=== PATIENT | male | born 1935 ===

== ENCOUNTER 2017-06-30 23:08 | Inpatient (IN) | payer MEDICARE, OTHER ==
[~2017-06-30] VITALS: Ht 175.3 cm; Wt 75.9 kg
[2017-07-01 00:07] VITALS: BP 138/74
[2017-07-01] MEDS ORDERED: MAG HYDROX/AL HYDROX/SIMETH 30 ML ORAL.SUSP PO PRN (00:15)
[2017-07-01] MEDS ORDERED: ACETAMINOPHEN 325 MG TABLET PO PRN (00:15)
[2017-07-01] MEDS ORDERED: MAGNESIUM HYDROXIDE 2,400 MG/30 ML ORAL.SUSP. PO PRN (00:15)
[2017-07-01] MEDS ORDERED: METHYL SALICYLATE/MENTHOL TOPICAL OINTMENT 29GM TUBE. TP PRN (00:15)
[2017-07-01] MEDS ORDERED: HYDROcodone/APAP 5/325MG 1 TAB TABLET PO PRN (00:30)
[2017-07-01] MEDS ORDERED: HYDR-2758 PO (00:35)
[2017-07-01] MEDS ORDERED: LORA2VIA4 IV (00:35)
[2017-07-01] MEDS ORDERED: LISI40TA PO (00:35)
[2017-07-01] MEDS ORDERED: QUET50TA8 PO (00:35)
[2017-07-01] MEDS ORDERED: METO25TA2 PO (00:35)
[2017-07-01] MEDS ORDERED: MIRT15TA PO (00:35)
[2017-07-01] MEDS ORDERED: HALO5AMP2 IV (00:35)
[2017-07-01] MEDS ORDERED: SERT50TA PO (00:35)
[2017-07-01 06:10] VITALS: BP 97/58
[2017-07-01 07:47] LABS: BASO # 0.1 x10^3/uL (0.0-0.2); BASO % 1 % (0-3); EOS # 0.2 x10^3/uL (0.0-0.7); EOS % 2 % (0-3); HEMATOCRIT 38.1 % (39.0-53.0); HEMOGLOBIN 13.2 g/dL (13.0-17.5); LYMPH # 1.3 x10^3/uL (1.0-4.8); LYMPH % 15 % (24-48); MEAN CORPUSCULAR HEMOGLOBIN 32 pg (25-35); MEAN CORPUSCULAR HGB CONC 35 g/dL (31-37); MEAN CORPUSCULAR VOLUME 92 fL (79-100); MONO # 1.1 x10^3/uL (0.0-1.1); MONO % 13 % (0-9); NEUT # 6.3 x10^3uL (1.8-7.7); NEUT % 70 % (31-73); PLATELET COUNT 145 x10^3/uL (140-400); RED BLOOD COUNT 4.14 x10^6/uL (4.30-5.70); RED CELL DISTRIBUTION WIDTH 15.1 % (11.5-14.5)
[2017-07-01 07:57] LABS: ALBUMIN 3.4 g/dL (3.4-5.0); CREATININE 1.3 mg/dL (0.7-1.3); GFR 52.9; MAGNESIUM 1.8 mg/dL (1.8-2.4); POTASSIUM 3.6 mmol/L (3.5-5.1); TOTAL PROTEIN 6.9 g/dL (6.4-8.2)
[2017-07-01] MEDS: LISINOPRIL 20 MG TABLET PO SCH (08:59)
[2017-07-01] MEDS ORDERED: SERTRALINE 50 MG TABLET. PO SCH (09:00)
[2017-07-01] MEDS: METOPROLOL SUCC 24HR ER 25 MG TAB.ER.24H. PO SCH (09:00)
[2017-07-01 12:08] LABS: THYROID STIM HORMONE (TSH) 3.518 uIU/mL (0.358-3.740)
[2017-07-01 15:55] VITALS: BP 148/77
[2017-07-01] MEDS ORDERED: CHOLECALCIFEROL (VITAMIN D3) 50,000 UNIT CAPSULE PO SCH (18:00)
[2017-07-01 18:11] LABS: T3 TOTAL 79 ng/dL (71-180); THYROXINE 6.7 ug/dL (4.5-12.0)
[2017-07-01] MEDS: QUEtiapine 100 MG TABLET. PO SCH (19:54)
[2017-07-01] MEDS: MIRTAZAPINE 15 MG TABLET PO SCH (19:54)
[2017-07-01] MEDS ORDERED: MIRTAZAPINE 15 MG TABLET PO SCH (21:00)
[2017-07-02 05:58] VITALS: BP 130/65
[2017-07-02] MEDS: LISINOPRIL 20 MG TABLET PO SCH (08:07)
[2017-07-02] MEDS: METOPROLOL SUCC 24HR ER 25 MG TAB.ER.24H. PO SCH (08:07)
[2017-07-02] MEDS: SERTRALINE 25 MG TABLET. PO SCH (08:07)
[2017-07-02] MEDS: CHOLECALCIFEROL (VITAMIN D3) 50,000 UNIT CAPSULE PO SCH (08:08)
--- NOTE | 2017-07-02 08:56 | CONS ---
DATE OF CONSULTATION: 07/01/2017 REASON FOR CONSULTATION: Medical management. HISTORY OF PRESENT ILLNESS: The patient is an 82-year-old male patient who apparently resides at memory unit at [facility]. Apparently, he was complaining of multiple falls and dementia, has ataxia on admission, was admitted to [facility] where he was extensively investigated. He has had a CT scan of the head, which was negative. MRI could not be done because he had permanent pacemaker. He had a lumbar puncture, which showed no evidence of meningitis or bacterial otherwise. He developed also acute confusional states while in the hospital, he became very aggressive and was seen by the psychiatrist where he was started on Seroquel 100 mg at bedtime and on Haldol as necessary. The patient was [facility] for inpatient psychiatric stabilization as he was very aggressive, requiring a 4-point restraints while he was at the other hospital. According to the nursing staff, the patient has been very cooperative, did not display any behavior like that while at this facility at least so far. PAST MEDICAL HISTORY: Significant for hypertension, type 2 diabetes. He has cataract in his left eye, coronary artery disease status post stent deployment, has also history of CVA and dementia. PAST SURGICAL HISTORY: Significant for permanent pacemaker, PCI with stent deployment and cataract extraction. FAMILY HISTORY: Unremarkable. 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 He is a nonsmoker. He drinks alcohol occasionally. PAST SURGICAL HISTORY: Significant for appendectomy, back surgery, prior cardiac catheterization, colectomy with colostomy, colonoscopy, colostomy reversal, and a pacemaker placement. ALLERGIES: He has no known drug allergies. MEDICATIONS: He is currently on following medications, Haldol 5 mg/mL intramuscular as needed every 8 hours, hydrocodone/APAP 5/325 one tablet every 4 hours, lisinopril ____ mg once a day, lorazepam 2 mg/mL while the patient gets 0.5 mg IV every 8 hours, metoprolol succinate 25 mg once a day, mirtazapine 7.5 mg at bedtime, quetiapine fumarate 100 mg at bedtime and sertraline 50 mg daily. REVIEW OF SYSTEMS: Unobtainable. When I saw him this afternoon, he was sitting comfortably in his chair, attempting to eat his dinner, although he seemed to be confused and unable to know what to do with his food. His was slightly pale without jaundice, cyanosis, or thyromegaly. No jugular venous distension. No limb edema. PHYSICAL EXAMINATION: VITAL SIGNS: His heart rate was 62, blood pressure 148/77, temperature was 97.9, respiratory rate was 18 and oxygen saturation was 94% on room air. His other clinical examination seems to be unremarkable as he was seen at the [facility] and examined by multiple physicians there. LABORATORY DATA: His lab work done this morning showed a serum sodium 143, potassium 3.6, chloride 105, bicarbonate 29, anion gap of 9, BUN 25, creatinine 1.3, estimated GFR was 53 mL per minute, his glucose 157, calcium was 9, magnesium was 1.8. Serum iron was 42, TIBC was 27, percent saturation 20%. His total bilirubin 1. AST, ALT, alkaline phosphatase were normal. Total protein 6.9, albumin 3.4. Serum triglycerides were 99. Total cholesterol 151, LDL cholesterol was 81, VLDL was 19, HDL was 51 with a ratio of 2. TSH was 2.518. Vitamin B12 was 860 pg/mL and 25-hydroxy vitamin D was very low at 10.7. His white cell count was 9000, hemoglobin 13, hematocrit 38, MCV 92, and platelet count of 145,000 with normal manual differential. IMPRESSION: In summary, this is an 82-year-old male patient, a resident at [facility] who was admitted with recurrent falls and ataxic gait; however, he developed acute delirium on top of his dementia and became very aggressive requiring 4-point restraints while at the other hospital. He is here for inpatient psychiatric stabilization, has multiple medical problems including hypertension. He carries a diagnosis of diabetes mellitus, although his blood sugar unremarkable. He is not on any oral hypoglycemic agent. He also has a history of dementia, coronary artery disease status post stent deployment, history of cerebrovascular accident 2-3 years ago, history of diverticulitis as well as colectomy and colostomy with reversal. All in all, he seemed to be medically stable. All his vital signs to be within acceptable range. His lab work was also normal apart from vitamin D deficiency for which we started him on ergocalciferol 50,000 international units once a week. We will do Accu-Cheks before meals and bedtime and also hemoglobin A1c to make sure that he does not require any coverage. Thank you, Dr. Muller, for allowing me to participate in the care of this patient. HOLLIS ROYAL MD DR: RYAN/nathan JOB#: [id number] / [id number]
[2017-07-02 11:34] LABS: BACTERIA,URINE 0 /HPF (0-FEW); BILIRUBIN,URINE NEG (NEG); CLARITY,URINE CLEAR; COLOR,URINE AMBER; GLUCOSE,URINE NEG (NEG); NITRITE,URINE NEG (NEG); SQUAMOUS EPITHELIAL CELL,UR FEW /LPF; UROBILINOGEN,URINE 0.2 mg/dL (0.2 mg/dL); WBC,URINE 0 /HPF (0-4)
[2017-07-02 11:35] LABS: HYALINE CASTS, URINE MOD /HPF
[2017-07-02 15:53] VITALS: BP 163/64
--- NOTE | 2017-07-02 16:36 | PSYEV ---
DATE OF SERVICE: 07/01/2017 REASON FOR ADMISSION: This 82-year-old male who was admitted to unit 6 as transfer from [facility] where he was kept under 4-point restraints in the hospital because he was trying to hit the staff, kicking legs, not sleeping, pulling at his IV, calling for his mother. The patient was also aggressive and confused. HISTORY OF PRESENT ILLNESS: The patient is on wheelchair, had considerable difficulty providing information. He is slow to respond to questions. The patient thinks that he has been living in [place] with his parents. The patient is not able to comprehend his surroundings, confused, fearful. The patient apparently exhibiting recent change in his behavior. As a result, he was admitted to one of the assisted living and then to the [facility] in [place]. The patient is not able to take care of his ADLs. The patient also has multiple physical complaints. The patient also has some hearing loss, able to make eye contact. His vision is fairly good. The patient at this time unable to give much information The patient has no awareness of his surroundings. PAST PSYCHIATRIC HISTORY: Unavailable except for a recent stay at [facility]. PAST MEDICAL HISTORY: The patient has multiple physical problems, history of CVA, cardiac pacemaker, hypertension, diabetes, colitis, coronary artery disease with stents placement in 2012, also colostomy reversal, history of diverticulitis, history of falls. PSYCHOSOCIAL HISTORY: The patient unable to give much information. 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 The patient apparently not sleeping well. The patient also confused, significant agitation. The patient has no history of alcoholism or tobacco use. 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 MEDICATIONS: The patient's home medications includes Zoloft 50 mg daily, mirtazapine 7.5 mg at night, Seroquel 100 mg at night, lisinopril 40 mg daily, and metoprolol 25 mg daily. The patient's lab reviewed. The patient's RBC was 4.1, MCHC 15.1, glucose 157. Iron 42, TIBC 207. Lipid profile normal. FAMILY HISTORY: Not available. MENTAL STATUS EXAMINATION: The patient appeared to be of his stated age, casually dressed, on wheelchair, able to make eye contact. The patient is somewhat withdrawn appeared to be scared, not knowing what is going on with him. The patient denied of any visual or auditory hallucinations. The patient denies of having had any falls. Speech monotone, decreased rate and rhythm. The patient was able to answer the questions. The patient has significant memory problems. The patient was able to name 3 objects, but not able to remember them in 1 minute and 3 minutes. The patient's remote memory fairly intact. The patient is not exhibiting any psychotic symptoms, but recently has exhibited behavior problems including increased agitation and being combative. The patient denies of feeling depressed. The patient denies of any suicidal or homicidal thoughts. His judgment is impaired. Insight limited. The patient is disoriented to surroundings. ASSETS: Supportive family. WEAKNESSES: The patient currently exhibiting behavior problems secondary to dementia and also fall risk. ADMITTING DIAGNOSIS: AXIS I: 1. Dementia, vascular with behavioral problems. 2. Generalized anxiety disorder. 3. Impulse control disorder, unspecified. AXIS II: None. AXIS III: Dementia, vascular type, history of CVA, cardiac pacemaker, hypertension, diabetes, history of colitis, also history of falls. INITIAL TREATMENT PLAN: The patient will have a physical exam, routine lab work. The patient will continue on his medication with the following changes. His Zoloft was decreased to 25 mg. The patient's Remeron was increased to 15 mg at night. Continue on the Seroquel 100 mg at night. The patient will be seen by the psychiatrist on a daily basis. The patient will be encouraged to attend all the activities. The patient also on fall prevention. DISCHARGE PLANS: 1. The patient will be under observation. We will repeat the lab work including his urinalysis to rule out UTI. The patient will be encouraged to attend all the activities and administrator social welfare to obtain information from the family and also medical records from the [facility]. LENGTH OF STAY: 7-10 days. DE KHAN MD DR: MINNIE/nathan JOB#: [id number] / [id number]
[2017-07-02] MEDS: MIRTAZAPINE 15 MG TABLET PO SCH (19:18)
[2017-07-02] MEDS: QUEtiapine 100 MG TABLET. PO SCH (19:18)
[2017-07-03] MEDS: HYDROcodone/APAP 5/325MG 1 TAB TABLET PO PRN (00:13)
--- NOTE | 2017-07-03 06:57 | PN ---
DATE: 07/02/2017 SUBJECTIVE: The patient was seen today, met with the staff, chart reviewed. The patient is still confused on a wheelchair, restless, combative, reacts to external stimuli. The patient is not sleeping well. The patient is difficult to redirect. OBSERVATION: The patient's vital signs are stable. The patient's appetite is fair. The patient interacts with the staff, but is confused, sometimes paranoid, gets agitated easily. MEDICATIONS: The patient's current medications include Zoloft 25 mg daily, mirtazapine 15 mg at night, Seroquel 100 mg at night. The patient so far not exhibited any major side effects. The patient will be encouraged to attend all the activities. The patient ____ had any falls. The patient's lab reviewed. Blood sugar elevated at 154, otherwise most of the lab work was within normal range. The patient's RPR was nonreactive. Urinalysis was negative. ASSESSMENT: Vascular dementia with delusions, depression, and behavioral problems. PLAN: To continue with the treatment. DE KHAN MD DR: MINNIE/nathan JOB#: [id number] / [id number]
[2017-07-03] MEDS: LISINOPRIL 20 MG TABLET PO SCH (09:10)
[2017-07-03] MEDS: SERTRALINE 25 MG TABLET. PO SCH (09:11)
[2017-07-03] MEDS: METOPROLOL SUCC 24HR ER 25 MG TAB.ER.24H. PO SCH (09:11)
--- NOTE | 2017-07-03 13:57 | EKG ---
[address] [address] Test Date: 2017-07-01 Test Time: 07:06:24 Pat Name: RAFAEL BEAN Department: Room: [facility] 1 Gender: M Glove Examiner: LILI : 1935 Requested By: DE KHAN Order Number: [id number] Reading MD: Oj Copeland Measurements Intervals [place] Rate: 60 P: -59 SD: 184 QRS: -45 QRSD: 106 T: 72 QT: 438 QTc: 442 Interpretive Statements ATRIAL PACED RHYTHM NONSPECIFIC ST-T WAVE CHANGES. RI6.01 No previous ECG available for comparison Electronically Signed On 07-09-2017 12:43:47 CIRCULATION LIBRARIAN by Oj Copeland
[2017-07-03 15:58] VITALS: BP 159/71
[2017-07-03] MEDS: MIRTAZAPINE 15 MG TABLET PO SCH (20:23)
[2017-07-03] MEDS: QUEtiapine 100 MG TABLET. PO SCH (20:23)
--- NOTE | 2017-07-04 03:34 | PN ---
DATE: 07/03/2017 SUBJECTIVE: The patient was seen today, met with the staff, chart reviewed and also reviewed the treatment plan. The patient continues to have problems with mood swings, combative, confused. OBSERVATION: VITAL SIGNS: The patient refused. The patient slept only about 2 hours last night. The patient is difficult to redirect. The patient also unpredictable with his behavior. MEDICATIONS: Reviewed. Currently on olanzapine 2.5 mg q.2 hours p.r.n., Zoloft 25 mg daily, mirtazapine 15 mg at night, Seroquel 100 mg at night. The patient will be encouraged to attend the activities. LABORATORY DATA: The patient's lab reviewed, no major change. The patient's glucose level was 157. ASSESSMENT: Vascular dementia with delusions, depression, and behavioral disturbances. PLAN: To continue with the treatment. DE KHAN MD DR: MINNIE/nathan JOB#: [id number] / [id number]
[2017-07-04 06:07] VITALS: BP 154/81
[2017-07-04] MEDS: LISINOPRIL 20 MG TABLET PO SCH (07:36)
[2017-07-04] MEDS: SERTRALINE 25 MG TABLET. PO SCH (07:36)
[2017-07-04] MEDS: METOPROLOL SUCC 24HR ER 25 MG TAB.ER.24H. PO SCH (07:36)
[2017-07-04 15:23] VITALS: BP 102/66
[2017-07-04] MEDS: MIRTAZAPINE 15 MG TABLET PO SCH (19:12)
[2017-07-04] MEDS: QUEtiapine 100 MG TABLET. PO SCH (19:13)
[2017-07-04] MEDS: HYDROcodone/APAP 5/325MG 1 TAB TABLET PO PRN ×2 (19:15→20:56)
[2017-07-04] MEDS ORDERED: HALOPERIDOL 5 MG TABLET PO ONE (23:45)
[2017-07-05] MEDS: HALOPERIDOL 2 MG TABLET PO PRN ×3 (00:56→19:41)
[2017-07-05 02:08] VITALS: BP 113/60
[2017-07-05 06:09] VITALS: BP 132/87
[2017-07-05] MEDS: METOPROLOL SUCC 24HR ER 25 MG TAB.ER.24H. PO SCH (07:51)
[2017-07-05] MEDS: SERTRALINE 25 MG TABLET. PO SCH (07:51)
[2017-07-05] MEDS: LISINOPRIL 20 MG TABLET PO SCH (07:52)
--- NOTE | 2017-07-05 13:08 | PN ---
DATE: 07/04/2017 SUBJECTIVE: The patient was seen today, met with the staff, chart reviewed. The patient continues to have problems with mood swings, periods of confusion, agitation, also a fall risk. OBSERVATION: VITAL SIGNS: Temperature 97.4, blood pressure 154/81, pulse 61, respirations 18, O2 sat 98%. Apparently, the patient did not sleep at all last night, but again he sleeps during the daytime. The patient's medications reviewed. Also, lab reviewed. The patient's appetite is fair. He needs close observation. MEDICATIONS: The patient's current medications include olanzapine 2.5 mg q. 2-4 hours p.r.n., Zoloft 25 mg daily, mirtazapine 15 mg at night, and Seroquel 100 mg at night. ASSESSMENT: Vascular dementia with delusions, depression, and behavioral disturbances. PLAN: To continue with the treatments. DE KHAN MD DR: MINNIE/nathan JOB#: [id number] / [id number]
[2017-07-05 16:00] VITALS: BP 107/68
[2017-07-05] MEDS ORDERED: DEXTROSE 50% 25 GM / 50ML DISP.SYRIN. IV PRN (18:00)
[2017-07-05] MEDS: QUEtiapine 100 MG TABLET. PO SCH (19:39)
[2017-07-05] MEDS: MIRTAZAPINE 15 MG TABLET PO SCH (19:39)
[2017-07-06 06:06] VITALS: BP 108/55
[2017-07-06] MEDS: INSULIN ASPART 300 UNITS/3 ML INSULN.PEN SQ SCH ×3 (07:30→16:30)
[2017-07-06] MEDS: LISINOPRIL 20 MG TABLET PO SCH (07:37)
[2017-07-06] MEDS: SERTRALINE 25 MG TABLET. PO SCH (07:37)
[2017-07-06] MEDS: METOPROLOL SUCC 24HR ER 25 MG TAB.ER.24H. PO SCH (07:37)
[2017-07-06] MEDS: HALOPERIDOL 2 MG TABLET PO PRN ×2 (10:14→19:26)
[2017-07-06 16:17] VITALS: BP 184/86
[2017-07-06] MEDS: MIRTAZAPINE 15 MG TABLET PO SCH (19:24)
[2017-07-06] MEDS: QUEtiapine 100 MG TABLET. PO SCH (19:25)
--- NOTE | 2017-07-06 19:52 | PDOC ---
Exam Note: Lars Note: Please also refer to the separate dictated note~for this date of service dictated separately.~Patient seen individually. Discussed the patient with Nursing staff reviewed the chart.~Reviewed interim history and current functioning. Reviewed vital signs,~Labs/ Radiology~and current medications noted below. Continue current treatment with the changes noted in the dictated addendum note Assessment: Vital Signs: Vital Signs Date Time Temp Pulse Resp B/P (MAP) Pulse Ox O2 Delivery O2 Flow Rate FiO2 07/06/17 16:17 60 18 184/86 (118) 96 07/06/17 06:06 97.1 07/04/17 21:55 Room Air I&O Intake and Output 07/06/17 07:00 Intake Total 505 ml Balance 505 ml Intake Oral 505 ml Labs: Laboratory Tests Test 07/06/17 07:32 07/06/17 11:34 07/06/17 16:38 07/06/17 19:26 Glucose (Fingerstick) 156 mg/dL (70-99) H 204 mg/dL (70-99) H 170 mg/dL (70-99) H 156 mg/dL (70-99) H Current Medications: Meds: Current Medications Acetaminophen (Tylenol) 650 mg PRN Q6HRS PRN PO PAIN / TEMP; Start 07/01/17 at 00:15 Multi-Ingredient Ointment (Analgesic [place]) 1 chary PRN QID PRN TP MUSCLE PAIN; Start 07/01/17 at 00:15 Al Hydroxide/Mg Hydroxide (Mylanta Plus Xs) 15 ml PRN AFTMEALHC PRN PO DYSPEPSIA; Start 07/01/17 at 00:15 Magnesium Hydroxide (Milk Of Magnesia) 2,400 mg PRN QHS PRN PO CONSTIPATION; Start 07/01/17 at 00:15 Acetaminophen/ Hydrocodone Bitart (Lortab 5/325) 1 tab PRN Q4HRS PRN PO MILD PAIN Last administered on 07/04/17at 20:56; Start 07/01/17 at 00:30 Acetaminophen/ Hydrocodone Bitart (Lortab 5/325) 2 tab PRN Q4HRS PRN PO moderate or severe pain Last administered on 07/03/17at 22:33; Start 07/01/17 at 00:30 Metoprolol Succinate (Toprol Xl) 25 mg DAILY PO Last administered on 07/06/17 07:37; Start 07/01/17 at 09:00 Mirtazapine (Remeron) 7.5 mg QHS PO ; Start 07/01/17 at 21:00; Stop 07/01/17 at 21:00; Status DC Sertraline HCl (Zoloft) 50 mg DAILY PO Last administered on 07/01/17at 09:01; Start 07/01/17 at 09:00; Stop 07/01/17 at 18:49; Status DC Lisinopril (Prinivil) 40 mg DAILY PO Last administered on 07/06/17at 07:37; Start 07/01/17 at 09:00 Quetiapine Fumarate (SEROquel) 100 mg QHS PO Last administered on 07/06/17 19: 25; Start 07/01/17 at 21:00 Vitamin D (Vitamin D3) 50,000 unit WEEKLY PO ; Start 07/01/17 at 18:00; Stop at 19:03; Status DC Mirtazapine (Remeron) 15 mg QHS PO Last administered on 07/06/17at 19:24; Start 07/01/17 at 21:00 Sertraline HCl (Zoloft) 25 mg DAILY PO Last administered on 07/06/17 07:37; Start 07/02/17 at 09:00 Vitamin D (Vitamin D3) 50,000 unit WEEKLY PO Last administered on 07/02/17at 08: 08; Start 07/02/17 at 09:00 Olanzapine (ZyPREXA ZYDIS) 2.5 mg PRN Q2HR PRN PO psychosis Last administered on 07/04/17 20:56; Start 07/02/17 at 16:15; Stop 07/04/17 at 23:31; Status DC Haloperidol (Haldol) 5 mg 1X ONCE PO Last administered on 07/05/17 00:00; Start 07/04/17 at 23:45; Stop 07/04/17 at 23:46; Status DC Haloperidol (Haldol) 2 mg PRN Q6HRS PRN PO ANXIETY / AGITATION Last administered on 07/06/17 19:26; Start 07/04/17 at 23:30 Insulin Aspart (NovoLOG) 0-5 UNITS TIDAC SQ Last administered on 2/4/18at 13:32 ; Start 07/06/17 at 07:30 Dextrose 12.5 gm PRN Q15MIN PRN IV SEE COMMENTS; Start 07/05/17 at 18:00 Active Scripts Active Reported Zoloft (Sertraline Hcl) 50 Mg Tablet 50 Mg PO DAILY Seroquel Xr (Quetiapine Fumarate) 50 Mg Tab.er.24h 100 Mg PO QHS Remeron (Mirtazapine) 15 Mg Tablet 7.5 Mg PO QHS Toprol Xl (Metoprolol Succinate) 25 Mg Tab.er.24h 25 Mg PO DAILY Ativan (Lorazepam) 2 Mg/1 Ml Vial 0.5 Mg IV PRN Q8HRS PRN Hydrocodone-Apap 5-325 (Hydrocodone Bit/Acetaminophen) 1 Each Tablet 2 Tab PO PRN Q4HRS PRN Hydrocodone-Apap 5-325 (Hydrocodone Bit/Acetaminophen) 1 Each Tablet 1 Tab PO PRN Q4HRS PRN Lisinopril 40 Mg Tablet 40 Mg PO DAILY Haldol (Haloperidol Lactate) 5 Mg/1 Ml Ampul 1 Mg IV PRN Q8HRS PRN I have reviewed the current psychotropics carefully including drug interactions. Risk benefit ratio favors no change other than as noted in my dictated progress note. Diagnosis: Problems: (1) Delusion (2) Behavior problem (3) Vascular dementia with behavior disturbance (4) Dementia with behavioral problem AMPARO GUY MD Jul 06, 2017 19:52
--- NOTE | 2017-07-06 23:01 | PN ---
DATE: 07/05/[address] Muller. SUBJECTIVE: The patient has been combative and has a fall risk. He did fall yesterday and he had bruising on his lip. He has been agitated and he was given Haldol 2 mg to calm him down. Zyprexa Zydis was discontinued. The patient denies any new medical complaints. OBJECTIVE: GENERAL: Well-developed, well-nourished white male, not in acute distress. VITAL SIGNS: Blood pressure 132/87, respiratory rate 16, pulse 91 and regular, temperature 97.1, oxygen saturation 91% on room air. HEENT: Normocephalic, atraumatic, otherwise unremarkable. NECK: Supple. Negative for carotid bruit, lymphadenopathy or thyromegaly. LUNGS: Clear to A and P. CARDIOVASCULAR: Regular rate and rhythm, normal S1, S2. There is no S3, S4, murmur. ABDOMEN: Soft. Bowel sounds positive. No palpable mass, organomegaly or tenderness. EXTREMITIES: Negative for cyanosis, clubbing or pitting edema. NEUROLOGICAL: Mental Status: The patient is alert, but disoriented. He follows 1-step commands. Cranial nerves appear to be intact. No focal motor or sensory deficit. Deep tendon reflexes are symmetric and hypoactive without pathologic responses. Gait not tested. IMPRESSION: Dementia, delusion, behavior disturbances, and multiple medical problems include stroke, status post pacemaker placement, hypertension, diabetes, colitis, coronary artery disease. RECOMMENDATIONS: We will continue with current management, initiated by Dr. Hernandez includes Haldol on p.r.n. for agitation along with other psych medications. M Jackson BARRIOS MD DR: PEARL/nathan JOB#: [id number] / [id number]
[2017-07-07] MEDS: SERTRALINE 25 MG TABLET. PO SCH (08:53)
[2017-07-07] MEDS: LISINOPRIL 20 MG TABLET PO SCH (08:53)
[2017-07-07] MEDS: METOPROLOL SUCC 24HR ER 25 MG TAB.ER.24H. PO SCH (08:53)
[2017-07-07] MEDS: INSULIN ASPART 300 UNITS/3 ML INSULN.PEN SQ SCH ×3 (08:55→16:30)
[2017-07-07 09:39] LABS: BASO # 0.1 x10^3/uL (0.0-0.2); BASO % 1 % (0-3); EOS # 0.3 x10^3/uL (0.0-0.7); EOS % 3 % (0-3); HEMATOCRIT 37.8 % (39.0-53.0); HEMOGLOBIN 12.9 g/dL (13.0-17.5); LYMPH # 1.1 x10^3/uL (1.0-4.8); LYMPH % 13 % (24-48); MEAN CORPUSCULAR HEMOGLOBIN 32 pg (25-35); MEAN CORPUSCULAR HGB CONC 34 g/dL (31-37); MEAN CORPUSCULAR VOLUME 93 fL (79-100); MONO % 11 % (0-9); NEUT # 6.3 x10^3uL (1.8-7.7); NEUT % 72 % (31-73); PLATELET COUNT 154 x10^3/uL (140-400); RED BLOOD COUNT 4.07 x10^6/uL (4.30-5.70); RED CELL DISTRIBUTION WIDTH 15.3 % (11.5-14.5); WHITE BLOOD COUNT 8.7 x10^3/uL (4.0-11.0)
[2017-07-07 09:43] LABS: ALBUMIN 3.2 g/dL (3.4-5.0); CALCIUM 9.1 mg/dL (8.5-10.1); CREATININE 1.3 mg/dL (0.7-1.3); GFR 52.9; POTASSIUM 4.1 mmol/L (3.5-5.1); TOTAL BILIRUBIN 0.7 mg/dL (0.2-1.0); TOTAL PROTEIN 6.4 g/dL (6.4-8.2)
[2017-07-07] MEDS: HALOPERIDOL 2 MG TABLET PO PRN ×2 (15:00→23:33)
--- NOTE | 2017-07-07 15:33 | RAD ---
Portable abdomen, 07/07/2017: History: Constipation Gas is present in probably large bowel without significant bowel distention. There is a moderate amount stool scattered throughout the colon. There is no evidence of organomegaly. Surgical clips and sutures overlie the upper pelvis on the left. Surgical clips are present in the right upper quadrant. Internal fixation devices are present in the lower lumbar spine. Moderate multilevel degenerative changes are evident in the spine. IMPRESSION: No acute abdominal abnormality is detected.
[2017-07-07 16:14] VITALS: BP 138/65
[2017-07-07] MEDS: QUEtiapine 100 MG TABLET. PO SCH (19:26)
[2017-07-07] MEDS: MIRTAZAPINE 15 MG TABLET PO SCH (19:26)
[2017-07-07] MEDS: traZODone 50 MG TABLET. PO PRN ×2 (19:29→23:33)
--- NOTE | 2017-07-07 21:14 | PDOC ---
Exam Note: Lars Note: Please also refer to the separate dictated note~for this date of service dictated separately.~Patient seen individually. Discussed the patient with Nursing staff reviewed the chart.~Reviewed interim history and current functioning. Reviewed vital signs,~Labs/ Radiology~and current medications noted below. Continue current treatment with the changes noted in the dictated addendum note Assessment: Vital Signs: Vital Signs Date Time Temp Pulse Resp B/P (MAP) Pulse Ox O2 Delivery O2 Flow Rate FiO2 07/07/17 16:14 97.8 67 18 138/65 (89) 92 07/04/17 21:55 Room Air I&O Intake and Output 07/07/17 07:00 Intake Total 960 ml Balance 960 ml Intake Oral 960 ml # Voids 1 Labs: Laboratory Tests Test 07/07/17 08:01 07/07/17 09:09 07/07/17 11:52 07/07/17 17:01 Glucose (Fingerstick) 166 mg/dL (70-99) H 260 mg/dL (70-99) H 140 mg/dL (70-99) H White Blood Count 8.7 x10^3/uL (4.0-11.0) Red Blood Count 4.07 x10^6/uL (4.30-5.70) L Hemoglobin 12.9 g/dL (13.0-17.5) L Hematocrit 37.8 % (39.0-53.0) L Mean Corpuscular Volume 93 fL (79-100) Mean Corpuscular Hemoglobin 32 pg (25-35) Mean Corpuscular Hemoglobin Concent 34 g/dL (31-37) Red Cell Distribution Width 15.3 % (11.5-14.5) H Platelet Count 154 x10^3/uL (140-400) Neutrophils (%) (Auto) 72 % (31-73) Lymphocytes (%) (Auto) 13 % (24-48) L Monocytes (%) (Auto) 11 % (0-9) H Eosinophils (%) (Auto) 3 % (0-3) Basophils (%) (Auto) 1 % (0-3) Neutrophils # (Auto) 6.3 x10^3uL (1.8-7.7) Lymphocytes # (Auto) 1.1 x10^3/uL (1.0-4.8) Monocytes # (Auto) 1.0 x10^3/uL (0.0-1.1) Eosinophils # (Auto) 0.3 x10^3/uL (0.0-0.7) Basophils # (Auto) 0.1 x10^3/uL (0.0-0.2) Sodium Level 146 mmol/L (136-145) H Potassium Level 4.1 mmol/L (3.5-5.1) Chloride Level 109 mmol/L (98-107) H Carbon Dioxide Level 33 mmol/L (21-32) H Anion Gap 4 (6-14) L Blood Urea Nitrogen 35 mg/dL (8-26) H Creatinine 1.3 mg/dL (0.7-1.3) Estimated GFR (Cockcroft-Gault) 52.9 BUN/Creatinine Ratio 27 (6-20) H Glucose Level 166 mg/dL (70-99) H Calcium Level 9.1 mg/dL (8.5-10.1) Magnesium Level 2.0 mg/dL (1.8-2.4) Total Bilirubin 0.7 mg/dL (0.2-1.0) Aspartate Amino Transferase (AST) 26 U/L (15-37) Alanine Aminotransferase (ALT) 32 U/L (16-63) Alkaline Phosphatase 119 U/L (46-116) H Total Protein 6.4 g/dL (6.4-8.2) Albumin 3.2 g/dL (3.4-5.0) L Albumin/Globulin Ratio 1.0 (1.0-1.7) Current Medications: Meds: Current Medications Acetaminophen (Tylenol) 650 mg PRN Q6HRS PRN PO PAIN / TEMP; Start 07/01/17 at 00:15 Multi-Ingredient Ointment (Analgesic [place]) 1 chary PRN QID PRN TP MUSCLE PAIN; Start 07/01/17 at 00:15 Al Hydroxide/Mg Hydroxide (Mylanta Plus Xs) 15 ml PRN AFTMEALHC PRN PO DYSPEPSIA; Start 07/01/17 at 00:15 Magnesium Hydroxide (Milk Of Magnesia) 2,400 mg PRN QHS PRN PO CONSTIPATION Last administered on 07/07/17at 09:00; Start 07/01/17 at 00:15 Acetaminophen/ Hydrocodone Bitart (Lortab 5/325) 1 tab PRN Q4HRS PRN PO MILD PAIN Last administered on 07/04/17 20:56; Start 07/01/17 at 00:30 Acetaminophen/ Hydrocodone Bitart (Lortab 5/325) 2 tab PRN Q4HRS PRN PO moderate or severe pain Last administered on 07/03/17 22:33; Start 07/01/17 at 00:30; Stop 07/06/17 at 21:38; Status DC Metoprolol Succinate (Toprol Xl) 25 mg DAILY PO Last administered on 07/07/17 08:53; Start 07/01/17 at 09:00 Mirtazapine (Remeron) 7.5 mg QHS PO ; Start 07/01/17 at 21:00; Stop 07/01/17 at 21:00; Status DC Sertraline HCl (Zoloft) 50 mg DAILY PO Last administered on 07/01/17 09:01; Start 07/01/17 at 09:00; Stop 07/01/17 at 18:49; Status DC Lisinopril (Prinivil) 40 mg DAILY PO Last administered on 07/07/17 08:53; Start 07/01/17 at 09:00 Quetiapine Fumarate (SEROquel) 100 mg QHS PO Last administered on 07/07/17 19: 26; Start 07/01/17 at 21:00 Vitamin D (Vitamin D3) 50,000 unit WEEKLY PO ; Start 07/01/17 at 18:00; Stop at 19:03; Status DC Mirtazapine (Remeron) 15 mg QHS PO Last administered on 07/07/17 19:26; Start 07/01/17 at 21:00 Sertraline HCl (Zoloft) 25 mg DAILY PO Last administered on 07/07/17 08:53; Start 07/02/17 at 09:00; Stop 07/07/17 at 18:39; Status DC Vitamin D (Vitamin D3) 50,000 unit WEEKLY PO Last administered on 07/02/17at 08: 08; Start 07/02/17 at 09:00 Olanzapine (ZyPREXA ZYDIS) 2.5 mg PRN Q2HR PRN PO psychosis Last administered on 2/2/18at 20:56; Start 07/02/17 at 16:15; Stop 07/04/17 at 23:31; Status DC Haloperidol (Haldol) 5 mg 1X ONCE PO Last administered on 07/05/17at 00:00; Start 07/04/17 at 23:45; Stop 07/04/17 at 23:46; Status DC Haloperidol (Haldol) 2 mg PRN Q6HRS PRN PO ANXIETY / AGITATION Last administered on 07/07/17at 15:00; Start 07/04/17 at 23:30 Insulin Aspart (NovoLOG) 0-5 UNITS TIDAC SQ Last administered on 07/07/17at 11:30 ; Start 07/06/17 at 07:30 Dextrose 12.5 gm PRN Q15MIN PRN IV SEE COMMENTS; Start 07/05/17 at 18:00 Olanzapine (ZyPREXA ZYDIS) 2.5 mg PRN Q2HR PRN PO PSYCHOSIS Last administered on 07/07/17at 19:41; Start 07/06/17 at 21:45 Trazodone HCl (Desyrel) 50 mg PRN QHS PRN PO INSOMNIA, MAY REPEAT X1 Last administered on 07/07/17at 19:29; Start 07/07/17 at 17:45 Sertraline HCl (Zoloft) 50 mg DAILY PO ; Start 07/08/17 at 09:00 Divalproex Sodium (Depakote Sprinkles) 125 mg TID@0900,1300,1700 PO ; Start 07/08 at 09:00 Active Scripts Active Reported Zoloft (Sertraline Hcl) 50 Mg Tablet 50 Mg PO DAILY Seroquel Xr (Quetiapine Fumarate) 50 Mg Tab.er.24h 100 Mg PO QHS Remeron (Mirtazapine) 15 Mg Tablet 7.5 Mg PO QHS Toprol Xl (Metoprolol Succinate) 25 Mg Tab.er.24h 25 Mg PO DAILY Ativan (Lorazepam) 2 Mg/1 Ml Vial 0.5 Mg IV PRN Q8HRS PRN Hydrocodone-Apap 5-325 (Hydrocodone Bit/Acetaminophen) 1 Each Tablet 2 Tab PO PRN Q4HRS PRN Hydrocodone-Apap 5-325 (Hydrocodone Bit/Acetaminophen) 1 Each Tablet 1 Tab PO PRN Q4HRS PRN Lisinopril 40 Mg Tablet 40 Mg PO DAILY Haldol (Haloperidol Lactate) 5 Mg/1 Ml Ampul 1 Mg IV PRN Q8HRS PRN I have reviewed the current psychotropics carefully including drug interactions. Risk benefit ratio favors no change other than as noted in my dictated progress note. 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
--- NOTE | 2017-07-07 23:39 | PN ---
DATE: 07/06/2017 This is a late entry for 07/06/2017 and covers the elements not covered in my initial note of 07/06/2017. SUBJECTIVE: I met with the patient evening of 07/06/2017. Per nursing report, the patient has been combative with cares worse at night, has multiple skin tears on the mattress several times during the day, received Haldol p.r.n., not sleeping well at night, combative at times. REVIEW OF SYSTEMS: Ambulation impaired with a wheelchair. No CV, , pulmonary, eye, ENT system symptoms on review. Reliability poor. MENTAL STATUS EXAM: Oriented to himself. Insight, judgment, recent and remote memory, attention, concentration, fund of knowledge poor, consistent with his diagnosis mentioned in my initial note. IMPRESSION: Major neurocognitive disorder, Alzheimer, vascular with depression, delusion, behavioral disturbance. PLAN: Change Haldol p.r.n. to Zyprexa 2.5 mg q. 2 hours p.r.n. psychosis, agitation, max 10 mg in 24 hours. Continue Seroquel 100 mg at bedtime, Remeron 15 mg at bedtime, Zoloft 25 mg a day; may need to add trazodone for insomnia which we will add 50 mg at bedtime p.r.n., may repeat x 1 for insomnia. MAN Robinson GUY MD DR: RAJAN/nathan JOB#: [id number] / [id number]
[2017-07-08] MEDS ORDERED: SODIUM PHOSPHATES 19/7GM 133 ML ENEMA. PR ONE (07:00)
[2017-07-08] MEDS ORDERED: MINERAL OIL 133 ML ENEMA. PR PRN (07:00)
[2017-07-08] MEDS ORDERED: SODIUM PHOSPHATES 19/7GM 133 ML ENEMA. PR PRN (07:00)
[2017-07-08] MEDS ORDERED: MAGNESIUM CITRATE 296 ML SOLUTION. PO PRN (07:00)
[2017-07-08 07:45] VITALS: BP 140/60
[2017-07-08] MEDS: INSULIN ASPART 300 UNITS/3 ML INSULN.PEN SQ SCH ×3 (07:47→16:30)
[2017-07-08] MEDS: METOPROLOL SUCC 24HR ER 25 MG TAB.ER.24H. PO SCH (08:21)
[2017-07-08] MEDS: SERTRALINE 50 MG TABLET. PO SCH (08:22)
[2017-07-08] MEDS: DIVALPROEX 125 MG CAP.SPRINK PO SCH ×3 (08:22→17:00)
[2017-07-08] MEDS: DOCUSATE SODIUM 100 MG CAPSULE PO SCH (08:22)
[2017-07-08] MEDS: LISINOPRIL 20 MG TABLET PO SCH (08:22)
[2017-07-08 15:47] VITALS: BP 123/71
[2017-07-08] MEDS: MIRTAZAPINE 15 MG TABLET PO SCH (19:27)
[2017-07-08] MEDS: QUEtiapine 100 MG TABLET. PO SCH (19:27)
[2017-07-08] MEDS: traZODone 50 MG TABLET. PO PRN (19:27)
[2017-07-08] MEDS: MELATONIN 3 MG TABLET PO SCH (20:07)
--- NOTE | 2017-07-08 20:11 | PDOC ---
Exam Note: Lars Note: Please also refer to the separate dictated note~for this date of service dictated separately.~Patient seen individually. Discussed the patient with Nursing staff reviewed the chart.~Reviewed interim history and current functioning. Reviewed vital signs,~Labs/ Radiology~and current medications noted below. Continue current treatment with the changes noted in the dictated addendum note Assessment: Vital Signs: Vital Signs Date Time Temp Pulse Resp B/P (MAP) Pulse Ox O2 Delivery O2 Flow Rate FiO2 07/08/17 15:47 98.0 66 20 123/71 (88) 97 07/08/17 07:45 Room Air I&O Intake and Output 07/08/17 07:00 Intake Total 840 ml Balance 840 ml Intake Oral 840 ml Labs: Laboratory Tests Test 07/08/17 07:16 07/08/17 11:22 07/08/17 16:42 Glucose (Fingerstick) 174 mg/dL (70-99) H 320 mg/dL (70-99) H 144 mg/dL (70-99) H Current Medications: Meds: Current Medications Acetaminophen (Tylenol) 650 mg PRN Q6HRS PRN PO PAIN / TEMP; Start 07/01/17 at 00:15 Multi-Ingredient Ointment (Analgesic [place]) 1 chary PRN QID PRN TP MUSCLE PAIN; Start 07/01/17 at 00:15 Al Hydroxide/Mg Hydroxide (Mylanta Plus Xs) 15 ml PRN AFTMEALHC PRN PO DYSPEPSIA; Start 07/01/17 at 00:15 Magnesium Hydroxide (Milk Of Magnesia) 2,400 mg PRN QHS PRN PO CONSTIPATION Last administered on 07/07/17at 09:00; Start 07/01/17 at 00:15 Acetaminophen/ Hydrocodone Bitart (Lortab 5/325) 1 tab PRN Q4HRS PRN PO MILD PAIN Last administered on 07/04/17at 20:56; Start 07/01/17 at 00:30 Acetaminophen/ Hydrocodone Bitart (Lortab 5/325) 2 tab PRN Q4HRS PRN PO moderate or severe pain Last administered on 07/03/17at 22:33; Start 07/01/17 at 00:30; Stop 07/06/17 at 21:38; Status DC Metoprolol Succinate (Toprol Xl) 25 mg DAILY PO Last administered on 07/08/17 08:21; Start 07/01/17 at 09:00 Mirtazapine (Remeron) 7.5 mg QHS PO ; Start 07/01/17 at 21:00; Stop 07/01/17 at 21:00; Status DC Sertraline HCl (Zoloft) 50 mg DAILY PO Last administered on 07/01/17at 09:01; Start 07/01/17 at 09:00; Stop 07/01/17 at 18:49; Status DC Lisinopril (Prinivil) 40 mg DAILY PO Last administered on 07/08/17at 08:22; Start 07/01/17 at 09:00 Quetiapine Fumarate (SEROquel) 100 mg QHS PO Last administered on 07/08/17 19: 27; Start 07/01/17 at 21:00 Vitamin D (Vitamin D3) 50,000 unit WEEKLY PO ; Start 07/01/17 at 18:00; Stop at 19:03; Status DC Mirtazapine (Remeron) 15 mg QHS PO Last administered on 07/08/17at 19:27; Start 07/01/17 at 21:00 Sertraline HCl (Zoloft) 25 mg DAILY PO Last administered on 07/07/17at 08:53; Start 07/02/17 at 09:00; Stop 07/07/17 at 18:39; Status DC Vitamin D (Vitamin D3) 50,000 unit WEEKLY PO Last administered on 07/02/17at 08: 08; Start 07/02/17 at 09:00 Olanzapine (ZyPREXA ZYDIS) 2.5 mg PRN Q2HR PRN PO psychosis Last administered on 07/04/17at 20:56; Start 07/02/17 at 16:15; Stop 07/04/17 at 23:31; Status DC Haloperidol (Haldol) 5 mg 1X ONCE PO Last administered on 07/05/17at 00:00; Start 07/04/17 at 23:45; Stop 07/04/17 at 23:46; Status DC Haloperidol (Haldol) 2 mg PRN Q6HRS PRN PO ANXIETY / AGITATION Last administered on 07/07/17at 23:33; Start 07/04/17 at 23:30 Insulin Aspart (NovoLOG) 0-5 UNITS TIDAC SQ Last administered on 07/08/17at 12:23 ; Start 07/06/17 at 07:30 Dextrose 12.5 gm PRN Q15MIN PRN IV SEE COMMENTS; Start 07/05/17 at 18:00 Olanzapine (ZyPREXA ZYDIS) 2.5 mg PRN Q2HR PRN PO PSYCHOSIS Last administered on 07/08/17at 18:12; Start 07/06/17 at 21:45 Trazodone HCl (Desyrel) 50 mg PRN QHS PRN PO INSOMNIA, MAY REPEAT X1 Last administered on 07/08/17at 19:27; Start 07/07/17 at 17:45 Sertraline HCl (Zoloft) 50 mg DAILY PO Last administered on 07/08/17at 08:22; Start 07/08/17 at 09:00 Divalproex Sodium (Depakote Sprinkles) 125 mg TID@0900,1300,1700 PO Last administered on 07/08/17at 17:00; Start 07/08/17 at 09:00 Magnesium Citrate (Citroma) 296 ml PRN 1X PRN PO CONSTIPATION Last administered on 07/08/17at 08:21; Start 07/08/17 at 07:00 Mineral Oil (Fleet Mineral Oil) 133 ml PRN DAILY PRN [place] CONSTIPATION; Start 07/08/17 at 07:00 Sodium Biphosphate/ Sodium Phosphate (Fleet Adult) 133 ml 1X ONCE [place] ; Start at 07:00; Stop 07/08/17 at 07:01; Status DC Sodium Biphosphate/ Sodium Phosphate (Fleet Adult) 133 ml PRN DAILY PRN [place] CONSTIPATION; Start 07/08/17 at 07:00 Docusate Sodium (Colace) 100 mg DAILY PO Last administered on 07/08/17at 08:22; Start 07/08/17 at 09:00 Melatonin 3 mg HS PO ; Start 07/08/17 at 21:00 Active Scripts Active Reported Zoloft (Sertraline Hcl) 50 Mg Tablet 50 Mg PO DAILY Seroquel Xr (Quetiapine Fumarate) 50 Mg Tab.er.24h 100 Mg PO QHS Remeron (Mirtazapine) 15 Mg Tablet 7.5 Mg PO QHS Toprol Xl (Metoprolol Succinate) 25 Mg Tab.er.24h 25 Mg PO DAILY Ativan (Lorazepam) 2 Mg/1 Ml Vial 0.5 Mg IV PRN Q8HRS PRN Hydrocodone-Apap 5-325 (Hydrocodone Bit/Acetaminophen) 1 Each Tablet 2 Tab PO PRN Q4HRS PRN Hydrocodone-Apap 5-325 (Hydrocodone Bit/Acetaminophen) 1 Each Tablet 1 Tab PO PRN Q4HRS PRN Lisinopril 40 Mg Tablet 40 Mg PO DAILY Haldol (Haloperidol Lactate) 5 Mg/1 Ml Ampul 1 Mg IV PRN Q8HRS PRN I have reviewed the current psychotropics carefully including drug interactions. Risk benefit ratio favors no change other than as noted in my dictated progress note. 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
--- NOTE | 2017-07-08 22:17 | PN ---
DATE: 07/07/2017 PSYCHIATRIC PROGRESS NOTE This late entry 07/07/2017 covers elements not covered in my initial note of 07/07/2017. I met with the patient in the evening of 07/07/2017. The patient slept 5-1/2 hours previous evening. Extremely combative in the morning, had to be in the quiet room, fell at 8:50 p.m. No injuries noted. Nursing staff had called me. Family notified, received Santino Samaniego at 11:30 a.m., restless at lunchtime and at 3:00 p.m. extremely anxious, agitated, aggressive, disruptive, took 5 staff members to contain him to the quiet room. He was hitting, kicking, swinging, security had to be called, very volatile, confused. REVIEW OF SYSTEMS: Ambulation impaired, in wheelchair. No CV, , pulmonary, eye, ENT system symptoms on review. Reliability poor. MENTAL STATUS EXAM: Oriented to himself. Insight, judgment, recent and remote memory, attention, concentration, fund of knowledge poor, consistent with his diagnosis mentioned in my initial note. IMPRESSION: Major neurocognitive disorder, Alzheimer, vascular with depression, delusion, behavioral disturbance. Rest unchanged. PLAN: Increase Zoloft from 25 mg a day to 50 mg a day, start Depakote Sprinkles 125 mg 3 times a day. Check CBC, CMP, valproic acid level in 3 days. Continue rest, psychotropics unchanged. AMPARO GUY MD DR: RAJAN/nathan JOB#: [id number] / [id number]
[2017-07-09] MEDS: HALOPERIDOL 2 MG TABLET PO PRN (01:09)
[2017-07-09] MEDS: traZODone 50 MG TABLET. PO PRN (01:10)
[2017-07-09] MEDS: LISINOPRIL 20 MG TABLET PO SCH (08:27)
[2017-07-09] MEDS: DIVALPROEX 125 MG CAP.SPRINK PO SCH ×3 (08:28→17:46)
[2017-07-09] MEDS: METOPROLOL SUCC 24HR ER 25 MG TAB.ER.24H. PO SCH (08:28)
[2017-07-09] MEDS: SERTRALINE 50 MG TABLET. PO SCH (08:28)
[2017-07-09] MEDS: DOCUSATE SODIUM 100 MG CAPSULE PO SCH (08:28)
[2017-07-09] MEDS: CHOLECALCIFEROL (VITAMIN D3) 50,000 UNIT CAPSULE PO SCH (08:29)
[2017-07-09] MEDS: HYDROcodone/APAP 5/325MG 1 TAB TABLET PO PRN (08:30)
[2017-07-09] MEDS: INSULIN ASPART 300 UNITS/3 ML INSULN.PEN SQ SCH ×3 (08:34→16:30)
[2017-07-09 16:09] VITALS: BP 95/61
--- NOTE | 2017-07-09 19:11 | PDOC ---
Exam Note: Lars Note: Please also refer to the separate dictated note~for this date of service dictated separately.~Patient seen individually. Discussed the patient with Nursing staff reviewed the chart.~Reviewed interim history and current functioning. Reviewed vital signs,~Labs/ Radiology~and current medications noted below. Continue current treatment with the changes noted in the dictated addendum note Assessment: Vital Signs: Vital Signs Date Time Temp Pulse Resp B/P (MAP) Pulse Ox O2 Delivery O2 Flow Rate FiO2 07/09/17 16:09 97.1 59 19 95/61 (72) 95 07/08/17 07:45 Room Air I&O Intake and Output 07/09/17 07:00 Intake Total 1320 ml Balance 1320 ml Intake Oral 1320 ml # Voids 1 # Bowel Movements 4 Labs: Laboratory Tests Test 07/09/17 07:28 07/09/17 11:41 07/09/17 16:51 Glucose (Fingerstick) 161 mg/dL (70-99) H 171 mg/dL (70-99) H 143 mg/dL (70-99) H Current Medications: Meds: Current Medications Acetaminophen (Tylenol) 650 mg PRN Q6HRS PRN PO PAIN / TEMP; Start 07/01/17 at 00:15 Multi-Ingredient Ointment (Analgesic [place]) 1 chary PRN QID PRN TP MUSCLE PAIN; Start 07/01/17 at 00:15 Al Hydroxide/Mg Hydroxide (Mylanta Plus Xs) 15 ml PRN AFTMEALHC PRN PO DYSPEPSIA; Start 07/01/17 at 00:15 Magnesium Hydroxide (Milk Of Magnesia) 2,400 mg PRN QHS PRN PO CONSTIPATION Last administered on 07/07/17at 09:00; Start 07/01/17 at 00:15 Acetaminophen/ Hydrocodone Bitart (Lortab 5/325) 1 tab PRN Q4HRS PRN PO MILD PAIN Last administered on 07/09/17at 08:30; Start 07/01/17 at 00:30 Acetaminophen/ Hydrocodone Bitart (Lortab 5/325) 2 tab PRN Q4HRS PRN PO moderate or severe pain Last administered on 07/03/17at 22:33; Start 07/01/17 at 00:30; Stop 07/06/17 at 21:38; Status DC Metoprolol Succinate (Toprol Xl) 25 mg DAILY PO Last administered on 07/09/17 08:28; Start 07/01/17 at 09:00 Mirtazapine (Remeron) 7.5 mg QHS PO ; Start 07/01/17 at 21:00; Stop 07/01/17 at 21:00; Status DC Sertraline HCl (Zoloft) 50 mg DAILY PO Last administered on 07/01/17at 09:01; Start 07/01/17 at 09:00; Stop 07/01/17 at 18:49; Status DC Lisinopril (Prinivil) 40 mg DAILY PO Last administered on 07/09/17 08:27; Start 07/01/17 at 09:00 Quetiapine Fumarate (SEROquel) 100 mg QHS PO Last administered on 07/08/17at 19: 27; Start 07/01/17 at 21:00 Vitamin D (Vitamin D3) 50,000 unit WEEKLY PO ; Start 07/01/17 at 18:00; Stop at 19:03; Status DC Mirtazapine (Remeron) 15 mg QHS PO Last administered on 07/08/17at 19:27; Start 07/01/17 at 21:00 Sertraline HCl (Zoloft) 25 mg DAILY PO Last administered on 07/07/17at 08:53; Start 07/02/17 at 09:00; Stop 07/07/17 at 18:39; Status DC Vitamin D (Vitamin D3) 50,000 unit WEEKLY PO Last administered on 07/09/17at 08: 29; Start 07/02/17 at 09:00 Olanzapine (ZyPREXA ZYDIS) 2.5 mg PRN Q2HR PRN PO psychosis Last administered on 07/04/17at 20:56; Start 07/02/17 at 16:15; Stop 07/04/17 at 23:31; Status DC Haloperidol (Haldol) 5 mg 1X ONCE PO Last administered on 07/05/17at 00:00; Start 07/04/17 at 23:45; Stop 07/04/17 at 23:46; Status DC Haloperidol (Haldol) 2 mg PRN Q6HRS PRN PO ANXIETY / AGITATION Last administered on 07/09/17at 01:09; Start 07/04/17 at 23:30 Insulin Aspart (NovoLOG) 0-5 UNITS TIDAC SQ Last administered on 07/09/17at 11:30 ; Start 07/06/17 at 07:30 Dextrose 12.5 gm PRN Q15MIN PRN IV SEE COMMENTS; Start 07/05/17 at 18:00 Olanzapine (ZyPREXA ZYDIS) 2.5 mg PRN Q2HR PRN PO PSYCHOSIS Last administered on 07/08/17at 18:12; Start 07/06/17 at 21:45 Trazodone HCl (Desyrel) 50 mg PRN QHS PRN PO INSOMNIA, MAY REPEAT X1 Last administered on 07/09/17 01:10; Start 07/07/17 at 17:45 Sertraline HCl (Zoloft) 50 mg DAILY PO Last administered on 07/09/17 08:28; Start 07/08/17 at 09:00 Divalproex Sodium (Depakote Sprinkles) 125 mg TID@0900,1300,1700 PO Last administered on 07/09/17at 17:46; Start 07/08/17 at 09:00 Magnesium Citrate (Citroma) 296 ml PRN 1X PRN PO CONSTIPATION Last administered on 07/08/17 08:21; Start 07/08/17 at 07:00 Mineral Oil (Fleet Mineral Oil) 133 ml PRN DAILY PRN [place] CONSTIPATION; Start 07/08/17 at 07:00 Sodium Biphosphate/ Sodium Phosphate (Fleet Adult) 133 ml 1X ONCE [place] ; Start at 07:00; Stop 07/08/17 at 07:01; Status DC Sodium Biphosphate/ Sodium Phosphate (Fleet Adult) 133 ml PRN DAILY PRN [place] CONSTIPATION; Start 07/08/17 at 07:00 Docusate Sodium (Colace) 100 mg DAILY PO Last administered on 07/09/17 08:28; Start 07/08/17 at 09:00 Melatonin 3 mg HS PO Last administered on 07/08/17at 20:07; Start 07/08/17 at 21: 00 Active Scripts Active Reported Zoloft (Sertraline Hcl) 50 Mg Tablet 50 Mg PO DAILY Seroquel Xr (Quetiapine Fumarate) 50 Mg Tab.er.24h 100 Mg PO QHS Remeron (Mirtazapine) 15 Mg Tablet 7.5 Mg PO QHS Toprol Xl (Metoprolol Succinate) 25 Mg Tab.er.24h 25 Mg PO DAILY Ativan (Lorazepam) 2 Mg/1 Ml Vial 0.5 Mg IV PRN Q8HRS PRN Hydrocodone-Apap 5-325 (Hydrocodone Bit/Acetaminophen) 1 Each Tablet 2 Tab PO PRN Q4HRS PRN Hydrocodone-Apap 5-325 (Hydrocodone Bit/Acetaminophen) 1 Each Tablet 1 Tab PO PRN Q4HRS PRN Lisinopril 40 Mg Tablet 40 Mg PO DAILY Haldol (Haloperidol Lactate) 5 Mg/1 Ml Ampul 1 Mg IV PRN Q8HRS PRN I have reviewed the current psychotropics carefully including drug interactions. Risk benefit ratio favors no change other than as noted in my dictated progress note. 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
[2017-07-09] MEDS: MELATONIN 3 MG TABLET PO SCH (19:26)
[2017-07-09] MEDS: MIRTAZAPINE 15 MG TABLET PO SCH (19:27)
[2017-07-09] MEDS: QUEtiapine 100 MG TABLET. PO SCH (19:27)
--- NOTE | 2017-07-09 22:06 | PN ---
DATE: 07/08/2017 PSYCHIATRIC PROGRESS NOTE This is a late entry to 07/08/2017 covers elements not covered in my initial note of 07/08/2017. I met with the patient evening of 07/08/2017. SUBJECTIVE: The patient slept just one hour previous evening, up all day, milk of magnesia was ineffective. KUB shows chronic constipation, received magnesium citrate, had a bowel movement and hopefully, this should help his agitation as well. Visited his daughter. Appetite is better. No CV, , pulmonary, eye, ENT system symptoms on review. Gait unsteady, in wheelchair. Reliability poor. MENTAL STATUS EXAM: Oriented to himself. Insight, judgment, recent and remote memory, attention, concentration, fund of knowledge poor, consistent with his diagnosis mentioned in my initial note. IMPRESSION: Major neurocognitive disorder, Alzheimer, vascular with depression, delusion, behavioral disturbance. Rest unchanged. PLAN: Continue current psychotropics. Adjust further as clinically indicated. MAN Robinson GUY MD DR: RAJAN/nathan JOB#: [id number] / [id number]
[2017-07-10] MEDS: traZODone 50 MG TABLET. PO PRN ×2 (00:16→01:25)
[2017-07-10] MEDS: INSULIN ASPART 300 UNITS/3 ML INSULN.PEN SQ SCH ×3 (07:30→17:10)
[2017-07-10 09:31] VITALS: BP 124/66
[2017-07-10] MEDS: METOPROLOL SUCC 24HR ER 25 MG TAB.ER.24H. PO SCH (09:33)
[2017-07-10] MEDS: SERTRALINE 50 MG TABLET. PO SCH (09:33)
[2017-07-10] MEDS: DOCUSATE SODIUM 100 MG CAPSULE PO SCH (09:33)
[2017-07-10] MEDS: DIVALPROEX 125 MG CAP.SPRINK PO SCH ×3 (09:33→17:01)
[2017-07-10] MEDS: LISINOPRIL 20 MG TABLET PO SCH (09:34)
[2017-07-10 15:19] VITALS: BP 150/46
[2017-07-10] MEDS: MELATONIN 3 MG TABLET PO SCH (19:23)
[2017-07-10] MEDS: QUEtiapine 100 MG TABLET. PO SCH (19:23)
[2017-07-10] MEDS: AMITRIPTYLINE HCL 25 MG TABLET PO SCH (19:40)
--- NOTE | 2017-07-10 20:14 | PDOC ---
Exam Note: Lars Note: Please also refer to the separate dictated note~for this date of service dictated separately.~Patient seen individually. Discussed the patient with Nursing staff reviewed the chart.~Reviewed interim history and current functioning. Reviewed vital signs,~Labs/ Radiology~and current medications noted below. Continue current treatment with the changes noted in the dictated addendum note Assessment: Vital Signs: Vital Signs Date Time Temp Pulse Resp B/P (MAP) Pulse Ox O2 Delivery O2 Flow Rate FiO2 07/10/17 15:19 98.5 65 18 150/46 (80) 98 07/08/17 07:45 Room Air I&O Intake and Output 07/10/17 07:00 Intake Total 1440 ml Balance 1440 ml Intake Oral 1440 ml Labs: Laboratory Tests Test 07/10/17 07:18 07/10/17 11:26 07/10/17 16:26 07/10/17 19:26 Glucose (Fingerstick) 134 mg/dL (70-99) H 176 mg/dL (70-99) H 161 mg/dL (70-99) H 123 mg/dL (70-99) H Current Medications: Meds: Current Medications Acetaminophen (Tylenol) 650 mg PRN Q6HRS PRN PO PAIN / TEMP; Start 07/01/17 at 00:15 Multi-Ingredient Ointment (Analgesic [place]) 1 chary PRN QID PRN TP MUSCLE PAIN; Start 07/01/17 at 00:15 Al Hydroxide/Mg Hydroxide (Mylanta Plus Xs) 15 ml PRN AFTMEALHC PRN PO DYSPEPSIA; Start 07/01/17 at 00:15 Magnesium Hydroxide (Milk Of Magnesia) 2,400 mg PRN QHS PRN PO CONSTIPATION Last administered on 07/07/17at 09:00; Start 07/01/17 at 00:15 Acetaminophen/ Hydrocodone Bitart (Lortab 5/325) 1 tab PRN Q4HRS PRN PO MILD PAIN Last administered on 07/09/17at 08:30; Start 07/01/17 at 00:30 Acetaminophen/ Hydrocodone Bitart (Lortab 5/325) 2 tab PRN Q4HRS PRN PO moderate or severe pain Last administered on 07/03/17at 22:33; Start 07/01/17 at 00:30; Stop 07/06/17 at 21:38; Status DC Metoprolol Succinate (Toprol Xl) 25 mg DAILY PO Last administered on 07/10/17at 09:33; Start 07/01/17 at 09:00 Mirtazapine (Remeron) 7.5 mg QHS PO ; Start 07/01/17 at 21:00; Stop 07/01/17 at 21:00; Status DC Sertraline HCl (Zoloft) 50 mg DAILY PO Last administered on 07/01/17at 09:01; Start 07/01/17 at 09:00; Stop 07/01/17 at 18:49; Status DC Lisinopril (Prinivil) 40 mg DAILY PO Last administered on 07/10/17at 09:34; Start 07/01/17 at 09:00 Quetiapine Fumarate (SEROquel) 100 mg QHS PO Last administered on 07/10/17at 19: 23; Start 07/01/17 at 21:00 Vitamin D (Vitamin D3) 50,000 unit WEEKLY PO ; Start 07/01/17 at 18:00; Stop at 19:03; Status DC Mirtazapine (Remeron) 15 mg QHS PO Last administered on 07/09/17at 19:27; Start 07/01/17 at 21:00; Stop 07/10/17 at 11:45; Status DC Sertraline HCl (Zoloft) 25 mg DAILY PO Last administered on 07/07/17at 08:53; Start 07/02/17 at 09:00; Stop 07/07/17 at 18:39; Status DC Vitamin D (Vitamin D3) 50,000 unit WEEKLY PO Last administered on 07/09/17at 08: 29; Start 07/02/17 at 09:00 Olanzapine (ZyPREXA ZYDIS) 2.5 mg PRN Q2HR PRN PO psychosis Last administered on 07/04/17at 20:56; Start 07/02/17 at 16:15; Stop 07/04/17 at 23:31; Status DC Haloperidol (Haldol) 5 mg 1X ONCE PO Last administered on 07/05/17at 00:00; Start 07/04/17 at 23:45; Stop 07/04/17 at 23:46; Status DC Haloperidol (Haldol) 2 mg PRN Q6HRS PRN PO ANXIETY / AGITATION Last administered on 07/09/17 01:09; Start 07/04/17 at 23:30 Insulin Aspart (NovoLOG) 0-5 UNITS TIDAC SQ Last administered on 07/10/17 17:10 ; Start 07/06/17 at 07:30 Dextrose 12.5 gm PRN Q15MIN PRN IV SEE COMMENTS; Start 07/05/17 at 18:00 Olanzapine (ZyPREXA ZYDIS) 2.5 mg PRN Q2HR PRN PO PSYCHOSIS Last administered on 07/08/17 18:12; Start 07/06/17 at 21:45 Trazodone HCl (Desyrel) 50 mg PRN QHS PRN PO INSOMNIA, MAY REPEAT X1 Last administered on 07/10/17 01:25; Start 07/07/17 at 17:45 Sertraline HCl (Zoloft) 50 mg DAILY PO Last administered on 07/10/17 09:33; Start 07/08/17 at 09:00 Divalproex Sodium (Depakote Sprinkles) 125 mg TID@0900,1300,1700 PO Last administered on 07/10/17 17:01; Start 07/08/17 at 09:00 Magnesium Citrate (Citroma) 296 ml PRN 1X PRN PO CONSTIPATION Last administered on 07/08/17 08:21; Start 07/08/17 at 07:00 Mineral Oil (Fleet Mineral Oil) 133 ml PRN DAILY PRN [place] CONSTIPATION; Start 07/08/17 at 07:00 Sodium Biphosphate/ Sodium Phosphate (Fleet Adult) 133 ml 1X ONCE [place] ; Start at 07:00; Stop 07/08/17 at 07:01; Status DC Sodium Biphosphate/ Sodium Phosphate (Fleet Adult) 133 ml PRN DAILY PRN [place] CONSTIPATION; Start 07/08/17 at 07:00 Docusate Sodium (Colace) 100 mg DAILY PO Last administered on 07/10/17 09:33; Start 07/08/17 at 09:00 Melatonin 3 mg HS PO Last administered on 07/10/17 19:23; Start 07/08/17 at 21: 00 Amitriptyline HCl (Elavil) 25 mg HS PO Last administered on 07/10/17 19:40; Start 07/10/17 at 21:00 Active Scripts Active Reported Zoloft (Sertraline Hcl) 50 Mg Tablet 50 Mg PO DAILY Seroquel Xr (Quetiapine Fumarate) 50 Mg Tab.er.24h 100 Mg PO QHS Remeron (Mirtazapine) 15 Mg Tablet 7.5 Mg PO QHS Toprol Xl (Metoprolol Succinate) 25 Mg Tab.er.24h 25 Mg PO DAILY Ativan (Lorazepam) 2 Mg/1 Ml Vial 0.5 Mg IV PRN Q8HRS PRN Hydrocodone-Apap 5-325 (Hydrocodone Bit/Acetaminophen) 1 Each Tablet 2 Tab PO PRN Q4HRS PRN Hydrocodone-Apap 5-325 (Hydrocodone Bit/Acetaminophen) 1 Each Tablet 1 Tab PO PRN Q4HRS PRN Lisinopril 40 Mg Tablet 40 Mg PO DAILY Haldol (Haloperidol Lactate) 5 Mg/1 Ml Ampul 1 Mg IV PRN Q8HRS PRN I have reviewed the current psychotropics carefully including drug interactions. Risk benefit ratio favors no change other than as noted in my dictated progress note. 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
[2017-07-11 05:49] VITALS: BP 98/46
[2017-07-11] MEDS: INSULIN ASPART 300 UNITS/3 ML INSULN.PEN SQ SCH ×3 (07:30→17:23)
[2017-07-11 07:59] LABS: ALBUMIN 2.8 g/dL (3.4-5.0); ALK PHOS 91 U/L (46-116); ALT (SGPT) 26 U/L (16-63); ANION GAP 4 (6-14); AST (SGOT) 16 U/L (15-37); BLOOD UREA NITROGEN 35 mg/dL (8-26); BUN/CREATININE RATIO 27 (6-20); CALCIUM 8.2 mg/dL (8.5-10.1); CARBON DIOXIDE 31 mmol/L (21-32); CHLORIDE 108 mmol/L (98-107); CREATININE 1.3 mg/dL (0.7-1.3); GFR 52.9; GLUCOSE 120 mg/dL (70-99); MAGNESIUM 2.2 mg/dL (1.8-2.4); POTASSIUM 4.2 mmol/L (3.5-5.1); SODIUM 143 mmol/L (136-145); TOTAL BILIRUBIN 0.5 mg/dL (0.2-1.0); TOTAL PROTEIN 5.6 g/dL (6.4-8.2); VAL ACID 23 mcg/mL (50-100)
[2017-07-11 09:20] LABS: BASO # 0.1 x10^3/uL (0.0-0.2); BASO % 1 % (0-3); EOS # 0.2 x10^3/uL (0.0-0.7); EOS % 3 % (0-3); HEMATOCRIT 31.9 % (39.0-53.0); HEMOGLOBIN 11.2 g/dL (13.0-17.5); LYMPH # 1.3 x10^3/uL (1.0-4.8); LYMPH % 18 % (24-48); MEAN CORPUSCULAR HEMOGLOBIN 33 pg (25-35); MEAN CORPUSCULAR HGB CONC 35 g/dL (31-37); MEAN CORPUSCULAR VOLUME 93 fL (79-100); MONO # 0.8 x10^3/uL (0.0-1.1); MONO % 12 % (0-9); NEUT # 4.8 x10^3uL (1.8-7.7); NEUT % 67 % (31-73); PLATELET COUNT 117 x10^3/uL (140-400); RED BLOOD COUNT 3.42 x10^6/uL (4.30-5.70); RED CELL DISTRIBUTION WIDTH 15.3 % (11.5-14.5); WHITE BLOOD COUNT 7.3 x10^3/uL (4.0-11.0)
[2017-07-11 10:47] VITALS: BP 141/66
[2017-07-11] MEDS: DOCUSATE SODIUM 100 MG CAPSULE PO SCH (10:48)
[2017-07-11] MEDS: SERTRALINE 50 MG TABLET. PO SCH (10:48)
[2017-07-11] MEDS: DIVALPROEX 125 MG CAP.SPRINK PO SCH ×3 (10:48→17:17)
[2017-07-11] MEDS: METOPROLOL SUCC 24HR ER 25 MG TAB.ER.24H. PO SCH (10:49)
[2017-07-11] MEDS: LISINOPRIL 20 MG TABLET PO SCH (10:49)
[2017-07-11 15:49] VITALS: BP 140/58
[2017-07-11] MEDS: traZODone 50 MG TABLET. PO PRN (19:17)
[2017-07-11] MEDS: MELATONIN 3 MG TABLET PO SCH (19:17)
[2017-07-11] MEDS: AMITRIPTYLINE HCL 25 MG TABLET PO SCH (19:17)
[2017-07-11] MEDS: QUEtiapine 100 MG TABLET. PO SCH (19:17)
--- NOTE | 2017-07-11 19:32 | PDOC ---
Exam Note: Lars Note: Please also refer to the separate dictated note~for this date of service dictated separately.~Patient seen individually. Discussed the patient with Nursing staff reviewed the chart.~Reviewed interim history and current functioning. Reviewed vital signs,~Labs/ Radiology~and current medications noted below. Continue current treatment with the changes noted in the dictated addendum note Assessment: Vital Signs: Vital Signs Date Time Temp Pulse Resp B/P (MAP) Pulse Ox O2 Delivery O2 Flow Rate FiO2 07/11/17 15:49 97.2 66 18 140/58 (85) 94 07/08/17 07:45 Room Air I&O Intake and Output 07/11/17 07:00 Intake Total 1200 ml Balance 1200 ml Intake Oral 1200 ml Labs: Laboratory Tests Test 07/11/17 07:33 07/11/17 07:41 07/11/17 09:12 07/11/17 11:31 Sodium Level 143 mmol/L (136-145) Potassium Level 4.2 mmol/L (3.5-5.1) Chloride Level 108 mmol/L (98-107) H Carbon Dioxide Level 31 mmol/L (21-32) Anion Gap 4 (6-14) L Blood Urea Nitrogen 35 mg/dL (8-26) H Creatinine 1.3 mg/dL (0.7-1.3) Estimated GFR (Cockcroft-Gault) 52.9 BUN/Creatinine Ratio 27 (6-20) H Glucose Level 120 mg/dL (70-99) H Calcium Level 8.2 mg/dL (8.5-10.1) L Magnesium Level 2.2 mg/dL (1.8-2.4) Total Bilirubin 0.5 mg/dL (0.2-1.0) Aspartate Amino Transferase (AST) 16 U/L (15-37) Alanine Aminotransferase (ALT) 26 U/L (16-63) Alkaline Phosphatase 91 U/L (46-116) Total Protein 5.6 g/dL (6.4-8.2) L Albumin 2.8 g/dL (3.4-5.0) L Albumin/Globulin Ratio 1.0 (1.0-1.7) Valproic Acid Level 23 mcg/mL (50-100) L Valproic Acid Last Dose Date 07/10/2017 Valproic Acid Last Dose Time 1700 Glucose (Fingerstick) 125 mg/dL (70-99) H 398 mg/dL (70-99) H White Blood Count 7.3 x10^3/uL (4.0-11.0) Red Blood Count 3.42 x10^6/uL (4.30-5.70) L Hemoglobin 11.2 g/dL (13.0-17.5) L Hematocrit 31.9 % (39.0-53.0) L Mean Corpuscular Volume 93 fL (79-100) Mean Corpuscular Hemoglobin 33 pg (25-35) Mean Corpuscular Hemoglobin Concent 35 g/dL (31-37) Red Cell Distribution Width 15.3 % (11.5-14.5) H Platelet Count 117 x10^3/uL (140-400) L Neutrophils (%) (Auto) 67 % (31-73) Lymphocytes (%) (Auto) 18 % (24-48) L Monocytes (%) (Auto) 12 % (0-9) H Eosinophils (%) (Auto) 3 % (0-3) Basophils (%) (Auto) 1 % (0-3) Neutrophils # (Auto) 4.8 x10^3uL (1.8-7.7) Lymphocytes # (Auto) 1.3 x10^3/uL (1.0-4.8) Monocytes # (Auto) 0.8 x10^3/uL (0.0-1.1) Eosinophils # (Auto) 0.2 x10^3/uL (0.0-0.7) Basophils # (Auto) 0.1 x10^3/uL (0.0-0.2) Test 07/11/17 17:11 Glucose (Fingerstick) 196 mg/dL (70-99) H Current Medications: Meds: Current Medications Acetaminophen (Tylenol) 650 mg PRN Q6HRS PRN PO PAIN / TEMP; Start 07/01/17 at 00:15 Multi-Ingredient Ointment (Analgesic [place]) 1 chary PRN QID PRN TP MUSCLE PAIN; Start 07/01/17 at 00:15 Al Hydroxide/Mg Hydroxide (Mylanta Plus Xs) 15 ml PRN AFTMEALHC PRN PO DYSPEPSIA; Start 07/01/17 at 00:15 Magnesium Hydroxide (Milk Of Magnesia) 2,400 mg PRN QHS PRN PO CONSTIPATION Last administered on 07/07/17 09:00; Start 07/01/17 at 00:15 Acetaminophen/ Hydrocodone Bitart (Lortab 5/325) 1 tab PRN Q4HRS PRN PO MILD PAIN Last administered on 07/09/17 08:30; Start 07/01/17 at 00:30 Acetaminophen/ Hydrocodone Bitart (Lortab 5/325) 2 tab PRN Q4HRS PRN PO moderate or severe pain Last administered on 07/03/17 22:33; Start 07/01/17 at 00:30; Stop 07/06/17 at 21:38; Status DC Metoprolol Succinate (Toprol Xl) 25 mg DAILY PO Last administered on 07/11/17at 10:49; Start 07/01/17 at 09:00 Mirtazapine (Remeron) 7.5 mg QHS PO ; Start 07/01/17 at 21:00; Stop 07/01/17 at 21:00; Status DC Sertraline HCl (Zoloft) 50 mg DAILY PO Last administered on 07/01/17at 09:01; Start 07/01/17 at 09:00; Stop 07/01/17 at 18:49; Status DC Lisinopril (Prinivil) 40 mg DAILY PO Last administered on 07/11/17at 10:49; Start 07/01/17 at 09:00 Quetiapine Fumarate (SEROquel) 100 mg QHS PO Last administered on 07/11/17at 19: 17; Start 07/01/17 at 21:00 Vitamin D (Vitamin D3) 50,000 unit WEEKLY PO ; Start 07/01/17 at 18:00; Stop at 19:03; Status DC Mirtazapine (Remeron) 15 mg QHS PO Last administered on 07/09/17 19:27; Start 07/01/17 at 21:00; Stop 07/10/17 at 11:45; Status DC Sertraline HCl (Zoloft) 25 mg DAILY PO Last administered on 07/07/17 08:53; Start 07/02/17 at 09:00; Stop 07/07/17 at 18:39; Status DC Vitamin D (Vitamin D3) 50,000 unit WEEKLY PO Last administered on 07/09/17 08: 29; Start 07/02/17 at 09:00 Olanzapine (ZyPREXA ZYDIS) 2.5 mg PRN Q2HR PRN PO psychosis Last administered on 07/04/17 20:56; Start 07/02/17 at 16:15; Stop 07/04/17 at 23:31; Status DC Haloperidol (Haldol) 5 mg 1X ONCE PO Last administered on 07/05/17 00:00; Start 07/04/17 at 23:45; Stop 07/04/17 at 23:46; Status DC Haloperidol (Haldol) 2 mg PRN Q6HRS PRN PO ANXIETY / AGITATION Last administered on 07/09/17 01:09; Start 07/04/17 at 23:30 Insulin Aspart (NovoLOG) 0-5 UNITS TIDAC SQ Last administered on 07/11/17 17:23 ; Start 07/06/17 at 07:30 Dextrose 12.5 gm PRN Q15MIN PRN IV SEE COMMENTS; Start 07/05/17 at 18:00 Olanzapine (ZyPREXA ZYDIS) 2.5 mg PRN Q2HR PRN PO PSYCHOSIS Last administered on 07/08/17 18:12; Start 07/06/17 at 21:45 Trazodone HCl (Desyrel) 50 mg PRN QHS PRN PO INSOMNIA, MAY REPEAT X1 Last administered on 07/11/17 19:17; Start 07/07/17 at 17:45 Sertraline HCl (Zoloft) 50 mg DAILY PO Last administered on 07/11/17 10:48; Start 07/08/17 at 09:00 Divalproex Sodium (Depakote Sprinkles) 125 mg TID@0900,1300,1700 PO Last administered on 07/11/17 17:17; Start 07/08/17 at 09:00 Magnesium Citrate (Citroma) 296 ml PRN 1X PRN PO CONSTIPATION Last administered on 07/08/17 08:21; Start 07/08/17 at 07:00 Mineral Oil (Fleet Mineral Oil) 133 ml PRN DAILY PRN [place] CONSTIPATION; Start 07/08/17 at 07:00 Sodium Biphosphate/ Sodium Phosphate (Fleet Adult) 133 ml 1X ONCE [place] ; Start at 07:00; Stop 07/08/17 at 07:01; Status DC Sodium Biphosphate/ Sodium Phosphate (Fleet Adult) 133 ml PRN DAILY PRN [place] CONSTIPATION; Start 07/08/17 at 07:00 Docusate Sodium (Colace) 100 mg DAILY PO Last administered on 07/11/17at 10:48; Start 07/08/17 at 09:00 Melatonin 3 mg HS PO Last administered on 07/11/17at 19:17; Start 07/08/17 at 21: 00 Amitriptyline HCl (Elavil) 25 mg HS PO Last administered on 07/11/17at 19:17; Start 07/10/17 at 21:00 Active Scripts Active Reported Zoloft (Sertraline Hcl) 50 Mg Tablet 50 Mg PO DAILY Seroquel Xr (Quetiapine Fumarate) 50 Mg Tab.er.24h 100 Mg PO QHS Remeron (Mirtazapine) 15 Mg Tablet 7.5 Mg PO QHS Toprol Xl (Metoprolol Succinate) 25 Mg Tab.er.24h 25 Mg PO DAILY Ativan (Lorazepam) 2 Mg/1 Ml Vial 0.5 Mg IV PRN Q8HRS PRN Hydrocodone-Apap 5-325 (Hydrocodone Bit/Acetaminophen) 1 Each Tablet 2 Tab PO PRN Q4HRS PRN Hydrocodone-Apap 5-325 (Hydrocodone Bit/Acetaminophen) 1 Each Tablet 1 Tab PO PRN Q4HRS PRN Lisinopril 40 Mg Tablet 40 Mg PO DAILY Haldol (Haloperidol Lactate) 5 Mg/1 Ml Ampul 1 Mg IV PRN Q8HRS PRN I have reviewed the current psychotropics carefully including drug interactions. Risk benefit ratio favors no change other than as noted in my dictated progress note. 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
--- NOTE | 2017-07-12 00:21 | PN ---
DATE: 07/09/2017 This is a late entry for 07/09/2017, covers the elements not covered in my initial note of 07/09/2017. SUBJECTIVE: I met with the patient in the evening of 07/09/2017. The patient slept 5 hours previous evening, doing a little better since started on Depakote. No intervention until dinnertime, then got repeat Haldol and had a bowel movement, got p.r.n. trazodone at night, more coherent at times, reading out to patients. His marked mood lability raised the question of Lewy body dementia. At times, he was swinging at others, then remorseful. REVIEW OF SYSTEMS: Ambulation impaired. No CV, , pulmonary, eye, ENT system symptoms on review. Reliability poor. MENTAL STATUS EXAM: Oriented to himself. Insight, judgment, recent and remote memory, attention, concentration, fund of knowledge poor, consistent with his diagnosis mentioned in my initial note. IMPRESSION: Major neurocognitive disorder, Alzheimer, vascular with depression, delusion, behavioral disturbance. Rest unchanged. PLAN: Continue current psychotropics. Adjust the Depakote. Follow labs level. MAN Robinson GUY MD DR: RAJAN/nathan JOB#: [id number] / [id number]
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
[2017-07-12 05:46] VITALS: BP 108/60
[2017-07-12] MEDS: SERTRALINE 50 MG TABLET. PO SCH (08:12)
[2017-07-12] MEDS: METOPROLOL SUCC 24HR ER 25 MG TAB.ER.24H. PO SCH (08:13)
[2017-07-12] MEDS: LISINOPRIL 20 MG TABLET PO SCH (08:13)
[2017-07-12] MEDS: DOCUSATE SODIUM 100 MG CAPSULE PO SCH (08:14)
[2017-07-12] MEDS: DIVALPROEX 125 MG CAP.SPRINK PO SCH ×4 (08:14→19:32)
[2017-07-12] MEDS: INSULIN ASPART 300 UNITS/3 ML INSULN.PEN SQ SCH ×3 (08:16→16:30)
[2017-07-12 16:14] VITALS: BP 175/84
[2017-07-12] MEDS: QUEtiapine 100 MG TABLET. PO SCH (19:32)
[2017-07-12] MEDS: MELATONIN 3 MG TABLET PO SCH (19:32)
[2017-07-12] MEDS: AMITRIPTYLINE HCL 25 MG TABLET PO SCH (19:32)
[2017-07-12] MEDS: traZODone 50 MG TABLET. PO PRN (20:22)
--- NOTE | 2017-07-12 21:24 | PDOC ---
Exam Note: Lars Note: Please also refer to the separate dictated note~for this date of service dictated separately.~Patient seen individually. Discussed the patient with Nursing staff reviewed the chart.~Reviewed interim history and current functioning. Reviewed vital signs,~Labs/ Radiology~and current medications noted below. Continue current treatment with the changes noted in the dictated addendum note Assessment: Vital Signs: Vital Signs Date Time Temp Pulse Resp B/P (MAP) Pulse Ox O2 Delivery O2 Flow Rate FiO2 07/12/17 16:14 97.5 61 18 175/84 (114) 98 Room Air I&O Intake and Output 07/12/17 07:00 Intake Total 1080 ml Output Total 360 ml Balance 720 ml Intake Oral 1080 ml Output Urine Total 360 ml Labs: Laboratory Tests Test 07/12/17 07:08 07/12/17 11:11 07/12/17 16:35 07/12/17 18:50 Glucose (Fingerstick) 152 mg/dL (70-99) H 169 mg/dL (70-99) H 149 mg/dL (70-99) H 147 mg/dL (70-99) H Current Medications: Meds: Current Medications Acetaminophen (Tylenol) 650 mg PRN Q6HRS PRN PO PAIN / TEMP; Start 07/01/17 at 00:15 Multi-Ingredient Ointment (Analgesic [place]) 1 chary PRN QID PRN TP MUSCLE PAIN; Start 07/01/17 at 00:15 Al Hydroxide/Mg Hydroxide (Mylanta Plus Xs) 15 ml PRN AFTMEALHC PRN PO DYSPEPSIA; Start 07/01/17 at 00:15 Magnesium Hydroxide (Milk Of Magnesia) 2,400 mg PRN QHS PRN PO CONSTIPATION Last administered on 07/07/17at 09:00; Start 07/01/17 at 00:15 Acetaminophen/ Hydrocodone Bitart (Lortab 5/325) 1 tab PRN Q4HRS PRN PO MILD PAIN Last administered on 07/09/17at 08:30; Start 07/01/17 at 00:30 Acetaminophen/ Hydrocodone Bitart (Lortab 5/325) 2 tab PRN Q4HRS PRN PO moderate or severe pain Last administered on 07/03/17at 22:33; Start 07/01/17 at 00:30; Stop 07/06/17 at 21:38; Status DC Metoprolol Succinate (Toprol Xl) 25 mg DAILY PO Last administered on 07/12/17at 08:13; Start 07/01/17 at 09:00 Mirtazapine (Remeron) 7.5 mg QHS PO ; Start 07/01/17 at 21:00; Stop 07/01/17 at 21:00; Status DC Sertraline HCl (Zoloft) 50 mg DAILY PO Last administered on 07/01/17at 09:01; Start 07/01/17 at 09:00; Stop 07/01/17 at 18:49; Status DC Lisinopril (Prinivil) 40 mg DAILY PO Last administered on 07/11/17at 10:49; Start 07/01/17 at 09:00 Quetiapine Fumarate (SEROquel) 100 mg QHS PO Last administered on 07/12/17at 19: 32; Start 07/01/17 at 21:00 Vitamin D (Vitamin D3) 50,000 unit WEEKLY PO ; Start 07/01/17 at 18:00; Stop at 19:03; Status DC Mirtazapine (Remeron) 15 mg QHS PO Last administered on 07/09/17at 19:27; Start 07/01/17 at 21:00; Stop 07/10/17 at 11:45; Status DC Sertraline HCl (Zoloft) 25 mg DAILY PO Last administered on 07/07/17at 08:53; Start 07/02/17 at 09:00; Stop 07/07/17 at 18:39; Status DC Vitamin D (Vitamin D3) 50,000 unit WEEKLY PO Last administered on 07/09/17at 08: 29; Start 07/02/17 at 09:00 Olanzapine (ZyPREXA ZYDIS) 2.5 mg PRN Q2HR PRN PO psychosis Last administered on 07/04/17at 20:56; Start 07/02/17 at 16:15; Stop 07/04/17 at 23:31; Status DC Haloperidol (Haldol) 5 mg 1X ONCE PO Last administered on 07/05/17at 00:00; Start 07/04/17 at 23:45; Stop 07/04/17 at 23:46; Status DC Haloperidol (Haldol) 2 mg PRN Q6HRS PRN PO ANXIETY / AGITATION Last administered on 07/09/17 01:09; Start 07/04/17 at 23:30 Insulin Aspart (NovoLOG) 0-5 UNITS TIDAC SQ Last administered on 07/12/17 12: 35; Start 07/06/17 at 07:30 Dextrose 12.5 gm PRN Q15MIN PRN IV SEE COMMENTS; Start 07/05/17 at 18:00 Olanzapine (ZyPREXA ZYDIS) 2.5 mg PRN Q2HR PRN PO PSYCHOSIS Last administered on 07/08/17at 18:12; Start 07/06/17 at 21:45 Trazodone HCl (Desyrel) 50 mg PRN QHS PRN PO INSOMNIA, MAY REPEAT X1 Last administered on 07/12/17 20:22; Start 07/07/17 at 17:45 Sertraline HCl (Zoloft) 50 mg DAILY PO Last administered on 07/12/17 08:12; Start 07/08/17 at 09:00 Divalproex Sodium (Depakote Sprinkles) 125 mg TID@0900,1300,1700 PO Last administered on 07/12/17 16:55; Start 07/08/17 at 09:00; Stop 07/12/17 at 18:04 ; Status DC Magnesium Citrate (Citroma) 296 ml PRN 1X PRN PO CONSTIPATION Last administered on 07/08/17at 08:21; Start 07/08/17 at 07:00 Mineral Oil (Fleet Mineral Oil) 133 ml PRN DAILY PRN [place] CONSTIPATION; Start 07/08/17 at 07:00 Sodium Biphosphate/ Sodium Phosphate (Fleet Adult) 133 ml 1X ONCE [place] ; Start at 07:00; Stop 07/08/17 at 07:01; Status DC Sodium Biphosphate/ Sodium Phosphate (Fleet Adult) 133 ml PRN DAILY PRN [place] CONSTIPATION; Start 07/08/17 at 07:00 Docusate Sodium (Colace) 100 mg DAILY PO Last administered on 07/12/17at 08:14; Start 07/08/17 at 09:00 Melatonin 3 mg HS PO Last administered on 07/12/17at 19:32; Start 07/08/17 at 21: 00 Amitriptyline HCl (Elavil) 25 mg HS PO Last administered on 07/12/17at 19:32; Start 07/10/17 at 21:00 Divalproex Sodium (Depakote Sprinkles) 125 mg DAILY@1300 PO ; Start 07/13/17 at 13:00 Divalproex Sodium (Depakote Sprinkles) 250 mg BID PO Last administered on at 19:32; Start 07/12/17 at 21:00 Active Scripts Active Reported Zoloft (Sertraline Hcl) 50 Mg Tablet 50 Mg PO DAILY Seroquel Xr (Quetiapine Fumarate) 50 Mg Tab.er.24h 100 Mg PO QHS Remeron (Mirtazapine) 15 Mg Tablet 7.5 Mg PO QHS Toprol Xl (Metoprolol Succinate) 25 Mg Tab.er.24h 25 Mg PO DAILY Ativan (Lorazepam) 2 Mg/1 Ml Vial 0.5 Mg IV PRN Q8HRS PRN Hydrocodone-Apap 5-325 (Hydrocodone Bit/Acetaminophen) 1 Each Tablet 2 Tab PO PRN Q4HRS PRN Hydrocodone-Apap 5-325 (Hydrocodone Bit/Acetaminophen) 1 Each Tablet 1 Tab PO PRN Q4HRS PRN Lisinopril 40 Mg Tablet 40 Mg PO DAILY Haldol (Haloperidol Lactate) 5 Mg/1 Ml Ampul 1 Mg IV PRN Q8HRS PRN I have reviewed the current psychotropics carefully including drug interactions. Risk benefit ratio favors no change other than as noted in my dictated progress note. 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
[2017-07-13 05:42] VITALS: BP 114/55
[2017-07-13] MEDS: INSULIN ASPART 300 UNITS/3 ML INSULN.PEN SQ SCH ×3 (07:30→16:30)
[2017-07-13] MEDS: DOCUSATE SODIUM 100 MG CAPSULE PO SCH (07:57)
[2017-07-13] MEDS: LISINOPRIL 20 MG TABLET PO SCH (07:58)
[2017-07-13] MEDS: METOPROLOL SUCC 24HR ER 25 MG TAB.ER.24H. PO SCH (07:58)
[2017-07-13] MEDS: DIVALPROEX 125 MG CAP.SPRINK PO SCH ×3 (07:58→19:20)
[2017-07-13] MEDS: SERTRALINE 50 MG TABLET. PO SCH (07:58)
[2017-07-13] MEDS: HALOPERIDOL 2 MG TABLET PO PRN (14:45)
[2017-07-13] MEDS: QUEtiapine 100 MG TABLET. PO SCH (19:20)
[2017-07-13] MEDS: AMITRIPTYLINE HCL 25 MG TABLET PO SCH (19:20)
[2017-07-13] MEDS: traZODone 50 MG TABLET. PO PRN (19:23)
[2017-07-13] MEDS: MELATONIN 3 MG TABLET PO SCH (19:23)
--- NOTE | 2017-07-13 20:32 | PDOC ---
Exam Note: Lars Note: Please also refer to the separate dictated note~for this date of service dictated separately.~Patient seen individually. Discussed the patient with Nursing staff reviewed the chart.~Reviewed interim history and current functioning. Reviewed vital signs,~Labs/ Radiology~and current medications noted below. Continue current treatment with the changes noted in the dictated addendum note Assessment: Vital Signs: Vital Signs Date Time Temp Pulse Resp B/P (MAP) Pulse Ox O2 Delivery O2 Flow Rate FiO2 07/13/17 07:58 61 114/55 07/13/17 05:42 96.7 18 100 07/12/17 16:14 Room Air I&O Intake and Output 07/13/17 07:00 Intake Total 960 ml Output Total 1 ml Balance 959 ml Intake Oral 960 ml Stool Total 1 ml # Bowel Movements 2 Labs: Laboratory Tests Test 07/13/17 07:18 07/13/17 11:32 07/13/17 16:32 07/13/17 19:07 Glucose (Fingerstick) 97 mg/dL (70-99) 122 mg/dL (70-99) H 122 mg/dL (70-99) H 177 mg/dL (70-99) H Current Medications: Meds: Current Medications Acetaminophen (Tylenol) 650 mg PRN Q6HRS PRN PO PAIN / TEMP; Start 07/01/17 at 00:15 Multi-Ingredient Ointment (Analgesic [place]) 1 chary PRN QID PRN TP MUSCLE PAIN; Start 07/01/17 at 00:15 Al Hydroxide/Mg Hydroxide (Mylanta Plus Xs) 15 ml PRN AFTMEALHC PRN PO DYSPEPSIA; Start 07/01/17 at 00:15 Magnesium Hydroxide (Milk Of Magnesia) 2,400 mg PRN QHS PRN PO CONSTIPATION Last administered on 07/07/17at 09:00; Start 07/01/17 at 00:15 Acetaminophen/ Hydrocodone Bitart (Lortab 5/325) 1 tab PRN Q4HRS PRN PO MILD PAIN Last administered on 07/09/17at 08:30; Start 07/01/17 at 00:30 Acetaminophen/ Hydrocodone Bitart (Lortab 5/325) 2 tab PRN Q4HRS PRN PO moderate or severe pain Last administered on 07/03/17at 22:33; Start 07/01/17 at 00:30; Stop 07/06/17 at 21:38; Status DC Metoprolol Succinate (Toprol Xl) 25 mg DAILY PO Last administered on 07/13/17at 07:58; Start 07/01/17 at 09:00 Mirtazapine (Remeron) 7.5 mg QHS PO ; Start 07/01/17 at 21:00; Stop 07/01/17 at 21:00; Status DC Sertraline HCl (Zoloft) 50 mg DAILY PO Last administered on 07/01/17at 09:01; Start 07/01/17 at 09:00; Stop 07/01/17 at 18:49; Status DC Lisinopril (Prinivil) 40 mg DAILY PO Last administered on 07/11/17at 10:49; Start 07/01/17 at 09:00 Quetiapine Fumarate (SEROquel) 100 mg QHS PO Last administered on 07/13/17at 19: 20; Start 07/01/17 at 21:00 Vitamin D (Vitamin D3) 50,000 unit WEEKLY PO ; Start 07/01/17 at 18:00; Stop at 19:03; Status DC Mirtazapine (Remeron) 15 mg QHS PO Last administered on 07/09/17at 19:27; Start 07/01/17 at 21:00; Stop 07/10/17 at 11:45; Status DC Sertraline HCl (Zoloft) 25 mg DAILY PO Last administered on 07/07/17at 08:53; Start 07/02/17 at 09:00; Stop 07/07/17 at 18:39; Status DC Vitamin D (Vitamin D3) 50,000 unit WEEKLY PO Last administered on 07/09/17at 08: 29; Start 07/02/17 at 09:00 Olanzapine (ZyPREXA ZYDIS) 2.5 mg PRN Q2HR PRN PO psychosis Last administered on 07/04/17at 20:56; Start 07/02/17 at 16:15; Stop 07/04/17 at 23:31; Status DC Haloperidol (Haldol) 5 mg 1X ONCE PO Last administered on 07/05/17at 00:00; Start 07/04/17 at 23:45; Stop 07/04/17 at 23:46; Status DC Haloperidol (Haldol) 2 mg PRN Q6HRS PRN PO ANXIETY / AGITATION Last administered on 07/13/17at 14:45; Start 07/04/17 at 23:30 Insulin Aspart (NovoLOG) 0-5 UNITS TIDAC SQ Last administered on 07/12/17at 12: 35; Start 07/06/17 at 07:30 Dextrose 12.5 gm PRN Q15MIN PRN IV SEE COMMENTS; Start 07/05/17 at 18:00 Olanzapine (ZyPREXA ZYDIS) 2.5 mg PRN Q2HR PRN PO PSYCHOSIS Last administered on 07/13/17 19:23; Start 07/06/17 at 21:45 Trazodone HCl (Desyrel) 50 mg PRN QHS PRN PO INSOMNIA, MAY REPEAT X1 Last administered on 07/13/17at 19:23; Start 07/07/17 at 17:45 Sertraline HCl (Zoloft) 50 mg DAILY PO Last administered on 07/13/17at 07:58; Start 07/08/17 at 09:00 Divalproex Sodium (Depakote Sprinkles) 125 mg TID@0900,1300,1700 PO Last administered on 07/12/17 16:55; Start 07/08/17 at 09:00; Stop 07/12/17 at 18:04 ; Status DC Magnesium Citrate (Citroma) 296 ml PRN 1X PRN PO CONSTIPATION Last administered on 07/08/17at 08:21; Start 07/08/17 at 07:00 Mineral Oil (Fleet Mineral Oil) 133 ml PRN DAILY PRN PA CONSTIPATION; Start 07/08/17 at 07:00 Sodium Biphosphate/ Sodium Phosphate (Fleet Adult) 133 ml 1X ONCE PA ; Start at 07:00; Stop 07/08/17 at 07:01; Status DC Sodium Biphosphate/ Sodium Phosphate (Fleet Adult) 133 ml PRN DAILY PRN PA CONSTIPATION; Start 07/08/17 at 07:00 Docusate Sodium (Colace) 100 mg DAILY PO Last administered on 07/13/17at 07:57; Start 07/08/17 at 09:00 Melatonin 3 mg HS PO Last administered on 07/13/17 19:23; Start 07/08/17 at 21: 00 Amitriptyline HCl (Elavil) 25 mg HS PO Last administered on 07/13/17at 19:20; Start 07/10/17 at 21:00 Divalproex Sodium (Depakote Sprinkles) 125 mg DAILY@1300 PO Last administered on 07/13/17at 11:49; Start 07/13/17 at 13:00 Divalproex Sodium (Depakote Sprinkles) 250 mg BID PO Last administered on at 19:20; Start 07/12/17 at 21:00 Active Scripts Active Reported Zoloft (Sertraline Hcl) 50 Mg Tablet 50 Mg PO DAILY Seroquel Xr (Quetiapine Fumarate) 50 Mg Tab.er.24h 100 Mg PO QHS Remeron (Mirtazapine) 15 Mg Tablet 7.5 Mg PO QHS Toprol Xl (Metoprolol Succinate) 25 Mg Tab.er.24h 25 Mg PO DAILY Ativan (Lorazepam) 2 Mg/1 Ml Vial 0.5 Mg IV PRN Q8HRS PRN Hydrocodone-Apap 5-325 (Hydrocodone Bit/Acetaminophen) 1 Each Tablet 2 Tab PO PRN Q4HRS PRN Hydrocodone-Apap 5-325 (Hydrocodone Bit/Acetaminophen) 1 Each Tablet 1 Tab PO PRN Q4HRS PRN Lisinopril 40 Mg Tablet 40 Mg PO DAILY Haldol (Haloperidol Lactate) 5 Mg/1 Ml Ampul 1 Mg IV PRN Q8HRS PRN I have reviewed the current psychotropics carefully including drug interactions. Risk benefit ratio favors no change other than as noted in my dictated progress note. 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
--- NOTE | 2017-07-14 00:21 | PN ---
DATE: 07/11/2017 This is a late entry for date of service 07/11/2017 and covers the elements not covered in my initial note 07/11/2017. SUBJECTIVE: I met with the patient evening of 07/11/2017. The patient did well the previous evening, slept in his bed at night for 7 hours, but around 7:00 p.m. on 07/11/2017, he was quite agitated, but redirected, restless, anxious. He is sleeping better on the amitriptyline. REVIEW OF SYSTEMS: Ambulation impaired, in wheelchair. No CV, , pulmonary, eye, ENT system symptoms on review. Reliability poor. MENTAL STATUS EXAM: Oriented to himself. Insight, judgment, recent and remote memory, attention, concentration, fund of knowledge poor, consistent with his diagnosis mentioned in my initial note. IMPRESSION: Major neurocognitive disorder, Alzheimer, vascular with depression, delusion, behavioral disturbance. PLAN: Continue psychotropics mentioned in my initial note. Adjust further as clinically indicated. MAN Robinson GUY MD DR: RAJAN/nathan JOB#: [id number] / [id number]
--- NOTE | 2017-07-14 00:27 | PN ---
DATE: 07/12/2017 PSYCHIATRIC PROGRESS NOTE This late entry 07/12/2017 covers elements not covered in my initial note 07/12/2017. SUBJECTIVE: Met with the patient in the evening of 07/12/2017. The patient has had some marked lability within the context of his confusion. Around dinnertime, he was quite upbeat and flirtatious and then soon after was swinging at staff on two different occasions, had to be placed in the West hallway where slept 7-1/4 hours previous evening, which is an improvement on the amitriptyline. REVIEW OF SYSTEMS: No CV, , pulmonary, eye system symptoms on review. Reliability is poor. Gait unsteady in wheelchair. MENTAL STATUS EXAM: Oriented to himself. Insight, judgment, recent and remote memory, attention, concentration, fund of knowledge poor, consistent with his diagnosis mentioned in my initial note. IMPRESSION: Major neurocognitive disorder, Alzheimer, vascular with depression, delusion, behavioral disturbance. Rest unchanged. PLAN: Increase Depakote from 125 t.i.d. to 250 in the morning and evening, 125 in the afternoon since initial level is 23 on the lower dosage. Check CBC, CMP level in 3 days. Adjust further as clinically indicated. AMPARO GUY MD DR: RAJAN/nathan JOB#: [id number] / [id number]
[2017-07-14 05:55] VITALS: BP 148/77
[2017-07-14] MEDS: INSULIN ASPART 300 UNITS/3 ML INSULN.PEN SQ SCH ×3 (07:30→16:30)
[2017-07-14] MEDS: DIVALPROEX 125 MG CAP.SPRINK PO SCH ×3 (09:29→19:30)
[2017-07-14] MEDS: SERTRALINE 50 MG TABLET. PO SCH (09:30)
[2017-07-14] MEDS: DOCUSATE SODIUM 100 MG CAPSULE PO SCH (09:30)
[2017-07-14] MEDS: LISINOPRIL 20 MG TABLET PO SCH (09:30)
[2017-07-14] MEDS: METOPROLOL SUCC 24HR ER 25 MG TAB.ER.24H. PO SCH (09:30)
[2017-07-14] MEDS: QUEtiapine 25 MG TABLET. PO SCH ×4 (09:34→19:31)
[2017-07-14 16:26] VITALS: BP 145/77
[2017-07-14] MEDS: traZODone 100 MG TABLET. PO PRN (19:30)
[2017-07-14] MEDS: MELATONIN 3 MG TABLET PO SCH (19:30)
[2017-07-14] MEDS: AMITRIPTYLINE HCL 25 MG TABLET PO SCH (19:30)
--- NOTE | 2017-07-14 22:22 | PDOC ---
Exam Note: Lars Note: Please also refer to the separate dictated note~for this date of service dictated separately.~Patient seen individually. Discussed the patient with Nursing staff reviewed the chart.~Reviewed interim history and current functioning. Reviewed vital signs,~Labs/ Radiology~and current medications noted below. Continue current treatment with the changes noted in the dictated addendum note Assessment: Vital Signs: Vital Signs Date Time Temp Pulse Resp B/P (MAP) Pulse Ox O2 Delivery O2 Flow Rate FiO2 07/14/17 16:26 98.2 79 16 145/77 (99) 07/14/17 05:55 96 07/12/17 16:14 Room Air I&O Intake and Output 07/14/17 07:00 Intake Total 925 ml Balance 925 ml Intake Oral 925 ml # Voids 1 # Bowel Movements 5 Labs: Laboratory Tests Test 07/14/17 07:10 07/14/17 11:48 07/14/17 16:45 07/14/17 19:01 Glucose (Fingerstick) 112 mg/dL (70-99) H 147 mg/dL (70-99) H 98 mg/dL (70-99) 131 mg/dL (70-99) H Current Medications: Meds: Current Medications Acetaminophen (Tylenol) 650 mg PRN Q6HRS PRN PO PAIN / TEMP; Start 07/01/17 at 00:15 Multi-Ingredient Ointment (Analgesic [place]) 1 chary PRN QID PRN TP MUSCLE PAIN; Start 07/01/17 at 00:15 Al Hydroxide/Mg Hydroxide (Mylanta Plus Xs) 15 ml PRN AFTMEALHC PRN PO DYSPEPSIA; Start 07/01/17 at 00:15 Magnesium Hydroxide (Milk Of Magnesia) 2,400 mg PRN QHS PRN PO CONSTIPATION Last administered on 07/07/17at 09:00; Start 07/01/17 at 00:15 Acetaminophen/ Hydrocodone Bitart (Lortab 5/325) 1 tab PRN Q4HRS PRN PO MILD PAIN Last administered on 07/09/17at 08:30; Start 07/01/17 at 00:30 Acetaminophen/ Hydrocodone Bitart (Lortab 5/325) 2 tab PRN Q4HRS PRN PO moderate or severe pain Last administered on 07/03/17at 22:33; Start 07/01/17 at 00:30; Stop 07/06/17 at 21:38; Status DC Metoprolol Succinate (Toprol Xl) 25 mg DAILY PO Last administered on 07/14/17at 09:30; Start 07/01/17 at 09:00 Mirtazapine (Remeron) 7.5 mg QHS PO ; Start 07/01/17 at 21:00; Stop 07/01/17 at 21:00; Status DC Sertraline HCl (Zoloft) 50 mg DAILY PO Last administered on 07/01/17at 09:01; Start 07/01/17 at 09:00; Stop 07/01/17 at 18:49; Status DC Lisinopril (Prinivil) 40 mg DAILY PO Last administered on 07/14/17at 09:30; Start 07/01/17 at 09:00 Quetiapine Fumarate (SEROquel) 100 mg QHS PO Last administered on 07/13/17at 19: 20; Start 07/01/17 at 21:00; Stop 07/13/17 at 20:38; Status DC Vitamin D (Vitamin D3) 50,000 unit WEEKLY PO ; Start 07/01/17 at 18:00; Stop at 19:03; Status DC Mirtazapine (Remeron) 15 mg QHS PO Last administered on 07/09/17at 19:27; Start 07/01/17 at 21:00; Stop 07/10/17 at 11:45; Status DC Sertraline HCl (Zoloft) 25 mg DAILY PO Last administered on 07/07/17at 08:53; Start 07/02/17 at 09:00; Stop 07/07/17 at 18:39; Status DC Vitamin D (Vitamin D3) 50,000 unit WEEKLY PO Last administered on 07/09/17at 08: 29; Start 07/02/17 at 09:00 Olanzapine (ZyPREXA ZYDIS) 2.5 mg PRN Q2HR PRN PO psychosis Last administered on 07/04/17at 20:56; Start 07/02/17 at 16:15; Stop 07/04/17 at 23:31; Status DC Haloperidol (Haldol) 5 mg 1X ONCE PO Last administered on 07/05/17at 00:00; Start 07/04/17 at 23:45; Stop 07/04/17 at 23:46; Status DC Haloperidol (Haldol) 2 mg PRN Q6HRS PRN PO ANXIETY / AGITATION Last administered on 07/13/17at 14:45; Start 07/04/17 at 23:30 Insulin Aspart (NovoLOG) 0-5 UNITS TIDAC SQ Last administered on 07/12/17at 12: 35; Start 07/06/17 at 07:30 Dextrose 12.5 gm PRN Q15MIN PRN IV SEE COMMENTS; Start 07/05/17 at 18:00 Olanzapine (ZyPREXA ZYDIS) 2.5 mg PRN Q2HR PRN PO PSYCHOSIS Last administered on 07/13/17 19:23; Start 07/06/17 at 21:45 Trazodone HCl (Desyrel) 50 mg PRN QHS PRN PO INSOMNIA, MAY REPEAT X1 Last administered on 07/13/17at 19:23; Start 07/07/17 at 17:45; Stop 07/13/17 at 20:38 ; Status DC Sertraline HCl (Zoloft) 50 mg DAILY PO Last administered on 07/14/17at 09:30; Start 07/08/17 at 09:00 Divalproex Sodium (Depakote Sprinkles) 125 mg TID@0900,1300,1700 PO Last administered on 07/12/17at 16:55; Start 07/08/17 at 09:00; Stop 07/12/17 at 18:04 ; Status DC Magnesium Citrate (Citroma) 296 ml PRN 1X PRN PO CONSTIPATION Last administered on 07/08/17at 08:21; Start 07/08/17 at 07:00 Mineral Oil (Fleet Mineral Oil) [address] CONSTIPATION; Start 07/08/17 at 07:00 Sodium Biphosphate/ Sodium Phosphate (Fleet Adult) [address] ; Start at 07:00; Stop 07/08/17 at 07:01; Status DC Sodium Biphosphate/ Sodium Phosphate (Fleet Adult) [address] CONSTIPATION; Start 07/08/17 at 07:00 Docusate Sodium (Colace) 100 mg DAILY PO Last administered on 07/14/17at 09:30; Start 07/08/17 at 09:00 Melatonin 3 mg HS PO Last administered on 07/14/17at 19:30; Start 07/08/17 at 21: 00 Amitriptyline HCl (Elavil) 25 mg HS PO Last administered on 07/14/17 19:30; Start 07/10/17 at 21:00 Divalproex Sodium (Depakote Sprinkles) 125 mg DAILY@1300 PO Last administered on 07/14/17 13:18; Start 07/13/17 at 13:00 Divalproex Sodium (Depakote Sprinkles) 250 mg BID PO Last administered on 19:30; Start 07/12/17 at 21:00 Quetiapine Fumarate (SEROquel) 12.5 mg TID@0900,1300,1700 PO Last administered on 07/14/17 16:52; Start 07/14/17 at 09:00 Quetiapine Fumarate (SEROquel) 75 mg QHS PO Last administered on 07/14/17 19: 31; Start 07/14/17 at 21:00 Trazodone HCl (Desyrel) 100 mg PRN QHS PRN PO INSOMNIA, MAY REPEAT X1 Last administered on 07/14/17 19:30; Start 07/13/17 at 20:45 Active Scripts Active Reported Zoloft (Sertraline Hcl) 50 Mg Tablet 50 Mg PO DAILY Seroquel Xr (Quetiapine Fumarate) 50 Mg Tab.er.24h 100 Mg PO QHS Remeron (Mirtazapine) 15 Mg Tablet 7.5 Mg PO QHS Toprol Xl (Metoprolol Succinate) 25 Mg Tab.er.24h 25 Mg PO DAILY Ativan (Lorazepam) 2 Mg/1 Ml Vial 0.5 Mg IV PRN Q8HRS PRN Hydrocodone-Apap 5-325 (Hydrocodone Bit/Acetaminophen) 1 Each Tablet 2 Tab PO PRN Q4HRS PRN Hydrocodone-Apap 5-325 (Hydrocodone Bit/Acetaminophen) 1 Each Tablet 1 Tab PO PRN Q4HRS PRN Lisinopril 40 Mg Tablet 40 Mg PO DAILY Haldol (Haloperidol Lactate) 5 Mg/1 Ml Ampul 1 Mg IV PRN Q8HRS PRN I have reviewed the current psychotropics carefully including drug interactions. Risk benefit ratio favors no change other than as noted in my dictated progress note. 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
--- NOTE | 2017-07-15 04:59 | PN ---
DATE: 07/13/2017 PSYCHIATRIC PROGRESS NOTE This is a late entry of 07/13/2017 covers elements not covered in my initial note of 07/13/2017. I met with the patient in the evening of 07/13/2017. HISTORY OF PRESENT ILLNESS: The patient had a very difficult day. Previous evening, he was hitting, kicking, spitting, threatening staff, refusing cares, delusional, agitated, received trazodone and Zyprexa p.r.n. during the day. He has had similar behaviors on 07/13/2017. Received Haldol and Zyprexa, all with limited results. REVIEW OF SYSTEMS: No CV, , pulmonary, eye, ENT system symptoms on review. Reliability poor. Gait unsteady, in wheelchair. MENTAL STATUS EXAM: Oriented to himself. Insight, judgment, recent and remote memory, attention, concentration, fund of knowledge poor, consistent with his diagnosis mentioned in my initial note. IMPRESSION: Major neurocognitive disorder, Alzheimer, vascular with depression, delusion, behavioral disturbance. PLAN: Check CBC, CMP, valproic acid level on the . Change Seroquel 100 mg at bedtime to 12.5 mg 9, 1 and 5 p.m. and 75 mg p.o. at bedtime. Continue rest unchanged. Adjust further as clinically indicated. MAN Robinson GUY MD DR: RAJAN/nathan JOB#: [id number] / [id number]
[2017-07-15 06:18] VITALS: BP 145/79
[2017-07-15] MEDS: INSULIN ASPART 300 UNITS/3 ML INSULN.PEN SQ SCH ×3 (07:46→16:30)
[2017-07-15 07:55] LABS: BASO % 0 % (0-3); EOS # 0.2 x10^3/uL (0.0-0.7); EOS % 2 % (0-3); HEMATOCRIT 35.6 % (39.0-53.0); HEMOGLOBIN 12.1 g/dL (13.0-17.5); LYMPH # 1.3 x10^3/uL (1.0-4.8); LYMPH % 14 % (24-48); MEAN CORPUSCULAR HEMOGLOBIN 32 pg (25-35); MEAN CORPUSCULAR HGB CONC 34 g/dL (31-37); MEAN CORPUSCULAR VOLUME 93 fL (79-100); MONO # 1.1 x10^3/uL (0.0-1.1); MONO % 12 % (0-9); NEUT # 6.5 x10^3uL (1.8-7.7); NEUT % 72 % (31-73); PLATELET COUNT 156 x10^3/uL (140-400); RED BLOOD COUNT 3.81 x10^6/uL (4.30-5.70); RED CELL DISTRIBUTION WIDTH 15.5 % (11.5-14.5); WHITE BLOOD COUNT 9.1 x10^3/uL (4.0-11.0)
[2017-07-15 08:08] LABS: ALBUMIN 3.2 g/dL (3.4-5.0); ALBUMIN/GLOBULIN RATIO 0.9 (1.0-1.7); ALK PHOS 99 U/L (46-116); ALT (SGPT) 34 U/L (16-63); ANION GAP 8 (6-14); AST (SGOT) 22 U/L (15-37); BLOOD UREA NITROGEN 37 mg/dL (8-26); BUN/CREATININE RATIO 23 (6-20); CALCIUM 9.1 mg/dL (8.5-10.1); CARBON DIOXIDE 30 mmol/L (21-32); CHLORIDE 108 mmol/L (98-107); CREATININE 1.6 mg/dL (0.7-1.3); GFR 41.6; GLUCOSE 117 mg/dL (70-99); POTASSIUM 4.1 mmol/L (3.5-5.1); SODIUM 146 mmol/L (136-145); TOTAL BILIRUBIN 0.7 mg/dL (0.2-1.0); TOTAL PROTEIN 6.7 g/dL (6.4-8.2)
[2017-07-15 08:12] LABS: VAL ACID 47 mcg/mL (50-100)
[2017-07-15] MEDS: DIVALPROEX 125 MG CAP.SPRINK PO SCH ×3 (09:11→19:29)
[2017-07-15] MEDS: DOCUSATE SODIUM 100 MG CAPSULE PO SCH (09:11)
[2017-07-15] MEDS: SERTRALINE 50 MG TABLET. PO SCH (09:11)
[2017-07-15] MEDS: METOPROLOL SUCC 24HR ER 25 MG TAB.ER.24H. PO SCH (09:13)
[2017-07-15] MEDS: QUEtiapine 25 MG TABLET. PO SCH ×4 (09:13→19:28)
[2017-07-15] MEDS: LISINOPRIL 20 MG TABLET PO SCH (09:13)
[2017-07-15 15:57] VITALS: BP 121/81
[2017-07-15] MEDS: AMITRIPTYLINE HCL 25 MG TABLET PO SCH (19:28)
[2017-07-15] MEDS: MELATONIN 3 MG TABLET PO SCH (19:29)
[2017-07-15] MEDS: traZODone 100 MG TABLET. PO PRN (19:35)
--- NOTE | 2017-07-15 19:58 | PDOC ---
Exam Note: Lars Note: Please also refer to the separate dictated note~for this date of service dictated separately.~Patient seen individually. Discussed the patient with Nursing staff reviewed the chart.~Reviewed interim history and current functioning. Reviewed vital signs,~Labs/ Radiology~and current medications noted below. Continue current treatment with the changes noted in the dictated addendum note Assessment: Vital Signs: Vital Signs Date Time Temp Pulse Resp B/P (MAP) Pulse Ox O2 Delivery O2 Flow Rate FiO2 07/15/17 15:57 97.8 76 18 121/81 (94) 95 07/12/17 16:14 Room Air I&O Intake and Output 07/15/17 07:00 Intake Total 440 ml Balance 440 ml Intake Oral 440 ml # Bowel Movements 1 Labs: Laboratory Tests Test 07/15/17 07:23 07/15/17 07:33 07/15/17 11:38 07/15/17 19:00 Glucose (Fingerstick) 291 mg/dL (70-99) H 141 mg/dL (70-99) H 144 mg/dL (70-99) H White Blood Count 9.1 x10^3/uL (4.0-11.0) Red Blood Count 3.81 x10^6/uL (4.30-5.70) L Hemoglobin 12.1 g/dL (13.0-17.5) L Hematocrit 35.6 % (39.0-53.0) L Mean Corpuscular Volume 93 fL (79-100) Mean Corpuscular Hemoglobin 32 pg (25-35) Mean Corpuscular Hemoglobin Concent 34 g/dL (31-37) Red Cell Distribution Width 15.5 % (11.5-14.5) H Platelet Count 156 x10^3/uL (140-400) Neutrophils (%) (Auto) 72 % (31-73) Lymphocytes (%) (Auto) 14 % (24-48) L Monocytes (%) (Auto) 12 % (0-9) H Eosinophils (%) (Auto) 2 % (0-3) Basophils (%) (Auto) 0 % (0-3) Neutrophils # (Auto) 6.5 x10^3uL (1.8-7.7) Lymphocytes # (Auto) 1.3 x10^3/uL (1.0-4.8) Monocytes # (Auto) 1.1 x10^3/uL (0.0-1.1) Eosinophils # (Auto) 0.2 x10^3/uL (0.0-0.7) Basophils # (Auto) 0.0 x10^3/uL (0.0-0.2) Sodium Level 146 mmol/L (136-145) H Potassium Level 4.1 mmol/L (3.5-5.1) Chloride Level 108 mmol/L (98-107) H Carbon Dioxide Level 30 mmol/L (21-32) Anion Gap 8 (6-14) Blood Urea Nitrogen 37 mg/dL (8-26) H Creatinine 1.6 mg/dL (0.7-1.3) H Estimated GFR (Cockcroft-Gault) 41.6 BUN/Creatinine Ratio 23 (6-20) H Glucose Level 117 mg/dL (70-99) H Calcium Level 9.1 mg/dL (8.5-10.1) Total Bilirubin 0.7 mg/dL (0.2-1.0) Aspartate Amino Transferase (AST) 22 U/L (15-37) Alanine Aminotransferase (ALT) 34 U/L (16-63) Alkaline Phosphatase 99 U/L (46-116) Total Protein 6.7 g/dL (6.4-8.2) Albumin 3.2 g/dL (3.4-5.0) L Albumin/Globulin Ratio 0.9 (1.0-1.7) L Valproic Acid Level 47 mcg/mL (50-100) L Valproic Acid Last Dose Date 07/14/17 Valproic Acid Last Dose Time 2100 Current Medications: Meds: Current Medications Acetaminophen (Tylenol) 650 mg PRN Q6HRS PRN PO PAIN / TEMP; Start 07/01/17 at 00:15 Multi-Ingredient Ointment (Analgesic [place]) 1 chary PRN QID PRN TP MUSCLE PAIN; Start 07/01/17 at 00:15 Al Hydroxide/Mg Hydroxide (Mylanta Plus Xs) 15 ml PRN AFTMEALHC PRN PO DYSPEPSIA; Start 07/01/17 at 00:15 Magnesium Hydroxide (Milk Of Magnesia) 2,400 mg PRN QHS PRN PO CONSTIPATION Last administered on 07/07/17at 09:00; Start 07/01/17 at 00:15 Acetaminophen/ Hydrocodone Bitart (Lortab 5/325) 1 tab PRN Q4HRS PRN PO MILD PAIN Last administered on 07/09/17at 08:30; Start 07/01/17 at 00:30 Acetaminophen/ Hydrocodone Bitart (Lortab 5/325) 2 tab PRN Q4HRS PRN PO moderate or severe pain Last administered on 07/03/17at 22:33; Start 07/01/17 at 00:30; Stop 07/06/17 at 21:38; Status DC Metoprolol Succinate (Toprol Xl) 25 mg DAILY PO Last administered on 07/15/17at 09:13; Start 07/01/17 at 09:00 Mirtazapine (Remeron) 7.5 mg QHS PO ; Start 07/01/17 at 21:00; Stop 07/01/17 at 21:00; Status DC Sertraline HCl (Zoloft) 50 mg DAILY PO Last administered on 07/01/17at 09:01; Start 07/01/17 at 09:00; Stop 07/01/17 at 18:49; Status DC Lisinopril (Prinivil) 40 mg DAILY PO Last administered on 07/15/17at 09:13; Start 07/01/17 at 09:00 Quetiapine Fumarate (SEROquel) 100 mg QHS PO Last administered on 07/13/17at 19: 20; Start 07/01/17 at 21:00; Stop 07/13/17 at 20:38; Status DC Vitamin D (Vitamin D3) 50,000 unit WEEKLY PO ; Start 07/01/17 at 18:00; Stop at 19:03; Status DC Mirtazapine (Remeron) 15 mg QHS PO Last administered on 07/09/17at 19:27; Start 07/01/17 at 21:00; Stop 07/10/17 at 11:45; Status DC Sertraline HCl (Zoloft) 25 mg DAILY PO Last administered on 07/07/17at 08:53; Start 07/02/17 at 09:00; Stop 07/07/17 at 18:39; Status DC Vitamin D (Vitamin D3) 50,000 unit WEEKLY PO Last administered on 07/09/17at 08: 29; Start 07/02/17 at 09:00 Olanzapine (ZyPREXA ZYDIS) 2.5 mg PRN Q2HR PRN PO psychosis Last administered on 07/04/17at 20:56; Start 07/02/17 at 16:15; Stop 07/04/17 at 23:31; Status DC Haloperidol (Haldol) 5 mg 1X ONCE PO Last administered on 07/05/17at 00:00; Start 07/04/17 at 23:45; Stop 07/04/17 at 23:46; Status DC Haloperidol (Haldol) 2 mg PRN Q6HRS PRN PO ANXIETY / AGITATION Last administered on 07/13/17at 14:45; Start 07/04/17 at 23:30 Insulin Aspart (NovoLOG) 0-5 UNITS TIDAC SQ Last administered on 07/15/17at 07: 46; Start 07/06/17 at 07:30 Dextrose 12.5 gm PRN Q15MIN PRN IV SEE COMMENTS; Start 07/05/17 at 18:00 Olanzapine (ZyPREXA ZYDIS) 2.5 mg PRN Q2HR PRN PO PSYCHOSIS Last administered on 07/13/17at 19:23; Start 07/06/17 at 21:45 Trazodone HCl (Desyrel) 50 mg PRN QHS PRN PO INSOMNIA, MAY REPEAT X1 Last administered on 07/13/17at 19:23; Start 07/07/17 at 17:45; Stop 07/13/17 at 20:38 ; Status DC Sertraline HCl (Zoloft) 50 mg DAILY PO Last administered on 07/15/17at 09:11; Start 07/08/17 at 09:00 Divalproex Sodium (Depakote Sprinkles) 125 mg TID@0900,1300,1700 PO Last administered on 07/12/17at 16:55; Start 07/08/17 at 09:00; Stop 07/12/17 at 18:04 ; Status DC Magnesium Citrate (Citroma) 296 ml PRN 1X PRN PO CONSTIPATION Last administered on 07/08/17 08:21; Start 07/08/17 at 07:00 Mineral Oil (Fleet Mineral Oil) 133 ml PRN DAILY PRN MT CONSTIPATION; Start 07/08/17 at 07:00 Sodium Biphosphate/ Sodium Phosphate (Fleet Adult) 133 ml 1X ONCE MT ; Start at 07:00; Stop 07/08/17 at 07:01; Status DC Sodium Biphosphate/ Sodium Phosphate (Fleet Adult) 133 ml PRN DAILY PRN MT CONSTIPATION; Start 07/08/17 at 07:00 Docusate Sodium (Colace) 100 mg DAILY PO Last administered on 07/15/17at 09:11; Start 07/08/17 at 09:00 Melatonin 3 mg HS PO Last administered on 07/15/17 19:29; Start 07/08/17 at 21: 00 Amitriptyline HCl (Elavil) 25 mg HS PO Last administered on 07/15/17 19:28; Start 07/10/17 at 21:00 Divalproex Sodium (Depakote Sprinkles) 125 mg DAILY@1300 PO Last administered on 07/15/17 12:19; Start 07/13/17 at 13:00 Divalproex Sodium (Depakote Sprinkles) 250 mg BID PO Last administered on 19:29; Start 07/12/17 at 21:00 Quetiapine Fumarate (SEROquel) 12.5 mg TID@0900,1300,1700 PO Last administered on 07/15/17at 17:46; Start 07/14/17 at 09:00; Stop 07/15/17 at 18:28; Status DC Quetiapine Fumarate (SEROquel) 75 mg QHS PO Last administered on 07/15/17 19: 28; Start 07/14/17 at 21:00 Trazodone HCl (Desyrel) 100 mg PRN QHS PRN PO INSOMNIA, MAY REPEAT X1 Last administered on 07/15/17at 19:35; Start 07/13/17 at 20:45 Quetiapine Fumarate (SEROquel) 12.5 mg BID@1300,1700 PO ; Start 07/16/17 at 13: 00 Quetiapine Fumarate (SEROquel) 25 mg DAILY PO ; Start 07/16/17 at 09:00 Active Scripts Active Reported Zoloft (Sertraline Hcl) 50 Mg Tablet 50 Mg PO DAILY Seroquel Xr (Quetiapine Fumarate) 50 Mg Tab.er.24h 100 Mg PO QHS Remeron (Mirtazapine) 15 Mg Tablet 7.5 Mg PO QHS Toprol Xl (Metoprolol Succinate) 25 Mg Tab.er.24h 25 Mg PO DAILY Ativan (Lorazepam) 2 Mg/1 Ml Vial 0.5 Mg IV PRN Q8HRS PRN Hydrocodone-Apap 5-325 (Hydrocodone Bit/Acetaminophen) 1 Each Tablet 2 Tab PO PRN Q4HRS PRN Hydrocodone-Apap 5-325 (Hydrocodone Bit/Acetaminophen) 1 Each Tablet 1 Tab PO PRN Q4HRS PRN Lisinopril 40 Mg Tablet 40 Mg PO DAILY Haldol (Haloperidol Lactate) 5 Mg/1 Ml Ampul 1 Mg IV PRN Q8HRS PRN I have reviewed the current psychotropics carefully including drug interactions. Risk benefit ratio favors no change other than as noted in my dictated progress note. 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
--- NOTE | 2017-07-15 22:34 | PN ---
DATE: 07/14/2017 PSYCHIATRIC PROGRESS NOTE This late entry 07/14/2017 covers elements, not covered in my initial note 07/14/2017. I met with the patient evening of 07/14/2017. The patient slept 7-1/2 hours previous evening, received trazodone and repeat p.r.n., seems to get caught up on his sleep at times, somewhat quiet at times, resistive, but not cooperative, but aggression is better. Labs to be repeated morning of 07/15/2017. REVIEW OF SYSTEMS: No CV, , pulmonary, eye, ENT system symptoms on review. Reliability poor. Gait unsteady, in wheelchair. MENTAL STATUS EXAM: Oriented to himself. Insight, judgment, recent and remote memory, attention, concentration, fund of knowledge poor, consistent with his diagnosis mentioned in my initial note. IMPRESSION: Major neurocognitive disorder, Alzheimer, vascular with depression, delusion, behavioral disturbance. Rest unchanged. PLAN: Continue current psychotropics. Check labs 07/15/2017. Adjust further thereafter. MAN Robinson GUY MD DR: RAJAN/nathan JOB#: [id number] / [id number]
[2017-07-16 06:19] VITALS: BP 135/76
[2017-07-16] MEDS: INSULIN ASPART 300 UNITS/3 ML INSULN.PEN SQ SCH ×3 (07:30→17:42)
[2017-07-16] MEDS: METOPROLOL SUCC 24HR ER 25 MG TAB.ER.24H. PO SCH (08:37)
[2017-07-16] MEDS: DIVALPROEX 125 MG CAP.SPRINK PO SCH ×3 (08:37→19:08)
[2017-07-16] MEDS: DOCUSATE SODIUM 100 MG CAPSULE PO SCH (08:37)
[2017-07-16] MEDS: SERTRALINE 50 MG TABLET. PO SCH (08:38)
[2017-07-16] MEDS: LISINOPRIL 20 MG TABLET PO SCH (08:38)
[2017-07-16] MEDS: CHOLECALCIFEROL (VITAMIN D3) 50,000 UNIT CAPSULE PO SCH (08:38)
[2017-07-16] MEDS ORDERED: QUEtiapine 25 MG TABLET. PO SCH (09:00)
[2017-07-16] MEDS: QUEtiapine 25 MG TABLET. PO SCH ×3 (12:55→19:08)
[2017-07-16 16:42] VITALS: BP 99/75
--- NOTE | 2017-07-16 19:04 | PDOC ---
Exam Note: Lars Note: Please also refer to the separate dictated note~for this date of service dictated separately.~Patient seen individually. Discussed the patient with Nursing staff reviewed the chart.~Reviewed interim history and current functioning. Reviewed vital signs,~Labs/ Radiology~and current medications noted below. Continue current treatment with the changes noted in the dictated addendum note Assessment: Vital Signs: Vital Signs Date Time Temp Pulse Resp B/P (MAP) Pulse Ox O2 Delivery O2 Flow Rate FiO2 07/16/17 16:42 97.4 50 16 99/75 (83) 96 07/16/17 06:19 Room Air I&O Intake and Output 07/16/17 07:00 Intake Total 1080 ml Balance 1080 ml Intake Oral 1080 ml # Voids 1 Labs: Laboratory Tests Test 07/16/17 07:20 07/16/17 12:06 07/16/17 16:58 Glucose (Fingerstick) 83 mg/dL (70-99) 96 mg/dL (70-99) 168 mg/dL (70-99) H Current Medications: Meds: Current Medications Acetaminophen (Tylenol) 650 mg PRN Q6HRS PRN PO PAIN / TEMP; Start 07/01/17 at 00:15 Multi-Ingredient Ointment (Analgesic [place]) 1 chary PRN QID PRN TP MUSCLE PAIN; Start 07/01/17 at 00:15 Al Hydroxide/Mg Hydroxide (Mylanta Plus Xs) 15 ml PRN AFTMEALHC PRN PO DYSPEPSIA; Start 07/01/17 at 00:15 Magnesium Hydroxide (Milk Of Magnesia) 2,400 mg PRN QHS PRN PO CONSTIPATION Last administered on 07/07/17at 09:00; Start 07/01/17 at 00:15 Acetaminophen/ Hydrocodone Bitart (Lortab 5/325) 1 tab PRN Q4HRS PRN PO MILD PAIN Last administered on 07/09/17at 08:30; Start 07/01/17 at 00:30 Acetaminophen/ Hydrocodone Bitart (Lortab 5/325) 2 tab PRN Q4HRS PRN PO moderate or severe pain Last administered on 07/03/17at 22:33; Start 07/01/17 at 00:30; Stop 07/06/17 at 21:38; Status DC Metoprolol Succinate (Toprol Xl) 25 mg DAILY PO Last administered on 07/16/17at 08:37; Start 07/01/17 at 09:00 Mirtazapine (Remeron) 7.5 mg QHS PO ; Start 07/01/17 at 21:00; Stop 07/01/17 at 21:00; Status DC Sertraline HCl (Zoloft) 50 mg DAILY PO Last administered on 07/01/17at 09:01; Start 07/01/17 at 09:00; Stop 07/01/17 at 18:49; Status DC Lisinopril (Prinivil) 40 mg DAILY PO Last administered on 07/16/17at 08:38; Start 07/01/17 at 09:00 Quetiapine Fumarate (SEROquel) 100 mg QHS PO Last administered on 07/13/17at 19: 20; Start 07/01/17 at 21:00; Stop 07/13/17 at 20:38; Status DC Vitamin D (Vitamin D3) 50,000 unit WEEKLY PO ; Start 07/01/17 at 18:00; Stop at 19:03; Status DC Mirtazapine (Remeron) 15 mg QHS PO Last administered on 07/09/17at 19:27; Start 07/01/17 at 21:00; Stop 07/10/17 at 11:45; Status DC Sertraline HCl (Zoloft) 25 mg DAILY PO Last administered on 07/07/17at 08:53; Start 07/02/17 at 09:00; Stop 07/07/17 at 18:39; Status DC Vitamin D (Vitamin D3) 50,000 unit WEEKLY PO Last administered on 07/16/17at 08: 38; Start 07/02/17 at 09:00 Olanzapine (ZyPREXA ZYDIS) 2.5 mg PRN Q2HR PRN PO psychosis Last administered on 07/04/17at 20:56; Start 07/02/17 at 16:15; Stop 07/04/17 at 23:31; Status DC Haloperidol (Haldol) 5 mg 1X ONCE PO Last administered on 07/05/17at 00:00; Start 07/04/17 at 23:45; Stop 07/04/17 at 23:46; Status DC Haloperidol (Haldol) 2 mg PRN Q6HRS PRN PO ANXIETY / AGITATION Last administered on 07/13/17 14:45; Start 07/04/17 at 23:30 Insulin Aspart (NovoLOG) 0-5 UNITS TIDAC SQ Last administered on 07/16/17 17: 42; Start 07/06/17 at 07:30 Dextrose 12.5 gm PRN Q15MIN PRN IV SEE COMMENTS; Start 07/05/17 at 18:00 Olanzapine (ZyPREXA ZYDIS) 2.5 mg PRN Q2HR PRN PO PSYCHOSIS Last administered on 07/16/17 17:41; Start 07/06/17 at 21:45 Trazodone HCl (Desyrel) 50 mg PRN QHS PRN PO INSOMNIA, MAY REPEAT X1 Last administered on 07/13/17 19:23; Start 07/07/17 at 17:45; Stop 07/13/17 at 20:38 ; Status DC Sertraline HCl (Zoloft) 50 mg DAILY PO Last administered on 07/16/17at 08:38; Start 07/08/17 at 09:00 Divalproex Sodium (Depakote Sprinkles) 125 mg TID@0900,1300,1700 PO Last administered on 07/12/17at 16:55; Start 07/08/17 at 09:00; Stop 07/12/17 at 18:04 ; Status DC Magnesium Citrate (Citroma) 296 ml PRN 1X PRN PO CONSTIPATION Last administered on 07/08/17at 08:21; Start 07/08/17 at 07:00 Mineral Oil (Fleet Mineral Oil) 133 ml PRN DAILY PRN DC CONSTIPATION; Start 07/08/17 at 07:00 Sodium Biphosphate/ Sodium Phosphate (Fleet Adult) 133 ml 1X ONCE DC ; Start at 07:00; Stop 07/08/17 at 07:01; Status DC Sodium Biphosphate/ Sodium Phosphate (Fleet Adult) 133 ml PRN DAILY PRN DC CONSTIPATION; Start 07/08/17 at 07:00 Docusate Sodium (Colace) 100 mg DAILY PO Last administered on 07/16/17at 08:37; Start 07/08/17 at 09:00 Melatonin 3 mg HS PO Last administered on 07/15/17at 19:29; Start 07/08/17 at 21: 00 Amitriptyline HCl (Elavil) 25 mg HS PO Last administered on 07/15/17 19:28; Start 07/10/17 at 21:00 Divalproex Sodium (Depakote Sprinkles) 125 mg DAILY@1300 PO Last administered on 07/16/17at 12:55; Start 07/13/17 at 13:00 Divalproex Sodium (Depakote Sprinkles) 250 mg BID PO Last administered on at 08:37; Start 07/12/17 at 21:00 Quetiapine Fumarate (SEROquel) 12.5 mg TID@0900,1300,1700 PO Last administered on 07/15/17at 17:46; Start 07/14/17 at 09:00; Stop 07/15/17 at 18:28; Status DC Quetiapine Fumarate (SEROquel) 75 mg QHS PO Last administered on 07/15/17 19: 28; Start 07/14/17 at 21:00 Trazodone HCl (Desyrel) 100 mg PRN QHS PRN PO INSOMNIA, MAY REPEAT X1 Last administered on 07/15/17at 19:35; Start 07/13/17 at 20:45 Quetiapine Fumarate (SEROquel) 12.5 mg BID@1300,1700 PO Last administered on at 17:40; Start 07/16/17 at 13:00; Stop 07/16/17 at 18:14; Status DC Quetiapine Fumarate (SEROquel) 25 mg DAILY PO Last administered on 07/16/17at 08 :39; Start 07/16/17 at 09:00; Stop 07/16/17 at 18:14; Status DC Quetiapine Fumarate (SEROquel) 25 mg TID@0900,1300,1700 PO ; Start 07/17/17 at 09:00 Active Scripts Active Reported Zoloft (Sertraline Hcl) 50 Mg Tablet 50 Mg PO DAILY Seroquel Xr (Quetiapine Fumarate) 50 Mg Tab.er.24h 100 Mg PO QHS Remeron (Mirtazapine) 15 Mg Tablet 7.5 Mg PO QHS Toprol Xl (Metoprolol Succinate) 25 Mg Tab.er.24h 25 Mg PO DAILY Ativan (Lorazepam) 2 Mg/1 Ml Vial 0.5 Mg IV PRN Q8HRS PRN Hydrocodone-Apap 5-325 (Hydrocodone Bit/Acetaminophen) 1 Each Tablet 2 Tab PO PRN Q4HRS PRN Hydrocodone-Apap 5-325 (Hydrocodone Bit/Acetaminophen) 1 Each Tablet 1 Tab PO PRN Q4HRS PRN Lisinopril 40 Mg Tablet 40 Mg PO DAILY Haldol (Haloperidol Lactate) 5 Mg/1 Ml Ampul 1 Mg IV PRN Q8HRS PRN I have reviewed the current psychotropics carefully including drug interactions. Risk benefit ratio favors no change other than as noted in my dictated progress note. 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
[2017-07-16] MEDS: MELATONIN 3 MG TABLET PO SCH (19:07)
[2017-07-16] MEDS: AMITRIPTYLINE HCL 25 MG TABLET PO SCH (19:08)
--- NOTE | 2017-07-16 22:35 | PN ---
DATE: 07/15/2017 This late entry 07/15/2016, covers elements not covered in my initial note 07/15/2017, met with the patient evening of 07/15/2017. SUBJECTIVE: The patient slept 8-1/4 hours previous evening. He had a rough night per nursing report, was combative with cares, refused to get to the day room, had to [place] [address] Agitated in the evening. His daughter came irritable, labile, aggressive. Took his medications crushed and then was on the mattress. REVIEW OF SYSTEMS: No CV, , pulmonary, eye, ENT system symptoms on review. Reliability poor. MENTAL STATUS EXAM: Oriented to himself. Insight, judgment, recent and remote memory, attention, concentration, fund of knowledge poor, consistent with his diagnosis. LABORATORY DATA: Reviewed. IMPRESSION: Major neurocognitive disorder, Alzheimer, vascular with depression, delusion, behavioral disturbance. Rest unchanged. PLAN: Increase the 0900 Seroquel from 12.5 mg to 25 mg. Continue the 1300 and 1700. Add 12.5 mg and at bedtime at 75 mg. Maintain rest of the psychotropics including Depakote. Valproic acid level is 47, subtherapeutic, but clinically adequate for now. We may need to increase it if agitation, mood lability persist despite above changes. MAN Robinson GUY MD DR: RAJAN/nathan JOB#: [id number] / [id number]
[2017-07-17 05:56] VITALS: BP 91/47
[2017-07-17 06:15] VITALS: BP 132/61
[2017-07-17] MEDS: INSULIN ASPART 300 UNITS/3 ML INSULN.PEN SQ SCH ×3 (07:30→16:30)
[2017-07-17] MEDS: DOCUSATE SODIUM 100 MG CAPSULE PO SCH (08:06)
[2017-07-17] MEDS: DIVALPROEX 125 MG CAP.SPRINK PO SCH ×3 (08:06→19:18)
[2017-07-17] MEDS: METOPROLOL SUCC 24HR ER 25 MG TAB.ER.24H. PO SCH (08:06)
[2017-07-17] MEDS: LISINOPRIL 20 MG TABLET PO SCH (08:07)
[2017-07-17] MEDS: SERTRALINE 50 MG TABLET. PO SCH (08:07)
[2017-07-17] MEDS: QUEtiapine 25 MG TABLET. PO SCH ×4 (08:08→19:18)
[2017-07-17 15:35] VITALS: BP 135/66
[2017-07-17 15:42] VITALS: BP 145/93
[2017-07-17] MEDS: MELATONIN 3 MG TABLET PO SCH (19:17)
[2017-07-17] MEDS: AMITRIPTYLINE HCL 25 MG TABLET PO SCH (19:18)
[2017-07-17] MEDS: traZODone 100 MG TABLET. PO PRN (19:21)
--- NOTE | 2017-07-17 19:29 | PDOC ---
Exam Note: Lars Note: Please also refer to the separate dictated note~for this date of service dictated separately.~Patient seen individually. Discussed the patient with Nursing staff reviewed the chart.~Reviewed interim history and current functioning. Reviewed vital signs,~Labs/ Radiology~and current medications noted below. Continue current treatment with the changes noted in the dictated addendum note Assessment: Vital Signs: Vital Signs Date Time Temp Pulse Resp B/P (MAP) Pulse Ox O2 Delivery O2 Flow Rate FiO2 07/17/17 15:42 97.6 65 18 145/93 (110) 97 Room Air I&O Intake and Output 07/17/17 07:00 Intake Total 1320 ml Balance 1320 ml Intake Oral 1320 ml # Voids 2 Labs: Laboratory Tests Test 07/17/17 07:11 07/17/17 11:15 07/17/17 16:40 07/17/17 19:03 Glucose (Fingerstick) 86 mg/dL (70-99) 110 mg/dL (70-99) H 119 mg/dL (70-99) H 84 mg/dL (70-99) Current Medications: Meds: Current Medications Acetaminophen (Tylenol) 650 mg PRN Q6HRS PRN PO PAIN / TEMP; Start 07/01/17 at 00:15 Multi-Ingredient Ointment (Analgesic [place]) 1 chary PRN QID PRN TP MUSCLE PAIN; Start 07/01/17 at 00:15 Al Hydroxide/Mg Hydroxide (Mylanta Plus Xs) 15 ml PRN AFTMEALHC PRN PO DYSPEPSIA; Start 07/01/17 at 00:15 Magnesium Hydroxide (Milk Of Magnesia) 2,400 mg PRN QHS PRN PO CONSTIPATION Last administered on 07/07/17at 09:00; Start 07/01/17 at 00:15 Acetaminophen/ Hydrocodone Bitart (Lortab 5/325) 1 tab PRN Q4HRS PRN PO MILD PAIN Last administered on 07/09/17at 08:30; Start 07/01/17 at 00:30 Acetaminophen/ Hydrocodone Bitart (Lortab 5/325) 2 tab PRN Q4HRS PRN PO moderate or severe pain Last administered on 07/03/17at 22:33; Start 07/01/17 at 00:30; Stop 07/06/17 at 21:38; Status DC Metoprolol Succinate (Toprol Xl) 25 mg DAILY PO Last administered on 07/17/17at 08:06; Start 07/01/17 at 09:00 Mirtazapine (Remeron) 7.5 mg QHS PO ; Start 07/01/17 at 21:00; Stop 07/01/17 at 21:00; Status DC Sertraline HCl (Zoloft) 50 mg DAILY PO Last administered on 07/01/17at 09:01; Start 07/01/17 at 09:00; Stop 07/01/17 at 18:49; Status DC Lisinopril (Prinivil) 40 mg DAILY PO Last administered on 07/17/17at 08:07; Start 07/01/17 at 09:00 Quetiapine Fumarate (SEROquel) 100 mg QHS PO Last administered on 07/13/17at 19: 20; Start 07/01/17 at 21:00; Stop 07/13/17 at 20:38; Status DC Vitamin D (Vitamin D3) 50,000 unit WEEKLY PO ; Start 07/01/17 at 18:00; Stop at 19:03; Status DC Mirtazapine (Remeron) 15 mg QHS PO Last administered on 07/09/17at 19:27; Start 07/01/17 at 21:00; Stop 07/10/17 at 11:45; Status DC Sertraline HCl (Zoloft) 25 mg DAILY PO Last administered on 07/07/17at 08:53; Start 07/02/17 at 09:00; Stop 07/07/17 at 18:39; Status DC Vitamin D (Vitamin D3) 50,000 unit WEEKLY PO Last administered on 07/16/17at 08: 38; Start 07/02/17 at 09:00 Olanzapine (ZyPREXA ZYDIS) 2.5 mg PRN Q2HR PRN PO psychosis Last administered on 07/04/17at 20:56; Start 07/02/17 at 16:15; Stop 07/04/17 at 23:31; Status DC Haloperidol (Haldol) 5 mg 1X ONCE PO Last administered on 07/05/17at 00:00; Start 07/04/17 at 23:45; Stop 07/04/17 at 23:46; Status DC Haloperidol (Haldol) 2 mg PRN Q6HRS PRN PO ANXIETY / AGITATION Last administered on 07/13/17 14:45; Start 07/04/17 at 23:30 Insulin Aspart (NovoLOG) 0-5 UNITS TIDAC SQ Last administered on 07/16/17at 17: 42; Start 07/06/17 at 07:30 Dextrose 12.5 gm PRN Q15MIN PRN IV SEE COMMENTS; Start 07/05/17 at 18:00 Olanzapine (ZyPREXA ZYDIS) 2.5 mg PRN Q2HR PRN PO PSYCHOSIS Last administered on 07/17/17 19:21; Start 07/06/17 at 21:45 Trazodone HCl (Desyrel) 50 mg PRN QHS PRN PO INSOMNIA, MAY REPEAT X1 Last administered on 07/13/17 19:23; Start 07/07/17 at 17:45; Stop 07/13/17 at 20:38 ; Status DC Sertraline HCl (Zoloft) 50 mg DAILY PO Last administered on 07/17/17at 08:07; Start 07/08/17 at 09:00 Divalproex Sodium (Depakote Sprinkles) 125 mg TID@0900,1300,1700 PO Last administered on 07/12/17 16:55; Start 07/08/17 at 09:00; Stop 07/12/17 at 18:04 ; Status DC Magnesium Citrate (Citroma) 296 ml PRN 1X PRN PO CONSTIPATION Last administered on 07/08/17 08:21; Start 07/08/17 at 07:00 Mineral Oil (Fleet Mineral Oil) 133 ml PRN DAILY PRN [place] CONSTIPATION; Start 07/08/17 at 07:00 Sodium Biphosphate/ Sodium Phosphate (Fleet Adult) 133 ml 1X ONCE [place] ; Start at 07:00; Stop 07/08/17 at 07:01; Status DC Sodium Biphosphate/ Sodium Phosphate (Fleet Adult) 133 ml PRN DAILY PRN [place] CONSTIPATION; Start 07/08/17 at 07:00 Docusate Sodium (Colace) 100 mg DAILY PO Last administered on 07/17/17at 08:06; Start 07/08/17 at 09:00 Melatonin 3 mg HS PO Last administered on 07/17/17 19:17; Start 07/08/17 at 21: 00 Amitriptyline HCl (Elavil) 25 mg HS PO Last administered on 07/17/17at 19:18; Start 07/10/17 at 21:00 Divalproex Sodium (Depakote Sprinkles) 125 mg DAILY@1300 PO Last administered on 07/17/17at 12:31; Start 07/13/17 at 13:00; Stop 07/17/17 at 18:33; Status DC Divalproex Sodium (Depakote Sprinkles) 250 mg BID PO Last administered on at 08:06; Start 07/12/17 at 21:00; Stop 07/17/17 at 18:33; Status DC Quetiapine Fumarate (SEROquel) 12.5 mg TID@0900,1300,1700 PO Last administered on 07/15/17at 17:46; Start 07/14/17 at 09:00; Stop 07/15/17 at 18:28; Status DC Quetiapine Fumarate (SEROquel) 75 mg QHS PO Last administered on 07/17/17at 19: 18; Start 07/14/17 at 21:00 Trazodone HCl (Desyrel) 100 mg PRN QHS PRN PO INSOMNIA, MAY REPEAT X1 Last administered on 07/17/17at 19:21; Start 07/13/17 at 20:45 Quetiapine Fumarate (SEROquel) 12.5 mg BID@1300,1700 PO Last administered on at 17:40; Start 07/16/17 at 13:00; Stop 07/16/17 at 18:14; Status DC Quetiapine Fumarate (SEROquel) 25 mg DAILY PO Last administered on 07/16/17at 08 :39; Start 07/16/17 at 09:00; Stop 07/16/17 at 18:14; Status DC Quetiapine Fumarate (SEROquel) 25 mg TID@0900,1300,1700 PO Last administered on 07/17/17at 17:25; Start 07/17/17 at 09:00 Divalproex Sodium (Depakote Sprinkles) 250 mg TID PO Last administered on at 19:18; Start 07/17/17 at 21:00 Glimepiride (Amaryl) 1 mg DAILY PO ; Start 07/18/17 at 09:00 Active Scripts Active Reported Zoloft (Sertraline Hcl) 50 Mg Tablet 50 Mg PO DAILY Seroquel Xr (Quetiapine Fumarate) 50 Mg Tab.er.24h 100 Mg PO QHS Remeron (Mirtazapine) 15 Mg Tablet 7.5 Mg PO QHS Toprol Xl (Metoprolol Succinate) 25 Mg Tab.er.24h 25 Mg PO DAILY Ativan (Lorazepam) 2 Mg/1 Ml Vial 0.5 Mg IV PRN Q8HRS PRN Hydrocodone-Apap 5-325 (Hydrocodone Bit/Acetaminophen) 1 Each Tablet 2 Tab PO PRN Q4HRS PRN Hydrocodone-Apap 5-325 (Hydrocodone Bit/Acetaminophen) 1 Each Tablet 1 Tab PO PRN Q4HRS PRN Lisinopril 40 Mg Tablet 40 Mg PO DAILY Haldol (Haloperidol Lactate) 5 Mg/1 Ml Ampul 1 Mg IV PRN Q8HRS PRN I have reviewed the current psychotropics carefully including drug interactions. Risk benefit ratio favors no change other than as noted in my dictated progress note. 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
[2017-07-18 05:57] VITALS: BP 150/62
[2017-07-18] MEDS: INSULIN ASPART 300 UNITS/3 ML INSULN.PEN SQ SCH ×3 (07:30→16:30)
[2017-07-18] MEDS: DIVALPROEX 125 MG CAP.SPRINK PO SCH ×3 (07:37→19:30)
[2017-07-18] MEDS: SERTRALINE 50 MG TABLET. PO SCH (07:37)
[2017-07-18] MEDS: METOPROLOL SUCC 24HR ER 25 MG TAB.ER.24H. PO SCH (07:37)
[2017-07-18] MEDS: DOCUSATE SODIUM 100 MG CAPSULE PO SCH (07:37)
[2017-07-18] MEDS: QUEtiapine 25 MG TABLET. PO SCH ×4 (07:38→19:30)
[2017-07-18] MEDS: LISINOPRIL 20 MG TABLET PO SCH (07:38)
[2017-07-18] MEDS: GLIMEPIRIDE 2 MG TABLET PO SCH (07:40)
[2017-07-18 16:04] VITALS: BP 119/69
[2017-07-18] MEDS: AMITRIPTYLINE HCL 25 MG TABLET PO SCH (19:30)
[2017-07-18] MEDS: traZODone 100 MG TABLET. PO PRN ×2 (19:30→21:14)
[2017-07-18] MEDS: MELATONIN 3 MG TABLET PO SCH (19:31)
--- NOTE | 2017-07-18 19:39 | PDOC ---
Exam Note: Lars Note: Please also refer to the separate dictated note~for this date of service dictated separately.~Patient seen individually. Discussed the patient with Nursing staff reviewed the chart.~Reviewed interim history and current functioning. Reviewed vital signs,~Labs/ Radiology~and current medications noted below. Continue current treatment with the changes noted in the dictated addendum note Assessment: Vital Signs: Vital Signs Date Time Temp Pulse Resp B/P (MAP) Pulse Ox O2 Delivery O2 Flow Rate FiO2 07/18/17 16:04 98.0 98 16 119/69 (86) 95 07/17/17 15:42 Room Air I&O Intake and Output 07/18/17 07:00 Intake Total 960 ml Balance 960 ml Intake Oral 960 ml # Voids 1 # Bowel Movements 1 Labs: Laboratory Tests Test 07/18/17 07:22 07/18/17 11:11 07/18/17 16:30 Glucose (Fingerstick) 84 mg/dL (70-99) 162 mg/dL (70-99) H 78 mg/dL (70-99) Current Medications: Meds: Current Medications Acetaminophen (Tylenol) 650 mg PRN Q6HRS PRN PO PAIN / TEMP; Start 07/01/17 at 00:15 Multi-Ingredient Ointment (Analgesic [place]) 1 chary PRN QID PRN TP MUSCLE PAIN; Start 07/01/17 at 00:15 Al Hydroxide/Mg Hydroxide (Mylanta Plus Xs) 15 ml PRN AFTMEALHC PRN PO DYSPEPSIA; Start 07/01/17 at 00:15 Magnesium Hydroxide (Milk Of Magnesia) 2,400 mg PRN QHS PRN PO CONSTIPATION Last administered on 07/07/17at 09:00; Start 07/01/17 at 00:15 Acetaminophen/ Hydrocodone Bitart (Lortab 5/325) 1 tab PRN Q4HRS PRN PO MILD PAIN Last administered on 07/09/17at 08:30; Start 07/01/17 at 00:30 Acetaminophen/ Hydrocodone Bitart (Lortab 5/325) 2 tab PRN Q4HRS PRN PO moderate or severe pain Last administered on 07/03/17at 22:33; Start 07/01/17 at 00:30; Stop 07/06/17 at 21:38; Status DC Metoprolol Succinate (Toprol Xl) 25 mg DAILY PO Last administered on 07/18/17at 07:37; Start 07/01/17 at 09:00 Mirtazapine (Remeron) 7.5 mg QHS PO ; Start 07/01/17 at 21:00; Stop 07/01/17 at 21:00; Status DC Sertraline HCl (Zoloft) 50 mg DAILY PO Last administered on 07/01/17at 09:01; Start 07/01/17 at 09:00; Stop 07/01/17 at 18:49; Status DC Lisinopril (Prinivil) 40 mg DAILY PO Last administered on 07/18/17at 07:38; Start 07/01/17 at 09:00 Quetiapine Fumarate (SEROquel) 100 mg QHS PO Last administered on 07/13/17at 19: 20; Start 07/01/17 at 21:00; Stop 07/13/17 at 20:38; Status DC Vitamin D (Vitamin D3) 50,000 unit WEEKLY PO ; Start 07/01/17 at 18:00; Stop at 19:03; Status DC Mirtazapine (Remeron) 15 mg QHS PO Last administered on 07/09/17at 19:27; Start 07/01/17 at 21:00; Stop 07/10/17 at 11:45; Status DC Sertraline HCl (Zoloft) 25 mg DAILY PO Last administered on 07/07/17at 08:53; Start 07/02/17 at 09:00; Stop 07/07/17 at 18:39; Status DC Vitamin D (Vitamin D3) 50,000 unit WEEKLY PO Last administered on 07/16/17at 08: 38; Start 07/02/17 at 09:00 Olanzapine (ZyPREXA ZYDIS) 2.5 mg PRN Q2HR PRN PO psychosis Last administered on 07/04/17at 20:56; Start 07/02/17 at 16:15; Stop 07/04/17 at 23:31; Status DC Haloperidol (Haldol) 5 mg 1X ONCE PO Last administered on 07/05/17at 00:00; Start 07/04/17 at 23:45; Stop 07/04/17 at 23:46; Status DC Haloperidol (Haldol) 2 mg PRN Q6HRS PRN PO ANXIETY / AGITATION Last administered on 07/13/17 14:45; Start 07/04/17 at 23:30 Insulin Aspart (NovoLOG) 0-5 UNITS TIDAC SQ Last administered on 07/18/17 11: 46; Start 07/06/17 at 07:30 Dextrose 12.5 gm PRN Q15MIN PRN IV SEE COMMENTS; Start 07/05/17 at 18:00 Olanzapine (ZyPREXA ZYDIS) 2.5 mg PRN Q2HR PRN PO PSYCHOSIS Last administered on 07/18/17at 14:23; Start 07/06/17 at 21:45 Trazodone HCl (Desyrel) 50 mg PRN QHS PRN PO INSOMNIA, MAY REPEAT X1 Last administered on 07/13/17 19:23; Start 07/07/17 at 17:45; Stop 07/13/17 at 20:38 ; Status DC Sertraline HCl (Zoloft) 50 mg DAILY PO Last administered on 07/18/17at 07:37; Start 07/08/17 at 09:00 Divalproex Sodium (Depakote Sprinkles) 125 mg TID@0900,1300,1700 PO Last administered on 07/12/17at 16:55; Start 07/08/17 at 09:00; Stop 07/12/17 at 18:04 ; Status DC Magnesium Citrate (Citroma) 296 ml PRN 1X PRN PO CONSTIPATION Last administered on 07/08/17at 08:21; Start 07/08/17 at 07:00 Mineral Oil (Fleet Mineral Oil) 133 ml PRN DAILY PRN [place] CONSTIPATION; Start 07/08/17 at 07:00 Sodium Biphosphate/ Sodium Phosphate (Fleet Adult) 133 ml 1X ONCE [place] ; Start at 07:00; Stop 07/08/17 at 07:01; Status DC Sodium Biphosphate/ Sodium Phosphate (Fleet Adult) 133 ml PRN DAILY PRN [place] CONSTIPATION; Start 07/08/17 at 07:00 Docusate Sodium (Colace) 100 mg DAILY PO Last administered on 07/18/17at 07:37; Start 07/08/17 at 09:00 Melatonin 3 mg HS PO Last administered on 07/18/17at 19:31; Start 07/08/17 at 21: 00 Amitriptyline HCl (Elavil) 25 mg HS PO Last administered on 07/18/17 19:30; Start 07/10/17 at 21:00 Divalproex Sodium (Depakote Sprinkles) 125 mg DAILY@1300 PO Last administered on 07/17/17at 12:31; Start 07/13/17 at 13:00; Stop 07/17/17 at 18:33; Status DC Divalproex Sodium (Depakote Sprinkles) 250 mg BID PO Last administered on at 08:06; Start 07/12/17 at 21:00; Stop 07/17/17 at 18:33; Status DC Quetiapine Fumarate (SEROquel) 12.5 mg TID@0900,1300,1700 PO Last administered on 07/15/17at 17:46; Start 07/14/17 at 09:00; Stop 07/15/17 at 18:28; Status DC Quetiapine Fumarate (SEROquel) 75 mg QHS PO Last administered on 07/18/17 19: 30; Start 07/14/17 at 21:00 Trazodone HCl (Desyrel) 100 mg PRN QHS PRN PO INSOMNIA, MAY REPEAT X1 Last administered on 07/18/17 19:30; Start 07/13/17 at 20:45 Quetiapine Fumarate (SEROquel) 12.5 mg BID@1300,1700 PO Last administered on at 17:40; Start 07/16/17 at 13:00; Stop 07/16/17 at 18:14; Status DC Quetiapine Fumarate (SEROquel) 25 mg DAILY PO Last administered on 07/16/17at 08 :39; Start 07/16/17 at 09:00; Stop 07/16/17 at 18:14; Status DC Quetiapine Fumarate (SEROquel) 25 mg TID@0900,1300,1700 PO Last administered on 07/18/17at 17:48; Start 07/17/17 at 09:00 Divalproex Sodium (Depakote Sprinkles) 250 mg TID PO Last administered on 19:30; Start 07/17/17 at 21:00 Glimepiride (Amaryl) 1 mg DAILY PO Last administered on 07/18/17at 07:40; Start 07/18/17 at 09:00 Active Scripts Active Reported Zoloft (Sertraline Hcl) 50 Mg Tablet 50 Mg PO DAILY Seroquel Xr (Quetiapine Fumarate) 50 Mg Tab.er.24h 100 Mg PO QHS Remeron (Mirtazapine) 15 Mg Tablet 7.5 Mg PO QHS Toprol Xl (Metoprolol Succinate) 25 Mg Tab.er.24h 25 Mg PO DAILY Ativan (Lorazepam) 2 Mg/1 Ml Vial 0.5 Mg IV PRN Q8HRS PRN Hydrocodone-Apap 5-325 (Hydrocodone Bit/Acetaminophen) 1 Each Tablet 2 Tab PO PRN Q4HRS PRN Hydrocodone-Apap 5-325 (Hydrocodone Bit/Acetaminophen) 1 Each Tablet 1 Tab PO PRN Q4HRS PRN Lisinopril 40 Mg Tablet 40 Mg PO DAILY Haldol (Haloperidol Lactate) 5 Mg/1 Ml Ampul 1 Mg IV PRN Q8HRS PRN I have reviewed the current psychotropics carefully including drug interactions. Risk benefit ratio favors no change other than as noted in my dictated progress note. 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
[2017-07-19 06:35] VITALS: BP 152/78
[2017-07-19] MEDS: INSULIN ASPART 300 UNITS/3 ML INSULN.PEN SQ SCH ×3 (07:30→16:30)
[2017-07-19] MEDS: DOCUSATE SODIUM 100 MG CAPSULE PO SCH (07:44)
[2017-07-19] MEDS: QUEtiapine 25 MG TABLET. PO SCH ×4 (07:44→20:00)
[2017-07-19] MEDS: METOPROLOL SUCC 24HR ER 25 MG TAB.ER.24H. PO SCH (07:44)
[2017-07-19] MEDS: SERTRALINE 50 MG TABLET. PO SCH (07:44)
[2017-07-19] MEDS: GLIMEPIRIDE 2 MG TABLET PO SCH (07:44)
[2017-07-19] MEDS: DIVALPROEX 125 MG CAP.SPRINK PO SCH ×3 (07:45→19:59)
[2017-07-19] MEDS: LISINOPRIL 20 MG TABLET PO SCH (07:50)
--- NOTE | 2017-07-19 07:56 | PN ---
DATE: 07/16/2017 This late entry 07/16/2017 covers elements not covered in my initial note 07/16/2017. SUBJECTIVE: I met with the patient in the evening of 07/16/2017. Overall, the patient had a "rough day" per nursing report. He has been on one-on-one status, irritable, combative at times, tries to get up, unsteady on his feet, extremely delusional, labile. Slept 7-1/4 hours previous evening. REVIEW OF SYSTEMS: No CV, , pulmonary, eye, ENT system symptoms on review. Reliability poor. Gait unsteady. MENTAL STATUS EXAM: Oriented to himself. Insight, judgment, recent and remote memory, attention, concentration, fund of knowledge poor, consistent with his diagnosis mentioned in my initial note. IMPRESSION: Major neurocognitive disorder, Alzheimer, vascular with delusion, depression, behavioral disturbance. PLAN: The patient is currently on Seroquel 25 mg a.m., 12.5 mg b.i.d. 75 mg at bedtime. We will increase the Seroquel to 25 mg t.i.d., 75 mg at bedtime. Continue amitriptyline 25 mg at bedtime. Depakote is being adjusted. Valproic acid level is 47, slightly subtherapeutic. We may need to increase Depakote as well, but we will see how he does with the increase of Seroquel to avoid potential side effects of sedation and increased falls. AMPARO GUY MD DR: RAJAN/nathan JOB#: [id number] / [id number]
--- NOTE | 2017-07-19 08:22 | PN ---
DATE: 07/17/2017 PSYCHIATRIC PROGRESS NOTE This is a late entry for 07/17/2016, covers elements not covered in my initial note of 07/17/2017. SUBJECTIVE: The patient was staffed at treatment team meeting with the entire team morning of 07/17/2017, seen individually evening of 07/17/2017. The patient is sleeping about 7 hours at night. Appetite 60%. His daughter, Bonnie, joined us at the treatment team meeting and we reviewed the patient's history at length. He has been extremely confused, restless, has been on one-on-one status because he is a fall risk. Morning of 07/17/2017, is a little bit calmer. In the group therapy sessions, he is confused, distracted, wanders away. REVIEW OF SYSTEMS: No CV, , pulmonary, eye, ENT system symptoms on review. Reliability poor. MENTAL STATUS EXAM: Oriented to himself. Insight, judgment, recent and remote memory, attention, concentration, fund of knowledge poor, consistent with his diagnosis mentioned in my initial note. IMPRESSION: Major neurocognitive disorder, Alzheimer, vascular with depression, delusion, behavioral disturbance. Rest unchanged. PLAN: Continue current psychotropics mentioned in my initial note. Depakote is being adjusted. Level at last check was 47. We will repeat and then adjust further and Seroquel was adjusted as well. MAN Robinson GUY MD DR: RAJAN/nathan JOB#: [id number] / [id number]
[2017-07-19 17:52] VITALS: BP 146/81
[2017-07-19] MEDS: AMITRIPTYLINE HCL 25 MG TABLET PO SCH (19:59)
[2017-07-19] MEDS: MELATONIN 3 MG TABLET PO SCH (20:00)
[2017-07-19] MEDS: traZODone 100 MG TABLET. PO PRN (20:01)
--- NOTE | 2017-07-19 22:19 | PDOC ---
Exam Note: Lars Note: Please also refer to the separate dictated note~for this date of service dictated separately.~Patient seen individually. Discussed the patient with Nursing staff reviewed the chart.~Reviewed interim history and current functioning. Reviewed vital signs,~Labs/ Radiology~and current medications noted below. Continue current treatment with the changes noted in the dictated addendum note Assessment: Vital Signs: Vital Signs Date Time Temp Pulse Resp B/P (MAP) Pulse Ox O2 Delivery O2 Flow Rate FiO2 07/19/17 17:52 97.0 63 20 146/81 (102) 100 07/17/17 15:42 Room Air I&O Intake and Output 07/19/17 07:00 Intake Total 660 ml Balance 660 ml Intake Oral 660 ml # Voids 1 Labs: Laboratory Tests Test 07/19/17 07:18 07/19/17 11:39 07/19/17 17:05 07/19/17 19:37 Glucose (Fingerstick) 75 mg/dL (70-99) 59 mg/dL (70-99) L 69 mg/dL (70-99) L 66 mg/dL (70-99) L Test 07/19/17 20:06 Glucose (Fingerstick) 103 mg/dL (70-99) H Current Medications: Meds: Current Medications Acetaminophen (Tylenol) 650 mg PRN Q6HRS PRN PO PAIN / TEMP; Start 07/01/17 at 00:15 Multi-Ingredient Ointment (Analgesic [place]) 1 chary PRN QID PRN TP MUSCLE PAIN; Start 07/01/17 at 00:15 Al Hydroxide/Mg Hydroxide (Mylanta Plus Xs) 15 ml PRN AFTMEALHC PRN PO DYSPEPSIA; Start 07/01/17 at 00:15 Magnesium Hydroxide (Milk Of Magnesia) 2,400 mg PRN QHS PRN PO CONSTIPATION Last administered on 07/07/17at 09:00; Start 07/01/17 at 00:15 Acetaminophen/ Hydrocodone Bitart (Lortab 5/325) 1 tab PRN Q4HRS PRN PO MILD PAIN Last administered on 07/09/17at 08:30; Start 07/01/17 at 00:30 Acetaminophen/ Hydrocodone Bitart (Lortab 5/325) 2 tab PRN Q4HRS PRN PO moderate or severe pain Last administered on 07/03/17at 22:33; Start 07/01/17 at 00:30; Stop 07/06/17 at 21:38; Status DC Metoprolol Succinate (Toprol Xl) 25 mg DAILY PO Last administered on 07/19/17at 07:44; Start 07/01/17 at 09:00 Mirtazapine (Remeron) 7.5 mg QHS PO ; Start 07/01/17 at 21:00; Stop 07/01/17 at 21:00; Status DC Sertraline HCl (Zoloft) 50 mg DAILY PO Last administered on 07/01/17at 09:01; Start 07/01/17 at 09:00; Stop 07/01/17 at 18:49; Status DC Lisinopril (Prinivil) 40 mg DAILY PO Last administered on 07/19/17at 07:50; Start 07/01/17 at 09:00 Quetiapine Fumarate (SEROquel) 100 mg QHS PO Last administered on 07/13/17at 19: 20; Start 07/01/17 at 21:00; Stop 07/13/17 at 20:38; Status DC Vitamin D (Vitamin D3) 50,000 unit WEEKLY PO ; Start 07/01/17 at 18:00; Stop at 19:03; Status DC Mirtazapine (Remeron) 15 mg QHS PO Last administered on 07/09/17at 19:27; Start 07/01/17 at 21:00; Stop 07/10/17 at 11:45; Status DC Sertraline HCl (Zoloft) 25 mg DAILY PO Last administered on 07/07/17at 08:53; Start 07/02/17 at 09:00; Stop 07/07/17 at 18:39; Status DC Vitamin D (Vitamin D3) 50,000 unit WEEKLY PO Last administered on 07/16/17at 08: 38; Start 07/02/17 at 09:00 Olanzapine (ZyPREXA ZYDIS) 2.5 mg PRN Q2HR PRN PO psychosis Last administered on 07/04/17at 20:56; Start 07/02/17 at 16:15; Stop 07/04/17 at 23:31; Status DC Haloperidol (Haldol) 5 mg 1X ONCE PO Last administered on 07/05/17at 00:00; Start 07/04/17 at 23:45; Stop 07/04/17 at 23:46; Status DC Haloperidol (Haldol) 2 mg PRN Q6HRS PRN PO ANXIETY / AGITATION Last administered on 07/13/17at 14:45; Start 07/04/17 at 23:30 Insulin Aspart (NovoLOG) 0-5 UNITS TIDAC SQ Last administered on 07/18/17at 11: 46; Start 07/06/17 at 07:30 Dextrose 12.5 gm PRN Q15MIN PRN IV SEE COMMENTS; Start 07/05/17 at 18:00 Olanzapine (ZyPREXA ZYDIS) 2.5 mg PRN Q2HR PRN PO PSYCHOSIS Last administered on 07/18/17at 21:14; Start 07/06/17 at 21:45 Trazodone HCl (Desyrel) 50 mg PRN QHS PRN PO INSOMNIA, MAY REPEAT X1 Last administered on 07/13/17at 19:23; Start 07/07/17 at 17:45; Stop 07/13/17 at 20:38 ; Status DC Sertraline HCl (Zoloft) 50 mg DAILY PO Last administered on 07/19/17at 07:44; Start 07/08/17 at 09:00 Divalproex Sodium (Depakote Sprinkles) 125 mg TID@0900,1300,1700 PO Last administered on 07/12/17at 16:55; Start 07/08/17 at 09:00; Stop 07/12/17 at 18:04 ; Status DC Magnesium Citrate (Citroma) 296 ml PRN 1X PRN PO CONSTIPATION Last administered on 07/08/17at 08:21; Start 07/08/17 at 07:00 Mineral Oil (Fleet Mineral Oil) 133 ml PRN DAILY PRN [place] CONSTIPATION; Start 07/08/17 at 07:00 Sodium Biphosphate/ Sodium Phosphate (Fleet Adult) 133 ml 1X ONCE [place] ; Start at 07:00; Stop 07/08/17 at 07:01; Status DC Sodium Biphosphate/ Sodium Phosphate (Fleet Adult) 133 ml PRN DAILY PRN [place] CONSTIPATION; Start 07/08/17 at 07:00 Docusate Sodium (Colace) 100 mg DAILY PO Last administered on 07/19/17at 07:44; Start 07/08/17 at 09:00 Melatonin 3 mg HS PO Last administered on 07/19/17at 20:00; Start 07/08/17 at 21: 00 Amitriptyline HCl (Elavil) 25 mg HS PO Last administered on 07/19/17at 19:59; Start 07/10/17 at 21:00 Divalproex Sodium (Depakote Sprinkles) 125 mg DAILY@1300 PO Last administered on 07/17/17at 12:31; Start 07/13/17 at 13:00; Stop 07/17/17 at 18:33; Status DC Divalproex Sodium (Depakote Sprinkles) 250 mg BID PO Last administered on at 08:06; Start 07/12/17 at 21:00; Stop 07/17/17 at 18:33; Status DC Quetiapine Fumarate (SEROquel) 12.5 mg TID@0900,1300,1700 PO Last administered on 07/15/17at 17:46; Start 07/14/17 at 09:00; Stop 07/15/17 at 18:28; Status DC Quetiapine Fumarate (SEROquel) 75 mg QHS PO Last administered on 07/19/17at 20: 00; Start 07/14/17 at 21:00 Trazodone HCl (Desyrel) 100 mg PRN QHS PRN PO INSOMNIA, MAY REPEAT X1 Last administered on 07/19/17at 20:01; Start 07/13/17 at 20:45 Quetiapine Fumarate (SEROquel) 12.5 mg BID@1300,1700 PO Last administered on at 17:40; Start 07/16/17 at 13:00; Stop 07/16/17 at 18:14; Status DC Quetiapine Fumarate (SEROquel) 25 mg DAILY PO Last administered on 07/16/17at 08 :39; Start 07/16/17 at 09:00; Stop 07/16/17 at 18:14; Status DC Quetiapine Fumarate (SEROquel) 25 mg TID@0900,1300,1700 PO Last administered on 07/19/17at 18:23; Start 07/17/17 at 09:00 Divalproex Sodium (Depakote Sprinkles) 250 mg TID PO Last administered on at 19:59; Start 07/17/17 at 21:00 Glimepiride (Amaryl) 1 mg DAILY PO Last administered on 07/19/17at 07:44; Start 07/18/17 at 09:00 Active Scripts Active Reported Zoloft (Sertraline Hcl) 50 Mg Tablet 50 Mg PO DAILY Seroquel Xr (Quetiapine Fumarate) 50 Mg Tab.er.24h 100 Mg PO QHS Remeron (Mirtazapine) 15 Mg Tablet 7.5 Mg PO QHS Toprol Xl (Metoprolol Succinate) 25 Mg Tab.er.24h 25 Mg PO DAILY Ativan (Lorazepam) 2 Mg/1 Ml Vial 0.5 Mg IV PRN Q8HRS PRN Hydrocodone-Apap 5-325 (Hydrocodone Bit/Acetaminophen) 1 Each Tablet 2 Tab PO PRN Q4HRS PRN Hydrocodone-Apap 5-325 (Hydrocodone Bit/Acetaminophen) 1 Each Tablet 1 Tab PO PRN Q4HRS PRN Lisinopril 40 Mg Tablet 40 Mg PO DAILY Haldol (Haloperidol Lactate) 5 Mg/1 Ml Ampul 1 Mg IV PRN Q8HRS PRN I have reviewed the current psychotropics carefully including drug interactions. Risk benefit ratio favors no change other than as noted in my dictated progress note. 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
[2017-07-20 06:24] VITALS: BP 152/70
[2017-07-20] MEDS: INSULIN ASPART 300 UNITS/3 ML INSULN.PEN SQ SCH ×2 (07:30→11:30)
[2017-07-20] MEDS: METOPROLOL SUCC 24HR ER 25 MG TAB.ER.24H. PO SCH (07:34)
[2017-07-20] MEDS: QUEtiapine 25 MG TABLET. PO SCH ×4 (07:34→19:30)
[2017-07-20] MEDS: DIVALPROEX 125 MG CAP.SPRINK PO SCH ×3 (07:34→19:31)
[2017-07-20] MEDS: SERTRALINE 50 MG TABLET. PO SCH (07:35)
[2017-07-20] MEDS: LISINOPRIL 20 MG TABLET PO SCH (07:35)
[2017-07-20] MEDS: GLIMEPIRIDE 2 MG TABLET PO SCH (07:35)
[2017-07-20] MEDS: DOCUSATE SODIUM 100 MG CAPSULE PO SCH (07:35)
[2017-07-20 11:59] LABS: BASO % 1 % (0-3); EOS # 0.1 x10^3/uL (0.0-0.7); EOS % 2 % (0-3); HEMATOCRIT 37.3 % (39.0-53.0); HEMOGLOBIN 12.7 g/dL (13.0-17.5); LYMPH # 1.5 x10^3/uL (1.0-4.8); LYMPH % 23 % (24-48); MEAN CORPUSCULAR HEMOGLOBIN 32 pg (25-35); MEAN CORPUSCULAR HGB CONC 34 g/dL (31-37); MEAN CORPUSCULAR VOLUME 92 fL (79-100); MONO # 0.7 x10^3/uL (0.0-1.1); MONO % 10 % (0-9); NEUT # 4.3 x10^3uL (1.8-7.7); NEUT % 65 % (31-73); PLATELET COUNT 160 x10^3/uL (140-400); RED BLOOD COUNT 4.03 x10^6/uL (4.30-5.70); RED CELL DISTRIBUTION WIDTH 15.6 % (11.5-14.5); WHITE BLOOD COUNT 6.6 x10^3/uL (4.0-11.0)
[2017-07-20 12:12] LABS: ALBUMIN 3.2 g/dL (3.4-5.0); ALBUMIN/GLOBULIN RATIO 0.9 (1.0-1.7); ALK PHOS 93 U/L (46-116); ALT (SGPT) 36 U/L (16-63); ANION GAP 5 (6-14); AST (SGOT) 24 U/L (15-37); BLOOD UREA NITROGEN 33 mg/dL (8-26); BUN/CREATININE RATIO 28 (6-20); CALCIUM 8.9 mg/dL (8.5-10.1); CARBON DIOXIDE 33 mmol/L (21-32); CHLORIDE 107 mmol/L (98-107); CREATININE 1.2 mg/dL (0.7-1.3); GLUCOSE 86 mg/dL (70-99); POTASSIUM 4.2 mmol/L (3.5-5.1); SODIUM 145 mmol/L (136-145); TOTAL BILIRUBIN 0.6 mg/dL (0.2-1.0); TOTAL PROTEIN 6.8 g/dL (6.4-8.2)
[2017-07-20 12:19] LABS: VAL ACID 61 mcg/mL (50-100)
--- NOTE | 2017-07-20 14:59 | PN ---
DATE: 07/18/2017 This late entry for 07/18/2017 covers elements not covered in my initial note 07/18/2017. SUBJECTIVE: I met with the patient evening of 07/18/2017. The patient slept 5-1/2 hours previous evening, did well until about 2 p.m. then his came and thereafter he is quite agitated, restless, combative and irrational. REVIEW OF SYSTEMS: Ambulation impaired, in wheelchair and he drops himself to the floor frequently, asked to be put on a mat. MENTAL STATUS EXAM: Oriented to himself. Insight, judgment, recent and remote memory, attention, concentration, fund of knowledge poor, consistent with his diagnosis mentioned in my initial note. IMPRESSION: Major neurocognitive disorder, Alzheimer, vascular with depression, delusion, behavioral disturbance. Rest unchanged. PLAN: Continue current psychotropics, Seroquel has been increased and we may need to increase Depakote as well depending on his progress. AMPARO GUY MD DR: RAJAN/nathan JOB#: [id number] / [id number]
[2017-07-20] MEDS: AMITRIPTYLINE HCL 25 MG TABLET PO SCH (19:30)
[2017-07-20] MEDS: MELATONIN 3 MG TABLET PO SCH (19:30)
[2017-07-20] MEDS: traZODone 100 MG TABLET. PO PRN (19:31)
--- NOTE | 2017-07-20 19:56 | PDOC ---
Exam Note: Lars Note: Please also refer to the separate dictated note~for this date of service dictated separately.~Patient seen individually. Discussed the patient with Nursing staff reviewed the chart.~Reviewed interim history and current functioning. Reviewed vital signs,~Labs/ Radiology~and current medications noted below. Continue current treatment with the changes noted in the dictated addendum note Assessment: Vital Signs: Vital Signs Date Time Temp Pulse Resp B/P (MAP) Pulse Ox O2 Delivery O2 Flow Rate FiO2 07/20/17 07:35 71 152/70 07/20/17 06:24 97.3 20 96 07/17/17 15:42 Room Air I&O Intake and Output 07/20/17 07:00 Intake Total 600 ml Balance 600 ml Intake Oral 600 ml # Voids 1 Labs: Laboratory Tests Test 07/19/17 20:06 07/20/17 07:37 07/20/17 11:42 07/20/17 11:47 Glucose (Fingerstick) 103 mg/dL (70-99) H 96 mg/dL (70-99) 71 mg/dL (70-99) White Blood Count 6.6 x10^3/uL (4.0-11.0) Red Blood Count 4.03 x10^6/uL (4.30-5.70) L Hemoglobin 12.7 g/dL (13.0-17.5) L Hematocrit 37.3 % (39.0-53.0) L Mean Corpuscular Volume 92 fL (79-100) Mean Corpuscular Hemoglobin 32 pg (25-35) Mean Corpuscular Hemoglobin Concent 34 g/dL (31-37) Red Cell Distribution Width 15.6 % (11.5-14.5) H Platelet Count 160 x10^3/uL (140-400) Neutrophils (%) (Auto) 65 % (31-73) Lymphocytes (%) (Auto) 23 % (24-48) L Monocytes (%) (Auto) 10 % (0-9) H Eosinophils (%) (Auto) 2 % (0-3) Basophils (%) (Auto) 1 % (0-3) Neutrophils # (Auto) 4.3 x10^3uL (1.8-7.7) Lymphocytes # (Auto) 1.5 x10^3/uL (1.0-4.8) Monocytes # (Auto) 0.7 x10^3/uL (0.0-1.1) Eosinophils # (Auto) 0.1 x10^3/uL (0.0-0.7) Basophils # (Auto) 0.0 x10^3/uL (0.0-0.2) Sodium Level 145 mmol/L (136-145) Potassium Level 4.2 mmol/L (3.5-5.1) Chloride Level 107 mmol/L (98-107) Carbon Dioxide Level 33 mmol/L (21-32) H Anion Gap 5 (6-14) L Blood Urea Nitrogen 33 mg/dL (8-26) H Creatinine 1.2 mg/dL (0.7-1.3) Estimated GFR (Cockcroft-Gault) 58.0 BUN/Creatinine Ratio 28 (6-20) H Glucose Level 86 mg/dL (70-99) Calcium Level 8.9 mg/dL (8.5-10.1) Total Bilirubin 0.6 mg/dL (0.2-1.0) Aspartate Amino Transferase (AST) 24 U/L (15-37) Alanine Aminotransferase (ALT) 36 U/L (16-63) Alkaline Phosphatase 93 U/L (46-116) Total Protein 6.8 g/dL (6.4-8.2) Albumin 3.2 g/dL (3.4-5.0) L Albumin/Globulin Ratio 0.9 (1.0-1.7) L Valproic Acid Level 61 mcg/mL (50-100) Valproic Acid Last Dose Date 07/19/17 Valproic Acid Last Dose Time 2100 Test 07/20/17 16:36 Glucose (Fingerstick) 51 mg/dL (70-99) L Current Medications: Meds: Current Medications Acetaminophen (Tylenol) 650 mg PRN Q6HRS PRN PO PAIN / TEMP; Start 07/01/17 at 00:15 Multi-Ingredient Ointment (Analgesic [place]) 1 chary PRN QID PRN TP MUSCLE PAIN; Start 07/01/17 at 00:15 Al Hydroxide/Mg Hydroxide (Mylanta Plus Xs) 15 ml PRN AFTMEALHC PRN PO DYSPEPSIA; Start 07/01/17 at 00:15 Magnesium Hydroxide (Milk Of Magnesia) 2,400 mg PRN QHS PRN PO CONSTIPATION Last administered on 07/07/17at 09:00; Start 07/01/17 at 00:15 Acetaminophen/ Hydrocodone Bitart (Lortab 5/325) 1 tab PRN Q4HRS PRN PO MILD PAIN Last administered on 07/09/17at 08:30; Start 07/01/17 at 00:30 Acetaminophen/ Hydrocodone Bitart (Lortab 5/325) 2 tab PRN Q4HRS PRN PO moderate or severe pain Last administered on 07/03/17at 22:33; Start 07/01/17 at 00:30; Stop 07/06/17 at 21:38; Status DC Metoprolol Succinate (Toprol Xl) 25 mg DAILY PO Last administered on 07/20/17at 07:34; Start 07/01/17 at 09:00 Mirtazapine (Remeron) 7.5 mg QHS PO ; Start 07/01/17 at 21:00; Stop 07/01/17 at 21:00; Status DC Sertraline HCl (Zoloft) 50 mg DAILY PO Last administered on 07/01/17at 09:01; Start 07/01/17 at 09:00; Stop 07/01/17 at 18:49; Status DC Lisinopril (Prinivil) 40 mg DAILY PO Last administered on 07/20/17at 07:35; Start 07/01/17 at 09:00 Quetiapine Fumarate (SEROquel) 100 mg QHS PO Last administered on 07/13/17at 19: 20; Start 07/01/17 at 21:00; Stop 07/13/17 at 20:38; Status DC Vitamin D (Vitamin D3) 50,000 unit WEEKLY PO ; Start 07/01/17 at 18:00; Stop at 19:03; Status DC Mirtazapine (Remeron) 15 mg QHS PO Last administered on 07/09/17at 19:27; Start 07/01/17 at 21:00; Stop 07/10/17 at 11:45; Status DC Sertraline HCl (Zoloft) 25 mg DAILY PO Last administered on 07/07/17at 08:53; Start 07/02/17 at 09:00; Stop 07/07/17 at 18:39; Status DC Vitamin D (Vitamin D3) 50,000 unit WEEKLY PO Last administered on 07/16/17at 08: 38; Start 07/02/17 at 09:00 Olanzapine (ZyPREXA ZYDIS) 2.5 mg PRN Q2HR PRN PO psychosis Last administered on 07/04/17at 20:56; Start 07/02/17 at 16:15; Stop 07/04/17 at 23:31; Status DC Haloperidol (Haldol) 5 mg 1X ONCE PO Last administered on 07/05/17at 00:00; Start 07/04/17 at 23:45; Stop 07/04/17 at 23:46; Status DC Haloperidol (Haldol) 2 mg PRN Q6HRS PRN PO ANXIETY / AGITATION Last administered on 07/13/17at 14:45; Start 07/04/17 at 23:30 Insulin Aspart (NovoLOG) 0-5 UNITS TIDAC SQ Last administered on 07/18/17at 11: 46; Start 07/06/17 at 07:30; Stop 07/20/17 at 16:39; Status DC Dextrose 12.5 gm PRN Q15MIN PRN IV SEE COMMENTS; Start 07/05/17 at 18:00; Stop 07/20/17 at 16:39; Status DC Olanzapine (ZyPREXA ZYDIS) 2.5 mg PRN Q2HR PRN PO PSYCHOSIS Last administered on 07/18/17at 21:14; Start 07/06/17 at 21:45 Trazodone HCl (Desyrel) 50 mg PRN QHS PRN PO INSOMNIA, MAY REPEAT X1 Last administered on 07/13/17at 19:23; Start 07/07/17 at 17:45; Stop 07/13/17 at 20:38 ; Status DC Sertraline HCl (Zoloft) 50 mg DAILY PO Last administered on 07/20/17at 07:35; Start 07/08/17 at 09:00 Divalproex Sodium (Depakote Sprinkles) 125 mg TID@0900,1300,1700 PO Last administered on 07/12/17at 16:55; Start 07/08/17 at 09:00; Stop 07/12/17 at 18:04 ; Status DC Magnesium Citrate (Citroma) 296 ml PRN 1X PRN PO CONSTIPATION Last administered on 2/6/18at 08:21; Start 07/08/17 at 07:00 Mineral Oil (Fleet Mineral Oil) 133 ml PRN DAILY PRN [place] CONSTIPATION; Start 07/08/17 at 07:00 Sodium Biphosphate/ Sodium Phosphate (Fleet Adult) 133 ml 1X ONCE [place] ; Start at 07:00; Stop 07/08/17 at 07:01; Status DC Sodium Biphosphate/ Sodium Phosphate (Fleet Adult) 133 ml PRN DAILY PRN [place] CONSTIPATION; Start 07/08/17 at 07:00 Docusate Sodium (Colace) 100 mg DAILY PO Last administered on 07/20/17at 07:35; Start 07/08/17 at 09:00 Melatonin 3 mg HS PO Last administered on 07/20/17 19:30; Start 07/08/17 at 21: 00 Amitriptyline HCl (Elavil) 25 mg HS PO Last administered on 07/20/17 19:30; Start 07/10/17 at 21:00 Divalproex Sodium (Depakote Sprinkles) 125 mg DAILY@1300 PO Last administered on 07/17/17 12:31; Start 07/13/17 at 13:00; Stop 07/17/17 at 18:33; Status DC Divalproex Sodium (Depakote Sprinkles) 250 mg BID PO Last administered on 08:06; Start 07/12/17 at 21:00; Stop 07/17/17 at 18:33; Status DC Quetiapine Fumarate (SEROquel) 12.5 mg TID@0900,1300,1700 PO Last administered on 07/15/17at 17:46; Start 07/14/17 at 09:00; Stop 07/15/17 at 18:28; Status DC Quetiapine Fumarate (SEROquel) 75 mg QHS PO Last administered on 07/20/17 19: 30; Start 07/14/17 at 21:00 Trazodone HCl (Desyrel) 100 mg PRN QHS PRN PO INSOMNIA, MAY REPEAT X1 Last administered on 07/20/17 19:31; Start 07/13/17 at 20:45 Quetiapine Fumarate (SEROquel) 12.5 mg BID@1300,1700 PO Last administered on 2/ 14/18at 17:40; Start 07/16/17 at 13:00; Stop 07/16/17 at 18:14; Status DC Quetiapine Fumarate (SEROquel) 25 mg DAILY PO Last administered on 07/16/17at 08 :39; Start 07/16/17 at 09:00; Stop 07/16/17 at 18:14; Status DC Quetiapine Fumarate (SEROquel) 25 mg TID@0900,1300,1700 PO Last administered on 07/20/17at 18:32; Start 07/17/17 at 09:00 Divalproex Sodium (Depakote Sprinkles) 250 mg TID PO Last administered on at 19:31; Start 07/17/17 at 21:00 Glimepiride (Amaryl) 1 mg DAILY PO Last administered on 07/20/17at 07:35; Start 07/18/17 at 09:00; Stop 07/20/17 at 16:39; Status DC Active Scripts Active Reported Zoloft (Sertraline Hcl) 50 Mg Tablet 50 Mg PO DAILY Seroquel Xr (Quetiapine Fumarate) 50 Mg Tab.er.24h 100 Mg PO QHS Remeron (Mirtazapine) 15 Mg Tablet 7.5 Mg PO QHS Toprol Xl (Metoprolol Succinate) 25 Mg Tab.er.24h 25 Mg PO DAILY Ativan (Lorazepam) 2 Mg/1 Ml Vial 0.5 Mg IV PRN Q8HRS PRN Hydrocodone-Apap 5-325 (Hydrocodone Bit/Acetaminophen) 1 Each Tablet 2 Tab PO PRN Q4HRS PRN Hydrocodone-Apap 5-325 (Hydrocodone Bit/Acetaminophen) 1 Each Tablet 1 Tab PO PRN Q4HRS PRN Lisinopril 40 Mg Tablet 40 Mg PO DAILY Haldol (Haloperidol Lactate) 5 Mg/1 Ml Ampul 1 Mg IV PRN Q8HRS PRN I have reviewed the current psychotropics carefully including drug interactions. Risk benefit ratio favors no change other than as noted in my dictated progress note. 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
--- NOTE | 2017-07-20 22:54 | PN ---
DATE: 07/19/2017 PSYCHIATRIC PROGRESS NOTE This is a late entry of 07/19/2017 covers elements not covered in my initial note of 07/19/2017. SUBJECTIVE: I met with the patient the evening of 07/19/2017. The patient slept till lunchtime. Labs are to be checked in the morning. In the evening, he had to be placed in the mats since he is a fall risk. He gets agitated, restless, did okay around suppertime. REVIEW OF SYSTEMS: No CV, , pulmonary, eye, ENT system symptoms on review. Reliability poor. Gait unsteady. MENTAL STATUS EXAM: Oriented to himself. Insight, judgment, recent and remote memory, attention, concentration, fund of knowledge poor, consistent with his diagnosis mentioned in my initial note. IMPRESSION: Major neurocognitive disorder, Alzheimer, vascular with depression, delusion, behavioral disturbance. PLAN: Continue psychotropics mentioned in my initial note. Check labs and valproic acid level on 07/20/2017 on the Depakote, adjust thereafter. AMPARO GUY MD DR: RAJAN/nathan JOB#: [id number] / [id number]
[2017-07-21 06:08] VITALS: BP 169/85
[2017-07-21] MEDS: METOPROLOL SUCC 24HR ER 25 MG TAB.ER.24H. PO SCH (09:47)
[2017-07-21] MEDS: LISINOPRIL 20 MG TABLET PO SCH (09:47)
[2017-07-21] MEDS: SERTRALINE 50 MG TABLET. PO SCH (09:48)
[2017-07-21] MEDS: DOCUSATE SODIUM 100 MG CAPSULE PO SCH (09:48)
[2017-07-21] MEDS: QUEtiapine 25 MG TABLET. PO SCH ×4 (09:48→19:58)
[2017-07-21] MEDS: DIVALPROEX 125 MG CAP.SPRINK PO SCH ×3 (09:48→19:57)
[2017-07-21 15:53] VITALS: BP 118/62
--- NOTE | 2017-07-21 19:51 | PDOC ---
Exam Note: Lars Note: Please also refer to the separate dictated note~for this date of service dictated separately.~Patient seen individually. Discussed the patient with Nursing staff reviewed the chart.~Reviewed interim history and current functioning. Reviewed vital signs,~Labs/ Radiology~and current medications noted below. Continue current treatment with the changes noted in the dictated addendum note Assessment: Vital Signs: Vital Signs Date Time Temp Pulse Resp B/P (MAP) Pulse Ox O2 Delivery O2 Flow Rate FiO2 07/21/17 15:53 97.5 60 18 118/62 (80) 99 07/17/17 15:42 Room Air I&O Intake and Output 07/21/17 07:00 Intake Total 480 ml Balance 480 ml Intake Oral 480 ml Labs: Laboratory Tests Test 07/21/17 19:09 Glucose (Fingerstick) 103 mg/dL (70-99) H Current Medications: Meds: Current Medications Acetaminophen (Tylenol) 650 mg PRN Q6HRS PRN PO PAIN / TEMP; Start 07/01/17 at 00:15 Multi-Ingredient Ointment (Analgesic Kiefer) 1 chary PRN QID PRN TP MUSCLE PAIN; Start 07/01/17 at 00:15 Al Hydroxide/Mg Hydroxide (Mylanta Plus Xs) 15 ml PRN AFTMEALHC PRN PO DYSPEPSIA; Start 07/01/17 at 00:15 Magnesium Hydroxide (Milk Of Magnesia) 2,400 mg PRN QHS PRN PO CONSTIPATION Last administered on 07/07/17at 09:00; Start 07/01/17 at 00:15 Acetaminophen/ Hydrocodone Bitart (Lortab 5/325) 1 tab PRN Q4HRS PRN PO MILD PAIN Last administered on 07/09/17at 08:30; Start 07/01/17 at 00:30 Acetaminophen/ Hydrocodone Bitart (Lortab 5/325) 2 tab PRN Q4HRS PRN PO moderate or severe pain Last administered on 07/03/17at 22:33; Start 07/01/17 at 00:30; Stop 07/06/17 at 21:38; Status DC Metoprolol Succinate (Toprol Xl) 25 mg DAILY PO Last administered on 07/21/17at 09:47; Start 07/01/17 at 09:00 Mirtazapine (Remeron) 7.5 mg QHS PO ; Start 07/01/17 at 21:00; Stop 07/01/17 at 21:00; Status DC Sertraline HCl (Zoloft) 50 mg DAILY PO Last administered on 07/01/17at 09:01; Start 07/01/17 at 09:00; Stop 07/01/17 at 18:49; Status DC Lisinopril (Prinivil) 40 mg DAILY PO Last administered on 07/21/17at 09:47; Start 07/01/17 at 09:00 Quetiapine Fumarate (SEROquel) 100 mg QHS PO Last administered on 07/13/17at 19: 20; Start 07/01/17 at 21:00; Stop 07/13/17 at 20:38; Status DC Vitamin D (Vitamin D3) 50,000 unit WEEKLY PO ; Start 07/01/17 at 18:00; Stop at 19:03; Status DC Mirtazapine (Remeron) 15 mg QHS PO Last administered on 07/09/17at 19:27; Start 07/01/17 at 21:00; Stop 07/10/17 at 11:45; Status DC Sertraline HCl (Zoloft) 25 mg DAILY PO Last administered on 07/07/17at 08:53; Start 07/02/17 at 09:00; Stop 07/07/17 at 18:39; Status DC Vitamin D (Vitamin D3) 50,000 unit WEEKLY PO Last administered on 07/16/17at 08: 38; Start 07/02/17 at 09:00 Olanzapine (ZyPREXA ZYDIS) 2.5 mg PRN Q2HR PRN PO psychosis Last administered on 07/04/17at 20:56; Start 07/02/17 at 16:15; Stop 07/04/17 at 23:31; Status DC Haloperidol (Haldol) 5 mg 1X ONCE PO Last administered on 07/05/17at 00:00; Start 07/04/17 at 23:45; Stop 07/04/17 at 23:46; Status DC Haloperidol (Haldol) 2 mg PRN Q6HRS PRN PO ANXIETY / AGITATION Last administered on 07/13/17at 14:45; Start 07/04/17 at 23:30 Insulin Aspart (NovoLOG) 0-5 UNITS TIDAC SQ Last administered on 07/18/17at 11: 46; Start 07/06/17 at 07:30; Stop 07/20/17 at 16:39; Status DC Dextrose 12.5 gm PRN Q15MIN PRN IV SEE COMMENTS; Start 07/05/17 at 18:00; Stop 07/20/17 at 16:39; Status DC Olanzapine (ZyPREXA ZYDIS) 2.5 mg PRN Q2HR PRN PO PSYCHOSIS Last administered on 07/18/17at 21:14; Start 07/06/17 at 21:45 Trazodone HCl (Desyrel) 50 mg PRN QHS PRN PO INSOMNIA, MAY REPEAT X1 Last administered on 07/13/17at 19:23; Start 07/07/17 at 17:45; Stop 07/13/17 at 20:38 ; Status DC Sertraline HCl (Zoloft) 50 mg DAILY PO Last administered on 07/21/17at 09:48; Start 07/08/17 at 09:00 Divalproex Sodium (Depakote Sprinkles) 125 mg TID@0900,1300,1700 PO Last administered on 07/12/17at 16:55; Start 07/08/17 at 09:00; Stop 07/12/17 at 18:04 ; Status DC Magnesium Citrate (Citroma) 296 ml PRN 1X PRN PO CONSTIPATION Last administered on 07/08/17at 08:21; Start 07/08/17 at 07:00 Mineral Oil (Fleet Mineral Oil) 133 ml PRN DAILY PRN [place] CONSTIPATION; Start 07/08/17 at 07:00 Sodium Biphosphate/ Sodium Phosphate (Fleet Adult) 133 ml 1X ONCE NE ; Start at 07:00; Stop 07/08/17 at 07:01; Status DC Sodium Biphosphate/ Sodium Phosphate (Fleet Adult) 133 ml PRN DAILY PRN [place] CONSTIPATION; Start 07/08/17 at 07:00 Docusate Sodium (Colace) 100 mg DAILY PO Last administered on 07/21/17at 09:48; Start 07/08/17 at 09:00 Melatonin 3 mg HS PO Last administered on 07/20/17at 19:30; Start 07/08/17 at 21: 00 Amitriptyline HCl (Elavil) 25 mg HS PO Last administered on 07/20/17 19:30; Start 07/10/17 at 21:00 Divalproex Sodium (Depakote Sprinkles) 125 mg DAILY@1300 PO Last administered on 07/17/17 12:31; Start 07/13/17 at 13:00; Stop 07/17/17 at 18:33; Status DC Divalproex Sodium (Depakote Sprinkles) 250 mg BID PO Last administered on 08:06; Start 07/12/17 at 21:00; Stop 07/17/17 at 18:33; Status DC Quetiapine Fumarate (SEROquel) 12.5 mg TID@0900,1300,1700 PO Last administered on 07/15/17at 17:46; Start 07/14/17 at 09:00; Stop 07/15/17 at 18:28; Status DC Quetiapine Fumarate (SEROquel) 75 mg QHS PO Last administered on 07/20/17 19: 30; Start 07/14/17 at 21:00 Trazodone HCl (Desyrel) 100 mg PRN QHS PRN PO INSOMNIA, MAY REPEAT X1 Last administered on 07/20/17 19:31; Start 07/13/17 at 20:45 Quetiapine Fumarate (SEROquel) 12.5 mg BID@1300,1700 PO Last administered on at 17:40; Start 07/16/17 at 13:00; Stop 07/16/17 at 18:14; Status DC Quetiapine Fumarate (SEROquel) 25 mg DAILY PO Last administered on 07/16/17at 08 :39; Start 07/16/17 at 09:00; Stop 07/16/17 at 18:14; Status DC Quetiapine Fumarate (SEROquel) 25 mg TID@0900,1300,1700 PO Last administered on 07/21/17at 17:24; Start 07/17/17 at 09:00 Divalproex Sodium (Depakote Sprinkles) 250 mg TID PO Last administered on at 13:58; Start 07/17/17 at 21:00 Glimepiride (Amaryl) 1 mg DAILY PO Last administered on 2/18/18at 07:35; Start 07/18/17 at 09:00; Stop 07/20/17 at 16:39; Status DC Active Scripts Active Reported Zoloft (Sertraline Hcl) 50 Mg Tablet 50 Mg PO DAILY Seroquel Xr (Quetiapine Fumarate) 50 Mg Tab.er.24h 100 Mg PO QHS Remeron (Mirtazapine) 15 Mg Tablet 7.5 Mg PO QHS Toprol Xl (Metoprolol Succinate) 25 Mg Tab.er.24h 25 Mg PO DAILY Ativan (Lorazepam) 2 Mg/1 Ml Vial 0.5 Mg IV PRN Q8HRS PRN Hydrocodone-Apap 5-325 (Hydrocodone Bit/Acetaminophen) 1 Each Tablet 2 Tab PO PRN Q4HRS PRN Hydrocodone-Apap 5-325 (Hydrocodone Bit/Acetaminophen) 1 Each Tablet 1 Tab PO PRN Q4HRS PRN Lisinopril 40 Mg Tablet 40 Mg PO DAILY Haldol (Haloperidol Lactate) 5 Mg/1 Ml Ampul 1 Mg IV PRN Q8HRS PRN I have reviewed the current psychotropics carefully including drug interactions. Risk benefit ratio favors no change other than as noted in my dictated progress note. 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
[2017-07-21] MEDS: AMITRIPTYLINE HCL 25 MG TABLET PO SCH (19:57)
[2017-07-21] MEDS: MELATONIN 3 MG TABLET PO SCH (19:57)
[2017-07-21] MEDS: traZODone 100 MG TABLET. PO PRN (22:02)
[2017-07-22 06:03] VITALS: BP 137/66
[2017-07-22] MEDS: SERTRALINE 50 MG TABLET. PO SCH (07:30)
[2017-07-22] MEDS: DIVALPROEX 125 MG CAP.SPRINK PO SCH ×2 (07:31→12:47)
[2017-07-22] MEDS: DOCUSATE SODIUM 100 MG CAPSULE PO SCH (07:31)
[2017-07-22] MEDS: LISINOPRIL 20 MG TABLET PO SCH (07:31)
[2017-07-22] MEDS: METOPROLOL SUCC 24HR ER 25 MG TAB.ER.24H. PO SCH (07:32)
[2017-07-22] MEDS: QUEtiapine 25 MG TABLET. PO SCH ×3 (07:32→17:13)
[2017-07-22 14:54] VITALS: BP 114/74
--- NOTE | 2017-07-22 15:26 | RAD ---
CT of the head without contrast, 07/22/2017: History: Fall, tilting to one side There is moderate cerebral atrophy. There are moderate patchy lucencies in the deep white matter bilaterally suggesting chronic ischemic change. A small focal lucency is noted in the right frontal deep white matter compatible with an old infarct. The ventricles are within normal limits in size. There is no shift of the midline structures. There is no evidence of acute intracranial hemorrhage or mass effect. There is calcific plaquing involving the distal internal carotid and vertebral arteries. IMPRESSION: 1. Chronic findings as described above. 2. No acute intracranial abnormality is detected. PQRS Compliance Statement: One or more of the following individualized dose reduction techniques were utilized for this examination: 1. Automated exposure control 2. Adjustment of the mA and/or kV according to patient size 3. Use of iterative reconstruction technique
[2017-07-22] MEDS ORDERED: ACET325T9 PO (15:44)
[2017-07-22] MEDS ORDERED: AMIT25TA PO (15:45)
[2017-07-22] MEDS ORDERED: CHOL500016 PO (15:46)
[2017-07-22] MEDS ORDERED: DIVA125C PO (15:47)
[2017-07-22] MEDS ORDERED: DOCU-109 PO (15:47)
[2017-07-22] MEDS ORDERED: HALO2TAB PO (15:49)
[2017-07-22] MEDS ORDERED: HYDR-2758 PO (15:50)
[2017-07-22] MEDS ORDERED: LISI40TA PO (15:51)
[2017-07-22] MEDS ORDERED: MAG355OR17 PO (15:51)
[2017-07-22] MEDS ORDERED: MELA3TAB2 PO (15:52)
[2017-07-22] MEDS ORDERED: MAGN296S9 PO (15:52)
[2017-07-22] MEDS ORDERED: MAGN2400 PO (15:52)
[2017-07-22] MEDS ORDERED: METO-239 PO (15:53)
[2017-07-22] MEDS ORDERED: METH29OI TP (15:53)
[2017-07-22] MEDS ORDERED: OLAN2.5T3 PO (15:54)
[2017-07-22] MEDS ORDERED: QUET100T4 PO (15:54)
[2017-07-22] MEDS ORDERED: MINE133E26 RC (15:54)
[2017-07-22] MEDS ORDERED: TRAZ-90 PO (15:55)
[2017-07-22] MEDS ORDERED: QUET25TA5 PO (15:55)
[2017-07-22 16:02] LABS: BASO % 1 % (0-3); EOS # 0.2 x10^3/uL (0.0-0.7); EOS % 2 % (0-3); HEMATOCRIT 36.1 % (39.0-53.0); HEMOGLOBIN 12.4 g/dL (13.0-17.5); LYMPH # 1.6 x10^3/uL (1.0-4.8); LYMPH % 20 % (24-48); MEAN CORPUSCULAR HEMOGLOBIN 32 pg (25-35); MEAN CORPUSCULAR HGB CONC 34 g/dL (31-37); MEAN CORPUSCULAR VOLUME 93 fL (79-100); MONO # 0.7 x10^3/uL (0.0-1.1); MONO % 9 % (0-9); NEUT # 5.6 x10^3uL (1.8-7.7); NEUT % 68 % (31-73); PLATELET COUNT 155 x10^3/uL (140-400); RED CELL DISTRIBUTION WIDTH 15.1 % (11.5-14.5); WHITE BLOOD COUNT 8.2 x10^3/uL (4.0-11.0)
[2017-07-22 16:20] LABS: ALBUMIN 3.3 g/dL (3.4-5.0); ALBUMIN/GLOBULIN RATIO 0.9 (1.0-1.7); CALCIUM 8.8 mg/dL (8.5-10.1); CREATININE 1.5 mg/dL (0.7-1.3); GFR 44.8; MAGNESIUM 2.1 mg/dL (1.8-2.4); POTASSIUM 4.2 mmol/L (3.5-5.1); TOTAL BILIRUBIN 0.4 mg/dL (0.2-1.0); TOTAL PROTEIN 6.8 g/dL (6.4-8.2)
[2017-07-22 16:22] VITALS: BP 94/63
--- NOTE | 2017-07-22 19:52 | PDOC ---
Exam Note: Lars Note: Please also refer to the separate dictated note~for this date of service dictated separately.~Patient seen individually. Discussed the patient with Nursing staff reviewed the chart.~Reviewed interim history and current functioning. Reviewed vital signs,~Labs/ Radiology~and current medications noted below. Continue current treatment with the changes noted in the dictated addendum note Assessment: Vital Signs: Vital Signs Date Time Temp Pulse Resp B/P (MAP) Pulse Ox O2 Delivery O2 Flow Rate FiO2 07/22/17 16:22 97.9 78 18 94/63 (73) 96 07/22/17 14:54 Room Air I&O Intake and Output 07/22/17 07:00 Intake Total 320 ml Balance 320 ml Intake Oral 320 ml # Voids 1 # Bowel Movements 1 Labs: Laboratory Tests Test 07/22/17 15:38 White Blood Count 8.2 x10^3/uL (4.0-11.0) Red Blood Count 3.90 x10^6/uL (4.30-5.70) L Hemoglobin 12.4 g/dL (13.0-17.5) L Hematocrit 36.1 % (39.0-53.0) L Mean Corpuscular Volume 93 fL (79-100) Mean Corpuscular Hemoglobin 32 pg (25-35) Mean Corpuscular Hemoglobin Concent 34 g/dL (31-37) Red Cell Distribution Width 15.1 % (11.5-14.5) H Platelet Count 155 x10^3/uL (140-400) Neutrophils (%) (Auto) 68 % (31-73) Lymphocytes (%) (Auto) 20 % (24-48) L Monocytes (%) (Auto) 9 % (0-9) Eosinophils (%) (Auto) 2 % (0-3) Basophils (%) (Auto) 1 % (0-3) Neutrophils # (Auto) 5.6 x10^3uL (1.8-7.7) Lymphocytes # (Auto) 1.6 x10^3/uL (1.0-4.8) Monocytes # (Auto) 0.7 x10^3/uL (0.0-1.1) Eosinophils # (Auto) 0.2 x10^3/uL (0.0-0.7) Basophils # (Auto) 0.0 x10^3/uL (0.0-0.2) Sodium Level 146 mmol/L (136-145) H Potassium Level 4.2 mmol/L (3.5-5.1) Chloride Level 108 mmol/L (98-107) H Carbon Dioxide Level 33 mmol/L (21-32) H Anion Gap 5 (6-14) L Blood Urea Nitrogen 38 mg/dL (8-26) H Creatinine 1.5 mg/dL (0.7-1.3) H Estimated GFR (Cockcroft-Gault) 44.8 BUN/Creatinine Ratio 25 (6-20) H Glucose Level 113 mg/dL (70-99) H Calcium Level 8.8 mg/dL (8.5-10.1) Magnesium Level 2.1 mg/dL (1.8-2.4) Total Bilirubin 0.4 mg/dL (0.2-1.0) Aspartate Amino Transferase (AST) 27 U/L (15-37) Alanine Aminotransferase (ALT) 39 U/L (16-63) Alkaline Phosphatase 101 U/L (46-116) Total Protein 6.8 g/dL (6.4-8.2) Albumin 3.3 g/dL (3.4-5.0) L Albumin/Globulin Ratio 0.9 (1.0-1.7) L Current Medications: Meds: Current Medications Acetaminophen (Tylenol) 650 mg PRN Q6HRS PRN PO PAIN / TEMP; Start 07/01/17 at 00:15; Stop 07/22/17 at 18:21; Status DC Multi-Ingredient Ointment (Analgesic Rolfe) 1 renetta PRN QID PRN TP MUSCLE PAIN; Start 07/01/17 at 00:15; Stop 07/22/17 at 18:21; Status DC Al Hydroxide/Mg Hydroxide (Mylanta Plus Xs) 15 ml PRN AFTMEALHC PRN PO DYSPEPSIA; Start 07/01/17 at 00:15; Stop 07/22/17 at 18:21; Status DC Magnesium Hydroxide (Milk Of Magnesia) 2,400 mg PRN QHS PRN PO CONSTIPATION Last administered on 07/07/17at 09:00; Start 07/01/17 at 00:15; Stop 07/22/17 at 18:21; Status DC Acetaminophen/ Hydrocodone Bitart (Lortab 5/325) 1 tab PRN Q4HRS PRN PO MILD PAIN Last administered on 07/09/17at 08:30; Start 07/01/17 at 00:30; Stop at 18:21; Status DC Acetaminophen/ Hydrocodone Bitart (Lortab 5/325) 2 tab PRN Q4HRS PRN PO moderate or severe pain Last administered on 07/03/17at 22:33; Start 07/01/17 at 00:30; Stop 07/06/17 at 21:38; Status DC Metoprolol Succinate (Toprol Xl) 25 mg DAILY PO Last administered on 07/22/17at 07:32; Start 07/01/17 at 09:00; Stop 07/22/17 at 18:21; Status DC Mirtazapine (Remeron) 7.5 mg QHS PO ; Start 07/01/17 at 21:00; Stop 07/01/17 at 21:00; Status DC Sertraline HCl (Zoloft) 50 mg DAILY PO Last administered on 07/01/17at 09:01; Start 07/01/17 at 09:00; Stop 07/01/17 at 18:49; Status DC Lisinopril (Prinivil) 40 mg DAILY PO Last administered on 07/22/17at 07:31; Start 07/01/17 at 09:00; Stop 07/22/17 at 18:21; Status DC Quetiapine Fumarate (SEROquel) 100 mg QHS PO Last administered on 07/13/17at 19: 20; Start 07/01/17 at 21:00; Stop 07/13/17 at 20:38; Status DC Vitamin D (Vitamin D3) 50,000 unit WEEKLY PO ; Start 07/01/17 at 18:00; Stop at 19:03; Status DC Mirtazapine (Remeron) 15 mg QHS PO Last administered on 07/09/17at 19:27; Start 07/01/17 at 21:00; Stop 07/10/17 at 11:45; Status DC Sertraline HCl (Zoloft) 25 mg DAILY PO Last administered on 07/07/17at 08:53; Start 07/02/17 at 09:00; Stop 07/07/17 at 18:39; Status DC Vitamin D (Vitamin D3) 50,000 unit WEEKLY PO Last administered on 07/16/17at 08: 38; Start 07/02/17 at 09:00; Stop 07/22/17 at 18:21; Status DC Olanzapine (ZyPREXA ZYDIS) 2.5 mg PRN Q2HR PRN PO psychosis Last administered on 07/04/17at 20:56; Start 07/02/17 at 16:15; Stop 07/04/17 at 23:31; Status DC Haloperidol (Haldol) 5 mg 1X ONCE PO Last administered on 07/05/17at 00:00; Start 07/04/17 at 23:45; Stop 07/04/17 at 23:46; Status DC Haloperidol (Haldol) 2 mg PRN Q6HRS PRN PO ANXIETY / AGITATION Last administered on 07/13/17at 14:45; Start 07/04/17 at 23:30; Stop 07/22/17 at 18:21 ; Status DC Insulin Aspart (NovoLOG) 0-5 UNITS TIDAC SQ Last administered on 07/18/17at 11: 46; Start 07/06/17 at 07:30; Stop 07/20/17 at 16:39; Status DC Dextrose 12.5 gm PRN Q15MIN PRN IV SEE COMMENTS; Start 07/05/17 at 18:00; Stop 07/20/17 at 16:39; Status DC Olanzapine (ZyPREXA ZYDIS) 2.5 mg PRN Q2HR PRN PO PSYCHOSIS Last administered on 07/18/17at 21:14; Start 07/06/17 at 21:45; Stop 07/22/17 at 18:21; Status DC Trazodone HCl (Desyrel) 50 mg PRN QHS PRN PO INSOMNIA, MAY REPEAT X1 Last administered on 07/13/17at 19:23; Start 07/07/17 at 17:45; Stop 07/13/17 at 20:38 ; Status DC Sertraline HCl (Zoloft) 50 mg DAILY PO Last administered on 07/22/17at 07:30; Start 07/08/17 at 09:00; Stop 07/22/17 at 18:21; Status DC Divalproex Sodium (Depakote Sprinkles) 125 mg TID@0900,1300,1700 PO Last administered on 07/12/17at 16:55; Start 07/08/17 at 09:00; Stop 07/12/17 at 18:04 ; Status DC Magnesium Citrate (Citroma) 296 ml PRN 1X PRN PO CONSTIPATION Last administered on 07/08/17at 08:21; Start 07/08/17 at 07:00; Stop 07/22/17 at 18:21; Status DC Mineral Oil (Fleet Mineral Oil) 133 ml PRN DAILY PRN [place] CONSTIPATION; Start 07/08/17 at 07:00; Stop 07/22/17 at 18:21; Status DC Sodium Biphosphate/ Sodium Phosphate (Fleet Adult) 133 ml 1X ONCE TN ; Start at 07:00; Stop 07/08/17 at 07:01; Status DC Sodium Biphosphate/ Sodium Phosphate (Fleet Adult) 133 ml PRN DAILY PRN [place] CONSTIPATION; Start 07/08/17 at 07:00; Stop 07/22/17 at 18:21; Status DC Docusate Sodium (Colace) 100 mg DAILY PO Last administered on 07/22/17at 07:31; Start 07/08/17 at 09:00; Stop 07/22/17 at 18:21; Status DC Melatonin 3 mg HS PO Last administered on 07/21/17at 19:57; Start 07/08/17 at 21: 00; Stop 07/22/17 at 18:21; Status DC Amitriptyline HCl (Elavil) 25 mg HS PO Last administered on 07/21/17at 19:57; Start 07/10/17 at 21:00; Stop 07/22/17 at 18:21; Status DC Divalproex Sodium (Depakote Sprinkles) 125 mg DAILY@1300 PO Last administered on 07/17/17at 12:31; Start 07/13/17 at 13:00; Stop 07/17/17 at 18:33; Status DC Divalproex Sodium (Depakote Sprinkles) 250 mg BID PO Last administered on at 08:06; Start 07/12/17 at 21:00; Stop 07/17/17 at 18:33; Status DC Quetiapine Fumarate (SEROquel) 12.5 mg TID@0900,1300,1700 PO Last administered on 07/15/17at 17:46; Start 07/14/17 at 09:00; Stop 07/15/17 at 18:28; Status DC Quetiapine Fumarate (SEROquel) 75 mg QHS PO Last administered on 07/21/17at 19: 58; Start 07/14/17 at 21:00; Stop 07/22/17 at 18:21; Status DC Trazodone HCl (Desyrel) 100 mg PRN QHS PRN PO INSOMNIA, MAY REPEAT X1 Last administered on 07/21/17at 22:02; Start 07/13/17 at 20:45; Stop 07/22/17 at 18:21 ; Status DC Quetiapine Fumarate (SEROquel) 12.5 mg BID@1300,1700 PO Last administered on at 17:40; Start 07/16/17 at 13:00; Stop 07/16/17 at 18:14; Status DC Quetiapine Fumarate (SEROquel) 25 mg DAILY PO Last administered on 07/16/17at 08 :39; Start 07/16/17 at 09:00; Stop 07/16/17 at 18:14; Status DC Quetiapine Fumarate (SEROquel) 25 mg TID@0900,1300,1700 PO Last administered on 07/22/17at 17:13; Start 07/17/17 at 09:00; Stop 07/22/17 at 18:21; Status DC Divalproex Sodium (Depakote Sprinkles) 250 mg TID PO Last administered on at 12:47; Start 07/17/17 at 21:00; Stop 07/22/17 at 18:21; Status DC Glimepiride (Amaryl) 1 mg DAILY PO Last administered on 07/20/17at 07:35; Start 07/18/17 at 09:00; Stop 07/20/17 at 16:39; Status DC Active Scripts Active Reported Trazodone Hcl 100 Mg Tablet 100 Mg PO PRN QHS PRN Seroquel (Quetiapine Fumarate) 25 Mg Tablet 25 Mg PO TID@0900,1300,1700 Seroquel (Quetiapine Fumarate) 100 Mg Tablet 75 Mg PO HS Zyprexa (Olanzapine) 2.5 Mg Tablet 2.5 Mg PO PRN Q2HR PRN Mineral Oil Enema (Mineral Oil) 133 Ml Enema 133 Ml RC PRN DAILY PRN Analgesic Rolfe (Methyl Salicylate/Menthol) 28 Gm Oint...g. 1 Renetta TP PRN QID PRN Melatonin 3 Mg Tablet 3 Mg PO QHS Milk Of Magnesia (Magnesium Hydroxide) 2,400 Mg/10 Ml Oral.susp 2,400 Mg PO PRN QHS PRN Magnesium Citrate 296 Ml Solution 296 Ml PO ONCE Advanced Antacid Liquid (Mag Hydrox/Al Hydrox/Simeth) 355 Ml Oral.susp 15 Ml PO PRN AFTMEALHC PRN Hydrocodone-Apap 5-325 (Hydrocodone Bit/Acetaminophen) 1 Each Tablet 1 Tab PO PRN Q4HRS PRN Haloperidol 2 Mg Tablet 2 Mg PO PRN Q6HRS PRN Colace (Docusate Sodium) 100 Mg Capsule 100 Mg PO DAILY Depakote Sprinkle (Divalproex Sodium) 125 Mg Cap.sprink 250 Mg PO TID Vitamin D3 (Cholecalciferol (Vitamin D3)) 5,000 Unit Tablet 50,000 Unit PO WEEKLY Amitriptyline Hcl 25 Mg Tablet 25 Mg PO QHS Tylenol (Acetaminophen) 325 Mg Tablet 650 Mg PO PRN Q6HRS PRN Zoloft (Sertraline Hcl) 50 Mg Tablet 50 Mg PO DAILY Toprol Xl (Metoprolol Succinate) 25 Mg Tab.er.24h 25 Mg PO DAILY Lisinopril 40 Mg Tablet 40 Mg PO DAILY I have reviewed the current psychotropics carefully including drug interactions. Risk benefit ratio favors no change other than as noted in my dictated progress note. 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
--- NOTE | 2017-07-22 22:50 | PN ---
DATE: 07/20/2017 This late entry 07/20/2017 covers elements not covered in my initial note 07/20/2017. Met with the patient in the evening of 07/20/2017. The patient has been more compliant with taking his medications. He was placed in bed, almost fell out, hit his head, but no injuries noted. One on one-on-one status was discontinued. He had to be placed on the mats on two separate occasions because he was combative and cursing at staff and cursing in the shower. REVIEW OF SYSTEMS: No CV, , pulmonary, eye, ENT system symptoms on review. Reliability poor. MENTAL STATUS EXAM: Oriented to himself. Insight, judgment, recent and remote memory, attention, concentration, fund of knowledge poor, consistent with his diagnosis mentioned in my initial note. IMPRESSION: Major neurocognitive disorder, Alzheimer, vascular with depression, delusion, behavioral disturbance. PLAN: Valproic acid level is 61. Continue current psychotropics. Adjust further as clinically indicated. MAN Robinson GUY MD DR: RAJAN/nathan JOB#: [id number] / [id number]
--- NOTE | 2017-07-22 22:54 | PN ---
DATE: 07/21/2017 This is a late entry, 07/21/2017, covers the elements not covered in my initial note, 07/21/2017. SUBJECTIVE: I met with the patient in the evening of 07/21/2017. The patient remains confused, slept 6-1/4 hours previous evening, not combative the previous night and better during the day on 07/21/2017. REVIEW OF SYSTEMS: No CV, , pulmonary, eye, ENT system symptoms on review. Reliability poor. MENTAL STATUS EXAM: Oriented to himself. Insight, judgment, recent and remote memory, attention, concentration, fund of knowledge poor, consistent with his diagnoses as mentioned in my initial note. IMPRESSION: Major neurocognitive disorder, Alzheimer, vascular with depression, delusion, behavioral disturbance. Rest unchanged. PLAN: Continue psychotropics as mentioned in my initial note. Valproic acid level therapeutic at 61. Depakote 250 three times a day. MAN MandyGordy GUY MD DR: RAJAN/nathan JOB#: [id number] / [id number]
[2017-07-23] MEDS ORDERED: METO25TA4 PO (10:36)
--- NOTE | 2017-07-23 13:05 | DS ---
DATE OF DISCHARGE: 07/22/2017 DISCHARGE SUMMARY/PSYCHIATRIC PROGRESS NOTE REASON FOR ADMISSION: Please refer to the admission history for details. Briefly, the patient is an 82-year-old male referred to us from [facility] where he presented from the [facility] on account of worsening confusion, aggression, swinging face, kicking legs, not sleeping, unmanageable. SIGNIFICANT FINDINGS AND CLINICAL COURSE: Following admission, the patient was seen daily individually by myself, followed medically per Dr. Marquez/Dr. Loja. He is quite confused, agitated, and disruptive. Adjustments were made in his psychotropics and he was doing slightly better on Zoloft 50 mg a day, Seroquel 25 mg 3 times a day 75 mg at bedtime, amitriptyline 25 mg at bedtime for insomnia, Zyprexa p.r.n., trazodone 100 mg at bedtime p.r.n. may repeat x 1, Depakote 250 t.i.d., melatonin 3 mg at bedtime, Haldol p.r.n.; however, at this stage, he had further acute mental status changes and was dehydrated and transferred by Dr. Marquez to the medical surgical floor for medical stabilization. Once he is stable, we may consider having him back on our unit if clinically indicated. REVIEW OF SYSTEMS: Prior to discharge, no CV, , pulmonary, eye, ENT system symptoms on review. Reliability poor. MENTAL STATUS EXAM: Oriented to himself. Insight, judgment, recent and remote memory, attention, concentration, fund of knowledge poor, consistent with his diagnosis. IMPRESSION: Major neurocognitive disorder, Alzheimer, vascular with depression, delusion, behavioral disturbance; anxiety disorder, unspecified; impulse control disorder, unspecified. Rest unchanged. Dehydration. DISCHARGE MEDICATIONS: Please refer to the EMRAD. PLAN: Once he is medically stable, we will reassess if he needs to be at readmitted with us. AMPARO GUY MD DR: RAJAN/nathan JOB#: [id number] / [id number]
== END 2017-07-22 18:00 | disposition short-term general hospital (02) | DRG 884 ==
LOC: GEROPSY 23:08
PROVIDERS: ADMIT Psychiatry & Neurology Psychiatry; ATTEND Psychiatry & Neurology Psychiatry
DX: F01.51 Vascular dementia, unspecified severity, with behavioral disturbance (principal); G30.9 Alzheimer's disease, unspecified; E11.9 Type 2 diabetes mellitus without complications; F02.81 Dementia in other diseases classified elsewhere, unspecified severity, with behavioral disturbance; E86.0 Dehydration; W18.39XA Other fall on same level, initial encounter; G47.00 Insomnia, unspecified; H91.90 Unspecified hearing loss, unspecified ear; K59.09 Other constipation; Y99.8 Other external cause status; F22 Delusional disorders; F32.9 Major depressive disorder, single episode, unspecified; I25.10 Atherosclerotic heart disease of native coronary artery without angina pectoris; F63.9 Impulse disorder, unspecified; Z95.5 Presence of coronary angioplasty implant and graft; Z86.73 Personal history of transient ischemic attack (TIA), and cerebral infarction without residual deficits; I10 Essential (primary) hypertension; E55.9 Vitamin D deficiency, unspecified; F41.1 Generalized anxiety disorder; S00.531A Contusion of lip, initial encounter; Y92.238 Other place in hospital as the place of occurrence of the external cause; R29.6 Repeated falls; Z78.1 Physical restraint status; Y93.89 Activity, other specified; Z93.3 Colostomy status; Z95.0 Presence of cardiac pacemaker; Z98.42 Cataract extraction status, left eye; Z79.899 Other long term (current) drug therapy; Z82.49 Family history of ischemic heart disease and other diseases of the circulatory system; Z83.3 Family history of diabetes mellitus; Z91.81 History of falling; Z88.8 Allergy status to other drugs, medicaments and biological substances; Z90.49 Acquired absence of other specified parts of digestive tract
CPT/HCPCS: 36415; 70450; 74018; 80053; 80061; 80164; 81001; 82306; 82607; 82947; 83036; 83540; 83550; 83735; 84436; 84443; 84480; 85025; 86593; 93005; J1815; 97110; 97116; 97530; 97535

== ENCOUNTER 2017-07-22 18:12 | Inpatient (IN) | payer MEDICARE, OTHER ==
[~2017-07-22 18:12] MED LIST: ACET325T9 PO; AMIT25TA PO; CHOL500016 PO; DIVA125C PO; DOCU-109 PO; HALO2TAB PO; HALO5AMP2 IV; HYDR-2758 PO; LISI40TA PO; LORA2VIA4 IV; MAG355OR17 PO; MAGN2400 PO; MAGN296S9 PO; MELA3TAB2 PO; METH29OI TP; METO-239 PO; METO25TA2 PO; MINE133E26 RC; MIRT15TA PO; OLAN2.5T3 PO; QUET100T4 PO; QUET25TA5 PO; QUET50TA8 PO; SERT50TA PO; TRAZ-90 PO
[2017-07-22 18:51] VITALS: BP 107/46
[2017-07-22 22:01] VITALS: BP 153/82
[2017-07-22] MEDS: IV DEXTROSE 5% 1,000 ML IV SCH (22:04)
[2017-07-23 05:12] VITALS: BP 176/78
[2017-07-23] MEDS: IV DEXTROSE 5% 1,000 ML IV SCH (05:32)
[2017-07-23 07:35] LABS: ALBUMIN 2.9 g/dL (3.4-5.0); ALBUMIN/GLOBULIN RATIO 0.9 (1.0-1.7); CALCIUM 8.4 mg/dL (8.5-10.1); GLUCOSE 134 mg/dL (70-99)
[2017-07-23 07:36] LABS: ALK PHOS 90 U/L (46-116); ALT (SGPT) 34 U/L (16-63); ANION GAP 4 (6-14); AST (SGOT) 27 U/L (15-37); BLOOD UREA NITROGEN 35 mg/dL (8-26); BUN/CREATININE RATIO 27 (6-20); CARBON DIOXIDE 32 mmol/L (21-32); CHLORIDE 106 mmol/L (98-107); CREATININE 1.3 mg/dL (0.7-1.3); GFR 52.9; POTASSIUM 3.7 mmol/L (3.5-5.1); SODIUM 142 mmol/L (136-145); TOTAL BILIRUBIN 0.5 mg/dL (0.2-1.0)
[2017-07-23 07:37] LABS: BASO % 1 % (0-3); EOS # 0.2 x10^3/uL (0.0-0.7); EOS % 3 % (0-3); HEMATOCRIT 32.9 % (39.0-53.0); HEMOGLOBIN 11.6 g/dL (13.0-17.5); LYMPH # 1.3 x10^3/uL (1.0-4.8); LYMPH % 21 % (24-48); MEAN CORPUSCULAR HEMOGLOBIN 32 pg (25-35); MEAN CORPUSCULAR HGB CONC 35 g/dL (31-37); MEAN CORPUSCULAR VOLUME 92 fL (79-100); MONO # 0.7 x10^3/uL (0.0-1.1); MONO % 12 % (0-9); NEUT # 3.9 x10^3uL (1.8-7.7); NEUT % 64 % (31-73); PLATELET COUNT 121 x10^3/uL (140-400); RED BLOOD COUNT 3.57 x10^6/uL (4.30-5.70); RED CELL DISTRIBUTION WIDTH 15.1 % (11.5-14.5); WHITE BLOOD COUNT 6.2 x10^3/uL (4.0-11.0)
[2017-07-23 07:51] LABS: VAL ACID 45 mcg/mL (50-100)
--- NOTE | 2017-07-23 09:05 | PDOC2 ---
CONSULT Date of Admission DATE: 07/23/17 TIME: 09:03 Reason for Consult: syncope History of Present Illness Mr Jerez is an 82-year-old male who was admitted to [facility] for psychiatric stabilization. He was apparently having of multiple falls and dementia so was admitted to [facility] where he underwent multiple diagnostic tests. He apparently developed acute confusion and was very aggressive while there so was transferred to [facility]. Yesterday he apparently developed some decreased level of consciousness and was listing to one side in his chair. He was noted to be fairly sedated and dehydrated. Staff became concerned about stroke so he was transferred down for evaluation. Consult was called to cardiology fo syncope. This morning he is awake and very pleasant thought confused. He is unable to give history which is obtained from the chart. After review of chart and discussion with nursing apparently there was no loss of consciousness. Past Medical History hypertension, type 2 diabetes, cataract in his left eye, coronary artery disease status post stent deployment, has also history of CVA and dementia. Past Surgical History permanent pacemaker, PCI with stent deployment and cataract extraction, appendectomy, back surgery, colectomy with colostomy, colostomy reversal Family History non contributory due to age Social History used to be a triplett. He is a nonsmoker. He drinks alcohol occasionally. No illicit drugs. Current Medications Current Medications Dextrose 1,000 ml @ 100 mls/hr Q10H IV Last administered on 07/23/17at 05:32; Start 07/22/17 at 21:30 Active Scripts Active Reported Trazodone Hcl 100 Mg Tablet 100 Mg PO PRN QHS PRN Seroquel (Quetiapine Fumarate) 25 Mg Tablet 25 Mg PO TID@0900,1300,1700 Seroquel (Quetiapine Fumarate) 100 Mg Tablet 75 Mg PO HS Zyprexa (Olanzapine) 2.5 Mg Tablet 2.5 Mg PO PRN Q2HR PRN Mineral Oil Enema (Mineral Oil) 133 Ml Enema 133 Ml RC PRN DAILY PRN Analgesic [place] (Methyl Salicylate/Menthol) 28 Gm Oint...g. 1 Renetta TP PRN QID PRN Melatonin 3 Mg Tablet 3 Mg PO QHS Milk Of Magnesia (Magnesium Hydroxide) 2,400 Mg/10 Ml Oral.susp 2,400 Mg PO PRN QHS PRN Magnesium Citrate 296 Ml Solution 296 Ml PO ONCE Advanced Antacid Liquid (Mag Hydrox/Al Hydrox/Simeth) 355 Ml Oral.susp 15 Ml PO PRN AFTMEALHC PRN Hydrocodone-Apap 5-325 (Hydrocodone Bit/Acetaminophen) 1 Each Tablet 1 Tab PO PRN Q4HRS PRN Haloperidol 2 Mg Tablet 2 Mg PO PRN Q6HRS PRN Colace (Docusate Sodium) 100 Mg Capsule 100 Mg PO DAILY Depakote Sprinkle (Divalproex Sodium) 125 Mg Cap.sprink 250 Mg PO TID Vitamin D3 (Cholecalciferol (Vitamin D3)) 5,000 Unit Tablet 50,000 Unit PO WEEKLY Amitriptyline Hcl 25 Mg Tablet 25 Mg PO QHS Tylenol (Acetaminophen) 325 Mg Tablet 650 Mg PO PRN Q6HRS PRN Zoloft (Sertraline Hcl) 50 Mg Tablet 50 Mg PO DAILY Toprol Xl (Metoprolol Succinate) 25 Mg Tab.er.24h 25 Mg PO DAILY Lisinopril 40 Mg Tablet 40 Mg PO DAILY Allergies: Coded Allergies: donepezil (Verified Allergy, Intermediate, 07/01/17) Review of System unobtainable due to patient mental status General: Alert, Cooperative, No acute distress HEENT: Atraumatic, EOMI Heart: Regular rate, Normal S1, Normal S2 Abdomen: Normal bowel sounds, Soft Extremities: No clubbing, No cyanosis Psych/Mental Status: Mood NL VITALS Vital Signs Date Time Temp Pulse Resp B/P (MAP) Pulse Ox O2 Delivery O2 Flow Rate FiO2 07/23/17 05:12 97.4 58 20 176/78 (110) 95 Room Air Labs Laboratory Tests Test 07/23/17 06:50 White Blood Count 6.2 x10^3/uL (4.0-11.0) Red Blood Count 3.57 x10^6/uL (4.30-5.70) Hemoglobin 11.6 g/dL (13.0-17.5) Hematocrit 32.9 % (39.0-53.0) Mean Corpuscular Volume 92 fL (79-100) Mean Corpuscular Hemoglobin 32 pg (25-35) Mean Corpuscular Hemoglobin Concent 35 g/dL (31-37) Red Cell Distribution Width 15.1 % (11.5-14.5) Platelet Count 121 x10^3/uL (140-400) Neutrophils (%) (Auto) 64 % (31-73) Lymphocytes (%) (Auto) 21 % (24-48) Monocytes (%) (Auto) 12 % (0-9) Eosinophils (%) (Auto) 3 % (0-3) Basophils (%) (Auto) 1 % (0-3) Neutrophils # (Auto) 3.9 x10^3uL (1.8-7.7) Lymphocytes # (Auto) 1.3 x10^3/uL (1.0-4.8) Monocytes # (Auto) 0.7 x10^3/uL (0.0-1.1) Eosinophils # (Auto) 0.2 x10^3/uL (0.0-0.7) Basophils # (Auto) 0.0 x10^3/uL (0.0-0.2) Sodium Level 142 mmol/L (136-145) Potassium Level 3.7 mmol/L (3.5-5.1) Chloride Level 106 mmol/L (98-107) Carbon Dioxide Level 32 mmol/L (21-32) Anion Gap 4 (6-14) Blood Urea Nitrogen 35 mg/dL (8-26) Creatinine 1.3 mg/dL (0.7-1.3) Estimated GFR (Cockcroft-Gault) 52.9 BUN/Creatinine Ratio 27 (6-20) Glucose Level 134 mg/dL (70-99) Calcium Level 8.4 mg/dL (8.5-10.1) Magnesium Level 2.0 mg/dL (1.8-2.4) Total Bilirubin 0.5 mg/dL (0.2-1.0) Aspartate Amino Transf (AST/SGOT) 27 U/L (15-37) Alanine Aminotransferase (ALT/SGPT) 34 U/L (16-63) Alkaline Phosphatase 90 U/L (46-116) Total Protein 6.0 g/dL (6.4-8.2) Albumin 2.9 g/dL (3.4-5.0) Albumin/Globulin Ratio 0.9 (1.0-1.7) Valproic Acid (Depakene) Level 45 mcg/mL (50-100) Valproic Acid Last Dose Date 07/22/2017 Valproic Acid Last Dose Time [address] \ IMPRESSION: 1. Chronic findings 2. No acute intracranial abnormality is detected. Assessment/Plan 1. altered mental status - improved level of consciousness 2. hypotension - improved 3. PPM - interrogate device. 4. dementia - per Psych No syncope, symptoms appear to be related to medications and dehydration. Suggest device check, resume antihypertensives with adjusted dosing as needed. Continue supportive care. Problems: DEBBY RUTLEDGE APRN Jul 23, 2017 09:05
[2017-07-23 10:22] VITALS: BP 145/72
[2017-07-23] MEDS ORDERED: METO25TA4 PO (10:36)
[2017-07-23] MEDS ORDERED: LISINOPRIL 20 MG TABLET PO SCH (11:00)
[2017-07-23 11:01] VITALS: BP 145/72
[2017-07-23] MEDS ORDERED: METOPROLOL TART IMMED RELEASE 25 MG TABLET PO SCH (11:15)
--- NOTE | 2017-07-23 13:16 | SSS ---
ADMIT DATE: 07/23/2017 Stay was greater than 8 hours and less than 24. DISPOSITION: Readmission back up to the [facility]. DISCHARGE DIAGNOSES: 1. Oversedation from medication changes. 2. Dehydration. 3. Hypernatremia. 4. Frail elderly. 5. Falls. 6. Hypertension. 7. Type 2 diabetes. 8. Coronary artery disease with stent placement. 9. History of cerebrovascular accident and dementia. HOSPITAL COURSE: An 82-year-old male who I saw up on the [facility] yesterday afternoon. He was very lethargic and the nursing staff was afraid that he has had a CVA. He appeared to be over sedated and has had some medication changes about 5-day previous. He also had had an extra 100 mg of trazodone the night previous to this incident. He did appear to be dehydrated and so was transferred down to [address] [place] [address] for IV fluids and further investigation. CT scan of his head was negative. He had fallen up on the [facility]. OBJECTIVE: VITAL SIGNS: Blood pressure 145/72, pulse 66, temperature 98.1, respirations 20, pulse ox 95% on room air. GENERAL: The patient the following day is alert, but not oriented, trying to get up out of bed. HEENT: Eyes were clear. Nose patent. Throat clear. NECK: Supple. LUNGS: Clear. CARDIOVASCULAR: Regular rhythm and rate. ABDOMEN: Soft, nontender. EXTREMITIES: Without edema. He has a small bruise on the left side top of his skull without tenderness. LABORATORY DATA: Hemoglobin 11.6, hematocrit 32.9, platelet count 121,000. Chemistry: BUN 35, creatinine 1.3, sodium is 142. It had been 146. Valproic acid level is 45. PLAN: The patient remained off of his medications for greater than 12 hours. He then woke up and was much more gregarious and according to nursing staff tried to get up most of the night. He did not receive any other PRNs and/or regular medication. He was stable enough to be transferred back up to the [facility] and his antipsychotics were held until Dr. Muller can review them. He was given his hypertensive medicine DISPOSITION: Transfer back up to the [facility]. SANDRA VIRAMONTES DO DR: ISAIAH/nathan JOB#: [id number] / [id number]
== END 2017-07-23 12:19 | DRG 641 ==
LOC: 1 SOUTH 18:12
PROVIDERS: ADMIT Family Medicine; ATTEND Family Medicine
DX: E87.0 Hyperosmolality and hypernatremia (principal); I95.9 Hypotension, unspecified; E86.0 Dehydration; E11.9 Type 2 diabetes mellitus without complications; F03.90 Unspecified dementia, unspecified severity, without behavioral disturbance, psychotic disturbance, mood disturbance, and anxiety; I10 Essential (primary) hypertension; R29.6 Repeated falls; I25.10 Atherosclerotic heart disease of native coronary artery without angina pectoris; T50.995A Adverse effect of other drugs, medicaments and biological substances, initial encounter; Y92.89 Other specified places as the place of occurrence of the external cause; Z86.73 Personal history of transient ischemic attack (TIA), and cerebral infarction without residual deficits; Z93.3 Colostomy status; Z95.5 Presence of coronary angioplasty implant and graft; Z95.0 Presence of cardiac pacemaker; Z98.42 Cataract extraction status, left eye; Z90.49 Acquired absence of other specified parts of digestive tract
CPT/HCPCS: 36415; 80053; 80164; 83735; 85025; 87641

== ENCOUNTER 2017-07-23 11:10 | Inpatient (IN) | payer MEDICARE, OTHER ==
[~2017-07-23] VITALS: Ht 175.3 cm; Wt 75.7 kg
[~2017-07-23 11:10] MED LIST changes: +METO25TA4 PO
[2017-07-23 13:25] VITALS: BP 139/79
--- NOTE | 2017-07-23 13:25 | NUR ---
Admission Note with Justification for Admission to [facility] Patient admitted to [facility] for protective oversight for emergency stabilization of acute psychiatric crisis. [place] Mode of arrival: wc Accompanied By: [facility] Staff Precipitating behaviors that initiated intake and admission:combative on , restless, pulling at IV Description of failure of out patient attempts at stabilization in previous setting list behavior and medication trials: Behaviors and assessment findings upon admission: pt A/O to self, compliant with assessment. restless in wheelchair, attempting to stand unassisted, rattling doors Plan: Admit for protective oversight for adjustment and stabilization of medications, behaviors and mood. Intense treatment regimen including groups, medication adjustments, therapy, consistent regimen for ADL's, self care, and sleep hygiene. Daily monitoring by Inpatient staff, Psychiatry, and Medical Physician.
[2017-07-23] MEDS ORDERED: MAG HYDROX/AL HYDROX/SIMETH 30 ML ORAL.SUSP PO PRN (14:15)
[2017-07-23] MEDS ORDERED: ACETAMINOPHEN 325 MG TABLET PO PRN ×2 (14:15→14:30)
[2017-07-23] MEDS ORDERED: MAGNESIUM HYDROXIDE 2,400 MG/30 ML ORAL.SUSP. PO PRN (14:15)
[2017-07-23] MEDS ORDERED: METHYL SALICYLATE/MENTHOL TOPICAL OINTMENT 29GM TUBE. TP PRN ×2 (14:15→14:30)
[2017-07-23] MEDS ORDERED: NON FORMULARY ITEM (Mag Hydrox/Al Hydrox/Simeth (Advanced Antacid Liquid) 15 ML) PO PRN (14:30)
[2017-07-23] MEDS ORDERED: traZODone 100 MG TABLET. PO PRN (14:30)
[2017-07-23] MEDS ORDERED: HALOPERIDOL 2 MG TABLET PO PRN (14:30)
[2017-07-23] MEDS ORDERED: MINERAL OIL 133 ML ENEMA. RC PRN (14:30)
[2017-07-23] MEDS ORDERED: OLANZapine 2.5 MG TABLET PO PRN (14:30)
[2017-07-23] MEDS ORDERED: NON FORMULARY ITEM (Magnesium Hydroxide (Milk Of Magnesia) 2,400 MG) PO PRN (14:30)
[2017-07-23] MEDS ORDERED: MAGNESIUM CITRATE 296 ML SOLUTION. PO ONE (15:00)
[2017-07-23] MEDS ORDERED: MAGNESIUM CITRATE 296 ML SOLUTION. PO PRN (15:00)
--- NOTE | 2017-07-23 15:00 | NUR ---
WEEKLY THERAPEUTIC RECREATION NOTE Date of Admission: 06/30/2017 Date of AT Assessment: 07/03/2017 Goal aimed: to increase socialization and engagement Changed goal: Pt. will participate in at least one group a day. Weekly progress towards goal: did not meet Group participation level: minimal Behaviors observed: Pt. DC to different unit on Friday but returned Friday. Pt. can be restless at times and needs 1:1 supervision. He needs assistance and direct prompting to stay engaged. Plan: no changes to goal
--- NOTE | 2017-07-23 15:04 | NUR ---
SW spoke with pt regarding her questions, Pt will be included in treatment team
[2017-07-23] MEDS: QUEtiapine 25 MG TABLET. PO SCH (16:21)
[2017-07-23 16:32] VITALS: BP 183/90
[2017-07-23 17:00] VITALS: BP 133/69
--- NOTE | 2017-07-23 19:48 | PDOC ---
Exam Note: Lars Note: Please also refer to the separate dictated note~for this date of service dictated separately.~Patient seen individually. Discussed the patient with Nursing staff reviewed the chart.~Reviewed interim history and current functioning. Reviewed vital signs,~Labs/ Radiology~and current medications noted below. Continue current treatment with the changes noted in the dictated addendum note Assessment: Vital Signs: Vital Signs Date Time Temp Pulse Resp B/P (MAP) Pulse Ox O2 Delivery O2 Flow Rate FiO2 07/23/17 17:00 59 133/69 (90) 07/23/17 16:32 97.5 20 94 Current Medications: Meds: Current Medications Acetaminophen (Tylenol) 650 mg PRN Q6HRS PRN PO PAIN / TEMP; Start 07/23/17 at 14:15; Status UNV Multi-Ingredient Ointment (Analgesic [place]) 1 renetta PRN QID PRN TP MUSCLE PAIN; Start 07/23/17 at 14:15 Al Hydroxide/Mg Hydroxide (Mylanta Plus Xs) 15 ml PRN AFTMEALHC PRN PO DYSPEPSIA; Start 07/23/17 at 14:15 Magnesium Hydroxide (Milk Of Magnesia) 2,400 mg PRN QHS PRN PO CONSTIPATION; Start 07/23/17 at 14:15 Acetaminophen (Tylenol) 650 mg PRN Q6HRS PRN PO PAIN / TEMP; Start 07/23/17 at 14:30 Amitriptyline HCl (Elavil) 25 mg QHS PO ; Start 07/23/17 at 21:00 Divalproex Sodium (Depakote Sprinkles) 250 mg TID PO ; Start 07/23/17 at 21:00 Docusate Sodium (Colace) 100 mg DAILY PO ; Start 07/24/17 at 09:00 Haloperidol (Haldol) 2 mg PRN Q6HRS PRN PO ANXIETY / AGITATION; Start 07/23/17 at 14:30; Stop 07/23/17 at 18:08; Status DC Acetaminophen/ Hydrocodone Bitart (Lortab 5/325) 1 tab PRN Q8HRS PRN PO PAIN; Start 07/23/17 at 14:30 Magnesium Citrate (Citroma) 296 ml ONCE ONCE PO ; Start 07/23/17 at 15:00; Stop 07/23/17 at 15:00; Status DC Multi-Ingredient Ointment (Analgesic [place]) 1 renetta PRN QID PRN TP MUSCLE PAIN; Start 07/23/17 at 14:30; Status UNV Metoprolol Tartrate (Lopressor) 12.5 mg BID PO ; Start 07/23/17 at 21:00 Mineral Oil (Fleet Mineral Oil) 133 ml PRN DAILY PRN RC CONSTIPATION; Start at 14:30 Olanzapine (ZyPREXA) 2.5 mg PRN Q2HR PRN PO ANXIETY / AGITATION; Start at 14:30; Stop 07/23/17 at 14:54; Status DC Quetiapine Fumarate (SEROquel) 25 mg TID@0900,1300,1700 PO Last administered on 07/23/17at 16:21; Start 07/23/17 at 17:00 Quetiapine Fumarate (SEROquel) 75 mg HS PO ; Start 07/23/17 at 21:00 Sertraline HCl (Zoloft) 50 mg DAILY PO ; Start 07/24/17 at 09:00 Trazodone HCl (Desyrel) 50 mg PRN QHS PRN PO INSOMNIA, MAY REPEAT X1; Start at 14:30; Stop 07/23/17 at 14:55; Status DC Vitamin D (Vitamin D3) 50,000 unit WEEKLY PO ; Start 07/23/17 at 21:00 Lisinopril (Prinivil) 40 mg DAILY PO ; Start 07/24/17 at 09:00 Non-Formulary Medication 15 ml PRN AFTMEALHC PRN PO DYSPEPSIA; Start 07/23/17 at 14:30; Status UNV Non-Formulary Medication 2,400 mg PRN QHS PRN PO CONSTIPATION; Start 07/23/17 at 14:30; Status UNV Melatonin 3 mg QHS PO ; Start 07/23/17 at 21:00 Magnesium Citrate (Citroma) 296 ml PRN 1X PRN PO CONSTIPATION; Start 07/23/17 at 15:00 Olanzapine (ZyPREXA ZYDIS) 2.5 mg PRN Q2HR PRN PO ANXIETY / AGITATION; Start at 14:54 Trazodone HCl (Desyrel) 50 mg PRN QHS PRN PO INSOMNIA, MAY REPEAT X1; Start at 14:55 Active Scripts Active Reported Metoprolol Tartrate 25 Mg Tablet 12.5 Mg PO BID Trazodone Hcl 100 Mg Tablet 50 Mg PO PRN QHS PRN Seroquel (Quetiapine Fumarate) 25 Mg Tablet 25 Mg PO TID@0900,1300,1700 Seroquel (Quetiapine Fumarate) 100 Mg Tablet 75 Mg PO HS Zyprexa (Olanzapine) 2.5 Mg Tablet 2.5 Mg PO PRN Q2HR PRN Mineral Oil Enema (Mineral Oil) 133 Ml Enema 133 Ml RC PRN DAILY PRN Analgesic [place] (Methyl Salicylate/Menthol) 28 Gm Oint...g. 1 Renetta TP PRN QID PRN Melatonin 3 Mg Tablet 3 Mg PO QHS Milk Of Magnesia (Magnesium Hydroxide) 2,400 Mg/10 Ml Oral.susp 2,400 Mg PO PRN QHS PRN Magnesium Citrate 296 Ml Solution 296 Ml PO ONCE Advanced Antacid Liquid (Mag Hydrox/Al Hydrox/Simeth) 355 Ml Oral.susp 15 Ml PO PRN AFTMEALHC PRN Hydrocodone-Apap 5-325 (Hydrocodone Bit/Acetaminophen) 1 Each Tablet 1 Tab PO PRN Q8HRS PRN Haloperidol 2 Mg Tablet 2 Mg PO PRN Q6HRS PRN Colace (Docusate Sodium) 100 Mg Capsule 100 Mg PO DAILY Depakote Sprinkle (Divalproex Sodium) 125 Mg Cap.sprink 250 Mg PO TID Vitamin D3 (Cholecalciferol (Vitamin D3)) 5,000 Unit Tablet 50,000 Unit PO WEEKLY Amitriptyline Hcl 25 Mg Tablet 25 Mg PO QHS Tylenol (Acetaminophen) 325 Mg Tablet 650 Mg PO PRN Q6HRS PRN Zoloft (Sertraline Hcl) 50 Mg Tablet 50 Mg PO DAILY Lisinopril 40 Mg Tablet 40 Mg PO DAILY I have reviewed the current psychotropics carefully including drug interactions. Risk benefit ratio favors no change other than as noted in my dictated progress note. Diagnosis: Problems: (1) Delusion (2) Dementia with behavioral problem (3) Vascular dementia with behavior disturbance (4) Behavior problem (5) Anxiety disorder (6) Dementia in Alzheimer's disease with delusions (7) Dementia, vascular, with delusions (8) Dementia, vascular, with depression (9) Dementia in Alzheimer's disease with depression (10) Impulse control disorder AMPARO GUY MD Jul 23, 2017 19:48
--- NOTE | 2017-07-23 20:00 | NUR ---
Behavior Intervention Response and Plan: BIRP Note: Behavior: Assumed Care of patient, patient located in Day Room at shift change. Patient exhibited the following behavior Disorganized, Compulsive, Agitated. Brief assessment on rounds of vital signs, medication needs, lab studies, and pain. Treatment plan problems . Intervention: Patient assessed and the following interventions initiated safety checks 15 Minute Checks Cognitive Assessment , Head to toe Assessment , Medications. Response: After interactions and interventions patient responded in the following manner, Combative , Irritable ,Sarcastic. Continue to assess behaviors and condition will continue to monitor throughout the shift as needed. Patient educated on ADL's, and hand hygiene. 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 Continue to assess patient for changes in above assessment. Monitor for medication needs, pain, and safety concerns. Hourly rounding performed to ensure safe environment.
[2017-07-23] MEDS: QUEtiapine 50 MG TABLET. PO SCH (20:16)
[2017-07-23] MEDS: METOPROLOL TART IMMED RELEASE 25 MG TABLET PO SCH (20:16)
[2017-07-23] MEDS: MELATONIN 3 MG TABLET PO SCH (20:17)
[2017-07-23] MEDS: DIVALPROEX 125 MG CAP.SPRINK PO SCH (20:17)
[2017-07-23] MEDS: AMITRIPTYLINE HCL 25 MG TABLET PO SCH (20:27)
[2017-07-23] MEDS ORDERED: CHOLECALCIFEROL (VITAMIN D3) 50,000 UNIT CAPSULE PO SCH (21:00)
[2017-07-24 06:15] VITALS: BP 130/62
--- NOTE | 2017-07-24 06:45 | NUR ---
This nurse received in report that patient was combative last night and was taken to the [facility] for de-escalation. Patient calmed down and was assisted to bed, sleep hours reported as 7.5.
--- NOTE | 2017-07-24 07:27 | NUR ---
Patient had apparently crawled out of bed and was found on the floor of his room. Patient denies pain, no visible injuries. Vital signs obtained, WNL. Patient taken to dining room for observation during coffee group.
[2017-07-24] MEDS: DIVALPROEX 125 MG CAP.SPRINK PO SCH ×3 (07:39→20:01)
[2017-07-24] MEDS: QUEtiapine 25 MG TABLET. PO SCH ×3 (07:39→16:47)
[2017-07-24] MEDS: METOPROLOL TART IMMED RELEASE 25 MG TABLET PO SCH ×2 (07:39→20:01)
[2017-07-24] MEDS: DOCUSATE SODIUM 100 MG CAPSULE PO SCH (07:40)
[2017-07-24] MEDS: LISINOPRIL 20 MG TABLET PO SCH (07:40)
[2017-07-24] MEDS: SERTRALINE 50 MG TABLET. PO SCH (07:40)
[2017-07-24] MEDS ORDERED: LISINOPRIL 20 MG TABLET PO SCH (09:00)
[2017-07-24 09:44] LABS: BASO % 0 % (0-3); EOS # 0.2 x10^3/uL (0.0-0.7); EOS % 2 % (0-3); HEMATOCRIT 35.3 % (39.0-53.0); HEMOGLOBIN 12.1 g/dL (13.0-17.5); LYMPH # 1.6 x10^3/uL (1.0-4.8); LYMPH % 21 % (24-48); MEAN CORPUSCULAR HEMOGLOBIN 32 pg (25-35); MEAN CORPUSCULAR HGB CONC 34 g/dL (31-37); MEAN CORPUSCULAR VOLUME 93 fL (79-100); MONO # 0.9 x10^3/uL (0.0-1.1); MONO % 12 % (0-9); NEUT % 65 % (31-73); PLATELET COUNT 133 x10^3/uL (140-400); RED CELL DISTRIBUTION WIDTH 15.6 % (11.5-14.5); WHITE BLOOD COUNT 7.7 x10^3/uL (4.0-11.0)
[2017-07-24 09:53] LABS: ALBUMIN 3.2 g/dL (3.4-5.0); CALCIUM 8.7 mg/dL (8.5-10.1); CREATININE 1.5 mg/dL (0.7-1.3); GFR 44.8; MAGNESIUM 1.9 mg/dL (1.8-2.4); POTASSIUM 4.7 mmol/L (3.5-5.1); TOTAL BILIRUBIN 0.5 mg/dL (0.2-1.0); TOTAL PROTEIN 6.4 g/dL (6.4-8.2)
[2017-07-24 09:55] LABS: VAL ACID 38 mcg/mL (50-100)
--- NOTE | 2017-07-24 10:00 | NUR ---
patient leaning to side, attempting to get out of wheelchair unassisted. Ordering [facility] chair for safety.
--- NOTE | 2017-07-24 11:25 | NUR ---
Behavior Intervention Response and Plan: BIRP Note: Behavior: Assumed Care of patient, patient located in Hallway at shift change. Patient exhibited the following behavior Restless, Disorganized, Compliant. Brief assessment on rounds of vital signs, medication needs, lab studies, and pain. Treatment plan problems 1 and 2. Intervention: Patient assessed and the following interventions initiated safety checks 15 Minute Checks Cognitive Assessment , Head to toe Assessment , Medications. Response: After interactions and interventions patient responded in the following manner, Restless , Disorganized ,Compliant. Continue to assess behaviors and condition will continue to monitor throughout the shift as needed. Patient educated on ADL's, and hand hygiene. Plan: Continue to monitor Master Treatment Plan for patient's progress toward short term goals of No harm To self/ others, Medication Compliance, intermodal truck driver goals to return to previous living setting vs placement. Continue to assess patient for changes in above assessment. Monitor for medication needs, pain, and safety concerns. Hourly rounding performed to ensure safe environment.
--- NOTE | 2017-07-24 13:23 | HP ---
ADMIT DATE: 07/23/2017 REASON FOR ADMISSION: For readmission to the [facility]. HISTORY OF PRESENT ILLNESS: This 82-year-old male had been transferred down to the medical floor for over sedation. He had multiple medications that were adjusted. They were held for about a day and the patient woke back up and started to act in his usual manner. After being medically stabilized, he was transferred back up to the [facility] and readmitted there on 07/23/2017. There are no other changes to his history and physical, etc. and please refer to both previous admissions for further information. FLORI RODRIGUEZ MD DR: DANISHA/nathan JOB#: [id number] / [id number]
--- NOTE | 2017-07-24 15:01 | NUR ---
SW reviewed pt insurance information upon admit. Face sheet, C-Snap and intake state Pt's insurance is Medicare primary.
--- NOTE | 2017-07-24 15:36 | HP ---
ADMIT DATE: 07/23/2017 REASON FOR ADMISSION: For readmission to the [facility]. HISTORY OF PRESENT ILLNESS: This 82-year-old male had been transferred down to the medical floor for over sedation. He had multiple medications that were adjusted. They were held for about a day and the patient woke back up and started to act in his usual manner. After being medically stabilized, he was transferred back up to the [facility] and readmitted there on 07/23/2017. There are no other changes to his history and physical, etc. and please refer to both previous admissions for further information. SANDRA VIRAMONTES DO DR: Brian JOB#: [id number] / [id number]
[2017-07-24 16:19] VITALS: BP 126/82
--- NOTE | 2017-07-24 19:43 | PDOC ---
Exam Note: Lars Note: Please also refer to the separate dictated note~for this date of service dictated separately.~Patient seen individually. Discussed the patient with Nursing staff reviewed the chart.~Reviewed interim history and current functioning. Reviewed vital signs,~Labs/ Radiology~and current medications noted below. Continue current treatment with the changes noted in the dictated addendum note Assessment: Vital Signs: Vital Signs Date Time Temp Pulse Resp B/P (MAP) Pulse Ox O2 Delivery O2 Flow Rate FiO2 07/24/17 16:19 98.0 71 20 126/82 (97) 98 Room Air I&O Intake and Output 07/24/17 07:00 Intake Total 360 ml Balance 360 ml Intake Oral 360 ml Labs: Laboratory Tests Test 07/24/17 09:29 White Blood Count 7.7 x10^3/uL (4.0-11.0) Red Blood Count 3.80 x10^6/uL (4.30-5.70) L Hemoglobin 12.1 g/dL (13.0-17.5) L Hematocrit 35.3 % (39.0-53.0) L Mean Corpuscular Volume 93 fL (79-100) Mean Corpuscular Hemoglobin 32 pg (25-35) Mean Corpuscular Hemoglobin Concent 34 g/dL (31-37) Red Cell Distribution Width 15.6 % (11.5-14.5) H Platelet Count 133 x10^3/uL (140-400) L Neutrophils (%) (Auto) 65 % (31-73) Lymphocytes (%) (Auto) 21 % (24-48) L Monocytes (%) (Auto) 12 % (0-9) H Eosinophils (%) (Auto) 2 % (0-3) Basophils (%) (Auto) 0 % (0-3) Neutrophils # (Auto) 5.0 x10^3uL (1.8-7.7) Lymphocytes # (Auto) 1.6 x10^3/uL (1.0-4.8) Monocytes # (Auto) 0.9 x10^3/uL (0.0-1.1) Eosinophils # (Auto) 0.2 x10^3/uL (0.0-0.7) Basophils # (Auto) 0.0 x10^3/uL (0.0-0.2) Sodium Level 144 mmol/L (136-145) Potassium Level 4.7 mmol/L (3.5-5.1) Chloride Level 106 mmol/L (98-107) Carbon Dioxide Level 32 mmol/L (21-32) Anion Gap 6 (6-14) Blood Urea Nitrogen 38 mg/dL (8-26) H Creatinine 1.5 mg/dL (0.7-1.3) H Estimated GFR (Cockcroft-Gault) 44.8 BUN/Creatinine Ratio 25 (6-20) H Glucose Level 149 mg/dL (70-99) H Calcium Level 8.7 mg/dL (8.5-10.1) Magnesium Level 1.9 mg/dL (1.8-2.4) Total Bilirubin 0.5 mg/dL (0.2-1.0) Aspartate Amino Transferase (AST) 27 U/L (15-37) Alanine Aminotransferase (ALT) 36 U/L (16-63) Alkaline Phosphatase 104 U/L (46-116) Total Protein 6.4 g/dL (6.4-8.2) Albumin 3.2 g/dL (3.4-5.0) L Albumin/Globulin Ratio 1.0 (1.0-1.7) Thyroid Stimulating Hormone (TSH) 3.792 uIU/mL (0.358-3.740) Valproic Acid Level 38 mcg/mL (50-100) L Valproic Acid Last Dose Date 07/23/2017 Valproic Acid Last Dose Time 2100 Current Medications: Meds: Current Medications Acetaminophen (Tylenol) 650 mg PRN Q6HRS PRN PO PAIN / TEMP; Start 07/23/17 at 14:15; Status UNV Multi-Ingredient Ointment (Analgesic [place]) 1 renetta PRN QID PRN TP MUSCLE PAIN; Start 07/23/17 at 14:15 Al Hydroxide/Mg Hydroxide (Mylanta Plus Xs) 15 ml PRN AFTMEALHC PRN PO DYSPEPSIA; Start 07/23/17 at 14:15 Magnesium Hydroxide (Milk Of Magnesia) 2,400 mg PRN QHS PRN PO CONSTIPATION; Start 07/23/17 at 14:15 Acetaminophen (Tylenol) 650 mg PRN Q6HRS PRN PO PAIN / TEMP; Start 07/23/17 at 14:30 Amitriptyline HCl (Elavil) 25 mg QHS PO Last administered on 07/23/17at 20:27; Start 07/23/17 at 21:00 Divalproex Sodium (Depakote Sprinkles) 250 mg TID PO Last administered on at 12:44; Start 07/23/17 at 21:00 Docusate Sodium (Colace) 100 mg DAILY PO Last administered on 07/24/17at 07:40; Start 07/24/17 at 09:00 Haloperidol (Haldol) 2 mg PRN Q6HRS PRN PO ANXIETY / AGITATION; Start 07/23/17 at 14:30; Stop 07/23/17 at 18:08; Status DC Acetaminophen/ Hydrocodone Bitart (Lortab 5/325) 1 tab PRN Q8HRS PRN PO PAIN; Start 07/23/17 at 14:30 Magnesium Citrate (Citroma) 296 ml ONCE ONCE PO ; Start 07/23/17 at 15:00; Stop 07/23/17 at 15:00; Status DC Multi-Ingredient Ointment (Analgesic [place]) 1 renetta PRN QID PRN TP MUSCLE PAIN; Start 07/23/17 at 14:30; Status UNV Metoprolol Tartrate (Lopressor) 12.5 mg BID PO Last administered on 07/24/17at 07:39; Start 07/23/17 at 21:00 Mineral Oil (Fleet Mineral Oil) 133 ml PRN DAILY PRN RC CONSTIPATION; Start at 14:30 Olanzapine (ZyPREXA) 2.5 mg PRN Q2HR PRN PO ANXIETY / AGITATION; Start at 14:30; Stop 07/23/17 at 14:54; Status DC Quetiapine Fumarate (SEROquel) 25 mg TID@0900,1300,1700 PO Last administered on 07/24/17at 16:47; Start 07/23/17 at 17:00 Quetiapine Fumarate (SEROquel) 75 mg HS PO Last administered on 07/23/17at 20:16 ; Start 07/23/17 at 21:00 Sertraline HCl (Zoloft) 50 mg DAILY PO Last administered on 07/24/17at 07:40; Start 07/24/17 at 09:00 Trazodone HCl (Desyrel) 50 mg PRN QHS PRN PO INSOMNIA, MAY REPEAT X1; Start at 14:30; Stop 07/23/17 at 14:55; Status DC Vitamin D (Vitamin D3) 50,000 unit WEEKLY PO Last administered on 07/23/17at 20: 27; Start 07/23/17 at 21:00 Lisinopril (Prinivil) 40 mg DAILY PO ; Start 07/24/17 at 09:00; Stop 07/24/17 at 09:00; Status DC Non-Formulary Medication 15 ml PRN AFTMEALHC PRN PO DYSPEPSIA; Start 07/23/17 at 14:30; Status UNV Non-Formulary Medication 2,400 mg PRN QHS PRN PO CONSTIPATION; Start 07/23/17 at 14:30; Status UNV Melatonin 3 mg QHS PO Last administered on 07/23/17at 20:17; Start 07/23/17 at 21:00 Magnesium Citrate (Citroma) 296 ml PRN 1X PRN PO CONSTIPATION; Start 07/23/17 at 15:00 Olanzapine (ZyPREXA ZYDIS) 2.5 mg PRN Q2HR PRN PO ANXIETY / AGITATION; Start at 14:54 Trazodone HCl (Desyrel) 50 mg PRN QHS PRN PO INSOMNIA, MAY REPEAT X1; Start at 14:55 Lisinopril (Prinivil) 20 mg DAILY PO Last administered on 07/24/17at 07:40; Start 07/24/17 at 09:00 Active Scripts Active Reported Metoprolol Tartrate 25 Mg Tablet 12.5 Mg PO BID Trazodone Hcl 100 Mg Tablet 50 Mg PO PRN QHS PRN Seroquel (Quetiapine Fumarate) 25 Mg Tablet 25 Mg PO TID@0900,1300,1700 Seroquel (Quetiapine Fumarate) 100 Mg Tablet 75 Mg PO HS Zyprexa (Olanzapine) 2.5 Mg Tablet 2.5 Mg PO PRN Q2HR PRN Mineral Oil Enema (Mineral Oil) 133 Ml Enema 133 Ml RC PRN DAILY PRN Analgesic [place] (Methyl Salicylate/Menthol) 28 Gm Oint...g. 1 Renetta TP PRN QID PRN Melatonin 3 Mg Tablet 3 Mg PO QHS Milk Of Magnesia (Magnesium Hydroxide) 2,400 Mg/10 Ml Oral.susp 2,400 Mg PO PRN QHS PRN Magnesium Citrate 296 Ml Solution 296 Ml PO ONCE Advanced Antacid Liquid (Mag Hydrox/Al Hydrox/Simeth) 355 Ml Oral.susp 15 Ml PO PRN AFTMEALHC PRN Hydrocodone-Apap 5-325 (Hydrocodone Bit/Acetaminophen) 1 Each Tablet 1 Tab PO PRN Q8HRS PRN Haloperidol 2 Mg Tablet 2 Mg PO PRN Q6HRS PRN Colace (Docusate Sodium) 100 Mg Capsule 100 Mg PO DAILY Depakote Sprinkle (Divalproex Sodium) 125 Mg Cap.sprink 250 Mg PO TID Vitamin D3 (Cholecalciferol (Vitamin D3)) 5,000 Unit Tablet 50,000 Unit PO WEEKLY Amitriptyline Hcl 25 Mg Tablet 25 Mg PO QHS Tylenol (Acetaminophen) 325 Mg Tablet 650 Mg PO PRN Q6HRS PRN Zoloft (Sertraline Hcl) 50 Mg Tablet 50 Mg PO DAILY Lisinopril 40 Mg Tablet 40 Mg PO DAILY I have reviewed the current psychotropics carefully including drug interactions. Risk benefit ratio favors no change other than as noted in my dictated progress note. 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
[2017-07-24] MEDS: QUEtiapine 50 MG TABLET. PO SCH (20:01)
[2017-07-24] MEDS: MELATONIN 3 MG TABLET PO SCH (20:01)
[2017-07-24] MEDS: AMITRIPTYLINE HCL 25 MG TABLET PO SCH (20:01)
[2017-07-24] MEDS: traZODone 50 MG TABLET. PO PRN (20:02)
--- NOTE | 2017-07-24 20:48 | HP ---
ADMIT DATE: 07/23/2017 PSYCHIATRIC ADMISSION HISTORY/EVALUATION This is a late entry for 07/23/2017, covers elements not covered in my initial note of 07/23/2017. IDENTIFYING DATA: I met with the patient evening of 07/23/2017. The patient is an 82-year-old male who was initially admitted [facility] the [facility] from [facility] on account of worsening confusion, agitation, aggression, delusions within the context of his dementia. He was being stabilized on the Geriatric Psychiatry Unit, became dehydrated with further mental status changes, transferred to [address] [place] [address] medical/surgical floor per Dr. Marquez, medically stabilized. He was still agitated, aggressive, combative with staff, pulling on his IV lines, attempting to get up unassisted. Behaviors were deemed unmanageable and it was felt on per Dr. Marquez that he needed further psychiatric stabilization resulting in referral back to us. CHIEF COMPLAINT: "No." HISTORY OF PRESENT ILLNESS: The patient has a history of dementia, Alzheimer's, vascular type. He has been residing at the [facility], getting increasingly agitated, aggressive, disruptive and delusional. On as noted, he was once again pulling on IV lines. He is a significant fall risk. No clear history of bipolar disorder, suicidal or homicidal ideation. PAST PSYCHIATRIC HISTORY: As above. MEDICAL HISTORY: History of CVA status post dehydration, pacemaker in place, hypertension, diabetes mellitus, colitis, coronary artery disease, stents placed in 2012, left eye cataract. Accu-Cheks a.c. and at bedtime. CODE STATUS: DNR. ALLERGIES: ARICEPT. DIET: Mechanical soft, needs assistance with meals. Takes his medications crushed in pudding. GAIT: Ambulates wheelchair, unsteady on feet, often needing Broda chair. CURRENT PSYCHOTROPICS: These have been discontinued on initially and then restarted on melatonin 3 mg at bedtime, Depakote Sprinkles 250 mg 3 times a day, Zoloft 50 mg a day, Seroquel 25 mg 3 times a day and 75 mg at bedtime, trazodone and Zyprexa p.r.n. FAMILY HISTORY: Noncontributory. SOCIAL HISTORY: No alcohol, drug abuse, physical, sexual or elder abuse history is noted. Not known to be a perpetrator. MENTAL STATUS EXAMINATION: The patient was seen individually the evening of 07/23/2017. He is in a Broda chair and early was in a wheelchair. No CV, , eye, ENT or pulmonary system symptoms on review. Insight, judgment, recent and remote memory, attention, concentration, fund of knowledge poor, consistent with his diagnosis. IMPRESSION: Major neurocognitive disorder, Alzheimer, vascular with depression, delusion, behavioral disturbance; anxiety disorder, unspecified; impulse control disorder, unspecified. Rest unchanged. PLAN: Admit to Geropsychiatry Unit. I will see the patient daily individually from a psychiatric standpoint medical followup per Dr. Marquez/Dr. Loja. Continue current psychotropics. Check a valproic acid level in the morning of 07/24/2017. Discontinue the Haldol. Make further adjustments as clinically indicated. MAN Robinson GUY MD DR: RAJAN/nts JOB#: [id number] / [id number]
[2017-07-24 21:25] LABS: THYROXINE 4.8 ug/dL (4.5-12.0)
--- NOTE | 2017-07-25 04:16 | NUR ---
Behavior Intervention Response and Plan: BIRP Note: Behavior: Assumed Care of patient, patient located in Patient Room at shift change. Patient exhibited the following behavior Calm, Compliant, Cooperative. Brief assessment on rounds of vital signs, medication needs, lab studies, and pain. Treatment plan problems Dementia with BD and Fall Risk. Intervention: Patient assessed and the following interventions initiated safety checks 15 Minute Checks Cognitive Assessment , Head to toe Assessment , Medications. Response: After interactions and interventions patient responded in the following manner, Calm , Compliant ,Cooperative. Continue to assess behaviors and condition will continue to monitor throughout the shift as needed. Patient educated on ADL's, and hand hygiene. 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 Continue to assess patient for changes in above assessment. Monitor for medication needs, pain, and safety concerns. Hourly rounding performed to ensure safe environment.
[2017-07-25 06:08] VITALS: BP 107/62
[2017-07-25] MEDS: DOCUSATE SODIUM 100 MG CAPSULE PO SCH (08:04)
[2017-07-25] MEDS: SERTRALINE 50 MG TABLET. PO SCH (08:05)
[2017-07-25] MEDS: DIVALPROEX 125 MG CAP.SPRINK PO SCH ×3 (08:06→19:44)
[2017-07-25] MEDS: QUEtiapine 25 MG TABLET. PO SCH ×3 (08:06→17:20)
[2017-07-25] MEDS: METOPROLOL TART IMMED RELEASE 25 MG TABLET PO SCH ×2 (08:06→19:43)
[2017-07-25] MEDS: LISINOPRIL 20 MG TABLET PO SCH (08:06)
--- NOTE | 2017-07-25 11:24 | NUR ---
Behavior Intervention Response and Plan: BIRP Note: Behavior: Assumed Care of patient, patient located in Day Room at shift change. Patient exhibited the following behavior Calm, Compliant, Cooperative. Brief assessment on rounds of vital signs, medication needs, lab studies, and pain. Treatment plan problems 1 and 2. Intervention: Patient assessed and the following interventions initiated safety checks 15 Minute Checks Cognitive Assessment , Head to toe Assessment , Medications. Response: After interactions and interventions patient responded in the following manner, Calm , Drowsy ,Compliant. Continue to assess behaviors and condition will continue to monitor throughout the shift as needed. Patient educated on ADL's, and hand hygiene. Plan: Continue to monitor Master Treatment Plan for patient's progress toward short term goals of Decreased Agitation, Decreased Aggression, long-term goals to return to previous living setting vs placement. Continue to assess patient for changes in above assessment. Monitor for medication needs, pain, and safety concerns. Hourly rounding performed to ensure safe environment.
--- NOTE | 2017-07-25 14:50 | NUR ---
[facility] came to screen pt, at this time unsure if they are able to meet his needs.
[2017-07-25 15:55] VITALS: BP 145/76
--- NOTE | 2017-07-25 19:26 | PDOC ---
Exam Note: Lars Note: Please also refer to the separate dictated note~for this date of service dictated separately.~Patient seen individually. Discussed the patient with Nursing staff reviewed the chart.~Reviewed interim history and current functioning. Reviewed vital signs,~Labs/ Radiology~and current medications noted below. Continue current treatment with the changes noted in the dictated addendum note Assessment: Vital Signs: Vital Signs Date Time Temp Pulse Resp B/P (MAP) Pulse Ox O2 Delivery O2 Flow Rate FiO2 07/25/17 15:55 97.8 68 18 145/76 (99) 100 07/24/17 16:19 Room Air I&O Intake and Output 07/25/17 07:00 Intake Total 720 ml Balance 720 ml Intake Oral 720 ml # Bowel Movements 1 Current Medications: Meds: Current Medications Acetaminophen (Tylenol) 650 mg PRN Q6HRS PRN PO PAIN / TEMP; Start 07/23/17 at 14:15; Status UNV Multi-Ingredient Ointment (Analgesic [place]) 1 renetta PRN QID PRN TP MUSCLE PAIN; Start 07/23/17 at 14:15 Al Hydroxide/Mg Hydroxide (Mylanta Plus Xs) 15 ml PRN AFTMEALHC PRN PO DYSPEPSIA; Start 07/23/17 at 14:15 Magnesium Hydroxide (Milk Of Magnesia) 2,400 mg PRN QHS PRN PO CONSTIPATION; Start 07/23/17 at 14:15 Acetaminophen (Tylenol) 650 mg PRN Q6HRS PRN PO PAIN / TEMP; Start 07/23/17 at 14:30 Amitriptyline HCl (Elavil) 25 mg QHS PO Last administered on 07/24/17at 20:01; Start 07/23/17 at 21:00 Divalproex Sodium (Depakote Sprinkles) 250 mg TID PO Last administered on at 13:33; Start 07/23/17 at 21:00 Docusate Sodium (Colace) 100 mg DAILY PO Last administered on 07/25/17at 08:04; Start 07/24/17 at 09:00 Haloperidol (Haldol) 2 mg PRN Q6HRS PRN PO ANXIETY / AGITATION; Start 07/23/17 at 14:30; Stop 07/23/17 at 18:08; Status DC Acetaminophen/ Hydrocodone Bitart (Lortab 5/325) 1 tab PRN Q8HRS PRN PO PAIN; Start 07/23/17 at 14:30 Magnesium Citrate (Citroma) 296 ml ONCE ONCE PO ; Start 07/23/17 at 15:00; Stop 07/23/17 at 15:00; Status DC Multi-Ingredient Ointment (Analgesic [place]) 1 renetta PRN QID PRN TP MUSCLE PAIN; Start 07/23/17 at 14:30; Status UNV Metoprolol Tartrate (Lopressor) 12.5 mg BID PO Last administered on 07/25/17at 08:06; Start 07/23/17 at 21:00 Mineral Oil (Fleet Mineral Oil) 133 ml PRN DAILY PRN RC CONSTIPATION; Start at 14:30 Olanzapine (ZyPREXA) 2.5 mg PRN Q2HR PRN PO ANXIETY / AGITATION; Start at 14:30; Stop 07/23/17 at 14:54; Status DC Quetiapine Fumarate (SEROquel) 25 mg TID@0900,1300,1700 PO Last administered on 07/25/17at 17:20; Start 07/23/17 at 17:00 Quetiapine Fumarate (SEROquel) 75 mg HS PO Last administered on 07/24/17at 20:01 ; Start 07/23/17 at 21:00 Sertraline HCl (Zoloft) 50 mg DAILY PO Last administered on 07/25/17at 08:05; Start 07/24/17 at 09:00 Trazodone HCl (Desyrel) 50 mg PRN QHS PRN PO INSOMNIA, MAY REPEAT X1; Start at 14:30; Stop 07/23/17 at 14:55; Status DC Vitamin D (Vitamin D3) 50,000 unit WEEKLY PO Last administered on 07/23/17at 20: 27; Start 07/23/17 at 21:00 Lisinopril (Prinivil) 40 mg DAILY PO ; Start 07/24/17 at 09:00; Stop 07/24/17 at 09:00; Status DC Non-Formulary Medication 15 ml PRN AFTMEALHC PRN PO DYSPEPSIA; Start 07/23/17 at 14:30; Status UNV Non-Formulary Medication 2,400 mg PRN QHS PRN PO CONSTIPATION; Start 07/23/17 at 14:30; Status UNV Melatonin 3 mg QHS PO Last administered on 07/24/17at 20:01; Start 07/23/17 at 21:00 Magnesium Citrate (Citroma) 296 ml PRN 1X PRN PO CONSTIPATION; Start 07/23/17 at 15:00 Olanzapine (ZyPREXA ZYDIS) 2.5 mg PRN Q2HR PRN PO ANXIETY / AGITATION; Start at 14:54 Trazodone HCl (Desyrel) 50 mg PRN QHS PRN PO INSOMNIA, MAY REPEAT X1 Last administered on 07/24/17at 20:02; Start 07/23/17 at 14:55 Lisinopril (Prinivil) 20 mg DAILY PO Last administered on 07/25/17at 08:06; Start 07/24/17 at 09:00 Active Scripts Active Reported Metoprolol Tartrate 25 Mg Tablet 12.5 Mg PO BID Trazodone Hcl 100 Mg Tablet 50 Mg PO PRN QHS PRN Seroquel (Quetiapine Fumarate) 25 Mg Tablet 25 Mg PO TID@0900,1300,1700 Seroquel (Quetiapine Fumarate) 100 Mg Tablet 75 Mg PO HS Zyprexa (Olanzapine) 2.5 Mg Tablet 2.5 Mg PO PRN Q2HR PRN Mineral Oil Enema (Mineral Oil) 133 Ml Enema 133 Ml RC PRN DAILY PRN Analgesic [place] (Methyl Salicylate/Menthol) 28 Gm Oint...g. 1 Renetta TP PRN QID PRN Melatonin 3 Mg Tablet 3 Mg PO QHS Milk Of Magnesia (Magnesium Hydroxide) 2,400 Mg/10 Ml Oral.susp 2,400 Mg PO PRN QHS PRN Magnesium Citrate 296 Ml Solution 296 Ml PO ONCE Advanced Antacid Liquid (Mag Hydrox/Al Hydrox/Simeth) 355 Ml Oral.susp 15 Ml PO PRN AFTMEALHC PRN Hydrocodone-Apap 5-325 (Hydrocodone Bit/Acetaminophen) 1 Each Tablet 1 Tab PO PRN Q8HRS PRN Haloperidol 2 Mg Tablet 2 Mg PO PRN Q6HRS PRN Colace (Docusate Sodium) 100 Mg Capsule 100 Mg PO DAILY Depakote Sprinkle (Divalproex Sodium) 125 Mg Cap.sprink 250 Mg PO TID Vitamin D3 (Cholecalciferol (Vitamin D3)) 5,000 Unit Tablet 50,000 Unit PO WEEKLY Amitriptyline Hcl 25 Mg Tablet 25 Mg PO QHS Tylenol (Acetaminophen) 325 Mg Tablet 650 Mg PO PRN Q6HRS PRN Zoloft (Sertraline Hcl) 50 Mg Tablet 50 Mg PO DAILY Lisinopril 40 Mg Tablet 40 Mg PO DAILY I have reviewed the current psychotropics carefully including drug interactions. Risk benefit ratio favors no change other than as noted in my dictated progress note. 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
[2017-07-25] MEDS: QUEtiapine 50 MG TABLET. PO SCH (19:43)
[2017-07-25] MEDS: MELATONIN 3 MG TABLET PO SCH (19:43)
[2017-07-25] MEDS: traZODone 50 MG TABLET. PO PRN (19:43)
[2017-07-25] MEDS: AMITRIPTYLINE HCL 25 MG TABLET PO SCH (19:43)
--- NOTE | 2017-07-25 22:03 | PN ---
DATE: 07/24/2017 PSYCHIATRIC PROGRESS NOTE This is a late entry of 07/24/2017 covers elements not covered in my initial note of 07/24/2017. HISTORY OF PRESENT ILLNESS: I met with the patient in the evening of 07/24/2017 and he was staffed at a treatment team meeting with the entire team morning of 07/24/2017. Reviewed the patient's history, diagnosis, progress, and medications. The patient's , Anabell attended the treatment team meeting, we discussed placement options. Appetite 50% to 60%. He fell out of bed/crawled out of bed in the morning. Now he is in a Broda chair. No injuries noted. Ambulation impaired, in wheelchair, Broda chair. REVIEW OF SYSTEMS: No CV, , pulmonary, eye, ENT system symptoms on review. Reliability poor. MENTAL STATUS EXAM: Oriented to himself. Insight, judgment, recent and remote memory, attention, concentration, fund of knowledge poor, consistent with his diagnosis mentioned in my initial note. IMPRESSION: Major neurocognitive disorder, Alzheimer, vascular with depression, delusion, behavioral disturbance. Rest unchanged. PLAN: Continue psychotropics mentioned in my initial note. Valproic acid level is 38. We may need to increase Depakote further gradually. MAN Robinson GUY MD DR: RAJAN/nathan JOB#: [id number] / [id number]
--- NOTE | 2017-07-26 01:25 | NUR ---
Behavior Intervention Response and Plan: BIRP Note: Behavior: Assumed Care of patient, patient located in Patient Room at shift change. Patient exhibited the following behavior Calm, Compliant, Cooperative. Brief assessment on rounds of vital signs, medication needs, lab studies, and pain. Treatment plan problems Dementia with BD and Fall Risk. Intervention: Patient assessed and the following interventions initiated safety checks 15 Minute Checks Cognitive Assessment , Head to toe Assessment , Medications. Response: After interactions and interventions patient responded in the following manner, Calm , Compliant ,Cooperative. Continue to assess behaviors and condition will continue to monitor throughout the shift as needed. Patient educated on ADL's, and hand hygiene. 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 Continue to assess patient for changes in above assessment. Monitor for medication needs, pain, and safety concerns. Hourly rounding performed to ensure safe environment.
[2017-07-26 06:32] VITALS: BP 159/90
[2017-07-26] MEDS: DOCUSATE SODIUM 100 MG CAPSULE PO SCH (08:13)
[2017-07-26] MEDS: LISINOPRIL 20 MG TABLET PO SCH (08:14)
[2017-07-26] MEDS: METOPROLOL TART IMMED RELEASE 25 MG TABLET PO SCH ×2 (08:14→20:03)
[2017-07-26] MEDS: DIVALPROEX 125 MG CAP.SPRINK PO SCH ×3 (08:14→20:03)
[2017-07-26] MEDS: SERTRALINE 50 MG TABLET. PO SCH (08:15)
[2017-07-26] MEDS: QUEtiapine 25 MG TABLET. PO SCH ×3 (08:15→17:14)
[2017-07-26] MEDS: HYDROcodone/APAP 5/325MG 1 TAB TABLET PO PRN (10:31)
[2017-07-26 10:50] VITALS: BP 111/78
--- NOTE | 2017-07-26 12:43 | NUR ---
Behavior Intervention Response and Plan: BIRP Note: Behavior: Assumed Care of patient, patient located in Patient Room at shift change. Patient exhibited the following behavior Calm, Compliant, Cooperative, and confused. Brief assessment on rounds of vital signs, medication needs, lab studies, and pain. Treatment plan problems Dementia with BD and Fall Risk. Intervention: Patient assessed and the following interventions initiated safety checks 15 Minute Checks Cognitive Assessment , Head to toe Assessment , Medications. Response: After interactions and interventions patient responded in the following manner, Calm , Compliant, disorganized, Cooperative. Continue to assess behaviors and condition will continue to monitor throughout the shift as needed. Patient educated on ADL's, and hand hygiene. Plan: Continue to monitor Master Treatment Plan for patient's progress toward short term goals of Decreased Aggression, No harm To self/ others, shelter goals to return to previous living setting vs placement. Continue to assess patient for changes in above assessment. Monitor for medication needs, pain, and safety concerns. Hourly rounding performed to ensure safe environment.
--- NOTE | 2017-07-26 15:05 | PDOC ---
PROGRESS NOTES Assessment 1. Otalgia, left: No fever, so will treat as impaction until other signs show. 2. Cerumen impaction: Debrox. If fever, will start abx. If drainage, will re -evaluate. Problems: Plan of Care: see other orders Subjective Pt seen on rounds and d/w nursing. Pt c/o left ear pain. No fever. NO vomiting. NO drainage. Mental status at baseline per staff. Pt poor historian , unable to get accurate ROS. Objective Vital Signs Date Time Temp Pulse Resp B/P (MAP) Pulse Ox O2 Delivery O2 Flow Rate FiO2 07/26/17 11:47 18 07/26/17 10:50 98.3 60 111/78 (89) 97 Room Air Intake and Output 07/26/17 07:00 Intake Total 600 ml Balance 600 ml Intake Oral 600 ml General: Alert, No acute distress, Other (Argumentative) HEENT: PERRLA, EOMI, Other (Left ear canal impacted w/ cerumen. No drainage or erythema/swelling noted.) Neck: No LAD Review of Relevant I have reviewed the following items angelika (where applicable) has been applied. Medications Current Medications Acetaminophen (Tylenol) 650 mg PRN Q6HRS PRN PO PAIN / TEMP; Start 07/23/17 at 14:15; Status UNV Multi-Ingredient Ointment (Analgesic [place]) 1 renetta PRN QID PRN TP MUSCLE PAIN; Start 07/23/17 at 14:15 Al Hydroxide/Mg Hydroxide (Mylanta Plus Xs) 15 ml PRN AFTMEALHC PRN PO DYSPEPSIA; Start 07/23/17 at 14:15 Magnesium Hydroxide (Milk Of Magnesia) 2,400 mg PRN QHS PRN PO CONSTIPATION; Start 07/23/17 at 14:15 Acetaminophen (Tylenol) 650 mg PRN Q6HRS PRN PO PAIN / TEMP; Start 07/23/17 at 14:30 Amitriptyline HCl (Elavil) 25 mg QHS PO Last administered on 07/25/17at 19:43; Start 07/23/17 at 21:00 Divalproex Sodium (Depakote Sprinkles) 250 mg TID PO Last administered on at 13:26; Start 07/23/17 at 21:00 Docusate Sodium (Colace) 100 mg DAILY PO Last administered on 07/26/17at 08:13; Start 07/24/17 at 09:00 Haloperidol (Haldol) 2 mg PRN Q6HRS PRN PO ANXIETY / AGITATION; Start 07/23/17 at 14:30; Stop 07/23/17 at 18:08; Status DC Acetaminophen/ Hydrocodone Bitart (Lortab 5/325) 1 tab PRN Q8HRS PRN PO PAIN Last administered on 07/26/17at 10:31; Start 07/23/17 at 14:30 Magnesium Citrate (Citroma) 296 ml ONCE ONCE PO ; Start 07/23/17 at 15:00; Stop 07/23/17 at 15:00; Status DC Multi-Ingredient Ointment (Analgesic [place]) 1 renetta PRN QID PRN TP MUSCLE PAIN; Start 07/23/17 at 14:30; Status UNV Metoprolol Tartrate (Lopressor) 12.5 mg BID PO Last administered on 07/26/17at 08:14; Start 07/23/17 at 21:00 Mineral Oil (Fleet Mineral Oil) 133 ml PRN DAILY PRN RC CONSTIPATION; Start at 14:30 Olanzapine (ZyPREXA) 2.5 mg PRN Q2HR PRN PO ANXIETY / AGITATION; Start at 14:30; Stop 07/23/17 at 14:54; Status DC Quetiapine Fumarate (SEROquel) 25 mg TID@0900,1300,1700 PO Last administered on 07/26/17at 13:25; Start 07/23/17 at 17:00 Quetiapine Fumarate (SEROquel) 75 mg HS PO Last administered on 07/25/17at 19:43 ; Start 07/23/17 at 21:00 Sertraline HCl (Zoloft) 50 mg DAILY PO Last administered on 07/26/17at 08:15; Start 07/24/17 at 09:00 Trazodone HCl (Desyrel) 50 mg PRN QHS PRN PO INSOMNIA, MAY REPEAT X1; Start at 14:30; Stop 07/23/17 at 14:55; Status DC Vitamin D (Vitamin D3) 50,000 unit WEEKLY PO Last administered on 07/23/17at 20: 27; Start 07/23/17 at 21:00 Lisinopril (Prinivil) 40 mg DAILY PO ; Start 07/24/17 at 09:00; Stop 07/24/17 at 09:00; Status DC Non-Formulary Medication 15 ml PRN AFTMEALHC PRN PO DYSPEPSIA; Start 07/23/17 at 14:30; Status UNV Non-Formulary Medication 2,400 mg PRN QHS PRN PO CONSTIPATION; Start 07/23/17 at 14:30; Status UNV Melatonin 3 mg QHS PO Last administered on 07/25/17at 19:43; Start 07/23/17 at 21:00 Magnesium Citrate (Citroma) 296 ml PRN 1X PRN PO CONSTIPATION; Start 07/23/17 at 15:00 Olanzapine (ZyPREXA ZYDIS) 2.5 mg PRN Q2HR PRN PO ANXIETY / AGITATION; Start at 14:54 Trazodone HCl (Desyrel) 50 mg PRN QHS PRN PO INSOMNIA, MAY REPEAT X1 Last administered on 07/25/17at 19:43; Start 07/23/17 at 14:55 Lisinopril (Prinivil) 20 mg DAILY PO Last administered on 07/26/17at 08:14; Start 07/24/17 at 09:00 Active Scripts Active Reported Metoprolol Tartrate 25 Mg Tablet 12.5 Mg PO BID Trazodone Hcl 100 Mg Tablet 50 Mg PO PRN QHS PRN Seroquel (Quetiapine Fumarate) 25 Mg Tablet 25 Mg PO TID@0900,1300,1700 Seroquel (Quetiapine Fumarate) 100 Mg Tablet 75 Mg PO HS Zyprexa (Olanzapine) 2.5 Mg Tablet 2.5 Mg PO PRN Q2HR PRN Mineral Oil Enema (Mineral Oil) 133 Ml Enema 133 Ml RC PRN DAILY PRN Analgesic [place] (Methyl Salicylate/Menthol) 28 Gm Oint...g. 1 Renetta TP PRN QID PRN Melatonin 3 Mg Tablet 3 Mg PO QHS Milk Of Magnesia (Magnesium Hydroxide) 2,400 Mg/10 Ml Oral.susp 2,400 Mg PO PRN QHS PRN Magnesium Citrate 296 Ml Solution 296 Ml PO ONCE Advanced Antacid Liquid (Mag Hydrox/Al Hydrox/Simeth) 355 Ml Oral.susp 15 Ml PO PRN AFTMEALHC PRN Hydrocodone-Apap 5-325 (Hydrocodone Bit/Acetaminophen) 1 Each Tablet 1 Tab PO PRN Q8HRS PRN Haloperidol 2 Mg Tablet 2 Mg PO PRN Q6HRS PRN Colace (Docusate Sodium) 100 Mg Capsule 100 Mg PO DAILY Depakote Sprinkle (Divalproex Sodium) 125 Mg Cap.sprink 250 Mg PO TID Vitamin D3 (Cholecalciferol (Vitamin D3)) 5,000 Unit Tablet 50,000 Unit PO WEEKLY Amitriptyline Hcl 25 Mg Tablet 25 Mg PO QHS Tylenol (Acetaminophen) 325 Mg Tablet 650 Mg PO PRN Q6HRS PRN Zoloft (Sertraline Hcl) 50 Mg Tablet 50 Mg PO DAILY Lisinopril 40 Mg Tablet 40 Mg PO DAILY Vitals/I & O Vital Sign - Last 24 Hours 07/25/17 07/25/17 07/26/17 07/26/17 15:55 19:43 06:32 08:14 Temp 97.8 97.5 Pulse 68 68 68 63 Resp 18 20 B/P (MAP) 145/76 (99) 145/76 159/90 (113) 159/90 Pulse Ox 100 98 07/26/17 07/26/17 07/26/17 07/26/17 08:14 10:31 10:50 11:47 Temp 98.3 Pulse 63 60 Resp 20 20 18 B/P (MAP) 159/90 111/78 (89) Pulse Ox 97 O2 Delivery Room Air Intake and Output 07/25/17 07/25/17 07/26/17 15:00 23:00 07:00 Intake Total 240 ml 240 ml 120 ml Balance 240 ml 240 ml 120 ml AARON KENDALL MD Jul 26, 2017 15:05
[2017-07-26 16:03] VITALS: BP 156/62
[2017-07-26] MEDS: MELATONIN 3 MG TABLET PO SCH (20:03)
[2017-07-26] MEDS: QUEtiapine 50 MG TABLET. PO SCH (20:03)
[2017-07-26] MEDS: AMITRIPTYLINE HCL 25 MG TABLET PO SCH (20:03)
[2017-07-26] MEDS: traZODone 50 MG TABLET. PO PRN (20:03)
--- NOTE | 2017-07-26 21:50 | PDOC ---
Exam Note: Lars Note: Please also refer to the separate dictated note~for this date of service dictated separately.~Patient seen individually. Discussed the patient with Nursing staff reviewed the chart.~Reviewed interim history and current functioning. Reviewed vital signs,~Labs/ Radiology~and current medications noted below. Continue current treatment with the changes noted in the dictated addendum note Assessment: Vital Signs: Vital Signs Date Time Temp Pulse Resp B/P (MAP) Pulse Ox O2 Delivery O2 Flow Rate FiO2 07/26/17 20:03 63 156/62 07/26/17 16:03 98.2 20 98 07/26/17 10:50 Room Air I&O Intake and Output 07/26/17 07:00 Intake Total 600 ml Balance 600 ml Intake Oral 600 ml Current Medications: Meds: Current Medications Acetaminophen (Tylenol) 650 mg PRN Q6HRS PRN PO PAIN / TEMP; Start 07/23/17 at 14:15; Status UNV Multi-Ingredient Ointment (Analgesic [place]) 1 renetta PRN QID PRN TP MUSCLE PAIN; Start 07/23/17 at 14:15 Al Hydroxide/Mg Hydroxide (Mylanta Plus Xs) 15 ml PRN AFTMEALHC PRN PO DYSPEPSIA; Start 07/23/17 at 14:15 Magnesium Hydroxide (Milk Of Magnesia) 2,400 mg PRN QHS PRN PO CONSTIPATION; Start 07/23/17 at 14:15 Acetaminophen (Tylenol) 650 mg PRN Q6HRS PRN PO PAIN / TEMP; Start 07/23/17 at 14:30 Amitriptyline HCl (Elavil) 25 mg QHS PO Last administered on 07/26/17at 20:03; Start 07/23/17 at 21:00 Divalproex Sodium (Depakote Sprinkles) 250 mg TID PO Last administered on at 13:26; Start 07/23/17 at 21:00; Stop 07/26/17 at 18:51; Status DC Docusate Sodium (Colace) 100 mg DAILY PO Last administered on 07/26/17at 08:13; Start 07/24/17 at 09:00 Haloperidol (Haldol) 2 mg PRN Q6HRS PRN PO ANXIETY / AGITATION; Start 07/23/17 at 14:30; Stop 07/23/17 at 18:08; Status DC Acetaminophen/ Hydrocodone Bitart (Lortab 5/325) 1 tab PRN Q8HRS PRN PO PAIN Last administered on 07/26/17at 10:31; Start 07/23/17 at 14:30 Magnesium Citrate (Citroma) 296 ml ONCE ONCE PO ; Start 07/23/17 at 15:00; Stop 07/23/17 at 15:00; Status DC Multi-Ingredient Ointment (Analgesic [place]) 1 renetta PRN QID PRN TP MUSCLE PAIN; Start 07/23/17 at 14:30; Status UNV Metoprolol Tartrate (Lopressor) 12.5 mg BID PO Last administered on 07/26/17at 20:03; Start 07/23/17 at 21:00 Mineral Oil (Fleet Mineral Oil) 133 ml PRN DAILY PRN RC CONSTIPATION; Start at 14:30 Olanzapine (ZyPREXA) 2.5 mg PRN Q2HR PRN PO ANXIETY / AGITATION; Start at 14:30; Stop 07/23/17 at 14:54; Status DC Quetiapine Fumarate (SEROquel) 25 mg TID@0900,1300,1700 PO Last administered on 07/26/17at 17:14; Start 07/23/17 at 17:00 Quetiapine Fumarate (SEROquel) 75 mg HS PO Last administered on 07/26/17at 20:03 ; Start 07/23/17 at 21:00 Sertraline HCl (Zoloft) 50 mg DAILY PO Last administered on 07/26/17at 08:15; Start 07/24/17 at 09:00 Trazodone HCl (Desyrel) 50 mg PRN QHS PRN PO INSOMNIA, MAY REPEAT X1; Start at 14:30; Stop 07/23/17 at 14:55; Status DC Vitamin D (Vitamin D3) 50,000 unit WEEKLY PO Last administered on 07/23/17at 20: 27; Start 07/23/17 at 21:00 Lisinopril (Prinivil) 40 mg DAILY PO ; Start 07/24/17 at 09:00; Stop 07/24/17 at 09:00; Status DC Non-Formulary Medication 15 ml PRN AFTMEALHC PRN PO DYSPEPSIA; Start 07/23/17 at 14:30; Status UNV Non-Formulary Medication 2,400 mg PRN QHS PRN PO CONSTIPATION; Start 07/23/17 at 14:30; Status UNV Melatonin 3 mg QHS PO Last administered on 07/26/17at 20:03; Start 07/23/17 at 21:00 Magnesium Citrate (Citroma) 296 ml PRN 1X PRN PO CONSTIPATION; Start 07/23/17 at 15:00 Olanzapine (ZyPREXA ZYDIS) 2.5 mg PRN Q2HR PRN PO ANXIETY / AGITATION; Start at 14:54 Trazodone HCl (Desyrel) 50 mg PRN QHS PRN PO INSOMNIA, MAY REPEAT X1 Last administered on 07/26/17at 20:03; Start 07/23/17 at 14:55 Lisinopril (Prinivil) 20 mg DAILY PO Last administered on 07/26/17at 08:14; Start 07/24/17 at 09:00 Carbamide Peroxide (Debrox) 5 drop DAILY ; Start 07/27/17 at 09:00 Divalproex Sodium (Depakote Sprinkles) 250 mg DAILYWLUN PO ; Start 07/27/17 at 12:00 Divalproex Sodium (Depakote Sprinkles) 375 mg BID PO Last administered on at 20:03; Start 07/26/17 at 21:00 Active Scripts Active Reported Metoprolol Tartrate 25 Mg Tablet 12.5 Mg PO BID Trazodone Hcl 100 Mg Tablet 50 Mg PO PRN QHS PRN Seroquel (Quetiapine Fumarate) 25 Mg Tablet 25 Mg PO TID@0900,1300,1700 Seroquel (Quetiapine Fumarate) 100 Mg Tablet 75 Mg PO HS Zyprexa (Olanzapine) 2.5 Mg Tablet 2.5 Mg PO PRN Q2HR PRN Mineral Oil Enema (Mineral Oil) 133 Ml Enema 133 Ml RC PRN DAILY PRN Analgesic [place] (Methyl Salicylate/Menthol) 28 Gm Oint...g. 1 Renetta TP PRN QID PRN Melatonin 3 Mg Tablet 3 Mg PO QHS Milk Of Magnesia (Magnesium Hydroxide) 2,400 Mg/10 Ml Oral.susp 2,400 Mg PO PRN QHS PRN Magnesium Citrate 296 Ml Solution 296 Ml PO ONCE Advanced Antacid Liquid (Mag Hydrox/Al Hydrox/Simeth) 355 Ml Oral.susp 15 Ml PO PRN AFTMEALHC PRN Hydrocodone-Apap 5-325 (Hydrocodone Bit/Acetaminophen) 1 Each Tablet 1 Tab PO PRN Q8HRS PRN Haloperidol 2 Mg Tablet 2 Mg PO PRN Q6HRS PRN Colace (Docusate Sodium) 100 Mg Capsule 100 Mg PO DAILY Depakote Sprinkle (Divalproex Sodium) 125 Mg Cap.sprink 250 Mg PO TID Vitamin D3 (Cholecalciferol (Vitamin D3)) 5,000 Unit Tablet 50,000 Unit PO WEEKLY Amitriptyline Hcl 25 Mg Tablet 25 Mg PO QHS Tylenol (Acetaminophen) 325 Mg Tablet 650 Mg PO PRN Q6HRS PRN Zoloft (Sertraline Hcl) 50 Mg Tablet 50 Mg PO DAILY Lisinopril 40 Mg Tablet 40 Mg PO DAILY I have reviewed the current psychotropics carefully including drug interactions. Risk benefit ratio favors no change other than as noted in my dictated progress note. 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
--- NOTE | 2017-07-27 00:08 | NUR ---
Behavior Intervention Response and Plan: BIRP Note: Behavior: Assumed Care of patient, patient located in Patient Room at shift change. Patient exhibited the following behavior Calm, Compliant, Cooperative. Brief assessment on rounds of vital signs, medication needs, lab studies, and pain. Treatment plan problems Dementia with BD and Fall Risk. Intervention: Patient assessed and the following interventions initiated safety checks 15 Minute Checks Cognitive Assessment , Head to toe Assessment , Medications. Response: After interactions and interventions patient responded in the following manner, Calm , Compliant ,Cooperative. Continue to assess behaviors and condition will continue to monitor throughout the shift as needed. Patient educated on ADL's, and hand hygiene. 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 Continue to assess patient for changes in above assessment. Monitor for medication needs, pain, and safety concerns. Hourly rounding performed to ensure safe environment.
[2017-07-27] MEDS: HYDROcodone/APAP 5/325MG 1 TAB TABLET PO PRN ×2 (05:19→19:40)
--- NOTE | 2017-07-27 05:22 | NUR ---
Nursing Note: During AM care pt noted with c/o Severe Pain to ear and headache, yelling out with any touch to the head and becoming very agitated. Pt assisted back to bed and PRN Hydrocodone administered at this time
[2017-07-27 05:56] VITALS: BP 155/70
--- NOTE | 2017-07-27 07:43 | PN ---
DATE: 07/25/2017 This late entry, 07/25/2017, covers elements not covered in my initial note of 07/25/2017. SUBJECTIVE: I met with the patient the evening of 07/25/2017. The patient remains confused, less labile, less aggressive, takes his meds and chocolate shake, was resistive to meds the previous evening, combative with the vitals at times. Ambulation impaired, in wheelchair. REVIEW OF SYSTEMS: No CV, , pulmonary, eye, ENT system symptoms on review. Reliability poor. MENTAL STATUS EXAM: Oriented to himself. Insight, judgment, recent and remote memory, attention, concentration, fund of knowledge poor, consistent with his diagnosis mentioned in my initial note. IMPRESSION: Major neurocognitive disorder, Alzheimer, vascular with delusion, depression, behavioral disturbance. PLAN: Continue current psychotropics. May increase Depakote in due course, level is 38 at current dosage. AMPARO GUY MD DR: RAJAN/nathan JOB#: [id number] / [id number]
--- NOTE | 2017-07-27 07:49 | PN ---
DATE: 07/26/2017 This late entry 07/26/2017 covers elements not covered in my initial note 07/26/2017. Met with the patient in the evening of 07/26/2017. The patient's complaint of left ear pain. He has extreme amount of wax. Debrox started. Dr. Griffin did evaluate patient, remains agitated at times. REVIEW OF SYSTEMS: Ambulation impaired, in wheelchair. No CV, , pulmonary, eye, ENT system symptoms on review. Reliability poor. MENTAL STATUS EXAM: Oriented to himself. Insight, judgment, recent and remote memory, attention, concentration, fund of knowledge poor, consistent with his diagnosis mentioned in my initial note. IMPRESSION: Major neurocognitive disorder, Alzheimer, vascular with delusion, depression, behavioral disturbance. PLAN: Increase Depakote Sprinkles from 250 t.i.d. to 375 b.i.d., 250 mg daily. Check CBC, CMP, valproic acid level in 3 days. Continue rest unchanged. MAN Robinson GUY MD DR: RAJAN/nathan JOB#: [id number] / [id number]
[2017-07-27] MEDS ORDERED: CARBAMIDE PEROXIDE 6.5% OTIC SOLUTION 15ML BOTTLE. AS SCH ×2 (09:00→21:00)
[2017-07-27] MEDS: DIVALPROEX 125 MG CAP.SPRINK PO SCH (09:52)
[2017-07-27] MEDS: METOPROLOL TART IMMED RELEASE 25 MG TABLET PO SCH ×2 (09:53→19:41)
[2017-07-27] MEDS: SERTRALINE 50 MG TABLET. PO SCH (09:54)
[2017-07-27] MEDS: QUEtiapine 25 MG TABLET. PO SCH ×2 (09:54→12:38)
[2017-07-27] MEDS: LISINOPRIL 20 MG TABLET PO SCH (09:54)
[2017-07-27] MEDS: DOCUSATE SODIUM 100 MG CAPSULE PO SCH (09:55)
--- NOTE | 2017-07-27 11:07 | NUR ---
Behavior Intervention Response and Plan: BIRP Note: Behavior: Assumed Care of patient, patient located in Patient Room at shift change. Patient exhibited the following behavior Calm, Compliant, and confused. Brief assessment on rounds of vital signs, medication needs, lab studies, and pain. Treatment plan problems Dementia with BD and Fall Risk. Intervention: Patient assessed and the following interventions initiated safety checks 15 Minute Checks Cognitive Assessment , Head to toe Assessment , Medications. Response: After interactions and interventions patient responded in the following manner, Calm, Compliant, disorganized, Cooperative. Continue to assess behaviors and condition will continue to monitor throughout the shift as needed. Patient educated on ADL's, and hand hygiene. Plan: Continue to monitor Master Treatment Plan for patient's progress toward short term goals of Decreased Aggression, No harm To self/ others, fpc goals to return to previous living setting vs placement. Continue to assess patient for changes in above assessment. Monitor for medication needs, pain, and safety concerns. Hourly rounding performed to ensure safe environment.
[2017-07-27] MEDS ORDERED: DIVALPROEX 125 MG CAP.SPRINK PO SCH (12:00)
--- NOTE | 2017-07-27 15:03 | PDOC ---
PROGRESS NOTES Assessment 1. Right shoulder pain: Check xray to r/o dislocation/fracture. D/w nursing staff. Problems: Plan of Care: see other orders Subjective I was asked to see pt today as he c/o shoulder pain this morning (right shoulder ), but only w/ movement. Not c/o left ear pain anymore. No known injury or fall. No deformity noted. Pt sleeping when I examined him, though he wakes to moving either arm. Pt winces when I move his right arm. Objective Vital Signs Date Time Temp Pulse Resp B/P (MAP) Pulse Ox O2 Delivery O2 Flow Rate FiO2 07/27/17 09:54 62 155/70 07/27/17 07:22 18 07/27/17 05:56 97.1 92 07/26/17 10:50 Room Air Intake and Output 07/27/17 07:00 Intake Total 960 ml Balance 960 ml Intake Oral 960 ml # Voids 1 Extremities: Other (Right shoulder w/ dec ROM, unable to fully asssess, pt guarding. Left ear w/o drainage or redness. Mastoid processes are not swollen or TTP. CV RRR, no m/r/g. Chest CTAB) Review of Relevant I have reviewed the following items angelika (where applicable) has been applied. Medications Current Medications Acetaminophen (Tylenol) 650 mg PRN Q6HRS PRN PO PAIN / TEMP; Start 07/23/17 at 14:15; Status UNV Multi-Ingredient Ointment (Analgesic [place]) 1 renetta PRN QID PRN TP MUSCLE PAIN; Start 07/23/17 at 14:15 Al Hydroxide/Mg Hydroxide (Mylanta Plus Xs) 15 ml PRN AFTMEALHC PRN PO DYSPEPSIA; Start 07/23/17 at 14:15 Magnesium Hydroxide (Milk Of Magnesia) 2,400 mg PRN QHS PRN PO CONSTIPATION; Start 07/23/17 at 14:15 Acetaminophen (Tylenol) 650 mg PRN Q6HRS PRN PO PAIN / TEMP; Start 07/23/17 at 14:30 Amitriptyline HCl (Elavil) 25 mg QHS PO Last administered on 07/26/17at 20:03; Start 07/23/17 at 21:00 Divalproex Sodium (Depakote Sprinkles) 250 mg TID PO Last administered on at 13:26; Start 07/23/17 at 21:00; Stop 07/26/17 at 18:51; Status DC Docusate Sodium (Colace) 100 mg DAILY PO Last administered on 07/27/17at 09:55; Start 07/24/17 at 09:00 Haloperidol (Haldol) 2 mg PRN Q6HRS PRN PO ANXIETY / AGITATION; Start 07/23/17 at 14:30; Stop 07/23/17 at 18:08; Status DC Acetaminophen/ Hydrocodone Bitart (Lortab 5/325) 1 tab PRN Q8HRS PRN PO PAIN Last administered on 07/27/17at 05:19; Start 07/23/17 at 14:30 Magnesium Citrate (Citroma) 296 ml ONCE ONCE PO ; Start 07/23/17 at 15:00; Stop 07/23/17 at 15:00; Status DC Multi-Ingredient Ointment (Analgesic [place]) 1 renetta PRN QID PRN TP MUSCLE PAIN; Start 07/23/17 at 14:30; Status UNV Metoprolol Tartrate (Lopressor) 12.5 mg BID PO Last administered on 07/27/17at 09:53; Start 07/23/17 at 21:00 Mineral Oil (Fleet Mineral Oil) 133 ml PRN DAILY PRN RC CONSTIPATION; Start at 14:30 Olanzapine (ZyPREXA) 2.5 mg PRN Q2HR PRN PO ANXIETY / AGITATION; Start at 14:30; Stop 07/23/17 at 14:54; Status DC Quetiapine Fumarate (SEROquel) 25 mg TID@0900,1300,1700 PO Last administered on 07/27/17at 09:54; Start 07/23/17 at 17:00 Quetiapine Fumarate (SEROquel) 75 mg HS PO Last administered on 07/26/17at 20:03 ; Start 07/23/17 at 21:00 Sertraline HCl (Zoloft) 50 mg DAILY PO Last administered on 07/27/17at 09:54; Start 07/24/17 at 09:00 Trazodone HCl (Desyrel) 50 mg PRN QHS PRN PO INSOMNIA, MAY REPEAT X1; Start at 14:30; Stop 07/23/17 at 14:55; Status DC Vitamin D (Vitamin D3) 50,000 unit WEEKLY PO Last administered on 07/23/17at 20: 27; Start 07/23/17 at 21:00 Lisinopril (Prinivil) 40 mg DAILY PO ; Start 07/24/17 at 09:00; Stop 07/24/17 at 09:00; Status DC Non-Formulary Medication 15 ml PRN AFTMEALHC PRN PO DYSPEPSIA; Start 07/23/17 at 14:30; Status UNV Non-Formulary Medication 2,400 mg PRN QHS PRN PO CONSTIPATION; Start 07/23/17 at 14:30; Status UNV Melatonin 3 mg QHS PO Last administered on 07/26/17at 20:03; Start 07/23/17 at 21:00 Magnesium Citrate (Citroma) 296 ml PRN 1X PRN PO CONSTIPATION; Start 07/23/17 at 15:00 Olanzapine (ZyPREXA ZYDIS) 2.5 mg PRN Q2HR PRN PO ANXIETY / AGITATION; Start at 14:54 Trazodone HCl (Desyrel) 50 mg PRN QHS PRN PO INSOMNIA, MAY REPEAT X1 Last administered on 07/26/17at 20:03; Start 07/23/17 at 14:55 Lisinopril (Prinivil) 20 mg DAILY PO Last administered on 07/27/17at 09:54; Start 07/24/17 at 09:00 Carbamide Peroxide (Debrox) 5 drop DAILY Last administered on 07/27/17at 09: 52; Start 07/27/17 at 09:00 Divalproex Sodium (Depakote Sprinkles) 250 mg DAILYWLUN PO ; Start 07/27/17 at 12:00 Divalproex Sodium (Depakote Sprinkles) 375 mg BID PO Last administered on at 09:52; Start 07/26/17 at 21:00 Active Scripts Active Reported Metoprolol Tartrate 25 Mg Tablet 12.5 Mg PO BID Trazodone Hcl 100 Mg Tablet 50 Mg PO PRN QHS PRN Seroquel (Quetiapine Fumarate) 25 Mg Tablet 25 Mg PO TID@0900,1300,1700 Seroquel (Quetiapine Fumarate) 100 Mg Tablet 75 Mg PO HS Zyprexa (Olanzapine) 2.5 Mg Tablet 2.5 Mg PO PRN Q2HR PRN Mineral Oil Enema (Mineral Oil) 133 Ml Enema 133 Ml RC PRN DAILY PRN Analgesic [place] (Methyl Salicylate/Menthol) 28 Gm Oint...g. 1 Renetta TP PRN QID PRN Melatonin 3 Mg Tablet 3 Mg PO QHS Milk Of Magnesia (Magnesium Hydroxide) 2,400 Mg/10 Ml Oral.susp 2,400 Mg PO PRN QHS PRN Magnesium Citrate 296 Ml Solution 296 Ml PO ONCE Advanced Antacid Liquid (Mag Hydrox/Al Hydrox/Simeth) 355 Ml Oral.susp 15 Ml PO PRN AFTMEALHC PRN Hydrocodone-Apap 5-325 (Hydrocodone Bit/Acetaminophen) 1 Each Tablet 1 Tab PO PRN Q8HRS PRN Haloperidol 2 Mg Tablet 2 Mg PO PRN Q6HRS PRN Colace (Docusate Sodium) 100 Mg Capsule 100 Mg PO DAILY Depakote Sprinkle (Divalproex Sodium) 125 Mg Cap.sprink 250 Mg PO TID Vitamin D3 (Cholecalciferol (Vitamin D3)) 5,000 Unit Tablet 50,000 Unit PO WEEKLY Amitriptyline Hcl 25 Mg Tablet 25 Mg PO QHS Tylenol (Acetaminophen) 325 Mg Tablet 650 Mg PO PRN Q6HRS PRN Zoloft (Sertraline Hcl) 50 Mg Tablet 50 Mg PO DAILY Lisinopril 40 Mg Tablet 40 Mg PO DAILY Vitals/I & O Vital Sign - Last 24 Hours 07/26/17 07/26/17 07/27/17 07/27/17 16:03 20:03 05:19 05:56 Temp 98.2 97.1 Pulse 63 63 62 Resp 20 22 20 B/P (MAP) 156/62 (93) 156/62 155/70 (98) Pulse Ox 98 92 07/27/17 07/27/17 07/27/17 07:22 09:53 09:54 Pulse 62 62 Resp 18 B/P (MAP) 155/70 155/70 Intake and Output 07/26/17 07/26/17 07/27/17 15:00 23:00 07:00 Intake Total 360 ml 480 ml 120 ml Balance 360 ml 480 ml 120 ml AARON KENDALL MD Jul 27, 2017 15:03
[2017-07-27 16:19] VITALS: BP 160/76
[2017-07-27 17:18] LABS: BASO % 0 % (0-3); EOS % 0 % (0-3); HEMATOCRIT 38.4 % (39.0-53.0); HEMOGLOBIN 13.1 g/dL (13.0-17.5); LYMPH # 1.1 x10^3/uL (1.0-4.8); LYMPH % 8 % (24-48); MEAN CORPUSCULAR HEMOGLOBIN 31 pg (25-35); MEAN CORPUSCULAR HGB CONC 34 g/dL (31-37); MEAN CORPUSCULAR VOLUME 92 fL (79-100); MONO # 1.9 x10^3/uL (0.0-1.1); MONO % 15 % (0-9); NEUT # 10.3 x10^3uL (1.8-7.7); NEUT % 77 % (31-73); PLATELET COUNT 127 x10^3/uL (140-400); RED BLOOD COUNT 4.19 x10^6/uL (4.30-5.70); RED CELL DISTRIBUTION WIDTH 15.3 % (11.5-14.5); WHITE BLOOD COUNT 13.4 x10^3/uL (4.0-11.0)
[2017-07-27 17:22] LABS: ALBUMIN 3.2 g/dL (3.4-5.0); ALBUMIN/GLOBULIN RATIO 0.8 (1.0-1.7); CALCIUM 9.3 mg/dL (8.5-10.1); CREATININE 1.1 mg/dL (0.7-1.3); GFR 64.1; POTASSIUM 4.9 mmol/L (3.5-5.1); TOTAL BILIRUBIN 0.7 mg/dL (0.2-1.0); TOTAL PROTEIN 7.2 g/dL (6.4-8.2)
--- NOTE | 2017-07-27 18:04 | NUR ---
Dr. Griffin notified of labs. New order for CXR and R shoulder Xray r/t pain.
--- NOTE | 2017-07-27 19:12 | PDOC ---
Exam Note: Lars Note: Please also refer to the separate dictated note~for this date of service dictated separately.~Patient seen individually. Discussed the patient with Nursing staff reviewed the chart.~Reviewed interim history and current functioning. Reviewed vital signs,~Labs/ Radiology~and current medications noted below. Continue current treatment with the changes noted in the dictated addendum note Assessment: Vital Signs: Vital Signs Date Time Temp Pulse Resp B/P (MAP) Pulse Ox O2 Delivery O2 Flow Rate FiO2 07/27/17 16:19 97.9 75 18 160/76 (104) 95 07/26/17 10:50 Room Air I&O Intake and Output 07/27/17 07:00 Intake Total 960 ml Balance 960 ml Intake Oral 960 ml # Voids 1 Labs: Laboratory Tests Test 07/27/17 16:55 White Blood Count 13.4 x10^3/uL (4.0-11.0) #H Red Blood Count 4.19 x10^6/uL (4.30-5.70) L Hemoglobin 13.1 g/dL (13.0-17.5) Hematocrit 38.4 % (39.0-53.0) L Mean Corpuscular Volume 92 fL (79-100) Mean Corpuscular Hemoglobin 31 pg (25-35) Mean Corpuscular Hemoglobin Concent 34 g/dL (31-37) Red Cell Distribution Width 15.3 % (11.5-14.5) H Platelet Count 127 x10^3/uL (140-400) L Neutrophils (%) (Auto) 77 % (31-73) H Lymphocytes (%) (Auto) 8 % (24-48) L Monocytes (%) (Auto) 15 % (0-9) H Eosinophils (%) (Auto) 0 % (0-3) Basophils (%) (Auto) 0 % (0-3) Neutrophils # (Auto) 10.3 x10^3uL (1.8-7.7) H Lymphocytes # (Auto) 1.1 x10^3/uL (1.0-4.8) Monocytes # (Auto) 1.9 x10^3/uL (0.0-1.1) H Eosinophils # (Auto) 0.0 x10^3/uL (0.0-0.7) Basophils # (Auto) 0.0 x10^3/uL (0.0-0.2) Sodium Level 141 mmol/L (136-145) Potassium Level 4.9 mmol/L (3.5-5.1) Chloride Level 104 mmol/L (98-107) Carbon Dioxide Level 33 mmol/L (21-32) H Anion Gap 4 (6-14) L Blood Urea Nitrogen 26 mg/dL (8-26) Creatinine 1.1 mg/dL (0.7-1.3) Estimated GFR (Cockcroft-Gault) 64.1 BUN/Creatinine Ratio 24 (6-20) H Glucose Level 138 mg/dL (70-99) H Calcium Level 9.3 mg/dL (8.5-10.1) Total Bilirubin 0.7 mg/dL (0.2-1.0) Aspartate Amino Transferase (AST) 28 U/L (15-37) Alanine Aminotransferase (ALT) 36 U/L (16-63) Alkaline Phosphatase 102 U/L (46-116) Total Protein 7.2 g/dL (6.4-8.2) Albumin 3.2 g/dL (3.4-5.0) L Albumin/Globulin Ratio 0.8 (1.0-1.7) L Current Medications: Meds: Current Medications Acetaminophen (Tylenol) 650 mg PRN Q6HRS PRN PO PAIN / TEMP; Start 07/23/17 at 14:15; Status UNV Multi-Ingredient Ointment (Analgesic Bellwood) 1 renetta PRN QID PRN TP MUSCLE PAIN; Start 07/23/17 at 14:15 Al Hydroxide/Mg Hydroxide (Mylanta Plus Xs) 15 ml PRN AFTMEALHC PRN PO DYSPEPSIA; Start 07/23/17 at 14:15 Magnesium Hydroxide (Milk Of Magnesia) 2,400 mg PRN QHS PRN PO CONSTIPATION; Start 07/23/17 at 14:15 Acetaminophen (Tylenol) 650 mg PRN Q6HRS PRN PO PAIN / TEMP; Start 07/23/17 at 14:30 Amitriptyline HCl (Elavil) 25 mg QHS PO Last administered on 07/26/17at 20:03; Start 07/23/17 at 21:00 Divalproex Sodium (Depakote Sprinkles) 250 mg TID PO Last administered on at 13:26; Start 07/23/17 at 21:00; Stop 07/26/17 at 18:51; Status DC Docusate Sodium (Colace) 100 mg DAILY PO Last administered on 07/27/17at 09:55; Start 07/24/17 at 09:00 Haloperidol (Haldol) 2 mg PRN Q6HRS PRN PO ANXIETY / AGITATION; Start 07/23/17 at 14:30; Stop 07/23/17 at 18:08; Status DC Acetaminophen/ Hydrocodone Bitart (Lortab 5/325) 1 tab PRN Q8HRS PRN PO PAIN Last administered on 07/27/17at 05:19; Start 07/23/17 at 14:30 Magnesium Citrate (Citroma) 296 ml ONCE ONCE PO ; Start 07/23/17 at 15:00; Stop 07/23/17 at 15:00; Status DC Multi-Ingredient Ointment (Analgesic Bellwood) 1 renetta PRN QID PRN TP MUSCLE PAIN; Start 07/23/17 at 14:30; Status UNV Metoprolol Tartrate (Lopressor) 12.5 mg BID PO Last administered on 07/27/17at 09:53; Start 07/23/17 at 21:00 Mineral Oil (Fleet Mineral Oil) 133 ml PRN DAILY PRN RC CONSTIPATION; Start at 14:30 Olanzapine (ZyPREXA) 2.5 mg PRN Q2HR PRN PO ANXIETY / AGITATION; Start at 14:30; Stop 07/23/17 at 14:54; Status DC Quetiapine Fumarate (SEROquel) 25 mg TID@0900,1300,1700 PO Last administered on 07/27/17at 09:54; Start 07/23/17 at 17:00; Stop 07/27/17 at 16:46; Status DC Quetiapine Fumarate (SEROquel) 75 mg HS PO Last administered on 07/26/17at 20:03 ; Start 07/23/17 at 21:00; Stop 07/27/17 at 16:46; Status DC Sertraline HCl (Zoloft) 50 mg DAILY PO Last administered on 07/27/17at 09:54; Start 07/24/17 at 09:00 Trazodone HCl (Desyrel) 50 mg PRN QHS PRN PO INSOMNIA, MAY REPEAT X1; Start at 14:30; Stop 07/23/17 at 14:55; Status DC Vitamin D (Vitamin D3) 50,000 unit WEEKLY PO Last administered on 07/23/17at 20: 27; Start 07/23/17 at 21:00 Lisinopril (Prinivil) 40 mg DAILY PO ; Start 07/24/17 at 09:00; Stop 07/24/17 at 09:00; Status DC Non-Formulary Medication 15 ml PRN AFTMEALHC PRN PO DYSPEPSIA; Start 07/23/17 at 14:30; Status UNV Non-Formulary Medication 2,400 mg PRN QHS PRN PO CONSTIPATION; Start 07/23/17 at 14:30; Status UNV Melatonin 3 mg QHS PO Last administered on 07/26/17at 20:03; Start 07/23/17 at 21:00 Magnesium Citrate (Citroma) 296 ml PRN 1X PRN PO CONSTIPATION; Start 07/23/17 at 15:00 Olanzapine (ZyPREXA ZYDIS) 2.5 mg PRN Q2HR PRN PO ANXIETY / AGITATION; Start at 14:54 Trazodone HCl (Desyrel) 50 mg PRN QHS PRN PO INSOMNIA, MAY REPEAT X1 Last administered on 07/26/17at 20:03; Start 07/23/17 at 14:55 Lisinopril (Prinivil) 20 mg DAILY PO Last administered on 07/27/17at 09:54; Start 07/24/17 at 09:00 Carbamide Peroxide (Debrox) 5 drop DAILY Last administered on 07/27/17at 09: 52; Start 07/27/17 at 09:00; Stop 07/27/17 at 15:08; Status DC Divalproex Sodium (Depakote Sprinkles) 250 mg DAILYWLUN PO ; Start 07/27/17 at 12:00; Stop 07/27/17 at 16:46; Status DC Divalproex Sodium (Depakote Sprinkles) 375 mg BID PO Last administered on at 09:52; Start 07/26/17 at 21:00; Stop 07/27/17 at 16:46; Status DC Carbamide Peroxide (Debrox) 5 drop HS ; Start 07/27/17 at 21:00 Active Scripts Active Reported Metoprolol Tartrate 25 Mg Tablet 12.5 Mg PO BID Trazodone Hcl 100 Mg Tablet 50 Mg PO PRN QHS PRN Seroquel (Quetiapine Fumarate) 25 Mg Tablet 25 Mg PO TID@0900,1300,1700 Seroquel (Quetiapine Fumarate) 100 Mg Tablet 75 Mg PO HS Zyprexa (Olanzapine) 2.5 Mg Tablet 2.5 Mg PO PRN Q2HR PRN Mineral Oil Enema (Mineral Oil) 133 Ml Enema 133 Ml RC PRN DAILY PRN Analgesic Bellwood (Methyl Salicylate/Menthol) 28 Gm Oint...g. 1 Renetta TP PRN QID PRN Melatonin 3 Mg Tablet 3 Mg PO QHS Milk Of Magnesia (Magnesium Hydroxide) 2,400 Mg/10 Ml Oral.susp 2,400 Mg PO PRN QHS PRN Magnesium Citrate 296 Ml Solution 296 Ml PO ONCE Advanced Antacid Liquid (Mag Hydrox/Al Hydrox/Simeth) 355 Ml Oral.susp 15 Ml PO PRN AFTMEALHC PRN Hydrocodone-Apap 5-325 (Hydrocodone Bit/Acetaminophen) 1 Each Tablet 1 Tab PO PRN Q8HRS PRN Haloperidol 2 Mg Tablet 2 Mg PO PRN Q6HRS PRN Colace (Docusate Sodium) 100 Mg Capsule 100 Mg PO DAILY Depakote Sprinkle (Divalproex Sodium) 125 Mg Cap.sprink 250 Mg PO TID Vitamin D3 (Cholecalciferol (Vitamin D3)) 5,000 Unit Tablet 50,000 Unit PO WEEKLY Amitriptyline Hcl 25 Mg Tablet 25 Mg PO QHS Tylenol (Acetaminophen) 325 Mg Tablet 650 Mg PO PRN Q6HRS PRN Zoloft (Sertraline Hcl) 50 Mg Tablet 50 Mg PO DAILY Lisinopril 40 Mg Tablet 40 Mg PO DAILY I have reviewed the current psychotropics carefully including drug interactions. Risk benefit ratio favors no change other than as noted in my dictated progress note. 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
[2017-07-27 19:41] VITALS: BP 160/76
[2017-07-27] MEDS: AMITRIPTYLINE HCL 25 MG TABLET PO SCH (19:41)
[2017-07-27] MEDS: traZODone 50 MG TABLET. PO PRN (19:41)
[2017-07-27] MEDS: MELATONIN 3 MG TABLET PO SCH (19:41)
--- NOTE | 2017-07-27 20:11 | RAD ---
AP chest x-ray HISTORY: Leukocytosis, fall, right chest and shoulder pain. FINDINGS: Prominent aerated bowel subjacent of the right diaphragm which is mildly elevated. This is an anatomic variation. Bipolar implanted cardiac device lead tips radiographic region of the right atrium and right ventricle. Borderline cardiomegaly may be magnified by the portable technique. No pneumothorax, pulmonary opacities or pleural effusions. Bones are unremarkable. IMPRESSION: No acute process in the chest. Right shoulder frontal and scapular x-rays 2 views HISTORY: Fall, right shoulder and chest pain. FINDINGS: No fracture. No dislocation. Osteoarthritic change at the acromioclavicular joint. Subcortical cysts of the humeral head. IMPRESSION: No acute osseous injury of the right shoulder. Electronically signed by: Arash Diggs MD (07/27/2017 8:08 PM) [facility]
--- NOTE | 2017-07-27 21:13 | NUR ---
Nursing Note: At 1999 Radiology on unit to complete CXR and Shoulder X-Ray, Nurse in to assist, Pt noted to be grabbing the L side of his face and ear, yelling "ouch ouch" then crying, X-Rays completed, Pt continues to show s/s of Severe pain, PRN Hydrocodone administered with HS Medications. Call Received from Dr. Muller at 2044 r/t elevated WBC of 13.[address] Griffin to be notified to ensure he didn't need to transfer the patient to [facility] secondary to Elevated WBC, Severe Ear pain and extreme displeasure of family. Call placed to Dr. Griffin, informed of Elevated WBC and results of CXR/Shoulder X-Ray as well as Dr. Muller's Concern r/t sudden elevation in WBC. Return call received from Dr. Griffin at 2099 with order to Transfer pt to [facility] with DX: Leukocytosis and to continue current medications. Call placed to Spouse/DPOA, informed of pt's level of pain, lab and radiology results and orders to transfer to [facility], Spouse voiced significant displeasure that PRN Pain medication had been administered, Nurse explained the s/s of Sever pain of which pt presented, spouse voiced understanding of need for pain management and transfer to [facility] unit at this time.
[2017-07-27 21:19] LABS: % BANDS 2 % (0-9); % LYMPHS 5 % (24-48); % MONOS 9 % (0-10); % SEGS 80 % (35-66)
[2017-07-27] MEDS ORDERED: CARB15DR58 LEFT EAR (21:24)
[2017-07-27] MEDS ORDERED: LISI-334 PO (21:25)
[2017-07-27 21:26] LABS: OVALOCYTES FEW; PLT ESTIMATE DECREASED (ADEQUATE)
[2017-07-27] MEDS ORDERED: MAGN400O7 PO (21:27)
[2017-07-27 21:31] LABS: % ATYL 4 % (0-0)
[2017-07-27] MEDS ORDERED: TRAZ50TA15 PO (21:31)
--- NOTE | 2017-07-27 21:45 | NUR ---
Transition Record was faxed to follow-up provider with the following elements: Reason for admission, procedures, tests, principal diagnosis, pending studies, patient instructions, 23/12 contact information for unit, phone number to obtain pending test results, plan for follow-up care, physician follow-up, advanced directive information, and medication list with dose, duration and instructions. This information was included in the following documents: History and physical, lab results, study results, progress notes, social work planning form, DC instruction form, patient visit summary, and medication reconciliation form. Date & time record faxed: 07/27/17 [id number] Record faxed to: 1 [facility] Record discussed with/ report given to: Rosalind KATZ
--- NOTE | 2017-07-28 21:50 | DS ---
DATE OF DISCHARGE: 07/27/2017 This late entry for 07/27/2017 covers elements not covered in my initial note of 07/27/2017. SUBJECTIVE: The patient was seen individually in the evening of 07/27/2017. I met with the patient's who was on the unit visiting him and her son. was very concerned about the patient's sedation and I discussed things with her at great length. We are going to go ahead and stop his Seroquel and Depakote, but he does have raised white cell count and Dr. Griffin has been consulted and at the time of this dictation, Dr. Griffin had agreed to transfer the patient to the medical/surgical floor for medical management of his possible otitis media. REASON FOR ADMISSION: Please refer to the admission history for details. Briefly, the patient is an 82-year-old male who initially presented to us from the [facility] on account of increasing confusion, agitation, out of control behaviors. He [facility], being stabilized, then was transferred to the medical and surgical floor per Dr. Marquez, medically stabilized, returned back to us for his current psychiatric hospitalization. SIGNIFICANT FINDINGS AND CLINICAL COURSE: Following admission, the patient was quite labile, confused, agitated, psychotic. His psychotropics had been discontinued on [facility] and he was restarted gradually back on Depakote and Seroquel along with Zoloft and trazodone was used for insomnia. The agitation appeared to improve, but he was a little more sedated, withdrawn. Ambulation was impaired and at the same time, he was having possible source of infection with raised white cell counts, possible otitis media with additional ear wax, which was significant. Medically, he was managed per Dr. Marquez/Dr. Griffin. Prior to transfer to [facility] on 07/27/2017, ambulation impaired, in Broda chair. No CV, , pulmonary, eye, ENT system symptoms on review. Reliability poor. MENTAL STATUS EXAM: Oriented to himself. Insight, judgment, recent and remote memory, attention, concentration, fund of knowledge poor, consistent with his diagnosis mentioned in my initial note. FINAL DIAGNOSES: Major neurocognitive disorder, Alzheimer, vascular with depression, delusion, behavioral disturbance; anxiety disorder, unspecified; impulse control disorder, unspecified, leukocytosis, reason unclear, sedation. DISCHARGE MEDICATIONS: The patient's amitriptyline, Seroquel, Depakote and melatonin were discontinued due to his sedation prior to his transfer to [facility]. Please refer to the EMRAD for the current list of medications at the time of transfer. I would be happy to reassess the patient for coming back on the unit if clinically indicated once he is medically stable. AMPARO GUY MD DR: RAJAN/nathan JOB#: [id number] / [id number]
== END 2017-07-27 22:04 | disposition short-term general hospital (02) | DRG 884 ==
LOC: GEROPSY 12:25
PROVIDERS: ADMIT Psychiatry & Neurology Psychiatry; ATTEND Psychiatry & Neurology Psychiatry
DX: F01.51 Vascular dementia, unspecified severity, with behavioral disturbance (principal); G30.9 Alzheimer's disease, unspecified; E11.9 Type 2 diabetes mellitus without complications; F02.81 Dementia in other diseases classified elsewhere, unspecified severity, with behavioral disturbance; W06.XXXA Fall from bed, initial encounter; F22 Delusional disorders; F32.9 Major depressive disorder, single episode, unspecified; F41.9 Anxiety disorder, unspecified; F63.9 Impulse disorder, unspecified; H61.20 Impacted cerumen, unspecified ear; I10 Essential (primary) hypertension; I25.10 Atherosclerotic heart disease of native coronary artery without angina pectoris; G47.00 Insomnia, unspecified; K59.00 Constipation, unspecified; R10.13 Epigastric pain; H26.9 Unspecified cataract; Z66 Do not resuscitate; Y92.238 Other place in hospital as the place of occurrence of the external cause; Z86.73 Personal history of transient ischemic attack (TIA), and cerebral infarction without residual deficits; Z91.81 History of falling; Z95.0 Presence of cardiac pacemaker; Z88.8 Allergy status to other drugs, medicaments and biological substances; Z95.5 Presence of coronary angioplasty implant and graft; Y93.89 Activity, other specified; Y99.8 Other external cause status
CPT/HCPCS: 36415; 71045; 73030; 80053; 80164; 82306; 82607; 83540; 83550; 83735; 84436; 84443; 84480; 85007; 85025

== ENCOUNTER 2017-07-27 22:13 | Inpatient (IN) | payer MEDICARE, OTHER ==
[~2017-07-27] VITALS: Ht 175.3 cm; Wt 77.1 kg
[~2017-07-27 22:13] MED LIST changes: +CARB15DR58 LEFT EAR; +LISI-334 PO; +MAGN400O7 PO; +TRAZ50TA15 PO
[2017-07-27] MEDS ORDERED: METHYL SALICYLATE/MENTHOL TOPICAL OINTMENT 29GM TUBE. TP PRN (22:30)
[2017-07-27] MEDS ORDERED: HYDROcodone/APAP 5/325MG 1 TAB TABLET PO PRN (22:30)
[2017-07-27] MEDS ORDERED: MAG HYDROX/AL HYDROX/SIMETH 30 ML ORAL.SUSP PO PRN (22:30)
[2017-07-27] MEDS ORDERED: OLANZapine 2.5 MG TABLET PO PRN (22:30)
[2017-07-27] MEDS ORDERED: MINERAL OIL 133 ML ENEMA. RC PRN (22:30)
[2017-07-27] MEDS ORDERED: MAGNESIUM HYDROXIDE 2,400 MG/30 ML ORAL.SUSP. PO PRN (22:30)
[2017-07-27] MEDS ORDERED: 0.9 % SODIUM CHLORIDE 10 ML DISP.SYRIN. IV PRN (22:30)
[2017-07-27] MEDS ORDERED: MAGNESIUM CITRATE 296 ML SOLUTION. PO PRN (22:30)
[2017-07-27] MEDS ORDERED: ELECTROLYTE (NON-ICU) PROTOCOL MC PRN (22:30)
[2017-07-27] MEDS ORDERED: HEPARIN PF for SUB-Q USE 5,000 UNIT/0.5 ML VIAL. SQ SCH (22:30)
--- NOTE | 2017-07-27 22:46 | NUR ---
The patient, RAFAEL BEAN, 82 y/o, M admitted by AARON KENDALL MD, was given written information regarding hospital policies, unit procedures and contact persons. Valuables were checked and recorded. Admission assessment performed and antibiotics started. Will continue to monitor.
[2017-07-27 23:40] VITALS: BP 148/72
[2017-07-28] MEDS: POTASSIUM CL 20MEQ D5-0.45NACL 1,000 ML IV SCH ×3 (00:10→20:48)
[2017-07-28] MEDS: HEPARIN PF for SUB-Q USE 5,000 UNIT/0.5 ML VIAL. SQ SCH ×3 (05:23→20:39)
[2017-07-28 06:32] VITALS: BP 149/92
[2017-07-28 06:41] LABS: BASO % 0 % (0-3); EOS # 0.1 x10^3/uL (0.0-0.7); EOS % 1 % (0-3); HEMATOCRIT 35.7 % (39.0-53.0); HEMOGLOBIN 12.4 g/dL (13.0-17.5); LYMPH # 1.1 x10^3/uL (1.0-4.8); LYMPH % 9 % (24-48); MEAN CORPUSCULAR HEMOGLOBIN 32 pg (25-35); MEAN CORPUSCULAR HGB CONC 35 g/dL (31-37); MEAN CORPUSCULAR VOLUME 92 fL (79-100); MONO % 16 % (0-9); NEUT % 74 % (31-73); PLATELET COUNT 123 x10^3/uL (140-400); RED BLOOD COUNT 3.91 x10^6/uL (4.30-5.70); RED CELL DISTRIBUTION WIDTH 15.4 % (11.5-14.5); WHITE BLOOD COUNT 12.3 x10^3/uL (4.0-11.0)
[2017-07-28 06:49] LABS: ALBUMIN 2.9 g/dL (3.4-5.0); ALBUMIN/GLOBULIN RATIO 0.8 (1.0-1.7); CALCIUM 8.7 mg/dL (8.5-10.1); CREATININE 1.1 mg/dL (0.7-1.3); GFR 64.1; POTASSIUM 4.2 mmol/L (3.5-5.1); TOTAL BILIRUBIN 0.6 mg/dL (0.2-1.0); TOTAL PROTEIN 6.7 g/dL (6.4-8.2)
[2017-07-28] MEDS: DOCUSATE SODIUM 100 MG CAPSULE PO SCH (09:00)
[2017-07-28] MEDS: LISINOPRIL 20 MG TABLET PO SCH (09:05)
[2017-07-28] MEDS: SERTRALINE 50 MG TABLET. PO SCH (09:12)
[2017-07-28] MEDS: METOPROLOL TART IMMED RELEASE 25 MG TABLET PO SCH ×2 (09:12→20:39)
[2017-07-28] MEDS: LACTOBACILLUS RHAMNOSUS GG 1 CAPSULE. PO SCH ×2 (12:45→20:39)
--- NOTE | 2017-07-28 12:49 | RAD ---
CT head without contrast History: Mastoiditis. Comparison: 07/22/2017. Procedure: Axial images are obtained of the head from the skull base through the vertex without IV contrast. Findings: Moderate bilateral prominent white matter hypodensities likely chronic small vessel ischemic disease. The ventricles and sulci are normal for the patient's age. No mass-effect, intracranial mass, midline shift, hemorrhage or obvious acute infarction is identified. Basilar cisterns are patent. Bone windows demonstrate no significant calvarial abnormality. The visualized paranasal sinuses appear clear. Metallic densities projecting in the soft tissue of the scalp on the right and left similar to prior exam. The mastoid air cells are clear. Impression: 1. No acute intracranial process. PQRS Compliance Statement: One or more of the following individualized dose reduction techniques were utilized for this examination: 1. Automated exposure control 2. Adjustment of the mA and/or kV according to patient size 3. Use of iterative reconstruction technique
[2017-07-28 15:16] VITALS: BP 160/71
[2017-07-28 20:15] VITALS: BP 178/92
[2017-07-28] MEDS: traZODone 50 MG TABLET. PO PRN (20:39)
[2017-07-28] MEDS: CARBAMIDE PEROXIDE 6.5% OTIC SOLUTION 15ML BOTTLE. AS SCH (20:39)
[2017-07-28] MEDS: ACETAMINOPHEN 325 MG TABLET PO PRN (20:39)
[2017-07-28] MEDS: cefTRIAXone IV Push 1 GM VIAL. IVP SCH (20:43)
[2017-07-28 22:27] VITALS: BP 167/83
--- NOTE | 2017-07-28 23:40 | HP ---
ADMIT DATE: 07/27/2017 HISTORY OF PRESENT ILLNESS: This is an 82-year-old male patient who was transferred to [address] [place] [address] from [facility] on the account of altered mental status, felt to be due to excessive sedation and also found to have leukocytosis. He also complained of pain both ears and also right shoulder. He apparently was evaluated upstairs at [facility] by Dr. Griffin. His white cell count was slightly high at 13,400. He did have also mild thrombocytopenia. His chemistry however was largely unremarkable. His toxic screen showed the valproic acid to be only 38. He had a right shoulder x-ray, which showed that no fracture or dislocation, osteoarthritic changes at the acromioclavicular joint, subcortical cyst of the humeral head. His chest x-ray also was unremarkable which showed that he has a bipolar cardiac device and lead tips near the graft region of the right atrium and right ventricle, borderline cardiomegaly, may be magnified with a portable technique. No pneumothorax, pulmonary opacity, or pleural effusion and basically he was transferred to [address] [place] [address] and was continued on Zosyn medication, was started also on ceftriaxone with a questionable perhaps otitis media. The patient is nonverbal, does not really give useful information and apparently his Seroquel was discontinued. PAST MEDICAL HISTORY: Significant for CVA, status post dehydration, pacemaker in place, hypertension, diabetes mellitus, colitis, coronary artery disease, stent placement in 2012, he has left eye cataract. PAST SURGICAL HISTORY: Significant for coronary artery bypass graft surgery as well as stent deployment. He apparently was admitted to [facility] as a transfer from [facility] on account of worsening confusion, agitation, aggression, delusion within the context of his dementia. ALLERGIES: He is allergic to ARICEPT. FAMILY HISTORY: Noncontributory. SOCIAL HISTORY: He is a resident at [facility]. He does not smoke, drink alcohol or use any recreational drugs. MEDICATIONS: He is currently on the following medications: He is normally on Tylenol 650 mg every 4 hours as needed for pain or fever, Debrox 5 drops to left ear, cholecalciferol vitamin D3 50,000 units p.o. weekly, Colace 100 mg daily, hydrocodone/APAP 5/325 one tablet every 8 hours, lisinopril 20 mg once a day, mag citrate one bottle p.o. daily p.r.n. for constipation, milk of magnesia 30 mL p.o. daily p.r.n. for constipation, metoprolol tartrate 12.5 mg twice a day, mineral oil enema 133 mL rectally p.r.n. for constipation, olanzapine 2.5 mg every 2 hours, sertraline 50 mg at bedtime and trazodone 50 mg at bedtime. PHYSICAL EXAMINATION: GENERAL: On arrival to [address] [place] [address], he looked well and was clearly in no apparent respiratory distress, no pallor, jaundice, cyanosis, or thyromegaly. No jugular venous distention. No limb edema. VITAL SIGNS: His heart rate was 72, blood pressure was 148/72, temperature was 98.4, respiratory rate 20, and oxygen saturation was 94%. HEAD, EYES, EARS, NOSE AND THROAT: Showed normocephalic, atraumatic. NECK: Supple. HEART: Showed normal first and second heart sounds with no gallop, rub or murmur. CHEST: Clear to auscultation. No crepitation or rhonchi. ABDOMEN: Distended, soft, nontender. NEUROLOGIC: He is demented without any obvious lateralizing sign. All his cranial nerves are intact. He moves extremities without difficulty, although he is mostly bed bound. LABORATORY DATA: On arrival to [address] [place] [address] showed a white cell count of 12,300, hemoglobin 12.4, hematocrit 36, MCV 92, and platelet count of 123,000 with normal manual differential. Serum sodium was 139, potassium 4.2, chloride 103, bicarbonate 32, anion gap of 4, BUN 24, creatinine 1.1, estimated GFR was 64 mL per minute. His glucose was 151, calcium was 8.7. Total bilirubin, AST, ALT, alkaline phosphatase were normal. Total protein was 6.7, albumin 2.9. DIAGNOSTIC DATA: CT scan of the head showed that there are moderate bilateral prominent white matter hypodensities, likely chronic small vessel ischemic disease. The ventricles and sulci are normal for the patient's age. No mass effect, intracranial mass, midline shift, hemorrhage or obvious acute infarction identified. Basilar cisterns are patent. Bone windows demonstrate no significant calvarial abnormalities. The visualized paranasal sinuses appear clear. Metallic densities projecting the soft tissue of the scalp, the right and left similar to prior exam. The mastoid air cells are clear. ASSESSMENT: So, the patient was admitted with altered mental status, leukocytosis and pain in both ears and right shoulder. His right shoulder x-ray was unremarkable and it showed that there is no fracture or dislocation, osteoarthritic changes at the acromioclavicular joint, he has subcortical cyst of the humeral head. PLAN: My plan is to continue with holding his sedatives including Seroquel, continue with IV fluid, continue IV antibiotic. I will repeat all his labs tomorrow. We will get also PT, OT to evaluate him and decide further management accordingly. HOLLIS ROYAL MD DR: RYAN/nathan JOB#: [id number] / [id number]
--- NOTE | 2017-07-29 04:21 | NUR ---
Nursing: Pt has been highly confused and resistive to cares this shift. Pt incontinent of urine and when staff attempts to change brief, pt swings at staff and continually yells out. Unable to orient to hospital or situation. Pt calms immediately after interaction. Bed in lowest position with alarm set for safety. Will continue to monitor.
[2017-07-29] MEDS: HEPARIN PF for SUB-Q USE 5,000 UNIT/0.5 ML VIAL. SQ SCH ×3 (04:49→20:11)
[2017-07-29 05:26] VITALS: BP 170/86
[2017-07-29 07:10] LABS: HEMATOCRIT 34.4 % (39.0-53.0); RED BLOOD COUNT 3.78 x10^6/uL (4.30-5.70); RED CELL DISTRIBUTION WIDTH 15.3 % (11.5-14.5); WHITE BLOOD COUNT 11.7 x10^3/uL (4.0-11.0)
[2017-07-29 07:23] LABS: ALBUMIN 2.8 g/dL (3.4-5.0); ALBUMIN/GLOBULIN RATIO 0.7 (1.0-1.7); C REACTIVE PROTEIN 144.1 mg/L (0-3.3); CALCIUM 8.7 mg/dL (8.5-10.1); GFR 71.5; TOTAL BILIRUBIN 0.6 mg/dL (0.2-1.0); TOTAL PROTEIN 6.9 g/dL (6.4-8.2)
[2017-07-29] MEDS: POTASSIUM CL 20MEQ D5-0.45NACL 1,000 ML IV SCH ×2 (07:56→20:10)
[2017-07-29] MEDS: DOCUSATE SODIUM 100 MG CAPSULE PO SCH (09:00)
[2017-07-29] MEDS: ACETAMINOPHEN 325 MG TABLET PO PRN (09:47)
[2017-07-29] MEDS: LISINOPRIL 20 MG TABLET PO SCH (09:48)
[2017-07-29] MEDS: SERTRALINE 50 MG TABLET. PO SCH (09:48)
[2017-07-29] MEDS: LACTOBACILLUS RHAMNOSUS GG 1 CAPSULE. PO SCH ×2 (09:48→20:11)
[2017-07-29] MEDS: METOPROLOL TART IMMED RELEASE 25 MG TABLET PO SCH ×2 (09:50→20:17)
--- NOTE | 2017-07-29 10:34 | PN ---
DATE: 07/28/2017 SUBJECTIVE: The patient is resting, slightly propped up in bed, in no apparent distress, awake, alert, but confused, does not really give any useful information. According to the nursing staff, he requires feeding, but otherwise he has been stable hemodynamically. PHYSICAL EXAMINATION: GENERAL: When I examined him; he looked pale, but no jaundice, cyanosis, or thyromegaly. No jugular venous distention. No limb edema. VITAL SIGNS: His heart rate was 80, blood pressure was 160/71, temperature was 97.6, respiratory rate 20, and oxygen saturation was 98%. HEAD, EYES, EARS, NOSE AND THROAT: Normocephalic, atraumatic. NECK: Supple. HEART: Showed normal first and second heart sounds with no gallop, rub or murmur. CHEST: Clear to auscultation. No crepitation or rhonchi. ABDOMEN: Distended, soft, nontender. No guarding or rigidity. No organomegaly. All hernial orifices intact. Bowel sounds normal. NEUROLOGIC: He was demented without any obvious lateralizing sign. All his cranial nerves are intact. EXTREMITIES: He moves extremities without difficulty, though he is mostly bed bound. He was extensively investigated. His CT scan of the head was unremarkable. CT scan of the paranasal sinuses was unremarkable. Chest x-ray also showed no evidence of any infection. He continued to have leukocytosis of 12,300. However, his chemistry is well within acceptable range. PLAN: My plan is to continue with IV antibiotics. Continue with the IV fluid. I will repeat all his lab works tomorrow including sedimentation rate and CRP and decide further management accordingly. He has no obvious source of infection, although his white cell count continued to be slightly high. Unfortunately, I do not see any urinalysis urine culture sent or even blood cultures unless they were sent from upstairs. HOLLIS ROYAL MD DR: RYAN/nathan JOB#: [id number] / [id number]
[2017-07-29 10:44] VITALS: BP 167/87
[2017-07-29 14:59] VITALS: BP 165/94
--- NOTE | 2017-07-29 15:33 | RAD ---
CT of the abdomen and pelvis with contrast, 07/29/2017: History: Leukocytosis Multidetector CT imaging was performed following an IV bolus injection of iodinated contrast material. No oral contrast material was administered for this exam. There is mild linear atelectasis and/or scarring in the right base. Moderate coronary artery calcifications are present. The heart is enlarged. A transvenous pacing device is in place. The gallbladder is surgically absent. No hepatic abnormality is detected. The pancreas is unremarkable. The spleen is of normal size. A small accessory spleen is evident at the splenic hilum. There is mild bilateral renal cortical scarring. There is a tiny medullary calcifications in the upper pole of the left kidney. No obstructing urinary tract calculus is identified. The kidneys show no evidence of mass. No adrenal abnormality is detected. There is moderate calcific plaquing of the abdominal aorta and its branches without evidence of aneurysm. No abdominal or pelvic adenopathy is seen. There are surgical clips in the pelvis on the left probably secondary to sigmoid colon surgery. The bowel loops are not dilated. The appendix is not visualized. No dilated appendix or pericecal inflammatory process is seen. No free air or free fluid is evident in the abdomen or pelvis. Moderate scattered degenerative changes are present in the skeleton. There has been a posterior spinal fusion with instrumentation at L4-5. IMPRESSION: 1. Miscellaneous chronic findings as described above. 2. No acute abdominal or pelvic abnormality is detected. PQRS Compliance Statement: One or more of the following individualized dose reduction techniques were utilized for this examination: 1. Automated exposure control 2. Adjustment of the mA and/or kV according to patient size 3. Use of iterative reconstruction technique
[2017-07-29] MEDS: cefTRIAXone IV Push 1 GM VIAL. IVP SCH (20:09)
[2017-07-29] MEDS: CARBAMIDE PEROXIDE 6.5% OTIC SOLUTION 15ML BOTTLE. AS SCH (20:10)
[2017-07-29] MEDS: traZODone 50 MG TABLET. PO PRN (20:12)
[2017-07-29 20:15] VITALS: BP 175/86
[2017-07-29 23:14] VITALS: BP 169/74
[2017-07-29 23:32] LABS: BACTERIA,URINE 0 /HPF (0-FEW); BILIRUBIN,URINE NEG (NEG); CLARITY,URINE CLEAR; COLOR,URINE YELLOW; GLUCOSE,URINE 250 mg/dL (NEG); NITRITE,URINE NEG (NEG); SQUAMOUS EPITHELIAL CELL,UR FEW /LPF; UROBILINOGEN,URINE 0.2 mg/dL (0.2 mg/dL); WBC,URINE OCC /HPF (0-4)
[2017-07-30] MEDS: HEPARIN PF for SUB-Q USE 5,000 UNIT/0.5 ML VIAL. SQ SCH ×3 (05:24→21:43)
[2017-07-30 05:30] VITALS: BP 142/72
[2017-07-30 06:58] LABS: BASO % 0 % (0-3); EOS # 0.1 x10^3/uL (0.0-0.7); EOS % 0 % (0-3); HEMATOCRIT 31.3 % (39.0-53.0); HEMOGLOBIN 11.1 g/dL (13.0-17.5); LYMPH # 1.1 x10^3/uL (1.0-4.8); LYMPH % 7 % (24-48); MEAN CORPUSCULAR HEMOGLOBIN 32 pg (25-35); MEAN CORPUSCULAR HGB CONC 35 g/dL (31-37); MEAN CORPUSCULAR VOLUME 91 fL (79-100); MONO % 14 % (0-9); NEUT # 11.4 x10^3uL (1.8-7.7); NEUT % 78 % (31-73); PLATELET COUNT 144 x10^3/uL (140-400); RED BLOOD COUNT 3.46 x10^6/uL (4.30-5.70); RED CELL DISTRIBUTION WIDTH 15.5 % (11.5-14.5); WHITE BLOOD COUNT 14.6 x10^3/uL (4.0-11.0)
[2017-07-30 07:28] LABS: ALBUMIN 2.5 g/dL (3.4-5.0); ALBUMIN/GLOBULIN RATIO 0.7 (1.0-1.7); CALCIUM 8.6 mg/dL (8.5-10.1); CREATININE 1.1 mg/dL (0.7-1.3); GFR 64.1; POTASSIUM 4.3 mmol/L (3.5-5.1); TOTAL BILIRUBIN 0.5 mg/dL (0.2-1.0); TOTAL PROTEIN 6.3 g/dL (6.4-8.2)
[2017-07-30] MEDS: DOCUSATE SODIUM 100 MG CAPSULE PO SCH (08:08)
[2017-07-30] MEDS: LISINOPRIL 20 MG TABLET PO SCH (08:08)
[2017-07-30] MEDS: SERTRALINE 50 MG TABLET. PO SCH (08:08)
[2017-07-30] MEDS: LACTOBACILLUS RHAMNOSUS GG 1 CAPSULE. PO SCH ×2 (08:08→21:42)
[2017-07-30] MEDS: METOPROLOL TART IMMED RELEASE 25 MG TABLET PO SCH ×2 (08:10→21:42)
[2017-07-30] MEDS ORDERED: methylPREDNISolone SOD SUCC PF 40 MG/ML VIAL. IV ONE (08:45)
--- NOTE | 2017-07-30 09:53 | PN ---
DATE: 07/29/2017 SUBJECTIVE: The patient is resting, slightly propped up in bed, no apparent distress. He continued to complain of pain on his temples, his shoulders. His sedimentation rate was extremely high. His sedimentation rate was 75 and C-reactive protein was 144, raising the possibility that might have polymyalgia rheumatica. So far, his chest x-ray was unremarkable. CT scan was unremarkable. All his blood cultures are negative. Unfortunately, no urinalysis or urine culture was sent. PHYSICAL EXAMINATION: GENERAL: When I examined him this afternoon, he looked well and was clearly in no apparent respiratory distress, pale, but no jaundice, cyanosis, or thyromegaly. No jugular venous distension. No limb edema. VITAL SIGNS: His heart rate was 73, blood pressure 167/87, temperature was 98, respiratory rate 20, and oxygen saturation was 97%. HEAD, EYES, EARS, NOSE AND THROAT: Showed normocephalic, atraumatic. NECK: Supple. HEART: Showed normal first and second heart sounds with no gallop, rub or murmur. CHEST: Clear to auscultation. No crepitation or rhonchi. ABDOMEN: Distended, soft, nontender. NEUROLOGIC: He is demented, but without any obvious lateralizing sign. All cranial nerves intact. He moves extremities without difficulty, although he is mostly bed bound. His intake over the last 24 hours was 2482. LABORATORY DATA: As of this morning showed a serum sodium 137, potassium 4, chloride 102, bicarbonate 30, anion gap of 5, BUN 19, creatinine 1, estimated GFR was 71 mL per minute. His glucose was 157, calcium was 8.7. Total bilirubin, AST, ALT, alkaline phosphatase were normal. Total protein 6.9, albumin 2.8. His white cell count is down to 11,700, hemoglobin 12, hematocrit 34, MCV 91, and platelet count of 129,000. ASSESSMENT: The patient was transferred from [facility] for excessive sedation. He was also found to have leukocytosis. He complained of pain in both ears and right shoulder. DIAGNOSTICS: Unfortunately, his white cell count was high at 13,400. He did have also mild thrombocytopenia. 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 CT scan was unremarkable. Chest x-ray was unremarkable and a CT scan of the head was also unremarkable. His sed rate and C-reactive protein was extremely high and raising the possibility of polymyalgia rheumatica. PLAN: My plan is to start him on IV steroids, at least a small dose of steroids, and arrange for him to have a CT scan of the chest, abdomen and pelvis and decide the further management accordingly. HOLLIS ROYAL MD DR: RYAN/nathan JOB#: [id number] / [id number]
[2017-07-30 10:33] VITALS: BP 163/74
[2017-07-30 15:18] VITALS: BP 152/77
[2017-07-30] MEDS: POTASSIUM CL 20MEQ D5-0.45NACL 1,000 ML IV SCH (18:03)
--- NOTE | 2017-07-30 18:35 | PDOC ---
Exam Note: Lars Note: Please also refer to the separate dictated note~for this date of service dictated separately.~Patient seen individually. Discussed the patient with Nursing staff reviewed the chart.~Reviewed interim history and current functioning. Reviewed vital signs,~Labs/ Radiology~and current medications noted below. Continue current treatment with the changes noted in the dictated addendum note Assessment: Vital Signs: Vital Signs Date Time Temp Pulse Resp B/P (MAP) Pulse Ox O2 Delivery O2 Flow Rate FiO2 07/30/17 15:18 97.7 78 20 152/77 (102) 96 Room Air I&O Intake and Output 07/30/17 07:00 Intake Total 2463 ml Output Total 50 ml Balance 2413 ml Intake Oral 270 ml IV Total 2193 ml Output Urine Total 50 ml # Voids 4 Labs: Laboratory Tests Test 07/29/17 22:15 07/30/17 06:34 Urine Collection Type U cath Urine Color Yellow Urine Clarity Clear Urine pH 7.0 Urine Specific [place] 1.015 Urine Protein 100 mg/dl (NEG-TRACE) Urine Glucose (UA) 250 mg/dL (NEG) Urine Ketones (Stick) Neg mg/dL (NEG) Urine Blood Small (NEG) Urine Nitrite Neg (NEG) Urine Bilirubin Neg (NEG) Urine Urobilinogen Dipstick 0.2 mg/dL (0.2 mg/dL) Urine Leukocyte Esterase Neg (NEG) Urine RBC 3-5 /HPF (0-2) Urine WBC Occ /HPF (0-4) Urine Squamous Epithelial Cells Few /LPF Urine Bacteria 0 /HPF (0-FEW) White Blood Count 14.6 x10^3/uL (4.0-11.0) H Red Blood Count 3.46 x10^6/uL (4.30-5.70) L Hemoglobin 11.1 g/dL (13.0-17.5) L Hematocrit 31.3 % (39.0-53.0) L Mean Corpuscular Volume 91 fL (79-100) Mean Corpuscular Hemoglobin 32 pg (25-35) Mean Corpuscular Hemoglobin Concent 35 g/dL (31-37) Red Cell Distribution Width 15.5 % (11.5-14.5) H Platelet Count 144 x10^3/uL (140-400) Neutrophils (%) (Auto) 78 % (31-73) H Lymphocytes (%) (Auto) 7 % (24-48) L Monocytes (%) (Auto) 14 % (0-9) H Eosinophils (%) (Auto) 0 % (0-3) Basophils (%) (Auto) 0 % (0-3) Neutrophils # (Auto) 11.4 x10^3uL (1.8-7.7) H Lymphocytes # (Auto) 1.1 x10^3/uL (1.0-4.8) Monocytes # (Auto) 2.0 x10^3/uL (0.0-1.1) H Eosinophils # (Auto) 0.1 x10^3/uL (0.0-0.7) Basophils # (Auto) 0.0 x10^3/uL (0.0-0.2) Sodium Level 134 mmol/L (136-145) L Potassium Level 4.3 mmol/L (3.5-5.1) Chloride Level 100 mmol/L (98-107) Carbon Dioxide Level 28 mmol/L (21-32) Anion Gap 6 (6-14) Blood Urea Nitrogen 15 mg/dL (8-26) Creatinine 1.1 mg/dL (0.7-1.3) Estimated GFR (Cockcroft-Gault) 64.1 BUN/Creatinine Ratio 14 (6-20) Glucose Level 223 mg/dL (70-99) H Calcium Level 8.6 mg/dL (8.5-10.1) Total Bilirubin 0.5 mg/dL (0.2-1.0) Aspartate Amino Transferase (AST) 18 U/L (15-37) Alanine Aminotransferase (ALT) 26 U/L (16-63) Alkaline Phosphatase 91 U/L (46-116) Total Protein 6.3 g/dL (6.4-8.2) L Albumin 2.5 g/dL (3.4-5.0) L Albumin/Globulin Ratio 0.7 (1.0-1.7) L Current Medications: Meds: Current Medications Sodium Chloride (Normal Saline Flush) 3 ml PRN DAILY PRN IV AFTER MEDS AND BLOOD DRAWS; Start 07/27/17 at 22:30 Potassium Chloride/Dextrose/ Sod Cl 1,000 ml @ 100 mls/hr Q10H IV Last administered on 07/30/17at 18:03; Start 07/27/17 at 22:30 Info (Non-Icu Electrolyte Protocol) 1 ea CONT PRN PRN MC SEE COMMENTS; Start at 22:30 Heparin Sodium (Porcine) (Heparin Sq) 5,000 unit Q8HRS SQ Last administered on 07/30/17at 13:44; Start 07/28/17 at 06:00 Heparin Sodium (Porcine) (Heparin Sq) 5,000 unit Q12H SQ ; Start 07/27/17 at 22: 30; Status UNV Ceftriaxone Sodium 1 gm/ Sodium Chloride 50 ml @ 100 mls/hr Q24H IV Last administered on 07/27/17 23:44; Start 07/27/17 at 22:30; Stop 07/28/17 at 11:09 ; Status DC Acetaminophen (Tylenol) 650 mg PRN Q6HRS PRN PO PAIN / TEMP Last administered on 07/29/17 09:47; Start 07/27/17 at 22:30 Carbamide Peroxide (Debrox) 5 drop QHS Last administered on 07/29/17at 20:10 ; Start 07/28/17 at 21:00 Docusate Sodium (Colace) 100 mg DAILY PO Last administered on 07/30/17 08:08; Start 07/28/17 at 09:00 Acetaminophen/ Hydrocodone Bitart (Lortab 5/325) 1 tab PRN Q8HRS PRN PO PAIN Last administered on 07/29/17 20:12; Start 07/27/17 at 22:30 Lisinopril (Prinivil) 20 mg DAILY PO Last administered on 07/30/17at 08:08; Start 07/28/17 at 09:00 Magnesium Citrate (Citroma) 296 ml PRN 1X PRN PO CONSTIPATION; Start 07/27/17 at 22:30 Magnesium Hydroxide (Milk Of Magnesia) 2,400 mg PRN QHS PRN PO CONSTIPATION; Start 07/27/17 at 22:30 Multi-Ingredient Ointment (Analgesic [place]) 1 renetta PRN QID PRN TP MUSCLE PAIN; Start 07/27/17 at 22:30 Metoprolol Tartrate (Lopressor) 12.5 mg BID PO Last administered on 07/30/17at 08:10; Start 07/28/17 at 09:00 Mineral Oil (Fleet Mineral Oil) 133 ml PRN DAILY PRN RC CONSTIPATION; Start at 22:30 Olanzapine (ZyPREXA) 2.5 mg PRN Q2HR PRN PO ANXIETY / AGITATION; Start at 22:30 Sertraline HCl (Zoloft) 50 mg DAILY PO Last administered on 07/30/17at 08:08; Start 07/28/17 at 09:00 Trazodone HCl (Desyrel) 50 mg PRN QHS PRN PO INSOMNIA, MAY REPEAT X1 Last administered on 07/29/17at 20:12; Start 07/27/17 at 22:30 Vitamin D (Vitamin D3) 50,000 unit WEEKLY PO ; Start 08/03/17 at 09:00 Al Hydroxide/Mg Hydroxide (Mylanta Plus Xs) 15 ml PRN AFTMEALHC PRN PO DYSPEPSIA; Start 07/27/17 at 22:30 Lactobacillus Rhamnosus (Culturelle) 1 cap BID PO Last administered on at 08:08; Start 07/28/17 at 12:00 Ceftriaxone Sodium (Rocephin) 1 gm Q24H IVP Last administered on 07/29/17at 20: 09; Start 07/28/17 at 21:00 Methylprednisolone Sodium Succinate (SOLU-Medrol 40MG VIAL) 40 mg 1X ONCE IV Last administered on 07/30/17at 08:04; Start 07/30/17 at 08:45; Stop 07/30/17 at 08:46; Status DC Methylprednisolone Sodium Succinate (SOLU-Medrol 40MG VIAL) 40 mg 1X ONCE IV ; Start 07/31/17 at 08:00; Stop 07/31/17 at 08:01 Active Scripts Active Reported Trazodone Hcl 50 Mg Tablet 50 Mg PO PRN QHS PRN Milk Of Magnesia (Magnesium Hydroxide) 400 Mg/5 Ml Oral.susp 2,400 Mg PO PRN QHS PRN Lisinopril 20 Mg Tablet 20 Mg PO DAILY Carbamide Peroxide 15 Ml Drops 5 Drop LEFT EAR QHS Metoprolol Tartrate 25 Mg Tablet 12.5 Mg PO BID Zyprexa (Olanzapine) 2.5 Mg Tablet 2.5 Mg PO PRN Q2HR PRN MDD 15mg Mineral Oil Enema (Mineral Oil) 133 Ml Enema 133 Ml RC PRN DAILY PRN Analgesic [place] (Methyl Salicylate/Menthol) 28 Gm Oint...g. 1 [place] TP PRN QID PRN Magnesium Citrate 296 Ml Solution 296 Ml PO PRN 1X PRN Advanced Antacid Liquid (Mag Hydrox/Al Hydrox/Simeth) 355 Ml Oral.susp 15 Ml PO PRN AFTMEALHC PRN Hydrocodone-Apap 5-325 (Hydrocodone Bit/Acetaminophen) 1 Each Tablet 1 Tab PO PRN Q8HRS PRN Colace (Docusate Sodium) 100 Mg Capsule 100 Mg PO DAILY Vitamin D3 (Cholecalciferol (Vitamin D3)) 5,000 Unit Tablet 50,000 Unit PO WEEKLY Tylenol (Acetaminophen) 325 Mg Tablet 650 Mg PO PRN Q6HRS PRN Zoloft (Sertraline Hcl) 50 Mg Tablet 50 Mg PO DAILY I have reviewed the current psychotropics carefully including drug interactions. Risk benefit ratio favors no change other than as noted in my dictated progress note. 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
[2017-07-30 19:55] VITALS: BP 138/75
[2017-07-30] MEDS: traZODone 50 MG TABLET. PO PRN (21:42)
[2017-07-30] MEDS: CARBAMIDE PEROXIDE 6.5% OTIC SOLUTION 15ML BOTTLE. AS SCH (21:42)
[2017-07-30] MEDS: ACETAMINOPHEN 325 MG TABLET PO PRN (21:42)
[2017-07-30] MEDS: cefTRIAXone IV Push 1 GM VIAL. IVP SCH (21:43)
[2017-07-31 00:59] VITALS: BP 163/88
[2017-07-31] MEDS: POTASSIUM CL 20MEQ D5-0.45NACL 1,000 ML IV SCH (03:44)
[2017-07-31] MEDS: HEPARIN PF for SUB-Q USE 5,000 UNIT/0.5 ML VIAL. SQ SCH ×3 (05:02→22:08)
[2017-07-31 05:15] VITALS: BP 181/75
--- NOTE | 2017-07-31 05:15 | PN ---
DATE: 07/30/2017 CURRENT PROBLEMS: 1. Frail elderly 2. Elevated C-reactive protein and sed rate. Possible polymyalgia rheumatica. 3. Bilateral shoulder and hip pain. 4. Dementia with behavior disturbance. 5. Leukocytosis. SUBJECTIVE: The patient is resting quietly in bed. He does seem to have some pain in his neck as well as his hip when he was rolled over. He was started on steroid today. Did receive methylprednisolone this morning 40 mg and staff seems to think that he is getting better, which we would expect if it was polymyalgia rheumatica. He was placed on ceftriaxone for his elevated white count but source of infection is not clear. Blood cultures are negative after 2 days. OBJECTIVE: VITAL SIGNS: Blood pressure is 142/72, pulse 76, temperature 97.5 axillary, pulse 70, respirations 20, pulse ox 96% on room air. GENERAL: The patient is breathing through his mouth and making some type of central apneic breathing, although he is awake. HEENT: Nose is patent. Pupils are somewhat pinpoint. Throat clear. NECK: Supple. LUNGS: Clear. CARDIOVASCULAR: Regular rhythm and rate. ABDOMEN: Soft, nontender. When the patient was rolled over, he did have some hip pain and was complaining of some neck pain when I touched his neck. He was seen by PT and OT and placed in a Broda chair and seemed to do that okay. PLAN: Monitor closely. IV fluids. Avoid antipsychotics. Continue with the Solu-Medrol daily and check sed rate in a couple of days. SANDRA VIRAMONTES DO DR: ISAIAH/nathan JOB#: [id number] / [id number]
[2017-07-31 06:58] LABS: BASO % 0 % (0-3); EOS # 0.1 x10^3/uL (0.0-0.7); EOS % 1 % (0-3); HEMATOCRIT 30.8 % (39.0-53.0); HEMOGLOBIN 10.9 g/dL (13.0-17.5); LYMPH # 1.2 x10^3/uL (1.0-4.8); LYMPH % 12 % (24-48); MEAN CORPUSCULAR HEMOGLOBIN 32 pg (25-35); MEAN CORPUSCULAR HGB CONC 35 g/dL (31-37); MEAN CORPUSCULAR VOLUME 91 fL (79-100); MONO # 1.2 x10^3/uL (0.0-1.1); MONO % 13 % (0-9); NEUT # 7.2 x10^3uL (1.8-7.7); NEUT % 74 % (31-73); PLATELET COUNT 159 x10^3/uL (140-400); RED BLOOD COUNT 3.39 x10^6/uL (4.30-5.70); RED CELL DISTRIBUTION WIDTH 15.7 % (11.5-14.5); WHITE BLOOD COUNT 9.7 x10^3/uL (4.0-11.0)
[2017-07-31 07:16] LABS: ALBUMIN 2.4 g/dL (3.4-5.0); ALBUMIN/GLOBULIN RATIO 0.6 (1.0-1.7); CALCIUM 8.7 mg/dL (8.5-10.1); GFR 71.5; POTASSIUM 4.3 mmol/L (3.5-5.1); TOTAL BILIRUBIN 0.3 mg/dL (0.2-1.0); TOTAL PROTEIN 6.3 g/dL (6.4-8.2)
[2017-07-31] MEDS: METOPROLOL TART IMMED RELEASE 25 MG TABLET PO SCH ×2 (07:52→21:15)
[2017-07-31] MEDS: LISINOPRIL 20 MG TABLET PO SCH (07:52)
[2017-07-31] MEDS: LACTOBACILLUS RHAMNOSUS GG 1 CAPSULE. PO SCH ×2 (07:52→21:14)
[2017-07-31] MEDS: DOCUSATE SODIUM 100 MG CAPSULE PO SCH (07:52)
[2017-07-31] MEDS: SERTRALINE 50 MG TABLET. PO SCH (07:53)
[2017-07-31] MEDS ORDERED: methylPREDNISolone SOD SUCC PF 40 MG/ML VIAL. IV ONE (08:00)
[2017-07-31 10:28] VITALS: BP 147/83
--- NOTE | 2017-07-31 10:32 | NUR ---
Pt sitting up in chair this morning, required two person max assist. Pt alert to self, confused to time, place and situation. Continues to have swelling and some pain to left side of face due to polymalgia rheumatica. Speech here this morning with orders for Dysphagia I vs Puree diet with honey thick liquids, states patient is at risk of aspirating with thin liquids. Pt resting at this time, will continue to monitor.
--- NOTE | 2017-07-31 11:41 | NUR ---
Bedside Swallow Evaluation completed. Impressions: Moderate oropharyngeal dysphagia w/ consistent s/s aspiration noted w/ thin liquids. Pt appears at low risk of aspiration for modified diet of dysphagia I w/ honey thick liquids and swallow precautions. Pt's history r/t cognitive status and alertness may impact safety and intake. Recommendations: 1. Dysphagia I diet w/ honey thick liquids/no straws 2. Assist for all eating/drinking, sit upright, must be alert, alternate consistencies and monitor for pocketing (full precautions posted in room) 3. ST f/u for dysphagia
[2017-07-31 14:27] VITALS: BP 136/67
--- NOTE | 2017-07-31 15:11 | NUR ---
PT worked with patient today, continuing to be confused and having visual hallucinations. Pt unable to feed self and requires assistance with feedings, along with 2 person assist with transfers. PT required two person assist with transfers using gait belt to walk throughout hallways. Noted by night nurse that patient was resistive to care yesterday but is getting better since patient is not having as much pain due to rheumatica to left ear. Pt completed IV solumedrol today.
[2017-07-31 19:00] VITALS: BP 153/89
[2017-07-31] MEDS: cefTRIAXone IV Push 1 GM VIAL. IVP SCH (21:14)
[2017-07-31] MEDS: CARBAMIDE PEROXIDE 6.5% OTIC SOLUTION 15ML BOTTLE. AS SCH (21:14)
[2017-07-31 23:04] VITALS: BP 179/79
[2017-08-01 06:00] VITALS: BP 166/76
[2017-08-01] MEDS: HEPARIN PF for SUB-Q USE 5,000 UNIT/0.5 ML VIAL. SQ SCH ×2 (06:29→14:41)
[2017-08-01] MEDS ORDERED: predniSONE 20 MG TABLET PO SCH (09:00)
--- NOTE | 2017-08-01 09:20 | NUR ---
Nursing Note: Patient has been very restless this morning. Per report from night guard nurse, patient was very restless and did not sleep last night. Patient has attempted to get out of bed several times during the night and this morning. Patient has been cooperative with cares but redirection does not last long.
--- NOTE | 2017-08-01 09:36 | PN ---
DATE: 07/31/2017 SUBJECTIVE: The patient is resting in his recliner comfortably, in no apparent distress. He is definitely more awake, alert, continued to be hard of hearing. He apparently has bilateral impacted cerumen. He seemed to be able to move his upper extremity to much greater extent than before. His daughter said that he was diagnosed before with polymyalgia rheumatica, was started on steroids, but somewhere along the line his steroids were dropped. PHYSICAL EXAMINATION: GENERAL: When I examined him today, he is definitely more awake, alert, interactive, although obviously confused. VITAL SIGNS: His heart rate was 62, blood pressure was 136/67, temperature was 97.6, respiratory rate was 18, and oxygen saturation was 100% on room air. HEAD, EYES, EARS, NOSE, AND THROAT: Showed normocephalic, atraumatic. NECK: Supple. HEART: Showed normal first and second heart sounds. No gallop, rub, or murmur. CHEST: Clear to auscultation. No crepitation or rhonchi. ABDOMEN: Distended, soft, nontender. No guarding or rigidity. No organomegaly. All hernial orifice intact. Bowel sounds normal. NEUROLOGIC: He is demented without any obvious lateralizing signs. All cranial nerves intact. He moves extremities without difficulty; however, he requires 2-person assist. His intake over the last 24 hours was 2392 and output was recorded. His lab work this morning showed a serum sodium 138, potassium 4.3, chloride 103, bicarbonate 29, anion gap of 6, BUN 20, creatinine 1, estimated GFR was 71 mL per minute, his glucose 169. Calcium was 8.7, magnesium 2. Total bilirubin, AST, ALT, alkaline phosphatase were normal. Total protein was 6.3, albumin 2.4. White cell count is down to 9700, hemoglobin 10.9, hematocrit 30.8, MCV 91, and platelet count of 159,000. So far, all his urine and blood cultures are negative. ASSESSMENT: Elevated C-reactive protein and sed rate with a good response before to steroids making polymyalgia rheumatica highly likely. He is now able to move his joints, but particularly upper extremities much better, dementia, behavior disturbances, leukocytosis, frail, elderly. PLAN: To continue with IV fluid, continue with IV antibiotic and Solu-Medrol. We will discharge him on a low dose steroids and monitor his sed rate and C-reactive protein. We will also require switching him to oral hypoglycemic agent when he goes upstairs as he will be admitted to a memory care unit. HOLLIS ROYAL MD DR: RYAN/nathan JOB#: [id number] / [id number]
[2017-08-01] MEDS: CARBAMIDE PEROXIDE 6.5% OTIC SOLUTION 15ML BOTTLE. AS SCH (09:48)
[2017-08-01] MEDS: DOCUSATE SODIUM 100 MG CAPSULE PO SCH (09:49)
[2017-08-01] MEDS: LACTOBACILLUS RHAMNOSUS GG 1 CAPSULE. PO SCH (09:49)
[2017-08-01] MEDS: METOPROLOL TART IMMED RELEASE 25 MG TABLET PO SCH (09:50)
[2017-08-01] MEDS: SERTRALINE 50 MG TABLET. PO SCH (09:50)
[2017-08-01] MEDS: LISINOPRIL 20 MG TABLET PO SCH (09:50)
--- NOTE | 2017-08-01 10:09 | PDOC ---
Exam Note: Lars Note: Please also refer to the separate dictated note~for this date of service dictated separately.~Patient seen individually. Discussed the patient with Nursing staff reviewed the chart.~Reviewed interim history and current functioning. Reviewed vital signs,~Labs/ Radiology~and current medications noted below. Continue current treatment with the changes noted in the dictated addendum note. This is a late entry for date of service July 31, 2017 Assessment: Vital Signs: VS - Last 72 Hours, by Label Date Time Temp Pulse Resp B/P (MAP) Pulse Ox O2 Delivery O2 Flow Rate FiO2 08/01/17 09:50 76 166/76 08/01/17 09:50 76 166/76 08/01/17 06:00 97.8 76 20 166/76 (106) 96 Room Air 07/31/17 23:04 58 16 179/79 (112) 98 Room Air 07/31/17 21:15 78 153/89 07/31/17 20:00 Room Air 07/31/17 19:00 97.8 78 20 153/89 (110) 91 Room Air 3.0 07/31/17 14:27 97.6 62 18 136/67 (90) 100 Room Air 07/31/17 10:28 97.5 78 20 147/83 (104) 97 Room Air 07/31/17 07:57 Room Air 07/31/17 07:52 61 181/75 07/31/17 07:52 61 181/75 07/31/17 05:15 97.6 61 20 181/75 (110) 98 Room Air 07/31/17 00:59 98.1 70 18 163/88 (113) 96 Room Air 07/30/17 21:42 87 138/75 07/30/17 20:00 Room Air 07/30/17 19:55 98.1 87 20 138/75 (96) 97 Room Air 07/30/17 15:18 97.7 78 20 152/77 (102) 96 Room Air 07/30/17 10:33 97.5 70 20 163/74 (103) 96 Room Air 07/30/17 08:10 76 142/72 07/30/17 08:08 76 142/72 07/30/17 08:00 Room Air 07/30/17 05:30 98.3 76 20 142/72 (95) 95 Room Air 07/29/17 23:14 98.1 88 22 169/74 (105) 94 Room Air 07/29/17 21:22 18 96 Room Air 07/29/17 20:17 78 175/86 07/29/17 20:15 98.3 78 20 175/86 (115) 96 Room Air 07/29/17 20:12 20 95 Room Air 07/29/17 20:00 Room Air 07/29/17 14:59 97.6 78 24 165/94 (117) 95 07/29/17 10:44 98.0 73 20 167/87 (113) 97 Room Air Vital Signs Date Time Temp Pulse Resp B/P (MAP) Pulse Ox O2 Delivery O2 Flow Rate FiO2 08/01/17 09:50 76 166/76 08/01/17 06:00 97.8 20 96 Room Air 07/31/17 19:00 3.0 I&O Intake and Output 08/01/17 07:00 Intake Total 960 ml Output Total 400 ml Balance 560 ml Intake Oral 960 ml Output Urine Total 400 ml # Voids 6 Current Medications: Meds: Current Medications Sodium Chloride (Normal Saline Flush) 3 ml PRN DAILY PRN IV AFTER MEDS AND BLOOD DRAWS; Start 07/27/17 at 22:30 Potassium Chloride/Dextrose/ Sod Cl 1,000 ml @ 100 mls/hr Q10H IV Last administered on 07/31/17at 03:44; Start 07/27/17 at 22:30; Stop 07/31/17 at 17:50; Status DC Info (Non-Icu Electrolyte Protocol) 1 ea CONT PRN PRN MC SEE COMMENTS; Start at 22:30 Heparin Sodium (Porcine) (Heparin Sq) 5,000 unit Q8HRS SQ Last administered on 08/01/17at 06:29; Start 07/28/17 at 06:00 Heparin Sodium (Porcine) (Heparin Sq) 5,000 unit Q12H SQ ; Start 07/27/17 at 22: 30; Status UNV Ceftriaxone Sodium 1 gm/ Sodium Chloride 50 ml @ 100 mls/hr Q24H IV Last administered on 07/27/17at 23:44; Start 07/27/17 at 22:30; Stop 07/28/17 at 11:09 ; Status DC Acetaminophen (Tylenol) 650 mg PRN Q6HRS PRN PO PAIN / TEMP Last administered on 07/30/17 21:42; Start 07/27/17 at 22:30 Carbamide Peroxide (Debrox) 5 drop QHS Last administered on 07/30/17 21:42 ; Start 07/28/17 at 21:00; Stop 07/31/17 at 17:28; Status DC Docusate Sodium (Colace) 100 mg DAILY PO Last administered on 08/01/17 09:49; Start 07/28/17 at 09:00 Acetaminophen/ Hydrocodone Bitart (Lortab 5/325) 1 tab PRN Q8HRS PRN PO PAIN Last administered on 07/29/17 20:12; Start 07/27/17 at 22:30 Lisinopril (Prinivil) 20 mg DAILY PO Last administered on 08/01/17 09:50; Start 07/28/17 at 09:00 Magnesium Citrate (Citroma) 296 ml PRN 1X PRN PO CONSTIPATION; Start 07/27/17 at 22:30 Magnesium Hydroxide (Milk Of Magnesia) 2,400 mg PRN QHS PRN PO CONSTIPATION; Start 07/27/17 at 22:30 Multi-Ingredient Ointment (Analgesic [place]) 1 renetta PRN QID PRN TP MUSCLE PAIN; Start 07/27/17 at 22:30 Metoprolol Tartrate (Lopressor) 12.5 mg BID PO Last administered on 08/01/17 09 :50; Start 07/28/17 at 09:00 Mineral Oil (Fleet Mineral Oil) 133 ml PRN DAILY PRN RC CONSTIPATION; Start at 22:30 Olanzapine (ZyPREXA) 2.5 mg PRN Q2HR PRN PO ANXIETY / AGITATION Last administered on 08/01/17 01:47; Start 07/27/17 at 22:30 Sertraline HCl (Zoloft) 50 mg DAILY PO Last administered on 08/01/17 09:50; Start 07/28/17 at 09:00 Trazodone HCl (Desyrel) 50 mg PRN QHS PRN PO INSOMNIA, MAY REPEAT X1 Last administered on 07/30/17 21:42; Start 07/27/17 at 22:30 Vitamin D (Vitamin D3) 50,000 unit WEEKLY PO ; Start 08/03/17 at 09:00 Al Hydroxide/Mg Hydroxide (Mylanta Plus Xs) 15 ml PRN AFTMEALHC PRN PO DYSPEPSIA; Start 07/27/17 at 22:30 Lactobacillus Rhamnosus (Culturelle) 1 cap BID PO Last administered on at 09:49; Start 07/28/17 at 12:00 Ceftriaxone Sodium (Rocephin) 1 gm Q24H IVP Last administered on 07/31/17at 21:14 ; Start 07/28/17 at 21:00 Methylprednisolone Sodium Succinate (SOLU-Medrol 40MG VIAL) 40 mg 1X ONCE IV Last administered on 07/30/17at 08:04; Start 07/30/17 at 08:45; Stop 07/30/17 at 08:46; Status DC Methylprednisolone Sodium Succinate (SOLU-Medrol 40MG VIAL) 40 mg 1X ONCE IV Last administered on 07/31/17at 07:51; Start 07/31/17 at 08:00; Stop 07/31/17 at 08: 01; Status DC Carbamide Peroxide (Debrox) 5 drop BID Last administered on 08/01/17at 09:48; Start 07/31/17 at 21:00 Prednisone (Prednisone) 40 mg DAILY PO Last administered on 08/01/17at 09:50; Start 08/01/17 at 09:00 Active Scripts Active Reported Trazodone Hcl 50 Mg Tablet 50 Mg PO PRN QHS PRN Milk Of Magnesia (Magnesium Hydroxide) 400 Mg/5 Ml Oral.susp 2,400 Mg PO PRN QHS PRN Lisinopril 20 Mg Tablet 20 Mg PO DAILY Carbamide Peroxide 15 Ml Drops 5 Drop LEFT EAR QHS Metoprolol Tartrate 25 Mg Tablet 12.5 Mg PO BID Zyprexa (Olanzapine) 2.5 Mg Tablet 2.5 Mg PO PRN Q2HR PRN MDD 15mg Mineral Oil Enema (Mineral Oil) 133 Ml Enema 133 Ml RC PRN DAILY PRN Analgesic [place] (Methyl Salicylate/Menthol) 28 Gm Oint...g. 1 [place] TP PRN QID PRN Magnesium Citrate 296 Ml Solution 296 Ml PO PRN 1X PRN Advanced Antacid Liquid (Mag Hydrox/Al Hydrox/Simeth) 355 Ml Oral.susp 15 Ml PO PRN AFTMEALHC PRN Hydrocodone-Apap 5-325 (Hydrocodone Bit/Acetaminophen) 1 Each Tablet 1 Tab PO PRN Q8HRS PRN Colace (Docusate Sodium) 100 Mg Capsule 100 Mg PO DAILY Vitamin D3 (Cholecalciferol (Vitamin D3)) 5,000 Unit Tablet 50,000 Unit PO WEEKLY Tylenol (Acetaminophen) 325 Mg Tablet 650 Mg PO PRN Q6HRS PRN Zoloft (Sertraline Hcl) 50 Mg Tablet 50 Mg PO DAILY I have reviewed the current psychotropics carefully including drug interactions. Risk benefit ratio favors no change other than as noted in my dictated progress note. 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
--- NOTE | 2017-08-01 10:35 | PN ---
DATE: 07/30/2017 PSYCHIATRIC PROGRESS NOTE This late entry 07/30/2017 covers elements not covered in my initial note 07/30/2017. SUBJECTIVE: Per nursing report, the patient has not been agitated, aggressive, but he is still very confused, restless. REVIEW OF SYSTEMS: No CV, , pulmonary, eye system symptoms on review. Reliability poor. MENTAL STATUS EXAM: Oriented to himself. Insight, judgment, recent and remote memory, attention, concentration, fund of knowledge poor, consistent with his diagnosis. LABORATORY DATA: Reviewed. IMPRESSION: Major neurocognitive disorder, Alzheimer, vascular with depression, delusion. PLAN: No change from a psychiatric standpoint, avoid any further psychotropics given the family is concerned about over sedation. MAN Robinson GUY MD DR: RAJAN/nathan JOB#: [id number] / [id number]
[2017-08-01 16:26] VITALS: BP 138/68
--- NOTE | 2017-08-01 18:35 | PDOC ---
Exam Note: Lars Note: Please also refer to the separate dictated note~for this date of service dictated separately.~Patient seen individually. Discussed the patient with Nursing staff reviewed the chart.~Reviewed interim history and current functioning. Reviewed vital signs,~Labs/ Radiology~and current medications noted below. Continue current treatment with the changes noted in the dictated addendum note Assessment: Vital Signs: Vital Signs Date Time Temp Pulse Resp B/P (MAP) Pulse Ox O2 Delivery O2 Flow Rate FiO2 08/01/17 16:26 98.4 72 20 138/68 (91) 94 Room Air 07/31/17 19:00 3.0 I&O Intake and Output 08/01/17 07:00 Intake Total 960 ml Output Total 400 ml Balance 560 ml Intake Oral 960 ml Output Urine Total 400 ml # Voids 6 Current Medications: Meds: Current Medications Sodium Chloride (Normal Saline Flush) 3 ml PRN DAILY PRN IV AFTER MEDS AND BLOOD DRAWS; Start 07/27/17 at 22:30 Potassium Chloride/Dextrose/ Sod Cl 1,000 ml @ 100 mls/hr Q10H IV Last administered on 07/31/17at 03:44; Start 07/27/17 at 22:30; Stop 07/31/17 at 17:50; Status DC Info (Non-Icu Electrolyte Protocol) 1 ea CONT PRN PRN MC SEE COMMENTS; Start at 22:30 Heparin Sodium (Porcine) (Heparin Sq) 5,000 unit Q8HRS SQ Last administered on 08/01/17at 14:41; Start 07/28/17 at 06:00 Heparin Sodium (Porcine) (Heparin Sq) 5,000 unit Q12H SQ ; Start 07/27/17 at 22: 30; Status UNV Ceftriaxone Sodium 1 gm/ Sodium Chloride 50 ml @ 100 mls/hr Q24H IV Last administered on 07/27/17at 23:44; Start 07/27/17 at 22:30; Stop 07/28/17 at 11:09 ; Status DC Acetaminophen (Tylenol) 650 mg PRN Q6HRS PRN PO PAIN / TEMP Last administered on 07/30/17at 21:42; Start 07/27/17 at 22:30 Carbamide Peroxide (Debrox) 5 drop QHS Last administered on 07/30/17at 21:42 ; Start 07/28/17 at 21:00; Stop 07/31/17 at 17:28; Status DC Docusate Sodium (Colace) 100 mg DAILY PO Last administered on 08/01/17 09:49; Start 07/28/17 at 09:00 Acetaminophen/ Hydrocodone Bitart (Lortab 5/325) 1 tab PRN Q8HRS PRN PO PAIN Last administered on 07/29/17 20:12; Start 07/27/17 at 22:30 Lisinopril (Prinivil) 20 mg DAILY PO Last administered on 08/01/17 09:50; Start 07/28/17 at 09:00 Magnesium Citrate (Citroma) 296 ml PRN 1X PRN PO CONSTIPATION; Start 07/27/17 at 22:30 Magnesium Hydroxide (Milk Of Magnesia) 2,400 mg PRN QHS PRN PO CONSTIPATION; Start 07/27/17 at 22:30 Multi-Ingredient Ointment (Analgesic [place]) 1 renetta PRN QID PRN TP MUSCLE PAIN; Start 07/27/17 at 22:30 Metoprolol Tartrate (Lopressor) 12.5 mg BID PO Last administered on 08/01/17 09 :50; Start 07/28/17 at 09:00 Mineral Oil (Fleet Mineral Oil) 133 ml PRN DAILY PRN RC CONSTIPATION; Start at 22:30 Olanzapine (ZyPREXA) 2.5 mg PRN Q2HR PRN PO ANXIETY / AGITATION Last administered on 08/01/17 01:47; Start 07/27/17 at 22:30 Sertraline HCl (Zoloft) 50 mg DAILY PO Last administered on 08/01/17 09:50; Start 07/28/17 at 09:00 Trazodone HCl (Desyrel) 50 mg PRN QHS PRN PO INSOMNIA, MAY REPEAT X1 Last administered on 07/30/17 21:42; Start 07/27/17 at 22:30 Vitamin D (Vitamin D3) 50,000 unit WEEKLY PO ; Start 08/03/17 at 09:00 Al Hydroxide/Mg Hydroxide (Mylanta Plus Xs) 15 ml PRN AFTMEALHC PRN PO DYSPEPSIA; Start 07/27/17 at 22:30 Lactobacillus Rhamnosus (Culturelle) 1 cap BID PO Last administered on 3/2/ 18at 09:49; Start 07/28/17 at 12:00 Ceftriaxone Sodium (Rocephin) 1 gm Q24H IVP Last administered on 07/31/17at 21:14 ; Start 07/28/17 at 21:00 Methylprednisolone Sodium Succinate (SOLU-Medrol 40MG VIAL) 40 mg 1X ONCE IV Last administered on 07/30/17at 08:04; Start 07/30/17 at 08:45; Stop 07/30/17 at 08:46; Status DC Methylprednisolone Sodium Succinate (SOLU-Medrol 40MG VIAL) 40 mg 1X ONCE IV Last administered on 07/31/17at 07:51; Start 07/31/17 at 08:00; Stop 07/31/17 at 08: 01; Status DC Carbamide Peroxide (Debrox) 5 drop BID Last administered on 08/01/17at 09:48; Start 07/31/17 at 21:00 Prednisone (Prednisone) 40 mg DAILY PO Last administered on 08/01/17at 09:50; Start 08/01/17 at 09:00 Active Scripts Active Reported Trazodone Hcl 50 Mg Tablet 50 Mg PO PRN QHS PRN Milk Of Magnesia (Magnesium Hydroxide) 400 Mg/5 Ml Oral.susp 2,400 Mg PO PRN QHS PRN Lisinopril 20 Mg Tablet 20 Mg PO DAILY Carbamide Peroxide 15 Ml Drops 5 Drop LEFT EAR QHS Metoprolol Tartrate 25 Mg Tablet 12.5 Mg PO BID Zyprexa (Olanzapine) 2.5 Mg Tablet 2.5 Mg PO PRN Q2HR PRN MDD 15mg Mineral Oil Enema (Mineral Oil) 133 Ml Enema 133 Ml RC PRN DAILY PRN Analgesic [place] (Methyl Salicylate/Menthol) 28 Gm Oint...g. 1 [place] TP PRN QID PRN Magnesium Citrate 296 Ml Solution 296 Ml PO PRN 1X PRN Advanced Antacid Liquid (Mag Hydrox/Al Hydrox/Simeth) 355 Ml Oral.susp 15 Ml PO PRN AFTMEALHC PRN Hydrocodone-Apap 5-325 (Hydrocodone Bit/Acetaminophen) 1 Each Tablet 1 Tab PO PRN Q8HRS PRN Colace (Docusate Sodium) 100 Mg Capsule 100 Mg PO DAILY Vitamin D3 (Cholecalciferol (Vitamin D3)) 5,000 Unit Tablet 50,000 Unit PO WEEKLY Tylenol (Acetaminophen) 325 Mg Tablet 650 Mg PO PRN Q6HRS PRN Zoloft (Sertraline Hcl) 50 Mg Tablet 50 Mg PO DAILY I have reviewed the current psychotropics carefully including drug interactions. Risk benefit ratio favors no change other than as noted in my dictated progress note. 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
--- NOTE | 2017-08-01 18:47 | NUR ---
Discharge Note: RAFAEL BEAN T1 [facility] Discharge instructions and discharge home medications reviewed with SHAQ MCCOY RN, and a copy given. All questions have been answered and understanding verbalized. The following instructions and handouts were given: MEDICATIONS, FOLLOW UP INSTRUCTIONS, AND EDUCATIONAL HANDOUTS GIVEN. Discontinued lines and drains: NO PERIPHERAL IV IN PLACE. Patient discharged to [facility] via [facility].
[2017-08-01] MEDS ORDERED: LACT1CAP21 PO (19:28)
[2017-08-01] MEDS ORDERED: CHOL500050 PO (19:37)
--- NOTE | 2017-08-01 20:48 | PN ---
DATE: 07/31/2017 PSYCHIATRIC PROGRESS NOTE This is a late entry for 07/31/2017, covers elements not covered in my initial note of 07/31/2017. SUBJECTIVE: I met with the patient the evening of 07/31/2017. Overall per nursing report, the patient has been fairly cooperative, remains quite confused, more awake, but disorganized, consistent with his diagnosis. REVIEW OF SYSTEMS: No CV, , pulmonary, eye system symptoms on review. Reliability poor. He was in a Broda chair, as I met with him. MENTAL STATUS EXAM: Oriented to himself. Insight, judgment, recent and remote memory, attention, concentration, fund of knowledge poor, consistent with his diagnosis mentioned in my initial note. IMPRESSION: Major neurocognitive disorder, Alzheimer, vascular with depression, delusion, behavioral disturbance. PLAN: Continue current psychotropics mentioned in my initial note. MAN Robinson GUY MD DR: RAJAN/nathan JOB#: [id number] / [id number]
--- NOTE | 2017-08-02 16:19 | DS ---
DATE OF DISCHARGE: 08/01/2017 HOSPITAL COURSE: This is an 82-year-old male patient who was basically transferred from [facility] on account of altered mental status, felt to be due to excessive sedation, also found to have leukocytosis, who also complained of both ears and shoulders. He apparently was evaluated up stairs at the [facility] by Dr. Griffin. His White cell count was slightly high at 113,400, mild thrombocytopenia. His chemistry was largely unremarkable. His toxic screen showed valproic acid was 338. 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 Chest x-ray was unremarkable, showed the patient has bipolar cardiac device and lead tips near the graft region of the right atrium and right ventricle, borderline cardiomegaly. He was started on ceftriaxone with a questionable perhaps otitis media. The patient is nonverbal, does not give any useful information. He was extensively investigated and his basic white cell count came down steadily although I could not really find any obvious source of infection. His urine culture showed no growth in 48 hours. His blood cultures were negative. We did also more imaging studies including a CT scan of the head, which showed no intracranial pathology. 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 He has also bilateral impacted cerumen, so we started him on Debrox 5 drops to both ears twice a day for 5 days and it was felt that the patient would benefit from further inpatient psychiatric stabilization and will be discharged to continue on tapering course of steroids and also an oral antibiotic in the form of Vantin 200 mg twice a day. PHYSICAL EXAMINATION: GENERAL: When I saw him today, he looked well and was clearly in no apparent respiratory distress, he is definitely more awake, alert compared to when he arrived to our facility, although he obviously nonambulatory. When I examined him, he looked pale, but no jaundice, cyanosis, or thyromegaly, no jugular venous distension. No limb edema. VITAL SIGNS: His heart rate was 72, blood pressure was 138/68, temperature was 98.4, respiratory rate 20, and oxygen saturation was 94%. HEAD, EYES, EARS, NOSE AND THROAT: Normocephalic, atraumatic. NECK: Supple. HEART: Showed normal first and second heart sounds with no gallop, rub or murmur. CHEST: Clear to auscultation. No crepitation or rhonchi. ABDOMEN: Scaphoid, soft, nontender. No guarding or rigidity noted. No organomegaly. Bowel sounds are normal. NEUROLOGIC: He is demented without any obvious lateralizing sign. All his cranial nerves are intact. He moves his upper extremities to much good extent than lower extremities. He is mostly bed bound and chair bound. He apparently is able to walk with a walker with 1 person assist. LABORATORY DATA: His lab work today showed that his serum sodium was 138, potassium 4.3, chloride 103, bicarbonate 29, anion gap of 6, BUN 20, creatinine 1, estimated GFR was 71 mL per minute. His glucose was 169 and calcium was 8.7, magnesium 2. Total bilirubin, AST, ALT, alkaline phosphatase were normal. Total protein was 6.3, albumin 2.4. White cell count was down to 9700, hemoglobin 10.9, hematocrit 30.8, MCV 91, and platelet count of 159,000. As I stated his sedimentation rate was high at 75 mm per hour and C-reactive protein was 144 mg/dL. DISCHARGE MEDICATIONS: [facility] to continue on Tylenol 650 mg every 6 hours, Debrox 5% otic solution 5 drops to both ears twice a day for 5 days, ____ , cholecalciferol for vitamin D 50,000 units weekly, Colace 100 mg once a day, hydrocodone/APAP 5/325 one tablet every 6 hours, lactobacillus rhamnosus twice a day, lisinopril 20 mg once a day, Mylanta 15 mL as needed. He is on magnesium citrate 1 bottle once a day as needed for constipation, milk of magnesia 30 mL p.o. daily p.r.n. for constipation, metoprolol 12.5 mg once a day, Fleet mineral oil as needed, olanzapine for Zyprexa 2.5 mg every 2 hours as needed and sertraline 50 mg p.o. daily. He will be on a tapering course of steroids as well as Vantin 200 mg twice a day for 5 more days. I will ask Dr. Muller to see if he needs to continue on trazodone, olanzapine, and sertraline. We will follow his lab work, particularly his sedimentation and C-reactive protein. We will also attempt to switch him to oral hypoglycemic agent in the form of Glucophage or metformin 500 mg twice a day and Amaryl 1 mg twice a day and he eventually will be admitted to a Memory Unit, where they cannot give the insulin. FINAL DISCHARGE DIAGNOSES: Altered mental status, resolved; polymyalgia rheumatica, responding to steroids; type 2 diabetes. Other medical problems include sick sinus syndrome, status post pacemaker; hypertension, coronary artery disease status post stent deployment and left eye cataract. HOLLIS ROYAL MD DR: RYAN/nathan JOB#: [id number] / [id number]
[2017-08-03] MEDS ORDERED: CHOLECALCIFEROL (VITAMIN D3) 50,000 UNIT CAPSULE PO SCH (09:00)
--- NOTE | 2017-08-03 10:22 | PN ---
DATE: 08/01/2017 This is a late entry for 08/01/2017 and covers elements not covered in my initial note of 08/01/2017. SUBJECTIVE: I met with the patient evening of 08/01/2017 on . Had previously discussed with the nursing staff, STERLING Zimmer on 3 different occasions regarding request from Dr. Loja, her attending on that he was medically stable, still confused, intermittently agitated, psychotic, needing to return back for psychiatric stabilization. Mesha has talked to the family and the patient's several times. They are not wanting the patient on any psychotropics, do want him transferred [facility] for observation and evaluation before, perhaps transfer to the [facility] to make sure there is no overt behaviors that were disruptive and psychotic symptoms that need to be addressed before going to a nursing facility. We will go ahead and do this. REVIEW OF SYSTEMS: No CV, , pulmonary, eye system symptoms on review. Gait unsteady. MENTAL STATUS EXAM: Oriented to himself. Insight, judgment, recent and remote memory, attention, concentration, fund of knowledge poor, consistent with his diagnosis. IMPRESSION: Major neurocognitive disorder, Alzheimer, vascular with delusion, depression, behavioral disturbance. Rest unchanged. PLAN: Continue psychotropics as mentioned in my initial note. AMPARO GUY MD DR: RAJAN/nathan JOB#: [id number] / [id number]
== END 2017-08-01 18:58 | DRG 871 ==
LOC: 1 SOUTH 22:13
PROVIDERS: ADMIT Family Medicine; ATTEND Family Medicine
DX: A41.9 Sepsis, unspecified organism (principal); G92 Toxic encephalopathy; D69.6 Thrombocytopenia, unspecified; E11.9 Type 2 diabetes mellitus without complications; F01.51 Vascular dementia, unspecified severity, with behavioral disturbance; G30.9 Alzheimer's disease, unspecified; D72.829 Elevated white blood cell count, unspecified; F02.81 Dementia in other diseases classified elsewhere, unspecified severity, with behavioral disturbance; F22 Delusional disorders; M35.3 Polymyalgia rheumatica; F32.9 Major depressive disorder, single episode, unspecified; M19.011 Primary osteoarthritis, right shoulder; F41.9 Anxiety disorder, unspecified; F63.9 Impulse disorder, unspecified; H61.23 Impacted cerumen, bilateral; R79.82 Elevated C-reactive protein (CRP); R54 Age-related physical debility; M85.621 Other cyst of bone, right upper arm; K59.00 Constipation, unspecified; H66.93 Otitis media, unspecified, bilateral; I10 Essential (primary) hypertension; I25.10 Atherosclerotic heart disease of native coronary artery without angina pectoris; Z86.73 Personal history of transient ischemic attack (TIA), and cerebral infarction without residual deficits; Z95.1 Presence of aortocoronary bypass graft; Z95.0 Presence of cardiac pacemaker; Z95.5 Presence of coronary angioplasty implant and graft; Z74.01 Bed confinement status; Z88.8 Allergy status to other drugs, medicaments and biological substances
CPT/HCPCS: 36415; 70450; 74177; 80053; 81001; 83735; 85025; 85027; 85651; 86140; 87040; 87086; J0696; J2920; J7512; 92610; 97110; 97116; 97530

== ENCOUNTER 2017-08-01 18:51 | Inpatient (IN) | payer MEDICARE, OTHER ==
[~2017-08-01] VITALS: Ht 175.3 cm; Wt 70.8 kg
[2017-08-01] MEDS ORDERED: LACT1CAP21 PO (19:28)
[2017-08-01] MEDS ORDERED: OLANZapine 2.5 MG TABLET PO PRN (19:30)
[2017-08-01] MEDS ORDERED: CHOL500050 PO (19:37)
[2017-08-01] MEDS ORDERED: MAGNESIUM CITRATE 296 ML SOLUTION. PO PRN (19:45)
[2017-08-01] MEDS ORDERED: MAG HYDROX/AL HYDROX/SIMETH 30 ML ORAL.SUSP PO PRN (19:45)
[2017-08-01] MEDS ORDERED: MINERAL OIL 133 ML ENEMA. RC PRN (19:45)
[2017-08-01] MEDS ORDERED: ACETAMINOPHEN 325 MG TABLET PO PRN (19:45)
[2017-08-01] MEDS ORDERED: HYDROcodone/APAP 5/325MG 1 TAB TABLET PO PRN (19:45)
[2017-08-01] MEDS ORDERED: MAGNESIUM HYDROXIDE 2,400 MG/30 ML ORAL.SUSP. PO PRN (19:45)
[2017-08-01] MEDS ORDERED: METHYL SALICYLATE/MENTHOL TOPICAL OINTMENT 29GM TUBE. TP PRN (19:45)
[2017-08-01] MEDS: METOPROLOL TART IMMED RELEASE 25 MG TABLET PO SCH (20:28)
[2017-08-01] MEDS: LACTOBACILLUS RHAMNOSUS GG 1 CAPSULE. PO SCH (20:28)
[2017-08-01] MEDS: CEFPODOXIME PROXETIL 100 MG TABLET PO SCH (20:28)
[2017-08-01] MEDS: GLIMEPIRIDE 2 MG TABLET PO SCH (20:29)
[2017-08-01] MEDS: traZODone 50 MG TABLET. PO PRN (20:29)
[2017-08-01] MEDS: CARBAMIDE PEROXIDE 6.5% OTIC SOLUTION 15ML BOTTLE. AS SCH (21:00)
--- NOTE | 2017-08-01 22:19 | PDOC ---
Exam Note: Lars Note: Please also refer to the separate dictated note~for this date of service dictated separately.~Patient seen individually. Discussed the patient with Nursing staff reviewed the chart.~Reviewed interim history and current functioning. Reviewed vital signs,~Labs/ Radiology~and current medications noted below. Continue current treatment with the changes noted in the dictated addendum note Assessment: Vital Signs: Vital Signs Date Time Temp Pulse Resp B/P (MAP) Pulse Ox O2 Delivery O2 Flow Rate FiO2 08/01/17 20:28 72 138/68 Current Medications: Meds: Current Medications Olanzapine (ZyPREXA) 2.5 mg PRN Q2HR PRN PO ANXIETY / AGITATION; Start 08/01/17 at 19:30 Sertraline HCl (Zoloft) 50 mg DAILY PO ; Start 08/02/17 at 09:00 Trazodone HCl (Desyrel) 50 mg PRN QHS PRN PO INSOMNIA, MAY REPEAT X1 Last administered on 08/01/17at 20:29; Start 08/01/17 at 19:30 Acetaminophen (Tylenol) 650 mg PRN Q6HRS PRN PO PAIN / TEMP; Start 08/01/17 at 19:45 Carbamide Peroxide (Debrox) 5 drop BID ; Start 08/01/17 at 21:00 Docusate Sodium (Colace) 100 mg DAILY PO ; Start 08/02/17 at 09:00 Acetaminophen/ Hydrocodone Bitart (Lortab 5/325) 1 tab PRN Q8HRS PRN PO PAIN; Start 08/01/17 at 19:45 Lisinopril (Prinivil) 20 mg DAILY PO ; Start 08/02/17 at 09:00 Magnesium Citrate (Citroma) 296 ml PRN 1X PRN PO CONSTIPATION; Start 08/01/17 at 19:45 Magnesium Hydroxide (Milk Of Magnesia) 2,400 mg PRN QHS PRN PO CONSTIPATION; Start 08/01/17 at 19:45 Multi-Ingredient Ointment (Analgesic [place]) 1 renetta PRN QID PRN TP MUSCLE PAIN; Start 08/01/17 at 19:45 Metoprolol Tartrate (Lopressor) 12.5 mg BID PO Last administered on 08/01/17at 20 :28; Start 08/01/17 at 21:00 Mineral Oil (Fleet Mineral Oil) 133 ml PRN DAILY PRN RC CONSTIPATION; Start 08/01/17 at 19:45 Lactobacillus Rhamnosus (Culturelle) 1 cap BID PO Last administered on at 20:28; Start 08/01/17 at 21:00 Al Hydroxide/Mg Hydroxide (Mylanta Plus Xs) 15 ml PRN AFTMEALHC PRN PO DYSPEPSIA; Start 08/01/17 at 19:45 Vitamin D (Vitamin D3) 50,000 unit WEEKLY PO ; Start 08/08/17 at 09:00 Enoxaparin Sodium (Lovenox) 40 mg Q24H SQ ; Start 08/02/17 at 09:00 Prednisone (Prednisone) 40 mg DAILY PO ; Start 08/02/17 at 09:00; Stop 08/03/17 at 13:00 Prednisone (Prednisone) 30 mg DAILY PO ; Start 08/04/17 at 09:00; Stop 08/06/17 at 13:00 Prednisone (Prednisone) 20 mg DAILY PO ; Start 08/07/17 at 09:00; Stop 08/09/17 at 13:00 Prednisone (Prednisone) 15 mg DAILY PO ; Start 08/10/17 at 09:00 Metformin HCl (Glucophage) 500 mg BIDWMEALS PO ; Start 08/02/17 at 08:00 Glimepiride (Amaryl) 1 mg BID PO Last administered on 08/01/17at 20:29; Start 08/01/17 at 21:00 Cefpodoxime Proxetil (Vantin) 200 mg BID PO Last administered on 08/01/17at 20:28 ; Start 08/01/17 at 21:00; Stop 08/06/17 at 09:01 Active Scripts Active Reported Vitamin D3 (Cholecalciferol (Vitamin D3)) 50,000 Unit Capsule 50,000 Unit PO WEEKLY Culturelle (Lactobacillus Rhamnosus Gg) 1 Each Capsule 1 Cap PO BID Trazodone Hcl 50 Mg Tablet 50 Mg PO PRN QHS PRN Milk Of Magnesia (Magnesium Hydroxide) 400 Mg/5 Ml Oral.susp 2,400 Mg PO PRN QHS PRN Lisinopril 20 Mg Tablet 20 Mg PO DAILY Carbamide Peroxide 15 Ml Drops 5 Drop LEFT EAR BID Metoprolol Tartrate 25 Mg Tablet 12.5 Mg PO BID Zyprexa (Olanzapine) 2.5 Mg Tablet 2.5 Mg PO PRN Q2HR PRN MDD 15mg Mineral Oil Enema (Mineral Oil) 133 Ml Enema 133 Ml RC PRN DAILY PRN Analgesic [place] (Methyl Salicylate/Menthol) 28 Gm Oint...g. 1 [place] TP PRN QID PRN Magnesium Citrate 296 Ml Solution 296 Ml PO PRN 1X PRN Advanced Antacid Liquid (Mag Hydrox/Al Hydrox/Simeth) 355 Ml Oral.susp 15 Ml PO PRN AFTMEALHC PRN Hydrocodone-Apap 5-325 (Hydrocodone Bit/Acetaminophen) 1 Each Tablet 1 Tab PO PRN Q8HRS PRN Colace (Docusate Sodium) 100 Mg Capsule 100 Mg PO DAILY Tylenol (Acetaminophen) 325 Mg Tablet 650 Mg PO PRN Q6HRS PRN Zoloft (Sertraline Hcl) 50 Mg Tablet 50 Mg PO DAILY I have reviewed the current psychotropics carefully including drug interactions. Risk benefit ratio favors no change other than as noted in my dictated progress note. Diagnosis: Problems: (1) Leukocytosis (2) Altered mental status (3) Polymyalgia rheumatica (4) Delusion (5) Dementia with behavioral problem (6) Vascular dementia with behavior disturbance (7) Behavior problem (8) Anxiety disorder (9) Dementia in Alzheimer's disease with delusions (10) Dementia, vascular, with delusions (11) Dementia, vascular, with depression (12) Dementia in Alzheimer's disease with depression (13) Impulse control disorder AMPARO GUY MD Aug 01, 2017 22:19
[2017-08-01 23:17] VITALS: BP 132/72
[2017-08-02 06:30] VITALS: BP 107/83
[2017-08-02] MEDS: CEFPODOXIME PROXETIL 100 MG TABLET PO SCH ×2 (08:56→19:45)
[2017-08-02] MEDS: GLIMEPIRIDE 2 MG TABLET PO SCH ×2 (08:57→17:33)
[2017-08-02] MEDS: METOPROLOL TART IMMED RELEASE 25 MG TABLET PO SCH ×2 (08:57→19:45)
[2017-08-02] MEDS: LACTOBACILLUS RHAMNOSUS GG 1 CAPSULE. PO SCH ×2 (08:57→19:44)
[2017-08-02] MEDS: DOCUSATE SODIUM 100 MG CAPSULE PO SCH (08:59)
[2017-08-02] MEDS: metFORMIN 500 MG TABLET PO SCH ×2 (08:59→17:34)
[2017-08-02] MEDS: LISINOPRIL 20 MG TABLET PO SCH (09:00)
[2017-08-02] MEDS: CARBAMIDE PEROXIDE 6.5% OTIC SOLUTION 15ML BOTTLE. AS SCH ×2 (09:00→19:46)
[2017-08-02] MEDS: SERTRALINE 50 MG TABLET. PO SCH (09:01)
[2017-08-02] MEDS: ENOXAPARIN 40 MG/0.4 ML DISP.SYRIN. SQ SCH (09:01)
[2017-08-02] MEDS: predniSONE 20 MG TABLET PO SCH (09:01)
[2017-08-02 16:37] VITALS: BP 151/84
[2017-08-02] MEDS: traZODone 50 MG TABLET. PO PRN (19:45)
--- NOTE | 2017-08-02 21:05 | PDOC ---
Exam Note: Lars Note: Please also refer to the separate dictated note~for this date of service dictated separately.~Patient seen individually. Discussed the patient with Nursing staff reviewed the chart.~Reviewed interim history and current functioning. Reviewed vital signs,~Labs/ Radiology~and current medications noted below. Continue current treatment with the changes noted in the dictated addendum note Assessment: Vital Signs: Vital Signs Date Time Temp Pulse Resp B/P (MAP) Pulse Ox O2 Delivery O2 Flow Rate FiO2 08/02/17 19:45 79 151/84 08/02/17 16:37 98.1 18 97 Room Air Current Medications: Meds: Current Medications Olanzapine (ZyPREXA) 2.5 mg PRN Q2HR PRN PO ANXIETY / AGITATION; Start 08/01/17 at 19:30; Stop 08/02/17 at 18:30; Status DC Sertraline HCl (Zoloft) 50 mg DAILY PO Last administered on 08/02/17at 09:01; Start 08/02/17 at 09:00 Trazodone HCl (Desyrel) 50 mg PRN QHS PRN PO INSOMNIA, MAY REPEAT X1 Last administered on 08/02/17at 19:45; Start 08/01/17 at 19:30 Acetaminophen (Tylenol) 650 mg PRN Q6HRS PRN PO PAIN / TEMP; Start 08/01/17 at 19:45 Carbamide Peroxide (Debrox) 5 drop BID ; Start 08/01/17 at 21:00 Docusate Sodium (Colace) 100 mg DAILY PO Last administered on 08/02/17at 08:59; Start 08/02/17 at 09:00 Acetaminophen/ Hydrocodone Bitart (Lortab 5/325) 1 tab PRN Q8HRS PRN PO PAIN; Start 08/01/17 at 19:45 Lisinopril (Prinivil) 20 mg DAILY PO Last administered on 08/02/17at 09:00; Start 08/02/17 at 09:00 Magnesium Citrate (Citroma) 296 ml PRN 1X PRN PO CONSTIPATION; Start 08/01/17 at 19:45 Magnesium Hydroxide (Milk Of Magnesia) 2,400 mg PRN QHS PRN PO CONSTIPATION; Start 08/01/17 at 19:45 Multi-Ingredient Ointment (Analgesic Kimmell) 1 renetta PRN QID PRN TP MUSCLE PAIN; Start 08/01/17 at 19:45 Metoprolol Tartrate (Lopressor) 12.5 mg BID PO Last administered on 08/02/17 19 :45; Start 08/01/17 at 21:00 Mineral Oil (Fleet Mineral Oil) 133 ml PRN DAILY PRN RC CONSTIPATION; Start 08/01/17 at 19:45 Lactobacillus Rhamnosus (Culturelle) 1 cap BID PO Last administered on at 19:44; Start 08/01/17 at 21:00 Al Hydroxide/Mg Hydroxide (Mylanta Plus Xs) 15 ml PRN AFTMEALHC PRN PO DYSPEPSIA; Start 08/01/17 at 19:45 Vitamin D (Vitamin D3) 50,000 unit WEEKLY PO ; Start 08/08/17 at 09:00 Enoxaparin Sodium (Lovenox) 40 mg Q24H SQ Last administered on 08/02/17 09:01; Start 08/02/17 at 09:00 Prednisone (Prednisone) 40 mg DAILY PO Last administered on 08/02/17 09:01; Start 08/02/17 at 09:00; Stop 08/03/17 at 13:00 Prednisone (Prednisone) 30 mg DAILY PO ; Start 08/04/17 at 09:00; Stop 08/06/17 at 13:00 Prednisone (Prednisone) 20 mg DAILY PO ; Start 08/07/17 at 09:00; Stop 08/09/17 at 13:00 Prednisone (Prednisone) 15 mg DAILY PO ; Start 08/10/17 at 09:00 Metformin HCl (Glucophage) 500 mg BIDWMEALS PO Last administered on 08/02/17at 17 :34; Start 08/02/17 at 08:00 Glimepiride (Amaryl) 1 mg BID PO Last administered on 08/02/17 08:57; Start 08/01/17 at 21:00; Stop 08/02/17 at 11:50; Status DC Cefpodoxime Proxetil (Vantin) 200 mg BID PO Last administered on 08/02/17 19:45 ; Start 08/01/17 at 21:00; Stop 08/06/17 at 09:01 Glimepiride (Amaryl) 1 mg BIDWMEALS PO Last administered on 08/02/17 17:33; Start 08/02/17 at 17:00 Olanzapine (ZyPREXA ZYDIS) 2.5 mg PRN Q2HR PRN PO PSYCHOSIS Last administered on 08/02/17at 18:39; Start 08/02/17 at 18:30 Active Scripts Active Reported Vitamin D3 (Cholecalciferol (Vitamin D3)) 50,000 Unit Capsule 50,000 Unit PO WEEKLY Culturelle (Lactobacillus Rhamnosus Gg) 1 Each Capsule 1 Cap PO BID Trazodone Hcl 50 Mg Tablet 50 Mg PO PRN QHS PRN Milk Of Magnesia (Magnesium Hydroxide) 400 Mg/5 Ml Oral.susp 2,400 Mg PO PRN QHS PRN Lisinopril 20 Mg Tablet 20 Mg PO DAILY Carbamide Peroxide 15 Ml Drops 5 Drop LEFT EAR BID Metoprolol Tartrate 25 Mg Tablet 12.5 Mg PO BID Zyprexa (Olanzapine) 2.5 Mg Tablet 2.5 Mg PO PRN Q2HR PRN MDD 15mg Mineral Oil Enema (Mineral Oil) 133 Ml Enema 133 Ml RC PRN DAILY PRN Analgesic Kimmell (Methyl Salicylate/Menthol) 28 Gm Oint...g. 1 Renetta TP PRN QID PRN Magnesium Citrate 296 Ml Solution 296 Ml PO PRN 1X PRN Advanced Antacid Liquid (Mag Hydrox/Al Hydrox/Simeth) 355 Ml Oral.susp 15 Ml PO PRN AFTMEALHC PRN Hydrocodone-Apap 5-325 (Hydrocodone Bit/Acetaminophen) 1 Each Tablet 1 Tab PO PRN Q8HRS PRN Colace (Docusate Sodium) 100 Mg Capsule 100 Mg PO DAILY Tylenol (Acetaminophen) 325 Mg Tablet 650 Mg PO PRN Q6HRS PRN Zoloft (Sertraline Hcl) 50 Mg Tablet 50 Mg PO DAILY I have reviewed the current psychotropics carefully including drug interactions. Risk benefit ratio favors no change other than as noted in my dictated progress note. 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
--- NOTE | 2017-08-02 22:22 | CONS ---
DATE OF CONSULTATION: 08/02/2017 ADDENDUM The patient is an 82-year-old male patient who was transferred to [address] [place] [address] on account of altered mental status as apparently he was on Seroquel, Depakote, and was complaining of pain in his ears, and was given also hydrocodone and because of receiving excessive sedation, he was transferred downstairs. His Seroquel and Depakote was discontinued. He has also some leukocytosis. We extensively investigated him and we started him also empirically on IV Rocephin and with further evaluation, he was found to have elevated sed rate and C-reactive protein and it transpired that the patient was diagnosed with that before. In fact, they did even temporal artery biopsy which was negative and he was on steroids. Somewhere along the line, the steroid was discontinued. In any case, the patient was started on steroids. His Depakote and Seroquel was discontinued. He became more awake, alert, although obviously continued to be extremely confused and demented and it was felt that the patient would benefit from inpatient psychiatric stabilization and therefore he was readmitted to behavioral unit. Past medical history, surgical history is as dictated before. PLAN: My plan is to continue obviously with tapering course of steroids. We will monitor his lab work, particularly sed rate and C-reactive protein and he obviously will need to be on a maintenance dose of steroids and to follow his inflammatory markers on a regular basis. HOLLIS ROYAL MD DR: RYAN/nathan JOB#: [id number] / [id number]
[2017-08-03 06:22] VITALS: BP 155/65
[2017-08-03] MEDS: GLIMEPIRIDE 2 MG TABLET PO SCH ×2 (08:00→16:59)
[2017-08-03] MEDS: SERTRALINE 50 MG TABLET. PO SCH (08:05)
[2017-08-03] MEDS: metFORMIN 500 MG TABLET PO SCH ×2 (08:05→16:59)
[2017-08-03] MEDS: CEFPODOXIME PROXETIL 100 MG TABLET PO SCH ×2 (08:06→20:00)
[2017-08-03] MEDS: predniSONE 20 MG TABLET PO SCH (08:06)
[2017-08-03] MEDS: METOPROLOL TART IMMED RELEASE 25 MG TABLET PO SCH ×2 (08:06→20:00)
[2017-08-03] MEDS: LACTOBACILLUS RHAMNOSUS GG 1 CAPSULE. PO SCH ×2 (08:06→20:00)
[2017-08-03] MEDS: LISINOPRIL 20 MG TABLET PO SCH (08:07)
[2017-08-03] MEDS: DOCUSATE SODIUM 100 MG CAPSULE PO SCH (08:07)
[2017-08-03] MEDS: ENOXAPARIN 40 MG/0.4 ML DISP.SYRIN. SQ SCH (08:10)
[2017-08-03] MEDS: CARBAMIDE PEROXIDE 6.5% OTIC SOLUTION 15ML BOTTLE. AS SCH ×2 (09:00→20:01)
--- NOTE | 2017-08-03 10:04 | HP ---
ADMIT DATE: 08/02/2017 IDENTIFYING DATA: The patient is an 82-year-old male who is referred back to us from [address] [place] [address] Medical/Surgical floor by Dr. Loja after he was medically stabilized there, continued to be confused, intermittently psychotic, agitated to a point where he could not be managed in a retirement setting. He returns for further psychiatric stabilization. The family prefers to minimize and if possible, avoid any psychotropic medications if possible. CHIEF COMPLAINT: "No." The patient is more awake than when he left here to go to [address] [place] [address] a few days back. He is smiling, but oriented, perhaps just to himself. HISTORY OF PRESENT ILLNESS: The patient has a history of dementia, Alzheimer's vascular type. He has been at the retirement in the [facility], behaviors unmanageable, he was then referred to [facility], stabilized, became overly sedated and then transferred to [address] [place] [address] for medical stabilization and returns back for further stabilization before transition back to retirement. No history of bipolar disorder, suicidal or homicidal ideation. He has had some sleep and appetite disturbance. PAST PSYCHIATRIC HISTORY: As above. MEDICAL HISTORY: Hypertension, status post CVA, pacemaker in place, diabetes mellitus, colitis, coronary artery disease, stents placed in 2012. CODE STATUS: DNR. ALLERGIES: ARICEPT. Accu-Cheks: None. Diet: Pureed with honey thickened liquids. Takes his medications crushed. Ambulates in a Broda chair. CURRENT PSYCHOTROPICS: Zoloft 50 mg a day, trazodone 50 mg at bedtime p.r.n., Zyprexa p.r.n. FAMILY HISTORY: Noncontributory. SOCIAL HISTORY: No alcohol, drug abuse, physical, sexual or elder abuse history is noted. Not known to be a perpetrator. MENTAL STATUS EXAMINATION: Oriented to himself. Insight, judgment, recent and remote memory, attention, concentration, fund of knowledge poor, consistent with his diagnosis as mentioned in my initial note. IMPRESSION: Major neurocognitive disorder, Alzheimer, vascular with depression, delusion, behavioral disturbance; anxiety disorder, unspecified; impulse control disorder, unspecified. Rest as above. PLAN: Admit to geropsychiatry unit at [facility]. I will see the patient daily individually from a psychiatric standpoint, medical followup per Dr. Marquez/Dr. Loja. Continue current psychotropics. Adjust further as clinically indicated. MAN Robinson GUY MD DR: RAJAN/nathan JOB#: [id number] / [id number]
[2017-08-03 10:14] LABS: BASO % 0 % (0-3); EOS # 0.1 x10^3/uL (0.0-0.7); EOS % 0 % (0-3); HEMATOCRIT 32.9 % (39.0-53.0); HEMOGLOBIN 11.3 g/dL (13.0-17.5); LYMPH # 1.1 x10^3/uL (1.0-4.8); LYMPH % 8 % (24-48); MEAN CORPUSCULAR HEMOGLOBIN 32 pg (25-35); MEAN CORPUSCULAR HGB CONC 34 g/dL (31-37); MEAN CORPUSCULAR VOLUME 92 fL (79-100); MONO % 15 % (0-9); NEUT # 10.3 x10^3uL (1.8-7.7); NEUT % 76 % (31-73); PLATELET COUNT 218 x10^3/uL (140-400); RED BLOOD COUNT 3.58 x10^6/uL (4.30-5.70); RED CELL DISTRIBUTION WIDTH 15.8 % (11.5-14.5); WHITE BLOOD COUNT 13.5 x10^3/uL (4.0-11.0)
[2017-08-03 10:37] LABS: ALBUMIN 2.8 g/dL (3.4-5.0); ALBUMIN/GLOBULIN RATIO 0.8 (1.0-1.7); CALCIUM 8.8 mg/dL (8.5-10.1); CREATININE 1.2 mg/dL (0.7-1.3); POTASSIUM 4.1 mmol/L (3.5-5.1); TOTAL BILIRUBIN 0.4 mg/dL (0.2-1.0); TOTAL PROTEIN 6.2 g/dL (6.4-8.2)
[2017-08-03 11:03] LABS: % EOS 2 % (0-5); % LYMPHS 16 % (24-48); % METAS 1 % (0-0); % MONOS 7 % (0-10); % SEGS 73 % (35-66); PLATELET CLUMP PRESENT; PLT ESTIMATE ADEQUATE (ADEQUATE)
[2017-08-03 11:05] LABS: TOXIC GRANULATION SLIGHT
[2017-08-03 16:10] VITALS: BP_SYST 110; BP_SYST 123; BP_DIAS 64; BP_DIAS 70
[2017-08-03] MEDS: traZODone 50 MG TABLET. PO PRN (20:00)
--- NOTE | 2017-08-03 20:07 | PDOC ---
Exam Note: Lars Note: Please also refer to the separate dictated note~for this date of service dictated separately.~Patient seen individually. Discussed the patient with Nursing staff reviewed the chart.~Reviewed interim history and current functioning. Reviewed vital signs,~Labs/ Radiology~and current medications noted below. Continue current treatment with the changes noted in the dictated addendum note Assessment: Vital Signs: Vital Signs Date Time Temp Pulse Resp B/P (MAP) Pulse Ox O2 Delivery O2 Flow Rate FiO2 08/03/17 20:00 61 123/64 08/03/17 16:10 96.7 18 98 08/02/17 16:37 Room Air I&O Intake and Output 08/03/17 07:00 Intake Total 1340 ml Balance 1340 ml Intake Oral 1340 ml # Bowel Movements 3 Labs: Laboratory Tests Test 08/03/17 09:55 White Blood Count 13.5 x10^3/uL (4.0-11.0) H Red Blood Count 3.58 x10^6/uL (4.30-5.70) L Hemoglobin 11.3 g/dL (13.0-17.5) L Hematocrit 32.9 % (39.0-53.0) L Mean Corpuscular Volume 92 fL (79-100) Mean Corpuscular Hemoglobin 32 pg (25-35) Mean Corpuscular Hemoglobin Concent 34 g/dL (31-37) Red Cell Distribution Width 15.8 % (11.5-14.5) H Platelet Count 218 x10^3/uL (140-400) Neutrophils (%) (Auto) 76 % (31-73) H Lymphocytes (%) (Auto) 8 % (24-48) L Monocytes (%) (Auto) 15 % (0-9) H Eosinophils (%) (Auto) 0 % (0-3) Basophils (%) (Auto) 0 % (0-3) Neutrophils # (Auto) 10.3 x10^3uL (1.8-7.7) H Lymphocytes # (Auto) 1.1 x10^3/uL (1.0-4.8) Monocytes # (Auto) 2.0 x10^3/uL (0.0-1.1) H Eosinophils # (Auto) 0.1 x10^3/uL (0.0-0.7) Basophils # (Auto) 0.0 x10^3/uL (0.0-0.2) Segmented Neutrophils % 73 % (35-66) H Lymphocytes % 16 % (24-48) L Monocytes % 7 % (0-10) Eosinophils % 2 % (0-5) Metamyelocytes % 1 % (0-0) H Toxic Granulation Slight Platelet Estimate Adequate (ADEQUATE) Platelet Clumps, EDTA Present Erythrocyte Sedimentation Rate 25 (0-15) H Sodium Level 142 mmol/L (136-145) Potassium Level 4.1 mmol/L (3.5-5.1) Chloride Level 105 mmol/L (98-107) Carbon Dioxide Level 31 mmol/L (21-32) Anion Gap 6 (6-14) Blood Urea Nitrogen 38 mg/dL (8-26) H Creatinine 1.2 mg/dL (0.7-1.3) Estimated GFR (Cockcroft-Gault) 58.0 BUN/Creatinine Ratio 32 (6-20) H Glucose Level 86 mg/dL (70-99) Calcium Level 8.8 mg/dL (8.5-10.1) Total Bilirubin 0.4 mg/dL (0.2-1.0) Aspartate Amino Transferase (AST) 24 U/L (15-37) Alanine Aminotransferase (ALT) 60 U/L (16-63) Alkaline Phosphatase 94 U/L (46-116) C-Reactive Protein 20.0 mg/L (0-3.3) H Total Protein 6.2 g/dL (6.4-8.2) L Albumin 2.8 g/dL (3.4-5.0) L Albumin/Globulin Ratio 0.8 (1.0-1.7) L Current Medications: Meds: Current Medications Olanzapine (ZyPREXA) 2.5 mg PRN Q2HR PRN PO ANXIETY / AGITATION; Start 08/01/17 at 19:30; Stop 08/02/17 at 18:30; Status DC Sertraline HCl (Zoloft) 50 mg DAILY PO Last administered on 08/03/17at 08:05; Start 08/02/17 at 09:00 Trazodone HCl (Desyrel) 50 mg PRN QHS PRN PO INSOMNIA, MAY REPEAT X1 Last administered on 08/03/17at 20:00; Start 08/01/17 at 19:30 Acetaminophen (Tylenol) 650 mg PRN Q6HRS PRN PO PAIN / TEMP; Start 08/01/17 at 19:45 Carbamide Peroxide (Debrox) 5 drop BID Last administered on 08/03/17at 20:01; Start 08/01/17 at 21:00 Docusate Sodium (Colace) 100 mg DAILY PO Last administered on 08/03/17 08:07; Start 08/02/17 at 09:00 Acetaminophen/ Hydrocodone Bitart (Lortab 5/325) 1 tab PRN Q8HRS PRN PO PAIN; Start 08/01/17 at 19:45 Lisinopril (Prinivil) 20 mg DAILY PO Last administered on 08/03/17 08:07; Start 08/02/17 at 09:00 Magnesium Citrate (Citroma) 296 ml PRN 1X PRN PO CONSTIPATION; Start 08/01/17 at 19:45 Magnesium Hydroxide (Milk Of Magnesia) 2,400 mg PRN QHS PRN PO CONSTIPATION; Start 08/01/17 at 19:45 Multi-Ingredient Ointment (Analgesic Wyano) 1 renetta PRN QID PRN TP MUSCLE PAIN; Start 08/01/17 at 19:45 Metoprolol Tartrate (Lopressor) 12.5 mg BID PO Last administered on 08/03/17 20 :00; Start 08/01/17 at 21:00 Mineral Oil (Fleet Mineral Oil) 133 ml PRN DAILY PRN RC CONSTIPATION; Start 08/01/17 at 19:45 Lactobacillus Rhamnosus (Culturelle) 1 cap BID PO Last administered on at 20:00; Start 08/01/17 at 21:00 Al Hydroxide/Mg Hydroxide (Mylanta Plus Xs) 15 ml PRN AFTMEALHC PRN PO DYSPEPSIA; Start 08/01/17 at 19:45 Vitamin D (Vitamin D3) 50,000 unit WEEKLY PO ; Start 08/08/17 at 09:00 Enoxaparin Sodium (Lovenox) 40 mg Q24H SQ Last administered on 08/03/17at 08:10; Start 08/02/17 at 09:00 Prednisone (Prednisone) 40 mg DAILY PO Last administered on 08/03/17 08:06; Start 08/02/17 at 09:00; Stop 08/03/17 at 13:00; Status DC Prednisone (Prednisone) 30 mg DAILY PO ; Start 08/04/17 at 09:00; Stop 08/06/17 at 13:00 Prednisone (Prednisone) 20 mg DAILY PO ; Start 08/07/17 at 09:00; Stop 08/09/17 at 13:00 Prednisone (Prednisone) 15 mg DAILY PO ; Start 08/10/17 at 09:00 Metformin HCl (Glucophage) 500 mg BIDWMEALS PO Last administered on 08/03/17at 16 :59; Start 08/02/17 at 08:00 Glimepiride (Amaryl) 1 mg BID PO Last administered on 08/02/17at 08:57; Start 08/01/17 at 21:00; Stop 08/02/17 at 11:50; Status DC Cefpodoxime Proxetil (Vantin) 200 mg BID PO Last administered on 08/03/17at 20:00 ; Start 08/01/17 at 21:00; Stop 08/06/17 at 09:01 Glimepiride (Amaryl) 1 mg BIDWMEALS PO Last administered on 08/03/17at 16:59; Start 08/02/17 at 17:00 Olanzapine (ZyPREXA ZYDIS) 2.5 mg PRN Q2HR PRN PO PSYCHOSIS Last administered on 08/02/17at 18:39; Start 08/02/17 at 18:30 Active Scripts Active Reported Vitamin D3 (Cholecalciferol (Vitamin D3)) 50,000 Unit Capsule 50,000 Unit PO WEEKLY Culturelle (Lactobacillus Rhamnosus Gg) 1 Each Capsule 1 Cap PO BID Trazodone Hcl 50 Mg Tablet 50 Mg PO PRN QHS PRN Milk Of Magnesia (Magnesium Hydroxide) 400 Mg/5 Ml Oral.susp 2,400 Mg PO PRN QHS PRN Lisinopril 20 Mg Tablet 20 Mg PO DAILY Carbamide Peroxide 15 Ml Drops 5 Drop LEFT EAR BID Metoprolol Tartrate 25 Mg Tablet 12.5 Mg PO BID Zyprexa (Olanzapine) 2.5 Mg Tablet 2.5 Mg PO PRN Q2HR PRN MDD 15mg Mineral Oil Enema (Mineral Oil) 133 Ml Enema 133 Ml RC PRN DAILY PRN Analgesic Wyano (Methyl Salicylate/Menthol) 28 Gm Oint...g. 1 Renetta TP PRN QID PRN Magnesium Citrate 296 Ml Solution 296 Ml PO PRN 1X PRN Advanced Antacid Liquid (Mag Hydrox/Al Hydrox/Simeth) 355 Ml Oral.susp 15 Ml PO PRN AFTMEALHC PRN Hydrocodone-Apap 5-325 (Hydrocodone Bit/Acetaminophen) 1 Each Tablet 1 Tab PO PRN Q8HRS PRN Colace (Docusate Sodium) 100 Mg Capsule 100 Mg PO DAILY Tylenol (Acetaminophen) 325 Mg Tablet 650 Mg PO PRN Q6HRS PRN Zoloft (Sertraline Hcl) 50 Mg Tablet 50 Mg PO DAILY I have reviewed the current psychotropics carefully including drug interactions. Risk benefit ratio favors no change other than as noted in my dictated progress note. Diagnosis: Problems: (1) Altered mental status (2) Delusion (3) Dementia with behavioral problem (4) Vascular dementia with behavior disturbance (5) Behavior problem (6) Anxiety disorder (7) Dementia in Alzheimer's disease with delusions (8) Dementia, vascular, with delusions (9) Dementia, vascular, with depression (10) Dementia in Alzheimer's disease with depression (11) Impulse control disorder AMPARO GUY MD Aug 03, 2017 20:07
[2017-08-04 06:22] VITALS: BP 143/65
[2017-08-04] MEDS: CEFPODOXIME PROXETIL 100 MG TABLET PO SCH ×2 (08:28→19:32)
[2017-08-04] MEDS: LACTOBACILLUS RHAMNOSUS GG 1 CAPSULE. PO SCH ×2 (08:28→19:32)
[2017-08-04] MEDS: DOCUSATE SODIUM 100 MG CAPSULE PO SCH (08:28)
[2017-08-04] MEDS: metFORMIN 500 MG TABLET PO SCH ×2 (08:28→16:56)
[2017-08-04] MEDS: LISINOPRIL 20 MG TABLET PO SCH (08:29)
[2017-08-04] MEDS: METOPROLOL TART IMMED RELEASE 25 MG TABLET PO SCH ×2 (08:29→19:32)
[2017-08-04] MEDS: ENOXAPARIN 40 MG/0.4 ML DISP.SYRIN. SQ SCH (08:30)
[2017-08-04] MEDS: SERTRALINE 50 MG TABLET. PO SCH (08:31)
[2017-08-04] MEDS: CARBAMIDE PEROXIDE 6.5% OTIC SOLUTION 15ML BOTTLE. AS SCH ×2 (08:31→19:32)
[2017-08-04] MEDS: predniSONE 10 MG TABLET PO SCH (08:32)
[2017-08-04] MEDS: GLIMEPIRIDE 2 MG TABLET PO SCH ×2 (08:36→16:56)
[2017-08-04 16:22] VITALS: BP 125/77
[2017-08-04] MEDS: traZODone 50 MG TABLET. PO PRN (19:34)
--- NOTE | 2017-08-04 19:56 | PDOC ---
Exam Note: Lars Note: Please also refer to the separate dictated note~for this date of service dictated separately.~Patient seen individually. Discussed the patient with Nursing staff reviewed the chart.~Reviewed interim history and current functioning. Reviewed vital signs,~Labs/ Radiology~and current medications noted below. Continue current treatment with the changes noted in the dictated addendum note Assessment: Vital Signs: Vital Signs Date Time Temp Pulse Resp B/P (MAP) Pulse Ox O2 Delivery O2 Flow Rate FiO2 08/04/17 19:32 78 125/77 08/04/17 16:22 97.6 17 95 08/02/17 16:37 Room Air I&O Intake and Output 08/04/17 07:00 Intake Total 1200 ml Balance 1200 ml Intake Oral 1200 ml Current Medications: Meds: Current Medications Olanzapine (ZyPREXA) 2.5 mg PRN Q2HR PRN PO ANXIETY / AGITATION; Start 08/01/17 at 19:30; Stop 08/02/17 at 18:30; Status DC Sertraline HCl (Zoloft) 50 mg DAILY PO Last administered on 08/04/17at 08:31; Start 08/02/17 at 09:00 Trazodone HCl (Desyrel) 50 mg PRN QHS PRN PO INSOMNIA, MAY REPEAT X1 Last administered on 08/04/17at 19:34; Start 08/01/17 at 19:30 Acetaminophen (Tylenol) 650 mg PRN Q6HRS PRN PO PAIN / TEMP; Start 08/01/17 at 19:45 Carbamide Peroxide (Debrox) 5 drop BID Last administered on 08/04/17at 19:32; Start 08/01/17 at 21:00 Docusate Sodium (Colace) 100 mg DAILY PO Last administered on 08/04/17at 08:28; Start 08/02/17 at 09:00 Acetaminophen/ Hydrocodone Bitart (Lortab 5/325) 1 tab PRN Q8HRS PRN PO PAIN; Start 08/01/17 at 19:45 Lisinopril (Prinivil) 20 mg DAILY PO Last administered on 08/04/17at 08:29; Start 08/02/17 at 09:00 Magnesium Citrate (Citroma) 296 ml PRN 1X PRN PO CONSTIPATION; Start 08/01/17 at 19:45 Magnesium Hydroxide (Milk Of Magnesia) 2,400 mg PRN QHS PRN PO CONSTIPATION; Start 08/01/17 at 19:45 Multi-Ingredient Ointment (Analgesic [place]) 1 renetta PRN QID PRN TP MUSCLE PAIN; Start 08/01/17 at 19:45 Metoprolol Tartrate (Lopressor) 12.5 mg BID PO Last administered on 08/04/17 19 :32; Start 08/01/17 at 21:00 Mineral Oil (Fleet Mineral Oil) 133 ml PRN DAILY PRN RC CONSTIPATION; Start 08/01/17 at 19:45 Lactobacillus Rhamnosus (Culturelle) 1 cap BID PO Last administered on at 19:32; Start 08/01/17 at 21:00 Al Hydroxide/Mg Hydroxide (Mylanta Plus Xs) 15 ml PRN AFTMEALHC PRN PO DYSPEPSIA; Start 08/01/17 at 19:45 Vitamin D (Vitamin D3) 50,000 unit WEEKLY PO ; Start 08/08/17 at 09:00 Enoxaparin Sodium (Lovenox) 40 mg Q24H SQ Last administered on 08/04/17 08:30; Start 08/02/17 at 09:00 Prednisone (Prednisone) 40 mg DAILY PO Last administered on 08/03/17 08:06; Start 08/02/17 at 09:00; Stop 08/03/17 at 13:00; Status DC Prednisone (Prednisone) 30 mg DAILY PO Last administered on 08/04/17 08:32; Start 08/04/17 at 09:00; Stop 08/06/17 at 13:00 Prednisone (Prednisone) 20 mg DAILY PO ; Start 08/07/17 at 09:00; Stop 08/09/17 at 13:00 Prednisone (Prednisone) 15 mg DAILY PO ; Start 08/10/17 at 09:00 Metformin HCl (Glucophage) 500 mg BIDWMEALS PO Last administered on 08/04/17 16 :56; Start 08/02/17 at 08:00 Glimepiride (Amaryl) 1 mg BID PO Last administered on 08/02/17 08:57; Start 08/01/17 at 21:00; Stop 08/02/17 at 11:50; Status DC Cefpodoxime Proxetil (Vantin) 200 mg BID PO Last administered on 08/04/17 19:32 ; Start 08/01/17 at 21:00; Stop 08/06/17 at 09:01 Glimepiride (Amaryl) 1 mg BIDWMEALS PO Last administered on 08/04/17 16:56; Start 08/02/17 at 17:00 Olanzapine (ZyPREXA ZYDIS) 2.5 mg PRN Q2HR PRN PO PSYCHOSIS Last administered on 08/04/17 18:28; Start 08/02/17 at 18:30 Active Scripts Active Reported Vitamin D3 (Cholecalciferol (Vitamin D3)) 50,000 Unit Capsule 50,000 Unit PO WEEKLY Culturelle (Lactobacillus Rhamnosus Gg) 1 Each Capsule 1 Cap PO BID Trazodone Hcl 50 Mg Tablet 50 Mg PO PRN QHS PRN Milk Of Magnesia (Magnesium Hydroxide) 400 Mg/5 Ml Oral.susp 2,400 Mg PO PRN QHS PRN Lisinopril 20 Mg Tablet 20 Mg PO DAILY Carbamide Peroxide 15 Ml Drops 5 Drop LEFT EAR BID Metoprolol Tartrate 25 Mg Tablet 12.5 Mg PO BID Zyprexa (Olanzapine) 2.5 Mg Tablet 2.5 Mg PO PRN Q2HR PRN MDD 15mg Mineral Oil Enema (Mineral Oil) 133 Ml Enema 133 Ml RC PRN DAILY PRN Analgesic [place] (Methyl Salicylate/Menthol) 28 Gm Oint...g. 1 [place] TP PRN QID PRN Magnesium Citrate 296 Ml Solution 296 Ml PO PRN 1X PRN Advanced Antacid Liquid (Mag Hydrox/Al Hydrox/Simeth) 355 Ml Oral.susp 15 Ml PO PRN AFTMEALHC PRN Hydrocodone-Apap 5-325 (Hydrocodone Bit/Acetaminophen) 1 Each Tablet 1 Tab PO PRN Q8HRS PRN Colace (Docusate Sodium) 100 Mg Capsule 100 Mg PO DAILY Tylenol (Acetaminophen) 325 Mg Tablet 650 Mg PO PRN Q6HRS PRN Zoloft (Sertraline Hcl) 50 Mg Tablet 50 Mg PO DAILY I have reviewed the current psychotropics carefully including drug interactions. Risk benefit ratio favors no change other than as noted in my dictated progress note. 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
--- NOTE | 2017-08-05 00:24 | PN ---
DATE: 08/03/2017 PSYCHIATRIC PROGRESS NOTE This is a late entry for 08/03/2017, covers elements not covered in my initial note of 08/03/2017. SUBJECTIVE: I met with the patient the evening of 08/03/2017. Overall, the patient remains confused, withdrawn, but more awake. He did well in the morning, had 5 visitors, who came in over the lunch visiting and 3 over the supper visiting hour. He walked to breakfast then put himself on the floor, had a skin tear. He takes his medications crushed with food, often restless as he [place]. He is quite confused. REVIEW OF SYSTEMS: Ambulation impaired. No CV, , pulmonary, eye, ENT system symptoms on review. Reliability poor. MENTAL STATUS EXAM: Oriented to himself. Insight, judgment, recent and remote memory, attention, concentration, fund of knowledge poor, consistent with his diagnosis mentioned in my initial note. IMPRESSION: Major neurocognitive disorder, Alzheimer, vascular with depression, delusion, behavioral disturbance. Rest unchanged. PLAN: Continue psychotropics mentioned in my initial note. Family prefers no changes in his psychotropics. No addition of atypicals or other psychotropics and we will leave it as such for now and have mental health social worker to facilitate transfer to nursing facility as appropriate. AMPARO GUY MD DR: RAJAN/nathan JOB#: [id number] / [id number]
[2017-08-05] MEDS: traZODone 50 MG TABLET. PO PRN ×3 (01:10→20:33)
[2017-08-05 06:02] VITALS: BP 139/68
[2017-08-05] MEDS: SERTRALINE 50 MG TABLET. PO SCH (08:04)
[2017-08-05] MEDS: LACTOBACILLUS RHAMNOSUS GG 1 CAPSULE. PO SCH ×2 (08:04→19:21)
[2017-08-05] MEDS: LISINOPRIL 20 MG TABLET PO SCH (08:04)
[2017-08-05] MEDS: predniSONE 10 MG TABLET PO SCH (08:04)
[2017-08-05] MEDS: DOCUSATE SODIUM 100 MG CAPSULE PO SCH (08:05)
[2017-08-05] MEDS: GLIMEPIRIDE 2 MG TABLET PO SCH ×2 (08:05→17:05)
[2017-08-05] MEDS: metFORMIN 500 MG TABLET PO SCH ×2 (08:05→17:05)
[2017-08-05] MEDS: CEFPODOXIME PROXETIL 100 MG TABLET PO SCH ×2 (08:06→19:21)
[2017-08-05] MEDS: METOPROLOL TART IMMED RELEASE 25 MG TABLET PO SCH ×2 (08:06→19:24)
[2017-08-05] MEDS: CARBAMIDE PEROXIDE 6.5% OTIC SOLUTION 15ML BOTTLE. AS SCH ×2 (08:07→19:24)
[2017-08-05] MEDS: ENOXAPARIN 40 MG/0.4 ML DISP.SYRIN. SQ SCH (08:08)
[2017-08-05 15:53] VITALS: BP 112/67
--- NOTE | 2017-08-05 18:54 | PN ---
DATE: 08/04/2017 This is a late entry for 08/04/2017 and covers the elements not covered in my initial note of 08/04/2017. SUBJECTIVE: I met with the patient evening of 08/04/2017. The patient is more awake, ambulation is still impaired, in Broda chair; very confused. REVIEW OF SYSTEMS: No CV, , pulmonary, eye system symptoms on review. Not aggressive. He walked to supper with assistance. Speech evaluation will be repeated to see if we can discontinue honey thickened liquids. No family visited on 08/04/2017. Remains in Broda chair. MENTAL STATUS EXAM: Oriented to himself, pleasant, smiling as I met with him. Insight, judgment, recent and remote memory, attention, concentration, fund of knowledge poor, consistent with his diagnosis mentioned in my initial note. PLAN: Continue psychotropics mentioned in my initial note. MAN Robinson GUY MD DR: RAJAN/nathan JOB#: [id number] / [id number]
--- NOTE | 2017-08-05 19:52 | PDOC ---
Exam Note: Lars Note: Please also refer to the separate dictated note~for this date of service dictated separately.~Patient seen individually. Discussed the patient with Nursing staff reviewed the chart.~Reviewed interim history and current functioning. Reviewed vital signs,~Labs/ Radiology~and current medications noted below. Continue current treatment with the changes noted in the dictated addendum note Assessment: Vital Signs: Vital Signs Date Time Temp Pulse Resp B/P (MAP) Pulse Ox O2 Delivery O2 Flow Rate FiO2 08/05/17 19:24 83 112/67 08/05/17 15:53 97.3 20 98 08/02/17 16:37 Room Air I&O Intake and Output 08/05/17 07:00 Intake Total 1080 ml Balance 1080 ml Intake Oral 1080 ml # Voids 2 # Bowel Movements 1 Current Medications: Meds: Current Medications Olanzapine (ZyPREXA) 2.5 mg PRN Q2HR PRN PO ANXIETY / AGITATION; Start 08/01/17 at 19:30; Stop 08/02/17 at 18:30; Status DC Sertraline HCl (Zoloft) 50 mg DAILY PO Last administered on 08/05/17at 08:04; Start 08/02/17 at 09:00 Trazodone HCl (Desyrel) 50 mg PRN QHS PRN PO INSOMNIA, MAY REPEAT X1 Last administered on 08/05/17at 19:26; Start 08/01/17 at 19:30 Acetaminophen (Tylenol) 650 mg PRN Q6HRS PRN PO PAIN / TEMP; Start 08/01/17 at 19:45 Carbamide Peroxide (Debrox) 5 drop BID Last administered on 08/05/17at 19:24; Start 08/01/17 at 21:00 Docusate Sodium (Colace) 100 mg DAILY PO Last administered on 08/05/17at 08:05; Start 08/02/17 at 09:00 Acetaminophen/ Hydrocodone Bitart (Lortab 5/325) 1 tab PRN Q8HRS PRN PO PAIN; Start 08/01/17 at 19:45 Lisinopril (Prinivil) 20 mg DAILY PO Last administered on 08/05/17at 08:04; Start 08/02/17 at 09:00 Magnesium Citrate (Citroma) 296 ml PRN 1X PRN PO CONSTIPATION; Start 08/01/17 at 19:45 Magnesium Hydroxide (Milk Of Magnesia) 2,400 mg PRN QHS PRN PO CONSTIPATION; Start 08/01/17 at 19:45 Multi-Ingredient Ointment (Analgesic [place]) 1 renetta PRN QID PRN TP MUSCLE PAIN; Start 08/01/17 at 19:45 Metoprolol Tartrate (Lopressor) 12.5 mg BID PO Last administered on 08/05/17at 19 :24; Start 08/01/17 at 21:00 Mineral Oil (Fleet Mineral Oil) 133 ml PRN DAILY PRN RC CONSTIPATION; Start 08/01/17 at 19:45 Lactobacillus Rhamnosus (Culturelle) 1 cap BID PO Last administered on at 19:21; Start 08/01/17 at 21:00 Al Hydroxide/Mg Hydroxide (Mylanta Plus Xs) 15 ml PRN AFTMEALHC PRN PO DYSPEPSIA; Start 08/01/17 at 19:45 Vitamin D (Vitamin D3) 50,000 unit WEEKLY PO ; Start 08/08/17 at 09:00 Enoxaparin Sodium (Lovenox) 40 mg Q24H SQ Last administered on 08/05/17at 08:08; Start 08/02/17 at 09:00 Prednisone (Prednisone) 40 mg DAILY PO Last administered on 08/03/17at 08:06; Start 08/02/17 at 09:00; Stop 08/03/17 at 13:00; Status DC Prednisone (Prednisone) 30 mg DAILY PO Last administered on 08/05/17at 08:04; Start 08/04/17 at 09:00; Stop 08/06/17 at 13:00 Prednisone (Prednisone) 20 mg DAILY PO ; Start 08/07/17 at 09:00; Stop 08/09/17 at 13:00 Prednisone (Prednisone) 15 mg DAILY PO ; Start 08/10/17 at 09:00 Metformin HCl (Glucophage) 500 mg BIDWMEALS PO Last administered on 08/05/17at 17 :05; Start 08/02/17 at 08:00 Glimepiride (Amaryl) 1 mg BID PO Last administered on 08/02/17at 08:57; Start 08/01/17 at 21:00; Stop 08/02/17 at 11:50; Status DC Cefpodoxime Proxetil (Vantin) 200 mg BID PO Last administered on 08/05/17at 19:21 ; Start 08/01/17 at 21:00; Stop 08/06/17 at 09:01 Glimepiride (Amaryl) 1 mg BIDWMEALS PO Last administered on 08/05/17at 17:05; Start 08/02/17 at 17:00 Olanzapine (ZyPREXA ZYDIS) 2.5 mg PRN Q2HR PRN PO PSYCHOSIS Last administered on 08/05/17at 18:30; Start 08/02/17 at 18:30 Active Scripts Active Reported Vitamin D3 (Cholecalciferol (Vitamin D3)) 50,000 Unit Capsule 50,000 Unit PO WEEKLY Culturelle (Lactobacillus Rhamnosus Gg) 1 Each Capsule 1 Cap PO BID Trazodone Hcl 50 Mg Tablet 50 Mg PO PRN QHS PRN Milk Of Magnesia (Magnesium Hydroxide) 400 Mg/5 Ml Oral.susp 2,400 Mg PO PRN QHS PRN Lisinopril 20 Mg Tablet 20 Mg PO DAILY Carbamide Peroxide 15 Ml Drops 5 Drop LEFT EAR BID Metoprolol Tartrate 25 Mg Tablet 12.5 Mg PO BID Zyprexa (Olanzapine) 2.5 Mg Tablet 2.5 Mg PO PRN Q2HR PRN MDD 15mg Mineral Oil Enema (Mineral Oil) 133 Ml Enema 133 Ml RC PRN DAILY PRN Analgesic [place] (Methyl Salicylate/Menthol) 28 Gm Oint...g. 1 [place] TP PRN QID PRN Magnesium Citrate 296 Ml Solution 296 Ml PO PRN 1X PRN Advanced Antacid Liquid (Mag Hydrox/Al Hydrox/Simeth) 355 Ml Oral.susp 15 Ml PO PRN AFTMEALHC PRN Hydrocodone-Apap 5-325 (Hydrocodone Bit/Acetaminophen) 1 Each Tablet 1 Tab PO PRN Q8HRS PRN Colace (Docusate Sodium) 100 Mg Capsule 100 Mg PO DAILY Tylenol (Acetaminophen) 325 Mg Tablet 650 Mg PO PRN Q6HRS PRN Zoloft (Sertraline Hcl) 50 Mg Tablet 50 Mg PO DAILY I have reviewed the current psychotropics carefully including drug interactions. Risk benefit ratio favors no change other than as noted in my dictated progress note. 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
[2017-08-06 06:07] VITALS: BP 129/65
[2017-08-06] MEDS: DOCUSATE SODIUM 100 MG CAPSULE PO SCH (07:42)
[2017-08-06] MEDS: metFORMIN 500 MG TABLET PO SCH ×2 (07:43→17:06)
[2017-08-06] MEDS: GLIMEPIRIDE 2 MG TABLET PO SCH ×2 (07:43→17:06)
[2017-08-06] MEDS: LACTOBACILLUS RHAMNOSUS GG 1 CAPSULE. PO SCH ×2 (07:43→19:40)
[2017-08-06] MEDS: CEFPODOXIME PROXETIL 100 MG TABLET PO SCH (07:44)
[2017-08-06] MEDS: SERTRALINE 50 MG TABLET. PO SCH (07:44)
[2017-08-06] MEDS: LISINOPRIL 20 MG TABLET PO SCH (07:44)
[2017-08-06] MEDS: predniSONE 10 MG TABLET PO SCH (07:45)
[2017-08-06] MEDS: METOPROLOL TART IMMED RELEASE 25 MG TABLET PO SCH ×2 (07:45→19:40)
[2017-08-06] MEDS: ENOXAPARIN 40 MG/0.4 ML DISP.SYRIN. SQ SCH (07:46)
[2017-08-06] MEDS: CARBAMIDE PEROXIDE 6.5% OTIC SOLUTION 15ML BOTTLE. AS SCH ×2 (07:47→19:41)
[2017-08-06 16:19] VITALS: BP 124/67
--- NOTE | 2017-08-06 17:45 | PN ---
DATE: 08/05/2017 This late entry 08/05/2017 covers elements not covered in my initial note 08/05/2017. Met with the patient evening of 08/05/2017. SUBJECTIVE: The patient slept 4-3/4 hours previous evening. He remains confused, more awake, alert, smiling better than over the weekend, per nursing staff. He was up walking intermittently, continent if taken to the toilet, restless at times. Speech recommended continuing honey thickened as he is a silent aspirator, reevaluation on . REVIEW OF SYSTEMS: No CV, , pulmonary, eye, ENT system symptoms on review. Reliability poor. MENTAL STATUS EXAM: Oriented to himself. Insight, judgment, recent and remote memory, attention, concentration, fund of knowledge poor, consistent with his diagnosis mentioned in my initial note. IMPRESSION: Major neurocognitive disorder, Alzheimer, vascular with delusion, depression, behavioral disturbance. PLAN: Continue psychotropics mentioned in my initial note. MAN Robinson GUY MD DR: RAJAN/nathan JOB#: [id number] / [id number]
[2017-08-06] MEDS: traZODone 50 MG TABLET. PO PRN (19:41)
--- NOTE | 2017-08-06 19:53 | PDOC ---
Exam Note: Lars Note: Please also refer to the separate dictated note~for this date of service dictated separately.~Patient seen individually. Discussed the patient with Nursing staff reviewed the chart.~Reviewed interim history and current functioning. Reviewed vital signs,~Labs/ Radiology~and current medications noted below. Continue current treatment with the changes noted in the dictated addendum note Assessment: Vital Signs: Vital Signs Date Time Temp Pulse Resp B/P (MAP) Pulse Ox O2 Delivery O2 Flow Rate FiO2 08/06/17 19:40 84 124/67 08/06/17 16:19 98.0 18 95 08/02/17 16:37 Room Air I&O Intake and Output 08/06/17 07:00 Intake Total 920 ml Balance 920 ml Intake Oral 920 ml # Voids 2 # Bowel Movements 1 Current Medications: Meds: Current Medications Olanzapine (ZyPREXA) 2.5 mg PRN Q2HR PRN PO ANXIETY / AGITATION; Start 08/01/17 at 19:30; Stop 08/02/17 at 18:30; Status DC Sertraline HCl (Zoloft) 50 mg DAILY PO Last administered on 08/06/17at 07:44; Start 08/02/17 at 09:00 Trazodone HCl (Desyrel) 50 mg PRN QHS PRN PO INSOMNIA, MAY REPEAT X1 Last administered on 08/06/17at 19:41; Start 08/01/17 at 19:30 Acetaminophen (Tylenol) 650 mg PRN Q6HRS PRN PO PAIN / TEMP; Start 08/01/17 at 19:45 Carbamide Peroxide (Debrox) 5 drop BID Last administered on 08/06/17at 19:41; Start 08/01/17 at 21:00 Docusate Sodium (Colace) 100 mg DAILY PO Last administered on 08/06/17at 07:42; Start 08/02/17 at 09:00 Acetaminophen/ Hydrocodone Bitart (Lortab 5/325) 1 tab PRN Q8HRS PRN PO PAIN; Start 08/01/17 at 19:45 Lisinopril (Prinivil) 20 mg DAILY PO Last administered on 08/06/17at 07:44; Start 08/02/17 at 09:00 Magnesium Citrate (Citroma) 296 ml PRN 1X PRN PO CONSTIPATION; Start 08/01/17 at 19:45 Magnesium Hydroxide (Milk Of Magnesia) 2,400 mg PRN QHS PRN PO CONSTIPATION; Start 08/01/17 at 19:45 Multi-Ingredient Ointment (Analgesic [place]) 1 renetta PRN QID PRN TP MUSCLE PAIN; Start 08/01/17 at 19:45 Metoprolol Tartrate (Lopressor) 12.5 mg BID PO Last administered on 08/06/17at 19 :40; Start 08/01/17 at 21:00 Mineral Oil (Fleet Mineral Oil) 133 ml PRN DAILY PRN RC CONSTIPATION; Start 08/01/17 at 19:45 Lactobacillus Rhamnosus (Culturelle) 1 cap BID PO Last administered on at 19:40; Start 08/01/17 at 21:00 Al Hydroxide/Mg Hydroxide (Mylanta Plus Xs) 15 ml PRN AFTMEALHC PRN PO DYSPEPSIA; Start 08/01/17 at 19:45 Vitamin D (Vitamin D3) 50,000 unit WEEKLY PO ; Start 08/08/17 at 09:00 Enoxaparin Sodium (Lovenox) 40 mg Q24H SQ Last administered on 08/06/17at 07:46; Start 08/02/17 at 09:00 Prednisone (Prednisone) 40 mg DAILY PO Last administered on 08/03/17at 08:06; Start 08/02/17 at 09:00; Stop 08/03/17 at 13:00; Status DC Prednisone (Prednisone) 30 mg DAILY PO Last administered on 08/06/17at 07:45; Start 08/04/17 at 09:00; Stop 08/06/17 at 13:00; Status DC Prednisone (Prednisone) 20 mg DAILY PO ; Start 08/07/17 at 09:00; Stop 08/09/17 at 13:00 Prednisone (Prednisone) 15 mg DAILY PO ; Start 08/10/17 at 09:00 Metformin HCl (Glucophage) 500 mg BIDWMEALS PO Last administered on 08/06/17at 17 :06; Start 08/02/17 at 08:00 Glimepiride (Amaryl) 1 mg BID PO Last administered on 08/02/17at 08:57; Start 08/01/17 at 21:00; Stop 08/02/17 at 11:50; Status DC Cefpodoxime Proxetil (Vantin) 200 mg BID PO Last administered on 08/06/17at 07:44 ; Start 08/01/17 at 21:00; Stop 08/06/17 at 09:01; Status DC Glimepiride (Amaryl) 1 mg BIDWMEALS PO Last administered on 08/06/17at 17:06; Start 08/02/17 at 17:00 Olanzapine (ZyPREXA ZYDIS) 2.5 mg PRN Q2HR PRN PO PSYCHOSIS Last administered on 08/05/17at 18:30; Start 08/02/17 at 18:30 Active Scripts Active Reported Vitamin D3 (Cholecalciferol (Vitamin D3)) 50,000 Unit Capsule 50,000 Unit PO WEEKLY Culturelle (Lactobacillus Rhamnosus Gg) 1 Each Capsule 1 Cap PO BID Trazodone Hcl 50 Mg Tablet 50 Mg PO PRN QHS PRN Milk Of Magnesia (Magnesium Hydroxide) 400 Mg/5 Ml Oral.susp 2,400 Mg PO PRN QHS PRN Lisinopril 20 Mg Tablet 20 Mg PO DAILY Carbamide Peroxide 15 Ml Drops 5 Drop LEFT EAR BID Metoprolol Tartrate 25 Mg Tablet 12.5 Mg PO BID Zyprexa (Olanzapine) 2.5 Mg Tablet 2.5 Mg PO PRN Q2HR PRN MDD 15mg Mineral Oil Enema (Mineral Oil) 133 Ml Enema 133 Ml RC PRN DAILY PRN Analgesic [place] (Methyl Salicylate/Menthol) 28 Gm Oint...g. 1 [place] TP PRN QID PRN Magnesium Citrate 296 Ml Solution 296 Ml PO PRN 1X PRN Advanced Antacid Liquid (Mag Hydrox/Al Hydrox/Simeth) 355 Ml Oral.susp 15 Ml PO PRN AFTMEALHC PRN Hydrocodone-Apap 5-325 (Hydrocodone Bit/Acetaminophen) 1 Each Tablet 1 Tab PO PRN Q8HRS PRN Colace (Docusate Sodium) 100 Mg Capsule 100 Mg PO DAILY Tylenol (Acetaminophen) 325 Mg Tablet 650 Mg PO PRN Q6HRS PRN Zoloft (Sertraline Hcl) 50 Mg Tablet 50 Mg PO DAILY I have reviewed the current psychotropics carefully including drug interactions. Risk benefit ratio favors no change other than as noted in my dictated progress note. 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
[2017-08-07] MEDS: traZODone 50 MG TABLET. PO PRN ×2 (00:55→19:41)
[2017-08-07 06:09] VITALS: BP 128/67
[2017-08-07] MEDS: metFORMIN 500 MG TABLET PO SCH ×2 (08:41→17:01)
[2017-08-07] MEDS: LISINOPRIL 20 MG TABLET PO SCH (08:41)
[2017-08-07] MEDS: DOCUSATE SODIUM 100 MG CAPSULE PO SCH (08:41)
[2017-08-07] MEDS: LACTOBACILLUS RHAMNOSUS GG 1 CAPSULE. PO SCH ×2 (08:42→19:39)
[2017-08-07] MEDS: SERTRALINE 50 MG TABLET. PO SCH (08:42)
[2017-08-07] MEDS: METOPROLOL TART IMMED RELEASE 25 MG TABLET PO SCH ×2 (08:42→19:40)
[2017-08-07] MEDS: ENOXAPARIN 40 MG/0.4 ML DISP.SYRIN. SQ SCH (08:43)
[2017-08-07] MEDS: predniSONE 20 MG TABLET PO SCH (08:53)
[2017-08-07] MEDS: GLIMEPIRIDE 2 MG TABLET PO SCH ×2 (08:53→17:01)
[2017-08-07] MEDS: CARBAMIDE PEROXIDE 6.5% OTIC SOLUTION 15ML BOTTLE. AS SCH ×2 (08:53→19:39)
[2017-08-07 16:16] VITALS: BP 129/75
--- NOTE | 2017-08-07 19:53 | PDOC ---
Exam Note: Lars Note: Please also refer to the separate dictated note~for this date of service dictated separately.~Patient seen individually. Discussed the patient with Nursing staff reviewed the chart.~Reviewed interim history and current functioning. Reviewed vital signs,~Labs/ Radiology~and current medications noted below. Continue current treatment with the changes noted in the dictated addendum note Assessment: Vital Signs: Vital Signs Date Time Temp Pulse Resp B/P (MAP) Pulse Ox O2 Delivery O2 Flow Rate FiO2 08/07/17 19:40 89 129/75 08/07/17 16:16 97.4 17 98 08/02/17 16:37 Room Air I&O Intake and Output 08/07/17 07:00 Intake Total 960 ml Balance 960 ml Intake Oral 960 ml # Voids 1 # Bowel Movements 3 Current Medications: Meds: Current Medications Olanzapine (ZyPREXA) 2.5 mg PRN Q2HR PRN PO ANXIETY / AGITATION; Start 08/01/17 at 19:30; Stop 08/02/17 at 18:30; Status DC Sertraline HCl (Zoloft) 50 mg DAILY PO Last administered on 08/07/17at 08:42; Start 08/02/17 at 09:00 Trazodone HCl (Desyrel) 50 mg PRN QHS PRN PO INSOMNIA, MAY REPEAT X1 Last administered on 08/07/17 19:41; Start 08/01/17 at 19:30 Acetaminophen (Tylenol) 650 mg PRN Q6HRS PRN PO PAIN / TEMP; Start 08/01/17 at 19:45 Carbamide Peroxide (Debrox) 5 drop BID Last administered on 08/07/17at 19:39; Start 08/01/17 at 21:00 Docusate Sodium (Colace) 100 mg DAILY PO Last administered on 08/07/17 08:41; Start 08/02/17 at 09:00 Acetaminophen/ Hydrocodone Bitart (Lortab 5/325) 1 tab PRN Q8HRS PRN PO PAIN; Start 08/01/17 at 19:45 Lisinopril (Prinivil) 20 mg DAILY PO Last administered on 08/07/17 08:41; Start 08/02/17 at 09:00 Magnesium Citrate (Citroma) 296 ml PRN 1X PRN PO CONSTIPATION; Start 08/01/17 at 19:45 Magnesium Hydroxide (Milk Of Magnesia) 2,400 mg PRN QHS PRN PO CONSTIPATION; Start 08/01/17 at 19:45 Multi-Ingredient Ointment (Analgesic [place]) 1 renetta PRN QID PRN TP MUSCLE PAIN; Start 08/01/17 at 19:45 Metoprolol Tartrate (Lopressor) 12.5 mg BID PO Last administered on 08/07/17at 19 :40; Start 08/01/17 at 21:00 Mineral Oil (Fleet Mineral Oil) 133 ml PRN DAILY PRN RC CONSTIPATION; Start 08/01/17 at 19:45 Lactobacillus Rhamnosus (Culturelle) 1 cap BID PO Last administered on at 19:39; Start 08/01/17 at 21:00 Al Hydroxide/Mg Hydroxide (Mylanta Plus Xs) 15 ml PRN AFTMEALHC PRN PO DYSPEPSIA; Start 08/01/17 at 19:45 Vitamin D (Vitamin D3) 50,000 unit WEEKLY PO ; Start 08/08/17 at 09:00 Enoxaparin Sodium (Lovenox) 40 mg Q24H SQ Last administered on 08/07/17at 08:43; Start 08/02/17 at 09:00 Prednisone (Prednisone) 40 mg DAILY PO Last administered on 08/03/17 08:06; Start 08/02/17 at 09:00; Stop 08/03/17 at 13:00; Status DC Prednisone (Prednisone) 30 mg DAILY PO Last administered on 08/06/17at 07:45; Start 08/04/17 at 09:00; Stop 08/06/17 at 13:00; Status DC Prednisone (Prednisone) 20 mg DAILY PO Last administered on 08/07/17at 08:53; Start 08/07/17 at 09:00; Stop 08/09/17 at 13:00 Prednisone (Prednisone) 15 mg DAILY PO ; Start 08/10/17 at 09:00 Metformin HCl (Glucophage) 500 mg BIDWMEALS PO Last administered on 08/07/17at 17 :01; Start 08/02/17 at 08:00 Glimepiride (Amaryl) 1 mg BID PO Last administered on 08/02/17 08:57; Start 08/01/17 at 21:00; Stop 08/02/17 at 11:50; Status DC Cefpodoxime Proxetil (Vantin) 200 mg BID PO Last administered on 08/06/17at 07:44 ; Start 08/01/17 at 21:00; Stop 08/06/17 at 09:01; Status DC Glimepiride (Amaryl) 1 mg BIDWMEALS PO Last administered on 08/07/17at 17:01; Start 08/02/17 at 17:00 Olanzapine (ZyPREXA ZYDIS) 2.5 mg PRN Q2HR PRN PO PSYCHOSIS Last administered on 08/05/17at 18:30; Start 08/02/17 at 18:30 Active Scripts Active Reported Vitamin D3 (Cholecalciferol (Vitamin D3)) 50,000 Unit Capsule 50,000 Unit PO WEEKLY Culturelle (Lactobacillus Rhamnosus Gg) 1 Each Capsule 1 Cap PO BID Trazodone Hcl 50 Mg Tablet 50 Mg PO PRN QHS PRN Milk Of Magnesia (Magnesium Hydroxide) 400 Mg/5 Ml Oral.susp 2,400 Mg PO PRN QHS PRN Lisinopril 20 Mg Tablet 20 Mg PO DAILY Carbamide Peroxide 15 Ml Drops 5 Drop LEFT EAR BID Metoprolol Tartrate 25 Mg Tablet 12.5 Mg PO BID Zyprexa (Olanzapine) 2.5 Mg Tablet 2.5 Mg PO PRN Q2HR PRN MDD 15mg Mineral Oil Enema (Mineral Oil) 133 Ml Enema 133 Ml RC PRN DAILY PRN Analgesic [place] (Methyl Salicylate/Menthol) 28 Gm Oint...g. 1 [place] TP PRN QID PRN Magnesium Citrate 296 Ml Solution 296 Ml PO PRN 1X PRN Advanced Antacid Liquid (Mag Hydrox/Al Hydrox/Simeth) 355 Ml Oral.susp 15 Ml PO PRN AFTMEALHC PRN Hydrocodone-Apap 5-325 (Hydrocodone Bit/Acetaminophen) 1 Each Tablet 1 Tab PO PRN Q8HRS PRN Colace (Docusate Sodium) 100 Mg Capsule 100 Mg PO DAILY Tylenol (Acetaminophen) 325 Mg Tablet 650 Mg PO PRN Q6HRS PRN Zoloft (Sertraline Hcl) 50 Mg Tablet 50 Mg PO DAILY I have reviewed the current psychotropics carefully including drug interactions. Risk benefit ratio favors no change other than as noted in my dictated progress note. 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
[2017-08-08 06:07] VITALS: BP 146/63
[2017-08-08] MEDS: SERTRALINE 50 MG TABLET. PO SCH (08:00)
[2017-08-08] MEDS: LISINOPRIL 20 MG TABLET PO SCH (08:00)
[2017-08-08] MEDS: DOCUSATE SODIUM 100 MG CAPSULE PO SCH (08:00)
[2017-08-08] MEDS: metFORMIN 500 MG TABLET PO SCH ×2 (08:00→17:23)
[2017-08-08] MEDS: LACTOBACILLUS RHAMNOSUS GG 1 CAPSULE. PO SCH ×2 (08:00→20:47)
[2017-08-08] MEDS: METOPROLOL TART IMMED RELEASE 25 MG TABLET PO SCH ×2 (08:01→20:48)
[2017-08-08] MEDS: GLIMEPIRIDE 2 MG TABLET PO SCH ×2 (08:01→17:23)
[2017-08-08] MEDS: predniSONE 20 MG TABLET PO SCH (08:01)
[2017-08-08] MEDS: ENOXAPARIN 40 MG/0.4 ML DISP.SYRIN. SQ SCH (08:02)
[2017-08-08] MEDS: CARBAMIDE PEROXIDE 6.5% OTIC SOLUTION 15ML BOTTLE. AS SCH ×2 (08:03→21:00)
[2017-08-08] MEDS ORDERED: CHOLECALCIFEROL (VITAMIN D3) 50,000 UNIT CAPSULE PO SCH (09:00)
[2017-08-08 16:25] VITALS: BP 133/58
--- NOTE | 2017-08-08 19:54 | PDOC ---
Exam Note: Lars Note: Please also refer to the separate dictated note~for this date of service dictated separately.~Patient seen individually. Discussed the patient with Nursing staff reviewed the chart.~Reviewed interim history and current functioning. Reviewed vital signs,~Labs/ Radiology~and current medications noted below. Continue current treatment with the changes noted in the dictated addendum note Assessment: Vital Signs: Vital Signs Date Time Temp Pulse Resp B/P (MAP) Pulse Ox O2 Delivery O2 Flow Rate FiO2 08/08/17 16:25 97.5 65 18 133/58 (83) 99 08/02/17 16:37 Room Air I&O Intake and Output 08/08/17 07:00 Intake Total 960 ml Balance 960 ml Intake Oral 960 ml # Voids 2 # Bowel Movements 2 Current Medications: Meds: Current Medications Olanzapine (ZyPREXA) 2.5 mg PRN Q2HR PRN PO ANXIETY / AGITATION; Start 08/01/17 at 19:30; Stop 08/02/17 at 18:30; Status DC Sertraline HCl (Zoloft) 50 mg DAILY PO Last administered on 08/08/17at 08:00; Start 08/02/17 at 09:00 Trazodone HCl (Desyrel) 50 mg PRN QHS PRN PO INSOMNIA, MAY REPEAT X1 Last administered on 08/07/17at 19:41; Start 08/01/17 at 19:30 Acetaminophen (Tylenol) 650 mg PRN Q6HRS PRN PO PAIN / TEMP; Start 08/01/17 at 19:45 Carbamide Peroxide (Debrox) 5 drop BID Last administered on 08/08/17at 08:03; Start 08/01/17 at 21:00 Docusate Sodium (Colace) 100 mg DAILY PO Last administered on 08/08/17at 08:00; Start 08/02/17 at 09:00 Acetaminophen/ Hydrocodone Bitart (Lortab 5/325) 1 tab PRN Q8HRS PRN PO PAIN; Start 08/01/17 at 19:45 Lisinopril (Prinivil) 20 mg DAILY PO Last administered on 08/08/17at 08:00; Start 08/02/17 at 09:00 Magnesium Citrate (Citroma) 296 ml PRN 1X PRN PO CONSTIPATION; Start 08/01/17 at 19:45 Magnesium Hydroxide (Milk Of Magnesia) 2,400 mg PRN QHS PRN PO CONSTIPATION; Start 08/01/17 at 19:45 Multi-Ingredient Ointment (Analgesic [place]) 1 renetta PRN QID PRN TP MUSCLE PAIN; Start 08/01/17 at 19:45 Metoprolol Tartrate (Lopressor) 12.5 mg BID PO Last administered on 08/08/17 08 :01; Start 08/01/17 at 21:00 Mineral Oil (Fleet Mineral Oil) 133 ml PRN DAILY PRN RC CONSTIPATION; Start 08/01/17 at 19:45 Lactobacillus Rhamnosus (Culturelle) 1 cap BID PO Last administered on at 08:00; Start 08/01/17 at 21:00 Al Hydroxide/Mg Hydroxide (Mylanta Plus Xs) 15 ml PRN AFTMEALHC PRN PO DYSPEPSIA; Start 08/01/17 at 19:45 Vitamin D (Vitamin D3) 50,000 unit WEEKLY PO Last administered on 08/08/17 08: 03; Start 08/08/17 at 09:00 Enoxaparin Sodium (Lovenox) 40 mg Q24H SQ Last administered on 08/08/17 08:02; Start 08/02/17 at 09:00 Prednisone (Prednisone) 40 mg DAILY PO Last administered on 08/03/17 08:06; Start 08/02/17 at 09:00; Stop 08/03/17 at 13:00; Status DC Prednisone (Prednisone) 30 mg DAILY PO Last administered on 08/06/17at 07:45; Start 08/04/17 at 09:00; Stop 08/06/17 at 13:00; Status DC Prednisone (Prednisone) 20 mg DAILY PO Last administered on 08/08/17 08:01; Start 08/07/17 at 09:00; Stop 08/09/17 at 13:00 Prednisone (Prednisone) 15 mg DAILY PO ; Start 08/10/17 at 09:00 Metformin HCl (Glucophage) 500 mg BIDWMEALS PO Last administered on 08/08/17 17 :23; Start 08/02/17 at 08:00 Glimepiride (Amaryl) 1 mg BID PO Last administered on 08/02/17 08:57; Start 08/01/17 at 21:00; Stop 08/02/17 at 11:50; Status DC Cefpodoxime Proxetil (Vantin) 200 mg BID PO Last administered on 08/06/17at 07:44 ; Start 08/01/17 at 21:00; Stop 08/06/17 at 09:01; Status DC Glimepiride (Amaryl) 1 mg BIDWMEALS PO Last administered on 08/08/17at 17:23; Start 08/02/17 at 17:00 Olanzapine (ZyPREXA ZYDIS) 2.5 mg PRN Q2HR PRN PO PSYCHOSIS Last administered on 08/05/17at 18:30; Start 08/02/17 at 18:30 Active Scripts Active Reported Vitamin D3 (Cholecalciferol (Vitamin D3)) 50,000 Unit Capsule 50,000 Unit PO WEEKLY Culturelle (Lactobacillus Rhamnosus Gg) 1 Each Capsule 1 Cap PO BID Trazodone Hcl 50 Mg Tablet 50 Mg PO PRN QHS PRN Milk Of Magnesia (Magnesium Hydroxide) 400 Mg/5 Ml Oral.susp 2,400 Mg PO PRN QHS PRN Lisinopril 20 Mg Tablet 20 Mg PO DAILY Carbamide Peroxide 15 Ml Drops 5 Drop LEFT EAR BID Metoprolol Tartrate 25 Mg Tablet 12.5 Mg PO BID Zyprexa (Olanzapine) 2.5 Mg Tablet 2.5 Mg PO PRN Q2HR PRN MDD 15mg Mineral Oil Enema (Mineral Oil) 133 Ml Enema 133 Ml RC PRN DAILY PRN Analgesic [place] (Methyl Salicylate/Menthol) 28 Gm Oint...g. 1 [place] TP PRN QID PRN Magnesium Citrate 296 Ml Solution 296 Ml PO PRN 1X PRN Advanced Antacid Liquid (Mag Hydrox/Al Hydrox/Simeth) 355 Ml Oral.susp 15 Ml PO PRN AFTMEALHC PRN Hydrocodone-Apap 5-325 (Hydrocodone Bit/Acetaminophen) 1 Each Tablet 1 Tab PO PRN Q8HRS PRN Colace (Docusate Sodium) 100 Mg Capsule 100 Mg PO DAILY Tylenol (Acetaminophen) 325 Mg Tablet 650 Mg PO PRN Q6HRS PRN Zoloft (Sertraline Hcl) 50 Mg Tablet 50 Mg PO DAILY I have reviewed the current psychotropics carefully including drug interactions. Risk benefit ratio favors no change other than as noted in my dictated progress note. 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
--- NOTE | 2017-08-08 20:40 | PN ---
DATE: 08/06/2017 This is a late entry, 08/06/2017, covers the elements not covered in my initial note, 08/06/2017. SUBJECTIVE: I met with the patient evening of 08/06/2017. The patient slept 6 hours previous evening, received Zyprexa at one time due to agitation at 6:30 p.m., using the walker, confused, but more awake, unsteady in his gait. Speech is being reevaluated the morning of 08/07/2017, smiling more. Ambulation impaired. REVIEW OF SYSTEMS: No CV, , pulmonary, eye system symptoms on review. Reliability poor. MENTAL STATUS EXAM: Oriented to himself. Insight, judgment, recent and remote memory, attention, concentration, fund of knowledge poor, consistent with his diagnosis as mentioned in my initial note. IMPRESSION: Major neurocognitive disorder, Alzheimer, vascular with depression, delusion, behavioral disturbance. Rest unchanged. PLAN: Continue psychotropics as mentioned in my initial note. Adjust further as clinically indicated. MAN Robinson GUY MD DR: RAJAN/nathan JOB#: [id number] / [id number]
[2017-08-08] MEDS: traZODone 50 MG TABLET. PO PRN (20:49)
--- NOTE | 2017-08-08 23:07 | PN ---
DATE: 08/07/2017 This is a late entry of 08/07/2017 covers elements not covered in my initial note of 08/07/2017. SUBJECTIVE: I met with the patient in the evening of 08/07/2017 and staffed at a treatment team meeting with the entire team morning of 08/07/2017 and discussed discharge plans for [facility] for early next week. He is more pleasant, smiling as I met with him, confused, sleeping about 6 hours, slept 3 hours previous evening. REVIEW OF SYSTEMS: Ambulation impaired with walker. No CV, , pulmonary, eye, ENT system symptoms on review. Reliability poor. MENTAL STATUS EXAM: Oriented to himself. Insight, judgment, recent and remote memory, attention, concentration, fund of knowledge poor, consistent with his diagnosis mentioned in my initial note. IMPRESSION: Unchanged from initial note. PLAN: Continue psychotropics mentioned in my initial note. MAN Robinson GUY MD DR: RAJAN/nathan JOB#: [id number] / [id number]
[2017-08-09 07:01] VITALS: BP 140/73
[2017-08-09] MEDS: LACTOBACILLUS RHAMNOSUS GG 1 CAPSULE. PO SCH ×2 (08:37→19:41)
[2017-08-09] MEDS: SERTRALINE 50 MG TABLET. PO SCH (08:37)
[2017-08-09] MEDS: metFORMIN 500 MG TABLET PO SCH ×2 (08:37→16:22)
[2017-08-09] MEDS: predniSONE 20 MG TABLET PO SCH (08:37)
[2017-08-09] MEDS: DOCUSATE SODIUM 100 MG CAPSULE PO SCH (08:39)
[2017-08-09] MEDS: LISINOPRIL 20 MG TABLET PO SCH (08:39)
[2017-08-09] MEDS: METOPROLOL TART IMMED RELEASE 25 MG TABLET PO SCH ×2 (08:39→19:41)
[2017-08-09] MEDS: GLIMEPIRIDE 2 MG TABLET PO SCH ×2 (08:49→16:22)
[2017-08-09] MEDS: ENOXAPARIN 40 MG/0.4 ML DISP.SYRIN. SQ SCH ×2 (08:50→09:00)
[2017-08-09] MEDS: CARBAMIDE PEROXIDE 6.5% OTIC SOLUTION 15ML BOTTLE. AS SCH ×2 (08:50→19:44)
[2017-08-09 16:19] VITALS: BP 119/56
[2017-08-09] MEDS: traZODone 50 MG TABLET. PO PRN (19:41)
--- NOTE | 2017-08-09 21:08 | PDOC ---
Exam Note: Lars Note: Please also refer to the separate dictated note~for this date of service dictated separately.~Patient seen individually. Discussed the patient with Nursing staff reviewed the chart.~Reviewed interim history and current functioning. Reviewed vital signs,~Labs/ Radiology~and current medications noted below. Continue current treatment with the changes noted in the dictated addendum note Assessment: Vital Signs: Vital Signs Date Time Temp Pulse Resp B/P (MAP) Pulse Ox O2 Delivery O2 Flow Rate FiO2 08/09/17 19:41 85 119/56 08/09/17 16:19 97.1 20 98 Room Air I&O Intake and Output 08/09/17 07:00 Intake Total 720 ml Balance 720 ml Intake Oral 720 ml Current Medications: Meds: Current Medications Olanzapine (ZyPREXA) 2.5 mg PRN Q2HR PRN PO ANXIETY / AGITATION; Start 08/01/17 at 19:30; Stop 08/02/17 at 18:30; Status DC Sertraline HCl (Zoloft) 50 mg DAILY PO Last administered on 08/09/17at 08:37; Start 08/02/17 at 09:00 Trazodone HCl (Desyrel) 50 mg PRN QHS PRN PO INSOMNIA, MAY REPEAT X1 Last administered on 08/09/17at 19:41; Start 08/01/17 at 19:30 Acetaminophen (Tylenol) 650 mg PRN Q6HRS PRN PO PAIN / TEMP; Start 08/01/17 at 19:45 Carbamide Peroxide (Debrox) 5 drop BID Last administered on 08/09/17at 19:44 ; Start 08/01/17 at 21:00 Docusate Sodium (Colace) 100 mg DAILY PO Last administered on 08/09/17at 08:39; Start 08/02/17 at 09:00 Acetaminophen/ Hydrocodone Bitart (Lortab 5/325) 1 tab PRN Q8HRS PRN PO PAIN; Start 08/01/17 at 19:45 Lisinopril (Prinivil) 20 mg DAILY PO Last administered on 08/09/17at 08:39; Start 08/02/17 at 09:00 Magnesium Citrate (Citroma) 296 ml PRN 1X PRN PO CONSTIPATION; Start 08/01/17 at 19:45 Magnesium Hydroxide (Milk Of Magnesia) 2,400 mg PRN QHS PRN PO CONSTIPATION; Start 08/01/17 at 19:45 Multi-Ingredient Ointment (Analgesic [place]) 1 renetta PRN QID PRN TP MUSCLE PAIN; Start 08/01/17 at 19:45 Metoprolol Tartrate (Lopressor) 12.5 mg BID PO Last administered on 08/09/17at 19:41; Start 08/01/17 at 21:00 Mineral Oil (Fleet Mineral Oil) 133 ml PRN DAILY PRN RC CONSTIPATION; Start 08/01/17 at 19:45 Lactobacillus Rhamnosus (Culturelle) 1 cap BID PO Last administered on at 19:41; Start 08/01/17 at 21:00 Al Hydroxide/Mg Hydroxide (Mylanta Plus Xs) 15 ml PRN AFTMEALHC PRN PO DYSPEPSIA; Start 08/01/17 at 19:45 Vitamin D (Vitamin D3) 50,000 unit WEEKLY PO Last administered on 08/08/17at 08: 03; Start 08/08/17 at 09:00 Enoxaparin Sodium (Lovenox) 40 mg Q24H SQ Last administered on 08/08/17at 08:02; Start 08/02/17 at 09:00 Prednisone (Prednisone) 40 mg DAILY PO Last administered on 08/03/17at 08:06; Start 08/02/17 at 09:00; Stop 08/03/17 at 13:00; Status DC Prednisone (Prednisone) 30 mg DAILY PO Last administered on 08/06/17at 07:45; Start 08/04/17 at 09:00; Stop 08/06/17 at 13:00; Status DC Prednisone (Prednisone) 20 mg DAILY PO Last administered on 08/09/17at 08:37; Start 08/07/17 at 09:00; Stop 08/09/17 at 13:00; Status DC Prednisone (Prednisone) 15 mg DAILY PO ; Start 08/10/17 at 09:00 Metformin HCl (Glucophage) 500 mg BIDWMEALS PO Last administered on 08/09/17at 16:22; Start 08/02/17 at 08:00 Glimepiride (Amaryl) 1 mg BID PO Last administered on 08/02/17at 08:57; Start 08/01/17 at 21:00; Stop 08/02/17 at 11:50; Status DC Cefpodoxime Proxetil (Vantin) 200 mg BID PO Last administered on 08/06/17at 07:44 ; Start 08/01/17 at 21:00; Stop 08/06/17 at 09:01; Status DC Glimepiride (Amaryl) 1 mg BIDWMEALS PO Last administered on 08/09/17at 16:22; Start 08/02/17 at 17:00 Olanzapine (ZyPREXA ZYDIS) 2.5 mg PRN Q2HR PRN PO PSYCHOSIS Last administered on 08/05/17at 18:30; Start 08/02/17 at 18:30 Active Scripts Active Reported Vitamin D3 (Cholecalciferol (Vitamin D3)) 50,000 Unit Capsule 50,000 Unit PO WEEKLY Culturelle (Lactobacillus Rhamnosus Gg) 1 Each Capsule 1 Cap PO BID Trazodone Hcl 50 Mg Tablet 50 Mg PO PRN QHS PRN Milk Of Magnesia (Magnesium Hydroxide) 400 Mg/5 Ml Oral.susp 2,400 Mg PO PRN QHS PRN Lisinopril 20 Mg Tablet 20 Mg PO DAILY Carbamide Peroxide 15 Ml Drops 5 Drop LEFT EAR BID Metoprolol Tartrate 25 Mg Tablet 12.5 Mg PO BID Zyprexa (Olanzapine) 2.5 Mg Tablet 2.5 Mg PO PRN Q2HR PRN MDD 15mg Mineral Oil Enema (Mineral Oil) 133 Ml Enema 133 Ml RC PRN DAILY PRN Analgesic [place] (Methyl Salicylate/Menthol) 28 Gm Oint...g. 1 [place] TP PRN QID PRN Magnesium Citrate 296 Ml Solution 296 Ml PO PRN 1X PRN Advanced Antacid Liquid (Mag Hydrox/Al Hydrox/Simeth) 355 Ml Oral.susp 15 Ml PO PRN AFTMEALHC PRN Hydrocodone-Apap 5-325 (Hydrocodone Bit/Acetaminophen) 1 Each Tablet 1 Tab PO PRN Q8HRS PRN Colace (Docusate Sodium) 100 Mg Capsule 100 Mg PO DAILY Tylenol (Acetaminophen) 325 Mg Tablet 650 Mg PO PRN Q6HRS PRN Zoloft (Sertraline Hcl) 50 Mg Tablet 50 Mg PO DAILY I have reviewed the current psychotropics carefully including drug interactions. Risk benefit ratio favors no change other than as noted in my dictated progress note. 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
[2017-08-10 06:09] VITALS: BP 125/56
[2017-08-10 07:29] LABS: BASO % 0 % (0-3); EOS # 0.1 x10^3/uL (0.0-0.7); EOS % 1 % (0-3); HEMATOCRIT 33.4 % (39.0-53.0); HEMOGLOBIN 11.4 g/dL (13.0-17.5); LYMPH # 2.1 x10^3/uL (1.0-4.8); LYMPH % 16 % (24-48); MEAN CORPUSCULAR HEMOGLOBIN 32 pg (25-35); MEAN CORPUSCULAR HGB CONC 34 g/dL (31-37); MEAN CORPUSCULAR VOLUME 94 fL (79-100); MONO # 1.1 x10^3/uL (0.0-1.1); MONO % 9 % (0-9); NEUT # 9.6 x10^3uL (1.8-7.7); NEUT % 74 % (31-73); PLATELET COUNT 161 x10^3/uL (140-400); RED BLOOD COUNT 3.57 x10^6/uL (4.30-5.70); RED CELL DISTRIBUTION WIDTH 16.1 % (11.5-14.5)
[2017-08-10] MEDS: GLIMEPIRIDE 2 MG TABLET PO SCH ×2 (07:40→17:15)
[2017-08-10] MEDS: LACTOBACILLUS RHAMNOSUS GG 1 CAPSULE. PO SCH ×2 (07:40→19:41)
[2017-08-10] MEDS: LISINOPRIL 20 MG TABLET PO SCH (07:40)
[2017-08-10] MEDS: DOCUSATE SODIUM 100 MG CAPSULE PO SCH (07:40)
[2017-08-10] MEDS: METOPROLOL TART IMMED RELEASE 25 MG TABLET PO SCH ×2 (07:41→19:42)
[2017-08-10] MEDS: SERTRALINE 50 MG TABLET. PO SCH (07:41)
[2017-08-10] MEDS: metFORMIN 500 MG TABLET PO SCH ×2 (07:41→17:15)
[2017-08-10] MEDS: ENOXAPARIN 40 MG/0.4 ML DISP.SYRIN. SQ SCH (07:44)
[2017-08-10] MEDS: CARBAMIDE PEROXIDE 6.5% OTIC SOLUTION 15ML BOTTLE. AS SCH ×2 (07:46→19:44)
[2017-08-10] MEDS: predniSONE 5 MG TABLET PO SCH (07:46)
[2017-08-10 07:58] LABS: CALCIUM 8.8 mg/dL (8.5-10.1); CREATININE 1.1 mg/dL (0.7-1.3); GFR 64.1; MAGNESIUM 1.7 mg/dL (1.8-2.4); POTASSIUM 4.3 mmol/L (3.5-5.1); TOTAL BILIRUBIN 0.4 mg/dL (0.2-1.0)
[2017-08-10 08:08] LABS: % BANDS 1 % (0-9); % BASOS 0 % (0-3); % EOS 1 % (0-5); % LYMPHS 21 % (24-48); % MONOS 4 % (0-10); % SEGS 73 % (35-66); PLT ESTIMATE ADEQUATE (ADEQUATE)
--- NOTE | 2017-08-10 10:31 | PN ---
DATE: 08/08/2017 This late entry, 08/08/2017, covers elements not covered in my initial note of 08/08/2017. SUBJECTIVE: I met with the patient the evening of 08/08/2017. The patient remains confused, but pleasant, wandering with a walker. REVIEW OF SYSTEMS: No CV, , pulmonary, eye system symptoms on review, smiling as I sat with him. MENTAL STATUS EXAM: Oriented to himself. Insight, judgment, recent and remote memory, attention, concentration, fund of knowledge poor, consistent with his diagnosis mentioned in my initial note. IMPRESSION: Unchanged from initial note. PLAN: Continue current psychotropics. MAN Robinson GUY MD DR: RAJAN/nathan JOB#: [id number] / [id number]
[2017-08-10 16:15] VITALS: BP 163/70
--- NOTE | 2017-08-10 19:14 | PN ---
DATE: 08/09/2017 This late entry 08/09/2017 covers elements not covered in my initial note 08/09/2017. Met with the patient in the evening of 08/09/2017. The patient remains confused, but very pleasant, cooperative. 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 He told me that [place] was about 25 miles from [place]. When I asked about him about how many hands he had hired to help him with this land, he indicated he had 6 children who helped him, unable to remember how he did before the children grew up, but said he did at all himself. Pleasant, verbal, certainly confused, ambulates with supervision. No CV, , pulmonary, eye system symptoms on review. MENTAL STATUS EXAM: Oriented to himself. Insight, judgment, recent and remote memory, attention, concentration, fund of knowledge poor, consistent with his diagnosis mentioned in my initial note plan. PLAN: Continue current psychotropics. Transition to a lower level of care early next week. MAN Robinson GUY MD DR: RAJAN/nathan JOB#: [id number] / [id number]
[2017-08-10] MEDS: traZODone 50 MG TABLET. PO PRN (19:45)
--- NOTE | 2017-08-10 21:04 | PDOC ---
Exam Note: Lars Note: Please also refer to the separate dictated note~for this date of service dictated separately.~Patient seen individually. Discussed the patient with Nursing staff reviewed the chart.~Reviewed interim history and current functioning. Reviewed vital signs,~Labs/ Radiology~and current medications noted below. Continue current treatment with the changes noted in the dictated addendum note Assessment: Vital Signs: Vital Signs Date Time Temp Pulse Resp B/P (MAP) Pulse Ox O2 Delivery O2 Flow Rate FiO2 08/10/17 19:42 88 163/70 08/10/17 16:15 97.1 18 96 08/09/17 16:19 Room Air I&O Intake and Output 08/10/17 07:00 Intake Total 1300 ml Balance 1300 ml Intake Oral 1300 ml # Voids 1 # Bowel Movements 1 Labs: Laboratory Tests Test 08/10/17 06:47 White Blood Count 13.0 x10^3/uL (4.0-11.0) H Red Blood Count 3.57 x10^6/uL (4.30-5.70) L Hemoglobin 11.4 g/dL (13.0-17.5) L Hematocrit 33.4 % (39.0-53.0) L Mean Corpuscular Volume 94 fL (79-100) Mean Corpuscular Hemoglobin 32 pg (25-35) Mean Corpuscular Hemoglobin Concent 34 g/dL (31-37) Red Cell Distribution Width 16.1 % (11.5-14.5) H Platelet Count 161 x10^3/uL (140-400) Neutrophils (%) (Auto) 74 % (31-73) H Lymphocytes (%) (Auto) 16 % (24-48) L Monocytes (%) (Auto) 9 % (0-9) Eosinophils (%) (Auto) 1 % (0-3) Basophils (%) (Auto) 0 % (0-3) Neutrophils # (Auto) 9.6 x10^3uL (1.8-7.7) H Lymphocytes # (Auto) 2.1 x10^3/uL (1.0-4.8) Monocytes # (Auto) 1.1 x10^3/uL (0.0-1.1) Eosinophils # (Auto) 0.1 x10^3/uL (0.0-0.7) Basophils # (Auto) 0.0 x10^3/uL (0.0-0.2) Segmented Neutrophils % 73 % (35-66) H Band Neutrophils % 1 % (0-9) Lymphocytes % 21 % (24-48) L Monocytes % 4 % (0-10) Eosinophils % 1 % (0-5) Basophils % 0 % (0-3) Platelet Estimate Adequate (ADEQUATE) Sodium Level 138 mmol/L (136-145) Potassium Level 4.3 mmol/L (3.5-5.1) Chloride Level 102 mmol/L (98-107) Carbon Dioxide Level 32 mmol/L (21-32) Anion Gap 4 (6-14) L Blood Urea Nitrogen 31 mg/dL (8-26) H Creatinine 1.1 mg/dL (0.7-1.3) Estimated GFR (Cockcroft-Gault) 64.1 BUN/Creatinine Ratio 28 (6-20) H Glucose Level 66 mg/dL (70-99) L Calcium Level 8.8 mg/dL (8.5-10.1) Magnesium Level 1.7 mg/dL (1.8-2.4) L Total Bilirubin 0.4 mg/dL (0.2-1.0) Aspartate Amino Transferase (AST) 21 U/L (15-37) Alanine Aminotransferase (ALT) 44 U/L (16-63) Alkaline Phosphatase 101 U/L (46-116) Total Protein 6.0 g/dL (6.4-8.2) L Albumin 3.0 g/dL (3.4-5.0) L Albumin/Globulin Ratio 1.0 (1.0-1.7) Current Medications: Meds: Current Medications Olanzapine (ZyPREXA) 2.5 mg PRN Q2HR PRN PO ANXIETY / AGITATION; Start 08/01/17 at 19:30; Stop 08/02/17 at 18:30; Status DC Sertraline HCl (Zoloft) 50 mg DAILY PO Last administered on 08/10/17at 07:41; Start 08/02/17 at 09:00 Trazodone HCl (Desyrel) 50 mg PRN QHS PRN PO INSOMNIA, MAY REPEAT X1 Last administered on 08/10/17at 19:45; Start 08/01/17 at 19:30 Acetaminophen (Tylenol) 650 mg PRN Q6HRS PRN PO PAIN / TEMP; Start 08/01/17 at 19:45 Carbamide Peroxide (Debrox) 5 drop BID Last administered on 08/10/17at 19:44 ; Start 08/01/17 at 21:00 Docusate Sodium (Colace) 100 mg DAILY PO Last administered on 08/10/17at 07:40; Start 08/02/17 at 09:00 Acetaminophen/ Hydrocodone Bitart (Lortab 5/325) 1 tab PRN Q8HRS PRN PO PAIN; Start 08/01/17 at 19:45 Lisinopril (Prinivil) 20 mg DAILY PO Last administered on 08/09/17at 08:39; Start 08/02/17 at 09:00 Magnesium Citrate (Citroma) 296 ml PRN 1X PRN PO CONSTIPATION; Start 08/01/17 at 19:45 Magnesium Hydroxide (Milk Of Magnesia) 2,400 mg PRN QHS PRN PO CONSTIPATION; Start 08/01/17 at 19:45 Multi-Ingredient Ointment (Analgesic [place]) 1 renetta PRN QID PRN TP MUSCLE PAIN; Start 08/01/17 at 19:45 Metoprolol Tartrate (Lopressor) 12.5 mg BID PO Last administered on 08/10/17at 19:42; Start 08/01/17 at 21:00 Mineral Oil (Fleet Mineral Oil) 133 ml PRN DAILY PRN RC CONSTIPATION; Start 08/01/17 at 19:45 Lactobacillus Rhamnosus (Culturelle) 1 cap BID PO Last administered on at 19:41; Start 08/01/17 at 21:00 Al Hydroxide/Mg Hydroxide (Mylanta Plus Xs) 15 ml PRN AFTMEALHC PRN PO DYSPEPSIA; Start 08/01/17 at 19:45 Vitamin D (Vitamin D3) 50,000 unit WEEKLY PO Last administered on 08/08/17at 08: 03; Start 08/08/17 at 09:00 Enoxaparin Sodium (Lovenox) 40 mg Q24H SQ Last administered on 08/10/17at 07:44 ; Start 08/02/17 at 09:00 Prednisone (Prednisone) 40 mg DAILY PO Last administered on 08/03/17at 08:06; Start 08/02/17 at 09:00; Stop 08/03/17 at 13:00; Status DC Prednisone (Prednisone) 30 mg DAILY PO Last administered on 08/06/17at 07:45; Start 08/04/17 at 09:00; Stop 08/06/17 at 13:00; Status DC Prednisone (Prednisone) 20 mg DAILY PO Last administered on 08/09/17at 08:37; Start 08/07/17 at 09:00; Stop 08/09/17 at 13:00; Status DC Prednisone (Prednisone) 15 mg DAILY PO Last administered on 08/10/17at 07:46; Start 08/10/17 at 09:00 Metformin HCl (Glucophage) 500 mg BIDWMEALS PO Last administered on 08/10/17at 17:15; Start 08/02/17 at 08:00 Glimepiride (Amaryl) 1 mg BID PO Last administered on 08/02/17at 08:57; Start 08/01/17 at 21:00; Stop 08/02/17 at 11:50; Status DC Cefpodoxime Proxetil (Vantin) 200 mg BID PO Last administered on 08/06/17at 07:44 ; Start 08/01/17 at 21:00; Stop 08/06/17 at 09:01; Status DC Glimepiride (Amaryl) 1 mg BIDWMEALS PO Last administered on 08/10/17at 17:15; Start 08/02/17 at 17:00 Olanzapine (ZyPREXA ZYDIS) 2.5 mg PRN Q2HR PRN PO PSYCHOSIS Last administered on 08/05/17at 18:30; Start 08/02/17 at 18:30 Active Scripts Active Reported Vitamin D3 (Cholecalciferol (Vitamin D3)) 50,000 Unit Capsule 50,000 Unit PO WEEKLY Culturelle (Lactobacillus Rhamnosus Gg) 1 Each Capsule 1 Cap PO BID Trazodone Hcl 50 Mg Tablet 50 Mg PO PRN QHS PRN Milk Of Magnesia (Magnesium Hydroxide) 400 Mg/5 Ml Oral.susp 2,400 Mg PO PRN QHS PRN Lisinopril 20 Mg Tablet 20 Mg PO DAILY Carbamide Peroxide 15 Ml Drops 5 Drop LEFT EAR BID Metoprolol Tartrate 25 Mg Tablet 12.5 Mg PO BID Zyprexa (Olanzapine) 2.5 Mg Tablet 2.5 Mg PO PRN Q2HR PRN MDD 15mg Mineral Oil Enema (Mineral Oil) 133 Ml Enema 133 Ml RC PRN DAILY PRN Analgesic [place] (Methyl Salicylate/Menthol) 28 Gm Oint...g. 1 Renetta TP PRN QID PRN Magnesium Citrate 296 Ml Solution 296 Ml PO PRN 1X PRN Advanced Antacid Liquid (Mag Hydrox/Al Hydrox/Simeth) 355 Ml Oral.susp 15 Ml PO PRN AFTMEALHC PRN Hydrocodone-Apap 5-325 (Hydrocodone Bit/Acetaminophen) 1 Each Tablet 1 Tab PO PRN Q8HRS PRN Colace (Docusate Sodium) 100 Mg Capsule 100 Mg PO DAILY Tylenol (Acetaminophen) 325 Mg Tablet 650 Mg PO PRN Q6HRS PRN Zoloft (Sertraline Hcl) 50 Mg Tablet 50 Mg PO DAILY I have reviewed the current psychotropics carefully including drug interactions. Risk benefit ratio favors no change other than as noted in my dictated progress note. 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
[2017-08-11] MEDS ORDERED: GLIM1TAB2 PO (00:56)
[2017-08-11] MEDS ORDERED: METF500T4 PO (00:58)
[2017-08-11] MEDS ORDERED: PRED5TAB PO (01:01)
[2017-08-11 05:46] VITALS: BP 146/76
[2017-08-11] MEDS: LACTOBACILLUS RHAMNOSUS GG 1 CAPSULE. PO SCH (08:55)
[2017-08-11] MEDS: metFORMIN 500 MG TABLET PO SCH (08:55)
[2017-08-11] MEDS: GLIMEPIRIDE 2 MG TABLET PO SCH (08:55)
[2017-08-11] MEDS: DOCUSATE SODIUM 100 MG CAPSULE PO SCH (08:55)
[2017-08-11 08:56] VITALS: BP 146/76
[2017-08-11] MEDS: LISINOPRIL 20 MG TABLET PO SCH (08:56)
[2017-08-11] MEDS: METOPROLOL TART IMMED RELEASE 25 MG TABLET PO SCH (08:56)
[2017-08-11] MEDS: predniSONE 5 MG TABLET PO SCH (08:56)
[2017-08-11] MEDS: SERTRALINE 50 MG TABLET. PO SCH (08:56)
--- NOTE | 2017-08-11 20:18 | PDOC ---
Exam Note: Lars Note: Please also refer to the separate dictated note~for this date of service dictated separately.~Patient seen individually. Discussed the patient with Nursing staff reviewed the chart.~Reviewed interim history and current functioning. Reviewed vital signs,~Labs/ Radiology~and current medications noted below. Continue current treatment with the changes noted in the dictated addendum note Assessment: Vital Signs: Vital Signs Date Time Temp Pulse Resp B/P (MAP) Pulse Ox O2 Delivery O2 Flow Rate FiO2 08/11/17 08:56 80 146/76 08/11/17 05:46 97.6 16 93 08/09/17 16:19 Room Air I&O Intake and Output 08/11/17 07:00 Intake Total 840 ml Balance 840 ml Intake Oral 840 ml Current Medications: Meds: Current Medications Olanzapine (ZyPREXA) 2.5 mg PRN Q2HR PRN PO ANXIETY / AGITATION; Start 08/01/17 at 19:30; Stop 08/02/17 at 18:30; Status DC Sertraline HCl (Zoloft) 50 mg DAILY PO Last administered on 08/11/17at 08:56; Start 08/02/17 at 09:00; Stop 08/11/17 at 11:59; Status DC Trazodone HCl (Desyrel) 50 mg PRN QHS PRN PO INSOMNIA, MAY REPEAT X1 Last administered on 08/10/17at 19:45; Start 08/01/17 at 19:30; Stop 08/11/17 at 11:59 ; Status DC Acetaminophen (Tylenol) 650 mg PRN Q6HRS PRN PO PAIN / TEMP; Start 08/01/17 at 19:45; Stop 08/11/17 at 11:59; Status DC Carbamide Peroxide (Debrox) 5 drop BID Last administered on 08/10/17at 19:44 ; Start 08/01/17 at 21:00; Stop 08/11/17 at 11:59; Status DC Docusate Sodium (Colace) 100 mg DAILY PO Last administered on 08/11/17at 08:55; Start 08/02/17 at 09:00; Stop 08/11/17 at 11:59; Status DC Acetaminophen/ Hydrocodone Bitart (Lortab 5/325) 1 tab PRN Q8HRS PRN PO PAIN; Start 08/01/17 at 19:45; Stop 08/11/17 at 11:59; Status DC Lisinopril (Prinivil) 20 mg DAILY PO Last administered on 08/11/17at 08:56; Start 08/02/17 at 09:00; Stop 08/11/17 at 11:59; Status DC Magnesium Citrate (Citroma) 296 ml PRN 1X PRN PO CONSTIPATION; Start 08/01/17 at 19:45; Stop 08/11/17 at 11:59; Status DC Magnesium Hydroxide (Milk Of Magnesia) 2,400 mg PRN QHS PRN PO CONSTIPATION; Start 08/01/17 at 19:45; Stop 08/11/17 at 11:59; Status DC Multi-Ingredient Ointment (Analgesic [place]) 1 renetta PRN QID PRN TP MUSCLE PAIN; Start 08/01/17 at 19:45; Stop 08/11/17 at 11:59; Status DC Metoprolol Tartrate (Lopressor) 12.5 mg BID PO Last administered on 08/11/17at 08:56; Start 08/01/17 at 21:00; Stop 08/11/17 at 11:59; Status DC Mineral Oil (Fleet Mineral Oil) 133 ml PRN DAILY PRN RC CONSTIPATION; Start 08/01/17 at 19:45; Stop 08/11/17 at 11:59; Status DC Lactobacillus Rhamnosus (Culturelle) 1 cap BID PO Last administered on at 08:55; Start 08/01/17 at 21:00; Stop 08/11/17 at 11:59; Status DC Al Hydroxide/Mg Hydroxide (Mylanta Plus Xs) 15 ml PRN AFTMEALHC PRN PO DYSPEPSIA; Start 08/01/17 at 19:45; Stop 08/11/17 at 11:59; Status DC Vitamin D (Vitamin D3) 50,000 unit WEEKLY PO Last administered on 08/08/17at 08: 03; Start 08/08/17 at 09:00; Stop 08/11/17 at 11:59; Status DC Enoxaparin Sodium (Lovenox) 40 mg Q24H SQ Last administered on 08/10/17at 07:44 ; Start 08/02/17 at 09:00; Stop 08/11/17 at 11:59; Status DC Prednisone (Prednisone) 40 mg DAILY PO Last administered on 08/03/17at 08:06; Start 08/02/17 at 09:00; Stop 08/03/17 at 13:00; Status DC Prednisone (Prednisone) 30 mg DAILY PO Last administered on 08/06/17at 07:45; Start 08/04/17 at 09:00; Stop 08/06/17 at 13:00; Status DC Prednisone (Prednisone) 20 mg DAILY PO Last administered on 08/09/17at 08:37; Start 08/07/17 at 09:00; Stop 08/09/17 at 13:00; Status DC Prednisone (Prednisone) 15 mg DAILY PO Last administered on 08/11/17at 08:56; Start 08/10/17 at 09:00; Stop 08/11/17 at 11:59; Status DC Metformin HCl (Glucophage) 500 mg BIDWMEALS PO Last administered on 08/11/17at 08:55; Start 08/02/17 at 08:00; Stop 08/11/17 at 11:59; Status DC Glimepiride (Amaryl) 1 mg BID PO Last administered on 08/02/17at 08:57; Start 08/01/17 at 21:00; Stop 08/02/17 at 11:50; Status DC Cefpodoxime Proxetil (Vantin) 200 mg BID PO Last administered on 08/06/17at 07:44 ; Start 08/01/17 at 21:00; Stop 08/06/17 at 09:01; Status DC Glimepiride (Amaryl) 1 mg BIDWMEALS PO Last administered on 08/11/17at 08:55; Start 08/02/17 at 17:00; Stop 08/11/17 at 11:59; Status DC Olanzapine (ZyPREXA ZYDIS) 2.5 mg PRN Q2HR PRN PO PSYCHOSIS Last administered on 08/05/17at 18:30; Start 08/02/17 at 18:30; Stop 08/11/17 at 11:59; Status DC Active Scripts Active Reported Prednisone 5 Mg Tablet 15 Mg PO DAILY Metformin Hcl 500 Mg Tablet 250 Mg PO BIDWMEALS Glimepiride 1 Mg Tablet 1 Mg PO BID Vitamin D3 (Cholecalciferol (Vitamin D3)) 50,000 Unit Capsule 50,000 Unit PO WEEKLY Trazodone Hcl 50 Mg Tablet 50 Mg PO PRN QHS PRN Milk Of Magnesia (Magnesium Hydroxide) 400 Mg/5 Ml Oral.susp 2,400 Mg PO PRN QHS PRN Lisinopril 20 Mg Tablet 20 Mg PO DAILY Metoprolol Tartrate 25 Mg Tablet 12.5 Mg PO BID Zyprexa (Olanzapine) 2.5 Mg Tablet 2.5 Mg PO PRN Q2HR PRN MDD 10mg Analgesic [place] (Methyl Salicylate/Menthol) 28 Gm Oint...g. 1 Renetta TP PRN QID PRN Colace (Docusate Sodium) 100 Mg Capsule 100 Mg PO DAILY Tylenol (Acetaminophen) 325 Mg Tablet 650 Mg PO PRN Q6HRS PRN Zoloft (Sertraline Hcl) 50 Mg Tablet 50 Mg PO DAILY I have reviewed the current psychotropics carefully including drug interactions. Risk benefit ratio favors no change other than as noted in my dictated progress note. Diagnosis: Problems: (1) Altered mental status (2) Delusion (3) Dementia with behavioral problem (4) Vascular dementia with behavior disturbance (5) Behavior problem (6) Anxiety disorder (7) Dementia in Alzheimer's disease with delusions (8) Dementia, vascular, with delusions (9) Dementia, vascular, with depression (10) Dementia in Alzheimer's disease with depression (11) Impulse control disorder AMPARO GUY MD Aug 11, 2017 20:18
--- NOTE | 2017-08-11 21:49 | PN ---
DATE: 08/11/2017 This late entry of 08/10/2017 covers the elements not covered in my initial note 08/10/2017. HISTORY OF PRESENT ILLNESS: I met with the patient in the evening of 08/10/2017. Overall, the patient remains confused, but is doing better. Received trazodone previous evening, but was not repeated. Pleasant, verbal, smiling as I met with him, oblivious of his surroundings. REVIEW OF SYSTEMS: Ambulation impaired with walker. No CV, , pulmonary, eye system symptoms on review. MENTAL STATUS EXAM: Oriented to himself. Insight, judgment, recent and remote memory, attention, concentration, fund of knowledge poor, consistent with his diagnosis mentioned in my initial note. IMPRESSION: Unchanged from initial note. PLAN: Continue current psychotropics. Adjust as clinically indicated. MAN Robinson GUY MD DR: RAJAN/nathan JOB#: [id number] / [id number]
--- NOTE | 2017-08-12 13:07 | DS ---
DATE OF DISCHARGE: 08/11/2017 DISCHARGE SUMMARY/PSYCHIATRIC PROGRESS NOTE This is a late entry 08/11/2017, covers elements not covered in my initial note 08/11/2017. I met with the patient individually. REASON FOR ADMISSION: Please refer to the admission history for details. Briefly, the patient is an 82-year-old male initially referred to us from the [facility] with worsening confusion/dementia symptoms with delusions, behavioral disturbance. He was psychiatrically stabilized, became over sedated, dehydrated, transferred to [address] [place] [address]. Behaviors persisted despite medical stabilization. Returned back to us on 08/01/2017. SIGNIFICANT FINDINGS AND CLINICAL COURSE: Following admission, the patient was seen daily individually by myself, followed medically per Dr. Marquez/Dr. Loja. Psychotropics were minimized to avoid sedation and he was much more awake, ambulating with a walker, pleasant, less psychotic. Mood was improved, less anxious. REVIEW OF SYSTEMS: Prior to discharge on 08/11/2017, ambulation impaired with walker. No CV, , pulmonary, eye, ENT system symptoms on review. Reliability poor. MENTAL STATUS EXAM: Oriented to himself. Insight, judgment, recent and remote memory, attention, concentration, fund of knowledge poor, consistent with his diagnoses mentioned in my initial note. FINAL DIAGNOSES: Major neurocognitive disorder, Alzheimer, vascular with delusion, depression, behavioral disturbance; anxiety disorder, unspecified; impulse control disorder, unspecified. Rest unchanged from admission. DISCHARGE MEDICATIONS: Please refer to the . DISCHARGE INSTRUCTIONS: Outpatient psychiatric and medical followup at the correction. AMPARO GUY MD DR: RAJAN/nathan JOB#: [id number] / [id number]
== END 2017-08-11 09:40 | DRG 56 ==
LOC: UNDOADMIN 18:56 → GEROPSY 18:56
PROVIDERS: ADMIT Psychiatry & Neurology Psychiatry; ATTEND Psychiatry & Neurology Psychiatry
DX: G30.9 Alzheimer's disease, unspecified (principal); E41 Nutritional marasmus; E86.0 Dehydration; F01.51 Vascular dementia, unspecified severity, with behavioral disturbance; E11.9 Type 2 diabetes mellitus without complications; E43 Unspecified severe protein-calorie malnutrition; D72.829 Elevated white blood cell count, unspecified; F02.81 Dementia in other diseases classified elsewhere, unspecified severity, with behavioral disturbance; I10 Essential (primary) hypertension; Z68.23 Body mass index [BMI] 23.0-23.9, adult; F32.9 Major depressive disorder, single episode, unspecified; F41.9 Anxiety disorder, unspecified; F63.9 Impulse disorder, unspecified; I25.10 Atherosclerotic heart disease of native coronary artery without angina pectoris; M35.3 Polymyalgia rheumatica; Z66 Do not resuscitate; Z86.73 Personal history of transient ischemic attack (TIA), and cerebral infarction without residual deficits; Z95.0 Presence of cardiac pacemaker; Z95.5 Presence of coronary angioplasty implant and graft; Z88.8 Allergy status to other drugs, medicaments and biological substances; Z91.83 Wandering in diseases classified elsewhere
CPT/HCPCS: 36415; 80053; 83735; 85007; 85025; 85651; 86140; J1650; J7512; 92610; 97116; 97530